=== PATIENT | male | born 1970 | race African-American/Black ===

== ENCOUNTER 2018-06-21 10:33 | Inpatient (IN) | payer OTHER ==
[2018-06-21 10:49] VITALS: BMI 38.7
--- NOTE | 2018-06-21 12:45 | HP ---
CIWA Score - CIWA Score Nausea/Vomitin-No Nausea/No Vomiting Muscle Tremors: 4-Moderate,w/Arms Extend Anxiety: 3 Agitation: 3 Paroxysmal Sweats: 3 Orientation: 1-Uncertain about Date Tacttile Disturbances: 0-None Auditory Disturbances: 0-None Visual Disturbances: 0-None Headache: 3-Moderate CIWA-Ar Total Score: 17 Admission ROS BHS - HPI Chief Complaint: alcohol withdrawal symptoms Allergies/Adverse Reactions: Allergies Allergy/AdvReac Type Severity Reaction Status Date / Time peanut Allergy Severe Difficulty Verified 09/21/17 13:59 Breathing fish derived Allergy Intermediate Verified 09/21/17 13:59 No Known Drug Allergies Allergy Unknown Verified 09/21/17 13:59 red sauce Allergy Uncoded 09/21/17 13:59 History of Present Illness: 47 yo male with hx of nicotine, cocaine and alcohol dependence is here seeking admission for alcohol detox. PMHX: HTN, OA (L) knee. Denies any psychiatric diagnosis. Denies suicidal / homicidal ideation. Utox positive for benzo, denies any recent detox, hospital admission or emergency room visit, attributes to last cocaine use. Last detox [facility] 09/21/17 -09/24/17. Longest period of sobriety 11 months. Denies hx of seizures or blackouts. Exam Limitations: No Limitations - Ebola screening Have you traveled outside of the country in the last 21 days: No Have you had contact with anyone from an Ebola affected area: No Have you been sick,other than usual withdrawal symptoms: No Do you have a fever: No - Review of Systems Constitutional: Diaphoresis, Changes in sleep EENT: reports: No Symptoms Reported Respiratory: reports: No Symptoms reported Cardiac: reports: No Symptoms Reported GI: reports: Poor Fluid Intake, Indigestion : reports: No Symptoms Reported Musculoskeletal: reports: Back Pain, Joint Pain Integumentary: reports: No Symptoms Reported Neuro: reports: Headache Endocrine: reports: Increased Thirst Hematology: reports: No Symptoms Reported Psychiatric: reports: Orientated x3, Anxious Other Systems: Reviewed and Negative Patient History - Patient Medical History Hx Anemia: No Hx Asthma: No Hx Chronic Obstructive Pulmonary Disease (COPD): No Hx Cancer: No Hx Cardiac Disorders: No Hx Congestive Heart Failure: No Hx Hypertension: Yes Hx Hypercholesterolemia: No Hx Pacemaker: No HX Cerebrovascular Accident: No Hx Seizures: No Hx Dementia: No Hx Diabetes: No Hx Gastrointestinal Disorders: No Hx Liver Disease: Yes (elevated liver enymes ) Hx Genitourinary Disorders: No Hx Sexually Transmitted Disorders: No Hx Renal Disease (ESRD): No Hx Thyroid Disease: No Hx Human Immunodeficiency Virus (HIV): No (NEGATIVE HX, Last tested Sep 2017, declines testing today ) Hx Hepatitis C: No Hx Depression: No Hx Suicide Attempt: No Hx Bipolar Disorder: No Hx Schizophrenia: No - Patient Surgical History Past Surgical History: No Hx Neurologic Surgery: No Hx Cataract Extraction: No Hx Cardiac Surgery: No Hx Lung Surgery: No Hx Breast Surgery: No Hx Breast Biopsy: No Hx Abdominal Surgery: No Hx Appendectomy: No Hx Cholecystectomy: No Hx Genitourinary Surgery: No Hx Section: No Hx Orthopedic Surgery: No Hx Hysterectomy: No Anesthesia Reaction: No - PPD History Previous Implant?: Yes Implanted On Prior [facility] Admission?: Yes Date: 09/23/17 Results: 0 mm PPD to be Administered?: Yes - Smoking Cessation Smoking history: Current every day smoker Have you smoked in the past 12 months: Yes Aproximately how many cigarettes per day: 10 Cigars Per Day: 0 Hx Chewing Tobacco Use: No Initiated information on smoking cessation: Yes 'Breaking Loose' booklet given: 06/21/18 - Substance & Tx. History Hx Alcohol Use: Yes Hx Substance Use: Yes Substance Use Type: Alcohol, Cocaine Hx Substance Use Treatment: Yes ([facility] 09/21/17 -09/24/17) - Substances Abused Alcohol Route: Oral Frequency: Daily Amount used: 10 40 oz Age of first use: 18 Date of Last Use: 06/21/18 Cocaine Route: Inhalation Frequency: 1-2 times per week Amount used: $20 Age of first use: 35 Date of Last Use: 06/19/18 Family Disease History - Family Disease History Family Disease History: Other: Grandparent (arthritis of knees), Mother (heroin overdose; dec @ 30 yo), Brother (alcoho/cirrhosis) Admission Physical Exam S - Vital Signs Vital Signs: Vital Signs - 24 hr 06/21/18 10:47 Temperature 98.9 F Pulse Rate 94 H Respiratory 20 Rate Blood Pressure 125/70 - Physical General Appearance: Yes: Disheveled, Obese, Sweating, Anxious, Other (malodorous ) HEENTM: Yes: EOMI, Hearing grossly Normal, Normal ENT Inspection, Normocephalic , Normal Voice, WES, Pharynx Normal, Tm's normal Respiratory: Yes: Chest Non-Tender, Lungs Clear, Normal Breath Sounds, No Respiratory Distress, No Accessory Muscle Use Neck: Yes: No masses,lesions,Nodules, Trachea in good position Breast: Yes: Breast Exam Deferred Cardiology: Yes: Within Normal Limits Abdominal: Yes: Normal Bowel Sounds, Non Tender, Soft, Protuberent Genitourinary: Yes: Within Normal Limits Back: Yes: Normal Inspection Musculoskeletal: Yes: full range of Motion, Gait Steady, Pelvis Stable, Back pain Extremities: Yes: Normal Capillary Refill, Normal Inspection, Normal Range of Motion, Non-Tender 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, Fully Oriented, Alert, Motor Strength 5/5, Normal Response, Depressed Affect Integumentary: Yes: Normal Color, Warm, Diaphoresis Lymphatic: Yes: Within Normal Limits - Diagnostic (1) Alcohol dependence with uncomplicated withdrawal Current Visit: Yes Status: Acute (2) Arthritis of left knee Current Visit: Yes Status: Chronic (3) Chronic low back pain Current Visit: Yes Status: Chronic Qualifiers: Back pain laterality: midline Sciatica presence: without sciatica Qualified Code(s): M54.5 - Low back pain; G89.29 - Other chronic pain (4) Cocaine dependence Current Visit: Yes Status: Acute (5) Nicotine dependence Current Visit: Yes Status: Acute Qualifiers: Nicotine product type: cigarettes (6) Essential hypertension Current Visit: Yes Status: Chronic (7) Obesity Current Visit: Yes Status: Chronic Cleared for Admission [facility] - Detox or Rehab [facility] Level of Care: Medically Managed Detox Regimen/Protocol: Librium [facility] Breath Alcohol Content Breath Alcohol Content: 0.011 Urine Drug Screen - Results Drug Screen Negative: No Urine Drug Screen Results: CARLI-Cocaine, BZO-Benzodiazepines
[2018-06-21] MEDS ORDERED: chlordiazePOXIDE HCL 25 MG CAPSULE PO PRN (12:50)
[2018-06-21] MEDS ORDERED: MAGNESIUM CITRATE 300 ML BOTTLE PO PRN (12:50)
[2018-06-21] MEDS ORDERED: MAG HYDROX/AL HYDROX/SIMETH 30 ML UNIT-DOSE CUP PO PRN (12:50)
[2018-06-21] MEDS ORDERED: P-EPHED 60MG/TRIPROLIDI 2.5MG TABLET PO PRN (12:50)
[2018-06-21] MEDS ORDERED: IBUPROFEN 400 MG TABLET (FP) PO PRN (12:50)
[2018-06-21] MEDS ORDERED: hydrOXYzine PAMOATE 50 MG CAPSULE (FP) PO PRN (12:50)
[2018-06-21] MEDS ORDERED: MAGNESIUM HYDROX 2400MG/30ML ORAL SUSPENSION 30 ML CUP PO PRN (12:50)
[2018-06-21] MEDS ORDERED: LOPERAMIDE HCL 2 MG CAPSULE PO PRN (12:50)
[2018-06-21] MEDS ORDERED: ACETAMINOPHEN 325 MG TABLET (FP) PO PRN (12:50)
[2018-06-21] MEDS ORDERED: guaiFENesin/D-METHORPHAN HB 10 ML UNIT-DOSE CUPS PO PRN (12:50)
[2018-06-21] MEDS ORDERED: MENTHOL/PHENOL 1 EACH UD MM PRN (12:50)
[2018-06-21] MEDS ORDERED: NICOTINE POLACRILEX 2 MG GUM BUC PRN (12:50)
[2018-06-21] MEDS ORDERED: chlordiazePOXIDE HCL 25 MG CAPSULE PO ONE (14:15)
--- NOTE | 2018-06-21 14:57 | CONSULT ---
[facility] Psychiatric Consult - Data Date of interview: 06/21/18 Admission source: [facility] Identifying data: This is 47 years old male, , father of one, unemployed , with no income, obese, with hx of nicotine, cocaine and alcohol dependence is here seeking admission for alcohol withdrawal symptoms. Patient reports no past psychiatric hospitalization history Substance Abuse History: Smoking history: Current every day smoker. Have you smoked in the past 12 months: Yes. Aproximately how many cigarettes per day: 10. Cigars Per Day: 0. Hx Chewing Tobacco Use: No. Initiated information on smoking cessation: Yes. 'Breaking Loose' booklet given: 06/21/18. - Substance & Tx. History. Hx Alcohol Use: Yes. Hx Substance Use: Yes. Substance Use Type : Alcohol, Cocaine. Hx Substance Use Treatment: Yes ([facility] 09/21/17 -09/24/17). - Substances Abused. Alcohol. Route: Oral. Frequency: Daily. Amount used : 10 40 oz. Age of first use: 18. Date of Last Use: 06/21/18. Cocaine. Route: Inhalation. Frequency: 1-2 times per week. Amount used: $20. Age of first use: 35. Date of Last Use: 06/19/18 Medical History: Obesity, L.knee arthritis, HTN, LBP Psychiatric History: Patient reports no past psychiatric history Physical/Sexual Abuse/Trauma History: Denies Additional Comment: Observation. Detox Unit Care Protocolo Mental Status Exam - Mental Status Exam Alert and Oriented to: Person Cognitive Function: Fair Patient Appearance: Unkempt Mood: Apprehensive Affect: Mood Congruent Patient Behavior: Cooperative Speech Pattern: Appropriate Voice Loudness: Mildly Soft/Quiet Thought Process: Goal Oriented Thought Disorder: Being Controlled Hallucinations: Denies Suicidal Ideation: Denies Homicidal Ideation: Denies Insight/Judgement: Fair Sleep: Difficulty falling asleep Appetite: Weight gain Muscle strength/Tone: Mild Hypotonicity Gait/Station: Shuffling Additional Comments: Observation. Detox Unit Care Protocolo Psychiatric Findings - Problem List ([place]) (1) Alcohol dependence with uncomplicated withdrawal Current Visit: Yes Status: Acute (2) Cocaine dependence Current Visit: Yes Status: Acute (3) Nicotine dependence Current Visit: Yes Status: Acute Qualifiers: Nicotine product type: cigarettes (4) Arthritis of left knee Current Visit: Yes Status: Chronic (5) Chronic low back pain Current Visit: Yes Status: Chronic Qualifiers: Back pain laterality: midline Sciatica presence: without sciatica Qualified Code(s): M54.5 - Low back pain; G89.29 - Other chronic pain (6) Obesity Current Visit: Yes Status: Chronic (7) Alcohol-induced anxiety disorder Current Visit: No Status: Acute (8) Alcohol-induced sleep disorder Current Visit: No Status: Acute (9) Drug-induced mood disorder Current Visit: No Status: Acute (10) Sedative/hypnotic withdrawal without complication Current Visit: No Status: Acute (11) Arthralgia of knee, left Current Visit: No Status: Chronic - Initial Treatment Plan Initial Treatment Plan: Observation. Detox Unit Care Protocolo
--- NOTE | 2018-06-21 16:47 | EKG ---
Test Reason : Blood Pressure : / mmHG Vent. Rate : 089 BPM Atrial Rate : 089 BPM P-R Int : 164 ms QRS Dur : 090 ms QT Int : 384 ms P-R-T Axes : 051 009 039 degrees QTc Int : 467 ms NORMAL SINUS RHYTHM NORMAL ECG WHEN COMPARED WITH ECG OF 21-SEP-2017 18:25, NO SIGNIFICANT CHANGE WAS FOUND Confirmed by AMANUEL SALAS MD ([id number]) on 06/21/2018 4:47:22 PM Referred By: Confirmed By:AMANUEL SALAS MD
[2018-06-21] MEDS: chlordiazePOXIDE HCL 25 MG CAPSULE PO SCH ×2 (17:25→22:29)
[2018-06-21] MEDS ORDERED: MELATONIN 5 MG TABLETS PO PRN (22:00)
[2018-06-21] MEDS: THIAMINE HCL 100 MG TABLET (FP) PO SCH (22:29)
[2018-06-22 02:32] LABS: URINE APPEARANCE SLCLOUDY; URINE BILIRUBIN NEGATIVE (<2.0 mg/dL); URINE COLOR AMBER; URINE GLUCOSE (UA) NEGATIVE (NEGATIVE); URINE KETONE NEGATIVE (NEGATIVE); URINE LEUK ESTERASE NEGATIVE (NEGATIVE); URINE NITRITE NEGATIVE (NEGATIVE)
[2018-06-22 03:04] LABS: URINE PROTEIN 2+ (NEGATIVE)
[2018-06-22 03:15] LABS: EPI CELLS RARE /HPF (FEW); URINE MUCUS MODERATE
[2018-06-22] MEDS: chlordiazePOXIDE HCL 25 MG CAPSULE PO SCH ×4 (06:21→22:07)
[2018-06-22] MEDS: PRENATAL VITAMINS W/ FOLIC ACID TABLET (FP) PO SCH (10:43)
[2018-06-22] MEDS: NICOTINE 14 MG/24 HOURS TOPICAL PATCH TD SCH (10:43)
[2018-06-22] MEDS: LISINOPRIL 5 MG TABLET (FP) PO SCH (10:43)
[2018-06-22 11:01] LABS: HEMATOCRIT 41.6 % (35.4-49); MCH 31.2 pg (25.7-33.7); MCHC 33.7 g/dl (32.0-35.9); MEAN CELL VOLUME 92.7 fl (80-96); MEAN PLT VOLUME 9.4 fl (7.5-11.1); PLATELET COUNT 251 K/MM3 (134-434); RBC 4.48 M/mm3 (4.00-5.60); RDW 14.1 % (11.9-15.9); WHITE BLOOD COUNT 11.3 K/mm3 (4.0-10.0)
[2018-06-22 11:21] LABS: CHLORIDE 105 mmol/L (98-107); SODIUM 141 mmol/L (136-145)
[2018-06-22 11:29] LABS: ALBUMIN 4.2 g/dl (3.4-5.0); ALK PHOS 105 U/L (45-117); ANION GAP 18 (8-16); BILIRUBIN,TOTAL 0.5 mg/dL (0.2-1.0); BLOOD UREA NITROGEN 24 mg/dL (7-18); CALCIUM 9.3 mg/dL (8.5-10.1); CO2 18 mmol/L (21-32); CREATININE 1.4 mg/dL (0.7-1.3); GLUCOSE,RANDOM 134 mg/dL (74-106); SGPT/ALT 135 U/L (12-78)
[2018-06-22 11:45] LABS: SGOT/AST 122 U/L (15-37)
[2018-06-22 11:46] LABS: POTASSIUM 4.2 mmol/L (3.5-5.1)
--- NOTE | 2018-06-22 14:58 | PN ---
S CIWA - CIWA Score Nausea/Vomitin Muscle Tremors: 3 Anxiety: 3 Agitation: 3 Paroxysmal Sweats: 1-Minimal Palms Moist Orientation: 0-Oriented Tacttile Disturbances: 1-Very Mild Itch/Numbness Auditory Disturbances: 1-Very Mild Visual Disturbances: 0-None Headache: 2-Mild CIWA-Ar Total Score: 17 S Progress Note (SOAP) Subjective: alert,irritable,anxious,interrupted sleep,tremor Objective: 06/22/18 14:53 Vital Signs Temperature 97.7 F 06/22/18 13:25 Pulse Rate 82 06/22/18 13:25 Respiratory Rate 16 06/22/18 13:25 Blood Pressure 107/55 06/22/18 13:25 O2 Sat by Pulse Oximetry (%) ekg nsr,normal ecg qt/qtc 384/467 Laboratory Last Values WBC 11.3 K/mm3 (4.0-10.0) H 06/22/18 06:00 RBC 4.48 M/mm3 (4.00-5.60) 06/22/18 06:00 Hgb 14.0 GM/dL (11.7-16.9) 06/22/18 06:00 Hct 41.6 % (35.4-49) 06/22/18 06:00 MCV 92.7 fl (80-96) 06/22/18 06:00 MCH 31.2 pg (25.7-33.7) 06/22/18 06:00 MCHC 33.7 g/dl (32.0-35.9) 06/22/18 06:00 RDW 14.1 % (11.9-15.9) 06/22/18 06:00 Plt Count 251 K/MM3 (134-434) 06/22/18 06:00 MPV 9.4 fl (7.5-11.1) 06/22/18 06:00 Sodium 141 mmol/L (136-145) 06/22/18 06:00 Potassium 4.2 mmol/L (3.5-5.1) 06/22/18 06:00 Chloride 105 mmol/L (98-107) 06/22/18 06:00 Carbon Dioxide 18 mmol/L (21-32) L 06/22/18 06:00 Anion Gap 18 (8-16) H 06/22/18 06:00 BUN 24 mg/dL (7-18) H 06/22/18 06:00 Creatinine 1.4 mg/dL (0.7-1.3) H 06/22/18 06:00 Creat Clearance w eGFR 53.86 (>60) 06/22/18 06:00 Random Glucose 134 mg/dL (74-106) H 06/22/18 06:00 Calcium 9.3 mg/dL (8.5-10.1) 06/22/18 06:00 Total Bilirubin 0.5 mg/dL (0.2-1.0) 06/22/18 06:00 AST 122 U/L (15-37) H D 06/22/18 06:00 ALT 135 U/L (12-78) H D 06/22/18 06:00 Alkaline Phosphatase 105 U/L (45-117) 06/22/18 06:00 Total Protein 8.0 g/dl (6.4-8.2) 06/22/18 06:00 Albumin 4.2 g/dl (3.4-5.0) 06/22/18 06:00 Urine Color Chyna 06/21/18 23:20 Urine Appearance Slcloudy 06/21/18 23:20 Urine pH 5.0 (5.0-8.0) 06/21/18 23:20 Ur Specific [place] 1.028 (1.001-1.035) 06/21/18 23:20 Urine Protein 2+ (NEGATIVE) H 06/21/18 23:20 Urine Glucose (UA) Negative (NEGATIVE) 06/21/18 23:20 Urine Ketones Negative (NEGATIVE) 06/21/18 23:20 Urine Blood 3+ (NEGATIVE) H 06/21/18 23:20 Urine Nitrite Negative (NEGATIVE) 06/21/18 23:20 Urine Bilirubin Negative (<2.0 mg/dL) 06/21/18 23:20 Urine Urobilinogen 2.0 mg/dL (0.2-1.0) 06/21/18 23:20 Ur Leukocyte Esterase Negative (NEGATIVE) 06/21/18 23:20 Urine WBC (Auto) 4 /hpf (3-5) 06/21/18 23:20 Urine RBC (Auto) 1 /hpf (0-3) 06/21/18 23:20 Ur Epithelial Cells Rare /HPF (FEW) 06/21/18 23:20 Urine Mucus Moderate 06/21/18 23:20 Assessment: 06/22/18 14:56 withdrawal symptom Plan: continue detox,encourage oral fluid,water,repeat abc,cmp,inr in am,d/c tylenol for elevation of alt,ast, bgm monitoring
[2018-06-22] MEDS: THIAMINE HCL 100 MG TABLET (FP) PO SCH (22:07)
[2018-06-23] MEDS: chlordiazePOXIDE HCL 25 MG CAPSULE PO SCH ×2 (05:45→10:12)
[2018-06-23] MEDS: PRENATAL VITAMINS W/ FOLIC ACID TABLET (FP) PO SCH (10:12)
[2018-06-23] MEDS: NICOTINE 14 MG/24 HOURS TOPICAL PATCH TD SCH (10:12)
[2018-06-23] MEDS: LISINOPRIL 5 MG TABLET (FP) PO SCH (10:12)
[2018-06-23 10:48] LABS: HEMATOCRIT 42.2 % (35.4-49); MCH 30.7 pg (25.7-33.7); MCHC 33.1 g/dl (32.0-35.9); MEAN CELL VOLUME 92.8 fl (80-96); MEAN PLT VOLUME 9.1 fl (7.5-11.1); PLATELET COUNT 239 K/MM3 (134-434); RBC 4.55 M/mm3 (4.00-5.60); RDW 13.8 % (11.9-15.9); WHITE BLOOD COUNT 7.7 K/mm3 (4.0-10.0)
[2018-06-23 11:01] LABS: INR 0.97 (0.83-1.09)
[2018-06-23 11:29] LABS: CHLORIDE 104 mmol/L (98-107); POTASSIUM 4.5 mmol/L (3.5-5.1); SODIUM 141 mmol/L (136-145)
[2018-06-23 11:59] LABS: ALBUMIN 3.8 g/dl (3.4-5.0); ALK PHOS 107 U/L (45-117); ANION GAP 12 (8-16); BILIRUBIN,TOTAL 0.4 mg/dL (0.2-1.0); BLOOD UREA NITROGEN 9 mg/dL (7-18); CALCIUM 9.5 mg/dL (8.5-10.1); CO2 25 mmol/L (21-32); CREATININE 0.9 mg/dL (0.7-1.3); GLUCOSE,RANDOM 144 mg/dL (74-106); SGOT/AST 40 U/L (15-37); SGPT/ALT 84 U/L (12-78); TOT PROT 7.5 g/dl (6.4-8.2)
--- NOTE | 2018-06-23 13:40 | PN ---
S CIWA - CIWA Score Nausea/Vomitin Muscle Tremors: 3 Anxiety: 2 Agitation: 2 Paroxysmal Sweats: 1-Minimal Palms Moist Orientation: 0-Oriented Tacttile Disturbances: 1-Very Mild Itch/Numbness Auditory Disturbances: 1-Very Mild Visual Disturbances: 0-None Headache: 2-Mild CIWA-Ar Total Score: 15 BHS Progress Note (SOAP) Subjective: alert,irritable,anxious,interrupted sleep,tremor Objective: 06/23/18 13:39 Vital Signs Temperature 97.9 F 06/23/18 09:31 Pulse Rate 68 06/23/18 09:31 Respiratory Rate 19 06/23/18 09:31 Blood Pressure 116/69 06/23/18 09:31 O2 Sat by Pulse Oximetry (%) Assessment: 06/23/18 13:39 withdrawal symptom Plan: continue detox
[2018-06-23] MEDS: chlordiazePOXIDE 5 MG CAPSULE PO SCH ×2 (18:30→22:15)
[2018-06-23] MEDS: THIAMINE HCL 100 MG TABLET (FP) PO SCH (22:15)
[2018-06-24] MEDS: chlordiazePOXIDE 5 MG CAPSULE PO SCH (05:34)
[2018-06-24 07:21] VITALS: TEMP 96.8
[2018-06-24] MEDS: PRENATAL VITAMINS W/ FOLIC ACID TABLET (FP) PO SCH (09:53)
[2018-06-24] MEDS: LISINOPRIL 5 MG TABLET (FP) PO SCH (09:54)
[2018-06-24 10:37] VITALS: BP 116/68; PULSE 66
--- NOTE | 2018-06-24 12:07 | PN ---
BHS Progress Note (SOAP) Subjective: pt states he wants to leave today as he has an HRA appointment at noon Objective: 06/24/18 12:04 Vital Signs - 24 hr 06/23/18 06/23/18 06/23/18 15:05 18:50 22:32 Temperature 97.2 F L 97.9 F 98.2 F Pulse Rate 79 73 93 H Respiratory 19 18 18 Rate Blood Pressure 116/68 114/71 128/75 06/24/18 06/24/18 06/24/18 00:30 03:30 07:21 Temperature 96.8 F L Pulse Rate 54 L Respiratory 18 20 20 Rate Blood Pressure 106/59 06/24/18 10:36 Temperature 96.8 F L Pulse Rate 66 Respiratory 20 Rate Blood Pressure 116/68 Laboratory Tests 06/21/18 06/22/18 06/22/18 23:20 06:00 06:00 WBC 11.3 H RBC 4.48 Hgb 14.0 Hct 41.6 MCV 92.7 MCH 31.2 MCHC 33.7 RDW 14.1 Plt Count 251 MPV 9.4 PT with INR INR Sodium 141 Potassium 4.2 Chloride 105 Carbon Dioxide 18 L Anion Gap 18 H BUN 24 H Creatinine 1.4 H Creat Clearance w eGFR 53.86 POC Glucometer Random Glucose 134 H Calcium 9.3 Total Bilirubin 0.5 AST 122 H D ALT 135 H D Alkaline Phosphatase 105 Total Protein 8.0 Albumin 4.2 Urine Color Chyna Urine Appearance Slcloudy Urine pH 5.0 Ur Specific [place] 1.028 Urine Protein 2+ H Urine Glucose (UA) Negative Urine Ketones Negative Urine Blood 3+ H Urine Nitrite Negative Urine Bilirubin Negative Urine Urobilinogen 2.0 Ur Leukocyte Esterase Negative Urine WBC (Auto) 4 Urine RBC (Auto) 1 Ur Epithelial Cells Rare Urine Mucus Moderate RPR Titer 06/22/18 06/22/18 06/23/18 06:00 16:31 07:30 WBC RBC Hgb Hct MCV MCH MCHC RDW Plt Count MPV PT with INR INR Sodium 141 Potassium 4.5 Chloride 104 Carbon Dioxide 25 D Anion Gap 12 BUN 9 Creatinine 0.9 Creat Clearance w eGFR > 60 POC Glucometer 142 Random Glucose 144 H Calcium 9.5 Total Bilirubin 0.4 AST 40 H D ALT 84 H D Alkaline Phosphatase 107 Total Protein 7.5 Albumin 3.8 Urine Color Urine Appearance Urine pH Ur Specific [place] Urine Protein Urine Glucose (UA) Urine Ketones Urine Blood Urine Nitrite Urine Bilirubin Urine Urobilinogen Ur Leukocyte Esterase Urine WBC (Auto) Urine RBC (Auto) Ur Epithelial Cells Urine Mucus RPR Titer Nonreactive 06/23/18 06/23/18 06/23/18 07:30 07:30 16:42 WBC 7.7 RBC 4.55 Hgb 14.0 Hct 42.2 MCV 92.8 MCH 30.7 MCHC 33.1 RDW 13.8 Plt Count 239 MPV 9.1 PT with INR 11.00 INR 0.97 Sodium Potassium Chloride Carbon Dioxide Anion Gap BUN Creatinine Creat Clearance w eGFR POC Glucometer 257 Random Glucose Calcium Total Bilirubin AST ALT Alkaline Phosphatase Total Protein Albumin Urine Color Urine Appearance Urine pH Ur Specific [place] Urine Protein Urine Glucose (UA) Urine Ketones Urine Blood Urine Nitrite Urine Bilirubin Urine Urobilinogen Ur Leukocyte Esterase Urine WBC (Auto) Urine RBC (Auto) Ur Epithelial Cells Urine Mucus RPR Titer 06/24/18 05:37 WBC RBC Hgb Hct MCV MCH MCHC RDW Plt Count MPV PT with INR INR Sodium Potassium Chloride Carbon Dioxide Anion Gap BUN Creatinine Creat Clearance w eGFR POC Glucometer 140 Random Glucose Calcium Total Bilirubin AST ALT Alkaline Phosphatase Total Protein Albumin Urine Color Urine Appearance Urine pH Ur Specific [place] Urine Protein Urine Glucose (UA) Urine Ketones Urine Blood Urine Nitrite Urine Bilirubin Urine Urobilinogen Ur Leukocyte Esterase Urine WBC (Auto) Urine RBC (Auto) Ur Epithelial Cells Urine Mucus RPR Titer increased liver enzymes abnormal UA increase f/s Assessment: 06/24/18 12:05 Pt states did well with detox Plan: d/c today to home
--- NOTE | 2018-06-24 12:18 | DS ---
[facility] Detox Discharge Summary Admission Date: 06/21/18 Discharge Date: 06/24/18 - History Present History: Alcohol Dependence, Cocaine Dependence - Physical Exam Results Vital Signs: Vital Signs Temperature 96.8 F L 06/24/18 10:36 Pulse Rate 66 06/24/18 10:36 Respiratory Rate 20 06/24/18 10:36 Blood Pressure 116/68 06/24/18 10:36 O2 Sat by Pulse Oximetry (%) Pertinent Admission Physical Exam Findings: 47 yo male with hx of nicotine, cocaine and alcohol dependence admitted for alcohol detox - Treatment Hospital Course: Detox Protocol Followed, Detoxed Safely (pt left 1 day early) - Medication Discharge Medications: Ambulatory Orders Lisinopril [Prinivil] 5 mg PO DAILY #30 tablet 06/24/18 - Diagnosis (1) Alcohol dependence with uncomplicated withdrawal Status: Acute (2) Cocaine dependence Status: Acute (3) Nicotine dependence Status: Acute Qualifiers: Nicotine product type: cigarettes (4) Alcohol dependence Status: Chronic (5) Essential hypertension Status: Chronic (6) Obesity Status: Chronic - AMA Did Patient Leave Against Medical Advice: No
[2018-06-24] MEDS ORDERED: chlordiazePOXIDE HCL 10 MG CAPSULE PO SCH (17:00)
== END 2018-06-24 10:05 | disposition home or self-care (01) | DRG 774 ==
LOC: YASAS 10:33 → Y6N 11:57
PROVIDERS: ADMIT Surgery; ATTEND Surgery
PROC: HZ2ZZZZ Detoxification Services for Substance Abuse Treatment (ICD-10-PCS; principal; 2018-06-21)
DX: F10.230 Alcohol dependence with withdrawal, uncomplicated (principal); F10.280 Alcohol dependence with alcohol-induced anxiety disorder; F10.282 Alcohol dependence with alcohol-induced sleep disorder; F14.20 Cocaine dependence, uncomplicated; F13.20 Sedative, hypnotic or anxiolytic dependence, uncomplicated; F17.210 Nicotine dependence, cigarettes, uncomplicated; F19.24 Other psychoactive substance dependence with psychoactive substance-induced mood disorder; I10 Essential (primary) hypertension; R82.90 Unspecified abnormal findings in urine; M54.5 Low back pain; G89.29 Other chronic pain; M13.862 Other specified arthritis, left knee; E66.9 Obesity, unspecified; Z68.38 Body mass index [BMI] 38.0-38.9, adult; Z91.010 Allergy to peanuts; Z91.013 Allergy to seafood
CPT/HCPCS: 36415; 80053; 81003; 81015; 82962; 85027; 85610; 86593; 93005; 93010

== ENCOUNTER 2018-07-18 11:07 | Inpatient (IN) | payer OTHER ==
[2018-07-18 11:33] VITALS: BMI 38.2
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
[2018-07-18] MEDS ORDERED: MAGNESIUM CITRATE 300 ML BOTTLE PO PRN (14:48)
[2018-07-18] MEDS ORDERED: LOPERAMIDE HCL 2 MG CAPSULE PO PRN (14:48)
[2018-07-18] MEDS ORDERED: IBUPROFEN 400 MG TABLET (FP) PO PRN (14:48)
[2018-07-18] MEDS ORDERED: NICOTINE POLACRILEX 2 MG GUM BC PRN (14:48)
[2018-07-18] MEDS ORDERED: chlordiazePOXIDE HCL 25 MG CAPSULE PO PRN (14:48)
[2018-07-18] MEDS ORDERED: MENTHOL/PHENOL 1 EACH UD MM PRN (14:48)
[2018-07-18] MEDS ORDERED: MAGNESIUM HYDROX 2400MG/30ML ORAL SUSPENSION 30 ML CUP PO PRN (14:48)
[2018-07-18] MEDS ORDERED: chlordiazePOXIDE HCL 25 MG CAPSULE PO ONE (14:48)
[2018-07-18] MEDS ORDERED: MAG HYDROX/AL HYDROX/SIMETH 30 ML UNIT-DOSE CUP PO PRN (14:48)
[2018-07-18] MEDS ORDERED: ACETAMINOPHEN 325 MG TABLET (FP) PO PRN (14:48)
[2018-07-18] MEDS ORDERED: P-EPHED 60MG/TRIPROLIDI 2.5MG TABLET PO PRN (14:48)
[2018-07-18] MEDS ORDERED: hydrOXYzine PAMOATE 50 MG CAPSULE (FP) PO PRN (14:48)
[2018-07-18] MEDS ORDERED: guaiFENesin/D-METHORPHAN HB 10 ML UNIT-DOSE CUPS PO PRN (14:48)
[2018-07-18] MEDS: chlordiazePOXIDE HCL 25 MG CAPSULE PO SCH ×2 (16:54→22:09)
[2018-07-18 21:18] LABS: URINE APPEARANCE CLEAR; URINE BILIRUBIN NEGATIVE (<2.0 mg/dL); URINE COLOR LTYELLOW; URINE GLUCOSE (UA) NEGATIVE (NEGATIVE); URINE KETONE NEGATIVE (NEGATIVE); URINE LEUK ESTERASE NEGATIVE (NEGATIVE); URINE NITRITE NEGATIVE (NEGATIVE); URINE PROTEIN NEGATIVE (NEGATIVE); URINE UROBILINOGEN NEGATIVE mg/dL (0.2-1.0)
[2018-07-18] MEDS: THIAMINE HCL 100 MG TABLET (FP) PO SCH (22:08)
[2018-07-18] MEDS: MELATONIN 5 MG TABLETS PO PRN (22:09)
[2018-07-19] MEDS: chlordiazePOXIDE HCL 25 MG CAPSULE PO SCH ×4 (05:27→22:11)
--- NOTE | 2018-07-19 08:39 | CONSULT ---
[facility] Psychiatric Consult - Data Date of interview: 07/19/18 Admission source: [facility] Identifying data: Full [employer] Developer approched patient for psychiatric consultation. Pt. stated, " i'm good. i don't need to speak to you." [employer] Developer informed patient that as per pharmacy claims, he is prescribed seroquel 100mg + prozac 20mg. Pt. responded by stating, " i'm not taking that here. its ok. i'm fine." Pt. encouraged to accept psychotropic medication but continue to refuse.
[2018-07-19 09:48] LABS: HEMATOCRIT 43.6 % (35.4-49); HEMOGLOBIN 14.2 GM/dL (11.7-16.9); MCH 30.1 pg (25.7-33.7); MCHC 32.6 g/dl (32.0-35.9); MEAN CELL VOLUME 92.5 fl (80-96); MEAN PLT VOLUME 8.5 fl (7.5-11.1); PLATELET COUNT 181 K/MM3 (134-434); RBC 4.72 M/mm3 (4.00-5.60); RDW 14.1 % (11.9-15.9); WHITE BLOOD COUNT 7.4 K/mm3 (4.0-10.0)
[2018-07-19 10:00] LABS: CHLORIDE 106 mmol/L (98-107); POTASSIUM 4.3 mmol/L (3.5-5.1); SODIUM 140 mmol/L (136-145)
[2018-07-19] MEDS: PRENATAL VITAMINS W/ FOLIC ACID TABLET (FP) PO SCH (10:05)
[2018-07-19] MEDS: LISINOPRIL 5 MG TABLET (FP) PO SCH (10:05)
[2018-07-19 10:11] LABS: ALBUMIN 3.6 g/dl (3.4-5.0); ALK PHOS 101 U/L (45-117); ANION GAP 10 MMOL/L (8-16); BILIRUBIN,TOTAL 0.8 mg/dL (0.2-1.0); BLOOD UREA NITROGEN 14 mg/dL (7-18); CALCIUM 8.8 mg/dL (8.5-10.1); CO2 24 mmol/L (21-32); CREATININE 0.8 mg/dL (0.7-1.3); GLUCOSE,RANDOM 96 mg/dL (74-106); SGOT/AST 63 U/L (15-37); SGPT/ALT 84 U/L (12-78); TOT PROT 7.1 g/dl (6.4-8.2)
--- NOTE | 2018-07-19 10:26 | PN ---
S CIWA - CIWA Score Nausea/Vomitin-No Nausea/No Vomiting Muscle Tremors: 4-Moderate,w/Arms Extend Anxiety: 4-Mod. Anxious/Guarded Agitation: 4-Moderately Restless Paroxysmal Sweats: 1-Minimal Palms Moist Orientation: 0-Oriented Tacttile Disturbances: 0-None Auditory Disturbances: 0-None Visual Disturbances: 0-None Headache: 0-None Present CIWA-Ar Total Score: 13 [facility] Progress Note (SOAP) Subjective: C/O TREMORS, ANXIETY, FATIGUE. Objective: 07/19/18 10:26 Vital Signs 07/19/18 07/19/18 07/19/18 03:30 06:01 06:30 Temperature 97 F L Pulse Rate 51 L Respiratory 18 18 18 Rate Blood Pressure 93/60 07/19/18 09:05 Temperature 97.4 F L Pulse Rate 53 L Respiratory 18 Rate Blood Pressure 91/54 Laboratory Tests 07/18/18 07/19/18 07/19/18 16:50 07:30 07:30 WBC 7.4 RBC 4.72 Hgb 14.2 Hct 43.6 MCV 92.5 MCH 30.1 MCHC 32.6 RDW 14.1 Plt Count 181 D MPV 8.5 Sodium 140 Potassium 4.3 Chloride 106 Carbon Dioxide 24 Anion Gap 10 BUN 14 Creatinine 0.8 Creat Clearance w eGFR > 60 Random Glucose 96 D Calcium 8.8 Total Bilirubin 0.8 AST 63 H D ALT 84 H Alkaline Phosphatase 101 Total Protein 7.1 Albumin 3.6 Urine Color Ltyellow Urine Appearance Clear Urine pH 5.0 Ur Specific [place] 1.010 Urine Protein Negative Urine Glucose (UA) Negative Urine Ketones Negative Urine Blood Negative Urine Nitrite Negative Urine Bilirubin Negative Urine Urobilinogen Negative Ur Leukocyte Esterase Negative Assessment: 07/19/18 10:26 WITHDRAWAL SX Plan: CONTINUE DETOX
--- NOTE | 2018-07-19 14:17 | EKG ---
Test Reason : Blood Pressure : / mmHG Vent. Rate : 082 BPM Atrial Rate : 082 BPM P-R Int : 172 ms QRS Dur : 078 ms QT Int : 400 ms P-R-T Axes : 059 006 049 degrees QTc Int : 467 ms NORMAL SINUS RHYTHM NORMAL ECG WHEN COMPARED WITH ECG OF 21-JUN-2018 13:42, NO SIGNIFICANT CHANGE WAS FOUND Confirmed by ASHELY COLE MD ([id number]) on 07/19/2018 2:17:45 PM Referred By: Confirmed By:ASHELY COLE MD
[2018-07-19] MEDS: MELATONIN 5 MG TABLETS PO PRN (22:11)
[2018-07-19] MEDS: THIAMINE HCL 100 MG TABLET (FP) PO SCH (22:11)
[2018-07-20] MEDS: chlordiazePOXIDE HCL 25 MG CAPSULE PO SCH ×2 (05:27→10:03)
[2018-07-20] MEDS: LISINOPRIL 5 MG TABLET (FP) PO SCH (10:03)
[2018-07-20] MEDS: PRENATAL VITAMINS W/ FOLIC ACID TABLET (FP) PO SCH (10:03)
[2018-07-20] MEDS ORDERED: COLLOIDAL OATMEAL 1 BAR EACH TP PRN (10:25)
--- NOTE | 2018-07-20 10:29 | PN ---
[facility] CIWA - CIWA Score Nausea/Vomitin-No Nausea/No Vomiting Muscle Tremors: 4-Moderate,w/Arms Extend Anxiety: 4-Mod. Anxious/Guarded Agitation: 4-Moderately Restless Paroxysmal Sweats: 1-Minimal Palms Moist Orientation: 0-Oriented Tacttile Disturbances: 3-Moderate Itch/Numb/Burn Auditory Disturbances: 0-None Visual Disturbances: 0-None Headache: 0-None Present CIWA-Ar Total Score: 16 [facility] Progress Note (SOAP) Subjective: ANXIETY,SWEATS,ITCHY SKIN/RASH UNDER BOTH ARMS. Objective: 07/20/18 10:27 Vital Signs 07/20/18 07/20/18 07/20/18 03:43 05:52 06:30 Temperature 98.6 F Pulse Rate 62 Respiratory 18 18 18 Rate Blood Pressure 147/90 07/20/18 09:37 Temperature 97.1 F L Pulse Rate 55 L Respiratory 20 Rate Blood Pressure 110/68 Laboratory Tests 07/18/18 07/19/18 07/19/18 16:50 07:30 07:30 WBC 7.4 RBC 4.72 Hgb 14.2 Hct 43.6 MCV 92.5 MCH 30.1 MCHC 32.6 RDW 14.1 Plt Count 181 D MPV 8.5 Sodium 140 Potassium 4.3 Chloride 106 Carbon Dioxide 24 Anion Gap 10 BUN 14 Creatinine 0.8 Creat Clearance w eGFR > 60 Random Glucose 96 D Calcium 8.8 Total Bilirubin 0.8 AST 63 H D ALT 84 H Alkaline Phosphatase 101 Total Protein 7.1 Albumin 3.6 Urine Color Ltyellow Urine Appearance Clear Urine pH 5.0 Ur Specific [place] 1.010 Urine Protein Negative Urine Glucose (UA) Negative Urine Ketones Negative Urine Blood Negative Urine Nitrite Negative Urine Bilirubin Negative Urine Urobilinogen Negative Ur Leukocyte Esterase Negative RPR Titer 07/19/18 07:30 WBC RBC Hgb Hct MCV MCH MCHC RDW Plt Count MPV Sodium Potassium Chloride Carbon Dioxide Anion Gap BUN Creatinine Creat Clearance w eGFR Random Glucose Calcium Total Bilirubin AST ALT Alkaline Phosphatase Total Protein Albumin Urine Color Urine Appearance Urine pH Ur Specific [place] Urine Protein Urine Glucose (UA) Urine Ketones Urine Blood Urine Nitrite Urine Bilirubin Urine Urobilinogen Ur Leukocyte Esterase RPR Titer Nonreactive SKIN DISCOLORATION UNDER BOTH UPPER ARMS ON CONTACT WITH TRUNK.--HEAT RASH Assessment: 07/20/18 10:28 WITHDRAWAL SX RASH Plan: CONTINUE DETOX AVEENO SOAP HYDROCORTISONE CREAM
[2018-07-20] MEDS: HYDROCORTISONE 1% TOPICAL CREAM 30 GM TUBE TP SCH ×2 (14:32→22:14)
[2018-07-20] MEDS: chlordiazePOXIDE 5 MG CAPSULE PO SCH ×2 (17:15→22:13)
[2018-07-20] MEDS: THIAMINE HCL 100 MG TABLET (FP) PO SCH (22:13)
[2018-07-21] MEDS: chlordiazePOXIDE 5 MG CAPSULE PO SCH (04:29)
[2018-07-21] MEDS ORDERED: CEPHALEXIN MONOHYDRATE 500 MG CAPSULE (UD) PO ONE (09:17)
[2018-07-21] MEDS ORDERED: CEPHALEXIN MONOHYDRATE 500 MG CAPSULE (UD) PO SCH ×2 (10:00→22:00)
[2018-07-21] MEDS: HYDROCORTISONE 1% TOPICAL CREAM 30 GM TUBE TP SCH (10:11)
[2018-07-21] MEDS: LISINOPRIL 5 MG TABLET (FP) PO SCH (10:11)
[2018-07-21] MEDS: PRENATAL VITAMINS W/ FOLIC ACID TABLET (FP) PO SCH (10:11)
[2018-07-21] MEDS: IBUPROFEN 600 MG TABLET (FP) PO PRN ×2 (10:13→15:59)
--- NOTE | 2018-07-21 10:58 | PN ---
[facility] Progress Note (SOAP) Subjective: PT REPORTS DETOX PROCEEDING WELL. C/O PAINFUL BUMP ON RIGHT UPPER BACK. Objective: 07/21/18 10:55 Vital Signs 07/21/18 07/21/18 07/21/18 03:21 06:17 06:30 Temperature 97.9 F Pulse Rate 52 L Respiratory 18 20 18 Rate Blood Pressure 81/47 07/21/18 07/21/18 07:37 09:14 Temperature 97.2 F L 97.1 F L Pulse Rate 46 L 53 L Respiratory 18 18 Rate Blood Pressure 85/52 125/71 Laboratory Tests 07/18/18 07/19/18 07/19/18 16:50 07:30 07:30 WBC 7.4 RBC 4.72 Hgb 14.2 Hct 43.6 MCV 92.5 MCH 30.1 MCHC 32.6 RDW 14.1 Plt Count 181 D MPV 8.5 Sodium 140 Potassium 4.3 Chloride 106 Carbon Dioxide 24 Anion Gap 10 BUN 14 Creatinine 0.8 Creat Clearance w eGFR > 60 Random Glucose 96 D Calcium 8.8 Total Bilirubin 0.8 AST 63 H D ALT 84 H Alkaline Phosphatase 101 Total Protein 7.1 Albumin 3.6 Urine Color Ltyellow Urine Appearance Clear Urine pH 5.0 Ur Specific [place] 1.010 Urine Protein Negative Urine Glucose (UA) Negative Urine Ketones Negative Urine Blood Negative Urine Nitrite Negative Urine Bilirubin Negative Urine Urobilinogen Negative Ur Leukocyte Esterase Negative RPR Titer 07/19/18 07:30 WBC RBC Hgb Hct MCV MCH MCHC RDW Plt Count MPV Sodium Potassium Chloride Carbon Dioxide Anion Gap BUN Creatinine Creat Clearance w eGFR Random Glucose Calcium Total Bilirubin AST ALT Alkaline Phosphatase Total Protein Albumin Urine Color Urine Appearance Urine pH Ur Specific [place] Urine Protein Urine Glucose (UA) Urine Ketones Urine Blood Urine Nitrite Urine Bilirubin Urine Urobilinogen Ur Leukocyte Esterase RPR Titer Nonreactive UPPER BACK: RIGHT UPPER BACK AREA WITH SWELLING/REDNESS, HARD TO PALPATION. Assessment: 07/21/18 10:55 WITHDRAWAL SX CELLULITIS WITH ABSCESS RIGHT UPPER BACK Plan: MARCH D/C TODAY AND FOLLOW UP WITH PMD FOR POSSIBLE I/D OF AREA WHEN MEDICALLY NECESSARY. 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
[2018-07-21] MEDS ORDERED: chlordiazePOXIDE HCL 10 MG CAPSULE PO SCH ×2 (11:00→17:00)
[2018-07-21 13:15] VITALS: BP 98/59; PULSE 59; TEMP 97
== END 2018-07-21 16:37 | disposition home or self-care (01) | DRG 774 ==
LOC: YASAS 11:07 → Y3N 15:57
PROC: HZ2ZZZZ Detoxification Services for Substance Abuse Treatment (ICD-10-PCS; principal; 2018-07-18)
DX: F10.230 Alcohol dependence with withdrawal, uncomplicated (principal); F14.20 Cocaine dependence, uncomplicated; F17.213 Nicotine dependence, cigarettes, with withdrawal; I10 Essential (primary) hypertension; M17.12 Unilateral primary osteoarthritis, left knee; L03.312 Cellulitis of back [any part except buttock and flank]; E66.9 Obesity, unspecified; Z68.38 Body mass index [BMI] 38.0-38.9, adult; Z91.013 Allergy to seafood; Z91.010 Allergy to peanuts
CPT/HCPCS: 36415; 80053; 81003; 85027; 86593; 93005; 93010

== ENCOUNTER 2018-08-29 12:31 | Inpatient (IN) | payer OTHER ==
[2018-08-29 13:18] VITALS: BMI 39.3
--- NOTE | 2018-08-29 15:33 | HP ---
CIWA Score - CIWA Score Nausea/Vomitin Muscle Tremors: 2 Anxiety: 2 Agitation: 2 Paroxysmal Sweats: 1-Minimal Palms Moist Orientation: 0-Oriented Tacttile Disturbances: 1-Very Mild Itch/Numbness Auditory Disturbances: 1-Very Mild Visual Disturbances: 1-Very Mild Sensitivity Headache: 2-Mild CIWA-Ar Total Score: 14 Admission ROS [facility] - HPI Chief Complaint: i need help to stop drinking alcohol,cocaine Allergies/Adverse Reactions: Allergies Allergy/AdvReac Type Severity Reaction Status Date / Time peanut Allergy Severe Difficulty Verified 08/29/18 17:13 Breathing fish derived Allergy Intermediate Verified 08/29/18 17:13 No Known Drug Allergies Allergy Unknown Verified 08/29/18 17:13 red sauce Allergy Uncoded 08/29/18 17:13 History of Present Illness: this 48 years old male with alcohol,cocaine dependence,seeking detox,withdrawal symptom, last detox 07/18/18 to 07/21/18 multiple admissions in detox but keep relapsing arthritis of left knee ,htn obesity bipolar disorder longest period of sobriety 18 years Exam Limitations: No Limitations - Ebola screening Have you traveled outside of the country in the last 21 days: No (N) Have you had contact with anyone from an Ebola affected area: No Have you been sick,other than usual withdrawal symptoms: No Do you have a fever: No - Review of Systems Constitutional: Loss of Appetite, Night Sweats, Changes in sleep, Weight Stable EENT: reports: Tearing, Nose Congestion Respiratory: reports: No Symptoms reported Cardiac: reports: No Symptoms Reported GI: reports: Diarrhea, Nausea, Poor Appetite, Abdominal cramping : reports: No Symptoms Reported Musculoskeletal: reports: Back Pain, Joint Pain, Muscle Pain, Joint Stiffness, Other (arthritis left knee) Integumentary: reports: Dryness Neuro: reports: Headache, Tremors Endocrine: reports: No Symptoms Reported Hematology: reports: No Symptoms Reported Psychiatric: reports: No Sypmtoms Reported, Judgement Intact, Mood/Affect Appropiate, Orientated x3, other (biplolar disorder) Patient History - Patient Medical History Hx Anemia: No Hx Asthma: No Hx Chronic Obstructive Pulmonary Disease (COPD): No Hx Cancer: No Hx Cardiac Disorders: No Hx Congestive Heart Failure: No Hx Hypertension: Yes ( on medications ) Hx Hypercholesterolemia: No Hx Pacemaker: No HX Cerebrovascular Accident: No Hx Seizures: No Hx Dementia: No Hx Diabetes: No Hx Gastrointestinal Disorders: No Hx Liver Disease: Yes (elevated liver enymes ) Hx Genitourinary Disorders: No Hx Sexually Transmitted Disorders: No Hx Renal Disease (ESRD): No Hx Thyroid Disease: No Hx Human Immunodeficiency Virus (HIV): No (NEGATIVE HX, Last tested Sep 2017, declines testing today ) Hx Hepatitis C: No Hx Depression: No (Denies thoughts of harming self or others. ) Hx Suicide Attempt: No Hx Bipolar Disorder: Yes (no med) Hx Schizophrenia: No Other Medical History: no suicidal,no homicidal - Patient Surgical History Past Surgical History: No Hx Neurologic Surgery: No Hx Cataract Extraction: No Hx Cardiac Surgery: No Hx Lung Surgery: No Hx Breast Surgery: No Hx Breast Biopsy: No Hx Abdominal Surgery: No Hx Appendectomy: No Hx Cholecystectomy: No Hx Genitourinary Surgery: No Hx Section: No Hx Orthopedic Surgery: No Hx Hysterectomy: No Anesthesia Reaction: No - PPD History Previous Implant?: Yes Documented Results: Negative w/proof Implanted On Prior [facility] Admission?: Yes Date: 09/23/17 Results: 0 mm PPD to be Administered?: No - Smoking Cessation Smoking history: Current every day smoker Have you smoked in the past 12 months: Yes Aproximately how many cigarettes per day: 10 If you are a former smoker, when did you quit?: Stopped smoking 3 weeks ago while in detox Cigars Per Day: 0 Hx Chewing Tobacco Use: No Initiated information on smoking cessation: Yes 'Breaking Loose' booklet given: 08/29/18 - Substance & Tx. History Hx Alcohol Use: Yes Hx Substance Use: Yes Substance Use Type: Alcohol, Cocaine, Marijuana Hx Substance Use Treatment: Yes ([facility] 07/18/18 to 07/21/18) - Substances Abused Alcohol Route: Oral Frequency: Daily Amount used: 10 of 40 ozs of beer Age of first use: 18 Date of Last Use: 08/30/18 Cocaine Route: Inhalation Frequency: 1-2 times per week Amount used: 40$ Age of first use: 35 Date of Last Use: 08/27/18 Family Disease History - Family Disease History Family Disease History: Other: Grandparent (arthritis of knees), Mother (heroin overdose; dec @ 30 yo), Brother (alcoho/cirrhosis) Admission Physical Exam [facility] - Vital Signs Vital Signs: Vital Signs - 24 hr 08/29/18 13:15 Temperature 97.8 F Pulse Rate 84 Respiratory 18 Rate Blood Pressure 148/75 - Physical General Appearance: Yes: Moderate Distress, Obese, Tremorous, Irritable, Sweating, Anxious HEENTM: Yes: Normocephalic, WES, Pharynx Normal Respiratory: Yes: Lungs Clear, Normal Breath Sounds, No Respiratory Distress Neck: Yes: Within Normal Limits, Supple, Trachea in good position Breast: Yes: Within Normal Limits Cardiology: Yes: Within Normal Limits, Regular Rhythm, Regular Rate, S1, S2 Abdominal: Yes: Within Normal Limits, Normal Bowel Sounds, Non Tender, Flat, Soft Genitourinary: Yes: Within Normal Limits Back: Yes: Muscle Spasm Musculoskeletal: Yes: Back pain, Joint Stiffness (pain and swelling left knee arthritis), Joint swelling, Muscle Pain Extremities: Yes: Tremors 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, Fully Oriented, Alert, Motor Strength 5/5 Integumentary: Yes: Dry Lymphatic: Yes: Within Normal Limits - Diagnostic (1) Alcohol dependence with uncomplicated withdrawal Current Visit: No Status: Acute (2) Cocaine dependence Current Visit: No Status: Acute (3) Nicotine dependence Current Visit: No Status: Acute Qualifiers: Nicotine product type: cigarettes Substance use status: in withdrawal Qualified Code(s): F17.213 - Nicotine dependence, cigarettes, with withdrawal (4) Chronic low back pain Current Visit: No Status: Chronic Qualifiers: Back pain laterality: midline Sciatica presence: without sciatica Qualified Code(s): M54.5 - Low back pain; G89.29 - Other chronic pain (5) Essential hypertension Current Visit: No Status: Chronic (6) Obesity Current Visit: No Status: Chronic (7) Arthritis of left knee Current Visit: Yes Status: Acute (8) Alcohol dependence with intoxication Current Visit: Yes Status: Acute Cleared for Admission [facility] - Detox or Rehab [facility] Level of Care: Medically Managed Detox Regimen/Protocol: Librium [facility] Breath Alcohol Content Breath Alcohol Content: 0.196 Urine Drug Screen - Results Drug Screen Negative: No Urine Drug Screen Results: CARLI-Cocaine, BZO-Benzodiazepines
[2018-08-29] MEDS ORDERED: IBUPROFEN 400 MG TABLET (FP) PO PRN (16:15)
[2018-08-29] MEDS ORDERED: ACETAMINOPHEN 325 MG TABLET (FP) PO PRN (16:15)
[2018-08-29] MEDS ORDERED: MAGNESIUM HYDROX 2400MG/30ML ORAL SUSPENSION 30 ML CUP PO PRN (16:15)
[2018-08-29] MEDS ORDERED: NICOTINE POLACRILEX 2 MG GUM BC PRN (16:15)
[2018-08-29] MEDS ORDERED: guaiFENesin/D-METHORPHAN HB 10 ML UNIT-DOSE CUPS PO PRN (16:15)
[2018-08-29] MEDS ORDERED: MAGNESIUM CITRATE 300 ML BOTTLE PO PRN (16:15)
[2018-08-29] MEDS ORDERED: LOPERAMIDE HCL 2 MG CAPSULE PO PRN (16:15)
[2018-08-29] MEDS ORDERED: chlordiazePOXIDE HCL 25 MG CAPSULE PO PRN (16:15)
[2018-08-29] MEDS ORDERED: P-EPHED 60MG/TRIPROLIDI 2.5MG TABLET PO PRN (16:15)
[2018-08-29] MEDS ORDERED: MENTHOL/PHENOL 1 EACH UD MM PRN (16:15)
[2018-08-29] MEDS ORDERED: MAG HYDROX/AL HYDROX/SIMETH 30 ML UNIT-DOSE CUP PO PRN (16:15)
[2018-08-29] MEDS ORDERED: hydrOXYzine PAMOATE 50 MG CAPSULE (FP) PO PRN (16:15)
[2018-08-29] MEDS: THIAMINE HCL 100 MG TABLET (FP) PO SCH (22:39)
[2018-08-29] MEDS: MELATONIN 5 MG TABLETS PO PRN (22:40)
[2018-08-29] MEDS: chlordiazePOXIDE HCL 25 MG CAPSULE PO SCH (22:40)
[2018-08-29 22:50] LABS: URINE APPEARANCE CLEAR; URINE BILIRUBIN NEGATIVE (<2.0 mg/dL); URINE COLOR STRAW; URINE GLUCOSE (UA) NEGATIVE (NEGATIVE); URINE KETONE NEGATIVE (NEGATIVE); URINE LEUK ESTERASE NEGATIVE (NEGATIVE); URINE NITRITE NEGATIVE (NEGATIVE); URINE PROTEIN NEGATIVE (NEGATIVE); URINE UROBILINOGEN NEGATIVE mg/dL (0.2-1.0)
[2018-08-30] MEDS: chlordiazePOXIDE HCL 25 MG CAPSULE PO SCH ×4 (05:53→23:29)
[2018-08-30 10:15] LABS: HEMATOCRIT 42.9 % (35.4-49); MCH 29.9 pg (25.7-33.7); MCHC 32.5 g/dl (32.0-35.9); MEAN PLT VOLUME 8.9 fl (7.5-11.1); PLATELET COUNT 166 K/MM3 (134-434); RBC 4.67 M/mm3 (4.00-5.60); RDW 13.7 % (11.9-15.9); WHITE BLOOD COUNT 7.5 K/mm3 (4.0-10.0)
[2018-08-30] MEDS: PRENATAL VITAMINS W/ FOLIC ACID TABLET (FP) PO SCH (10:19)
[2018-08-30 10:52] LABS: ALBUMIN 3.3 g/dl (3.4-5.0); ALK PHOS 128 U/L (45-117); ANION GAP 8 MMOL/L (8-16); BILIRUBIN,TOTAL 0.4 mg/dL (0.2-1); BLOOD UREA NITROGEN 13 mg/dL (7-18); CALCIUM 8.8 mg/dL (8.5-10.1); CHLORIDE 108 mmol/L (98-107); CO2 24 mmol/L (21-32); CREATININE 0.9 mg/dL (0.55-1.3); GLUCOSE,RANDOM 99 mg/dL (74-106); POTASSIUM 4.3 mmol/L (3.5-5.1); SGOT/AST 48 U/L (15-37); SGPT/ALT 59 U/L (13-61); SODIUM 140 mmol/L (136-145); TOT PROT 6.7 g/dl (6.4-8.2)
--- NOTE | 2018-08-30 13:31 | PN ---
S CIWA - CIWA Score Nausea/Vomitin Muscle Tremors: 4-Moderate,w/Arms Extend Anxiety: 4-Mod. Anxious/Guarded Agitation: 4-Moderately Restless Paroxysmal Sweats: 3 Orientation: 0-Oriented Tacttile Disturbances: 0-None Auditory Disturbances: 0-None Visual Disturbances: 0-None Headache: 0-None Present CIWA-Ar Total Score: 18 [facility] Progress Note (SOAP) Subjective: Sweating, tremor, diarrhea x 3, interrupted sleep Objective: 08/30/18 13:30 Last Vital Signs Temp Pulse Resp BP Pulse Ox 96.9 F L 62 17 103/64 08/30/18 09:32 08/30/18 10:30 08/30/18 10:30 08/30/18 09:32 Laboratory Tests 08/29/18 08/30/18 08/30/18 21:12 07:00 07:00 WBC 7.5 RBC 4.67 Hgb 14.0 Hct 42.9 MCV 92.0 MCH 29.9 MCHC 32.5 RDW 13.7 Plt Count 166 MPV 8.9 Sodium 140 Potassium 4.3 Chloride 108 H Carbon Dioxide 24 Anion Gap 8 BUN 13 Creatinine 0.9 Creat Clearance w eGFR > 60 Random Glucose 99 Calcium 8.8 Total Bilirubin 0.4 AST 48 H ALT 59 Alkaline Phosphatase 128 H Total Protein 6.7 Albumin 3.3 L Urine Color Straw Urine Appearance Clear Urine pH 6.0 Ur Specific [place] 1.004 L Urine Protein Negative Urine Glucose (UA) Negative Urine Ketones Negative Urine Blood Negative Urine Nitrite Negative Urine Bilirubin Negative Urine Urobilinogen Negative Ur Leukocyte Esterase Negative Labs reviewed Assessment: 08/30/18 13:32 Withdrawal sxs Plan: Continue detox Encouraged PO water intak
--- NOTE | 2018-08-30 18:00 | CONSULT ---
[facility] Psychiatric Consult - Data Date of interview: 08/30/18 Admission source: [facility] Identifying data: Approached for psychiatric evaluation. Patient asleep. Examination deferred.
[2018-08-30] MEDS: MELATONIN 5 MG TABLETS PO PRN (23:29)
[2018-08-30] MEDS: THIAMINE HCL 100 MG TABLET (FP) PO SCH (23:29)
[2018-08-31] MEDS: chlordiazePOXIDE HCL 25 MG CAPSULE PO SCH ×2 (05:32→10:24)
[2018-08-31] MEDS ORDERED: COLLOIDAL OATMEAL 1 BAR EACH TP PRN (09:13)
[2018-08-31 10:11] VITALS: BP 125/84; PULSE 65; TEMP 97
[2018-08-31] MEDS: PRENATAL VITAMINS W/ FOLIC ACID TABLET (FP) PO SCH (10:24)
--- NOTE | 2018-08-31 13:10 | PN ---
[facility] CIWA - CIWA Score Nausea/Vomitin-Mild Nausea/No Vomiting Muscle Tremors: 3 Anxiety: 3 Agitation: 3 Paroxysmal Sweats: 3 Orientation: 0-Oriented Tacttile Disturbances: 0-None Auditory Disturbances: 0-None Visual Disturbances: 0-None Headache: 1-Very Mild CIWA-Ar Total Score: 14 [facility] Progress Note (SOAP) Subjective: Sweating, interrupted sleep, fatigue, anxious Objective: 08/31/18 13:09 Last Vital Signs Temp Pulse Resp BP Pulse Ox 97 F L 65 18 125/84 08/31/18 10:10 08/31/18 10:10 08/31/18 10:10 08/31/18 10:10 Laboratory Tests 08/29/18 08/30/18 08/30/18 21:12 07:00 07:00 WBC 7.5 RBC 4.67 Hgb 14.0 Hct 42.9 MCV 92.0 MCH 29.9 MCHC 32.5 RDW 13.7 Plt Count 166 MPV 8.9 Sodium 140 Potassium 4.3 Chloride 108 H Carbon Dioxide 24 Anion Gap 8 BUN 13 Creatinine 0.9 Creat Clearance w eGFR > 60 Random Glucose 99 Calcium 8.8 Total Bilirubin 0.4 AST 48 H ALT 59 Alkaline Phosphatase 128 H Total Protein 6.7 Albumin 3.3 L Urine Color Straw Urine Appearance Clear Urine pH 6.0 Ur Specific [place] 1.004 L Urine Protein Negative Urine Glucose (UA) Negative Urine Ketones Negative Urine Blood Negative Urine Nitrite Negative Urine Bilirubin Negative Urine Urobilinogen Negative Ur Leukocyte Esterase Negative RPR Titer 08/30/18 07:00 WBC RBC Hgb Hct MCV MCH MCHC RDW Plt Count MPV Sodium Potassium Chloride Carbon Dioxide Anion Gap BUN Creatinine Creat Clearance w eGFR Random Glucose Calcium Total Bilirubin AST ALT Alkaline Phosphatase Total Protein Albumin Urine Color Urine Appearance Urine pH Ur Specific [place] Urine Protein Urine Glucose (UA) Urine Ketones Urine Blood Urine Nitrite Urine Bilirubin Urine Urobilinogen Ur Leukocyte Esterase RPR Titer Nonreactive Labs reviewed Assessment: 08/31/18 13:10 Withdrawal symptoms Plan: Continue detox Encouraged PO water intake
[2018-08-31] MEDS ORDERED: chlordiazePOXIDE 5 MG CAPSULE PO SCH (23:00)
[2018-09-01] MEDS ORDERED: chlordiazePOXIDE HCL 10 MG CAPSULE PO SCH (23:00)
== END 2018-08-31 14:01 | disposition left against medical advice (07) | DRG 770 ==
LOC: YASAS 12:31 → Y3N 15:37 → Y6N 19:12 → Y3N 19:13
PROC: HZ2ZZZZ Detoxification Services for Substance Abuse Treatment (ICD-10-PCS; principal; 2018-08-29)
DX: F10.230 Alcohol dependence with withdrawal, uncomplicated (principal); F14.20 Cocaine dependence, uncomplicated; F17.213 Nicotine dependence, cigarettes, with withdrawal; I10 Essential (primary) hypertension; M54.5 Low back pain; G89.29 Other chronic pain; E66.9 Obesity, unspecified; Z68.39 Body mass index [BMI] 39.0-39.9, adult; M13.862 Other specified arthritis, left knee; Z91.010 Allergy to peanuts; Z91.013 Allergy to seafood
CPT/HCPCS: 36415; 80053; 81003; 85027; 86593

== ENCOUNTER 2018-10-11 09:21 | Inpatient (IN) | payer OTHER ==
[2018-10-11 09:31] VITALS: BMI 36.1
--- NOTE | 2018-10-11 11:25 | HP ---
CIWA Score Nausea/Vomitin Muscle Tremors: 2 Anxiety: 2 Agitation: 2 Paroxysmal Sweats: 1-Minimal Palms Moist Orientation: 0-Oriented Tacttile Disturbances: 1-Very Mild Itch/Numbness Auditory Disturbances: 1-Very Mild Visual Disturbances: 0-None Headache: 2-Mild CIWA-Ar Total Score: 13 - Admission Criteria OASAS Guidelines: Admission for Medically Managed Detox: Requires at least one of the followin. CIWA greater than 12 2. Seizures within the past 24 hours 3. Delirium tremens within the past 24 hours 4. Hallucinations within the past 24 hours 5. Acute intervention needed for co occurring medical disorder 6. Acute intervention needed for co occurring psychiatric disorder 7. Severe withdrawal that cannot be handled at a lower level of care (continued vomiting, continued diarrhea, abnormal vital signs) requiring intravenous medication and/or fluids 8. Patient presents the following: CIWA greater than 12 Admission Criteria Met: Admission criteria met Admission ROS [facility] - HPI Chief Complaint: i need help to stop drinking alcohol and cocaine Allergies/Adverse Reactions: Allergies Allergy/AdvReac Type Severity Reaction Status Date / Time peanut Allergy Severe Difficulty Verified 10/11/18 10:38 Breathing fish derived Allergy Intermediate Verified 10/11/18 10:38 No Known Drug Allergies Allergy Unknown Verified 10/11/18 10:38 red sauce Allergy Uncoded 10/11/18 10:38 History of Present Illness: this 48 years old male with alcohol and cocaine dependence,seeking detox, withdrawal symptom,last detox 08/29/18 to 08/31/18 not completed history of hypertension,arthritis left knee nicotine dependence multiple admissions in the past longest period of sobriety 18 years insomnia plan to go to rehab obesity Exam Limitations: No Limitations - Ebola screening Have you traveled outside of the country in the last 21 days: No Have you had contact with anyone from an Ebola affected area: No Have you been sick,other than usual withdrawal symptoms: No Do you have a fever: No - Review of Systems Constitutional: Malaise, Night Sweats, Changes in sleep, Weakness, Other (obese) EENT: reports: Nose Congestion Respiratory: reports: No Symptoms reported Cardiac: reports: No Symptoms Reported GI: reports: Nausea, Poor Appetite, Abdominal cramping : reports: No Symptoms Reported Musculoskeletal: reports: Back Pain, Muscle Pain Integumentary: reports: Dryness Neuro: reports: Headache, Tremors Endocrine: reports: No Symptoms Reported Hematology: reports: No Symptoms Reported Psychiatric: reports: No Sypmtoms Reported, Judgement Intact, Mood/Affect Appropiate, Orientated x3 Patient History - Patient Medical History Hx Anemia: No Hx Asthma: No Hx Chronic Obstructive Pulmonary Disease (COPD): No Hx Cancer: No Hx Cardiac Disorders: No Hx Congestive Heart Failure: No Hx Hypertension: Yes (on med) Hx Hypercholesterolemia: No Hx Pacemaker: No HX Cerebrovascular Accident: No Hx Seizures: No Hx Dementia: No Hx Diabetes: No Hx Gastrointestinal Disorders: No Hx Liver Disease: Yes (elevated liver enymes ) Hx Genitourinary Disorders: No Hx Sexually Transmitted Disorders: No Hx Renal Disease (ESRD): No Hx Thyroid Disease: No Hx Human Immunodeficiency Virus (HIV): No (NEGATIVE HX, Last tested Sep 2017, declines testing today ) Hx Hepatitis C: No Hx Depression: No Hx Suicide Attempt: No Hx Bipolar Disorder: Yes (no med) Hx Schizophrenia: No Other Medical History: no suicidal,no homicidal - Patient Surgical History Past Surgical History: No Hx Neurologic Surgery: No Hx Cataract Extraction: No Hx Cardiac Surgery: No Hx Lung Surgery: No Hx Breast Surgery: No Hx Breast Biopsy: No Hx Abdominal Surgery: No Hx Appendectomy: No Hx Cholecystectomy: No Hx Genitourinary Surgery: No Hx Section: No Hx Orthopedic Surgery: No Hx Hysterectomy: No Anesthesia Reaction: No - PPD History Previous Implant?: Yes Documented Results: Negative w/o proof Implanted On Prior [facility] Admission?: Yes Date: 09/23/17 Results: 0 mm PPD to be Administered?: Yes - Smoking Cessation Smoking history: Current every day smoker Have you smoked in the past 12 months: Yes Aproximately how many cigarettes per day: 10 If you are a former smoker, when did you quit?: Stopped smoking 3 weeks ago while in detox Cigars Per Day: 0 Hx Chewing Tobacco Use: No Initiated information on smoking cessation: Yes 'Breaking Loose' booklet given: 10/11/18 - Substance & Tx. History Hx Alcohol Use: Yes Hx Substance Use: Yes Substance Use Type: Alcohol, Cocaine Hx Substance Use Treatment: Yes ([facility] 08/29/18 to not completed) - Substances Abused Cocaine Route: Inhalation Frequency: 1-2 times per week Amount used: $10 Age of first use: 35 Date of Last Use: 10/09/18 Alcohol-beer Route: Oral Frequency: Daily Amount used: 10-12 (40 oz.) Age of first use: 17 Date of Last Use: 10/11/18 Family Disease History - Family Disease History Family Disease History: Other: Grandparent (arthritis of knees), Mother (heroin overdose; dec @ 30 yo), Brother (alcoho/cirrhosis) Admission Physical Exam [facility] - Vital Signs Vital Signs: Vital Signs - 24 hr 10/11/18 09:30 Temperature 97.8 F Pulse Rate 90 Respiratory 18 Rate Blood Pressure 136/80 - Physical General Appearance: Yes: Moderate Distress, Obese, Tremorous, Irritable, Sweating, Anxious HEENTM: Yes: Normal ENT Inspection, Pharynx Normal Respiratory: Yes: Lungs Clear, Normal Breath Sounds, No Respiratory Distress Neck: Yes: Within Normal Limits, Supple, Trachea in good position Breast: Yes: Within Normal Limits Cardiology: Yes: Within Normal Limits, Regular Rhythm, Regular Rate, S1, S2 Abdominal: Yes: Within Normal Limits, Normal Bowel Sounds, Non Tender, Soft Genitourinary: Yes: Within Normal Limits Back: Yes: Muscle Spasm Musculoskeletal: Yes: Back pain, Joint Stiffness, Muscle Pain Extremities: Yes: Within Normal Limits, Tremors Neurological: Yes: Within Normal Limits, home health care physician II-XII NML intact, Fully Oriented, Alert, Motor Strength 5/5 Integumentary: Yes: Dry Lymphatic: Yes: Within Normal Limits - Diagnostic (1) Alcohol dependence with uncomplicated withdrawal Current Visit: Yes Status: Chronic (2) Bipolar disorder Current Visit: Yes Status: Acute (3) Arthritis of left knee Current Visit: No Status: Acute (4) Essential hypertension Current Visit: No Status: Chronic (5) Obesity Current Visit: No Status: Chronic (6) Insomnia Current Visit: Yes Status: Acute (7) Cocaine dependence Current Visit: Yes Status: Acute Cleared for Admission [facility] - Detox or Rehab [facility] Level of Care: Medically Managed Detox Regimen/Protocol: Librium [facility] Breath Alcohol Content Breath Alcohol Content: 0.223 Urine Drug Screen - Results Drug Screen Negative: No Urine Drug Screen Results: CARLI-Cocaine, BZO-Benzodiazepines
[2018-10-11] MEDS ORDERED: MAG HYDROX/AL HYDROX/SIMETH 30 ML UNIT-DOSE CUP PO PRN (11:33)
[2018-10-11] MEDS ORDERED: IBUPROFEN 400 MG TABLET (FP) PO PRN (11:33)
[2018-10-11] MEDS ORDERED: MENTHOL/PHENOL 1 EACH UD MM PRN (11:33)
[2018-10-11] MEDS ORDERED: P-EPHED 60MG/TRIPROLIDI 2.5MG TABLET PO PRN (11:33)
[2018-10-11] MEDS ORDERED: MAGNESIUM HYDROX 2400MG/30ML ORAL SUSPENSION 30 ML CUP PO PRN (11:33)
[2018-10-11] MEDS ORDERED: MAGNESIUM CITRATE 300 ML BOTTLE PO PRN (11:33)
[2018-10-11] MEDS ORDERED: hydrOXYzine PAMOATE 50 MG CAPSULE (FP) PO PRN (11:33)
[2018-10-11] MEDS ORDERED: chlordiazePOXIDE HCL 25 MG CAPSULE PO PRN (11:33)
[2018-10-11] MEDS ORDERED: guaiFENesin/D-METHORPHAN HB 10 ML UNIT-DOSE CUPS PO PRN (11:33)
[2018-10-11] MEDS ORDERED: LOPERAMIDE HCL 2 MG CAPSULE PO PRN (11:33)
[2018-10-11] MEDS ORDERED: ACETAMINOPHEN 325 MG TABLET (FP) PO PRN (11:33)
[2018-10-11] MEDS: NICOTINE 21 MG/24 HOURS TOPICAL PATCH TD SCH (12:37)
--- NOTE | 2018-10-11 13:58 | CONSULT ---
[facility] Psychiatric Consult - Data Date of interview: 10/11/18 Admission source: [facility] Identifying data: This is a 48 years old obese male, single, unemployed, living alone, with onknown finantial support, Bipolar Disorder history, psychiatric hospitalization history, with alcohol and cocaine and nicotine dependence,is reporting withdrawal symptoms and seeking detox, reports last detox on 08/29/18 to 08/31/18 was not completed Substance Abuse History: - Smoking Cessation. Smoking history: Current every day smoker. Have you smoked in the past 12 months: Yes. Aproximately how many cigarettes per day: 10. If you are a former smoker, when did you quit?: Stopped smoking 3 weeks ago while in detox. Cigars Per Day: 0. Hx Chewing Tobacco Use: No. Initiated information on smoking cessation: Yes. 'Breaking Loose' booklet given: 10/11/18. - Substance & Tx. History. Hx Alcohol Use: Yes. Hx Substance Use: Yes. Substance Use Type: Alcohol, Cocaine. Hx Substance Use Treatment: Yes ([facility] 08/29/18 to not completed). - Substances Abused. Cocaine. Route: Inhalation. Frequency: 1-2 times per week. Amount used: $10. Age of first use: 35. Date of Last Use: 10/09/18. * * Alcohol-beer. Route: Oral. Frequency: Daily. Amount used: 10-12 (40 oz.). Age of first use: 17. Date of Last Use: 10/11/18 Medical History: Morbid Obesity, Left Knee Artyhritis, Cellulitis history, HTN, LBP, Psychiatric History: Patient [facility] to [facility] Bipolar Disorder history with most recent psychiatric hospitalization [facility], patient is poor historian, denies suicidal and homicidal history, reports no medications taking prior top admission Physical/Sexual Abuse/Trauma History: Denies Additional Comment: Observation. Detox Unit Care Protocol Mental Status Exam - Mental Status Exam Alert and Oriented to: Person Cognitive Function: Fair Patient Appearance: Unkempt Mood: Sad Affect: Flat Patient Behavior: Sedated Speech Pattern: Delayed Voice Loudness: Mildly Soft/Quiet Thought Process: Circumstantial Thought Disorder: Being Controlled Hallucinations: Denies Suicidal Ideation: Denies Homicidal Ideation: Denies Insight/Judgement: Fair Appetite: Weight gain Muscle strength/Tone: Moderate Hypotonicity Gait/Station: Shuffling Additional Comments: Observation. Detox Unit Care Protocol Psychiatric Findings - Problem List ([place] 1, 2,3) (1) Bipolar disorder Current Visit: Yes Status: Acute (2) Insomnia Current Visit: Yes Status: Acute (3) Abscess of upper back excluding scapular region Current Visit: No Status: Acute (4) Alcohol dependence with intoxication Current Visit: No Status: Acute (5) Alcohol dependence with uncomplicated withdrawal Current Visit: No Status: Acute (6) Alcohol-induced anxiety disorder Current Visit: No Status: Acute (7) Alcohol-induced sleep disorder Current Visit: No Status: Acute (8) Arthritis of left knee Current Visit: No Status: Acute (9) Cellulitis of skin of back Current Visit: No Status: Acute (10) Drug-induced mood disorder Current Visit: No Status: Acute (11) Sedative/hypnotic withdrawal without complication Current Visit: No Status: Acute (12) Alcohol dependence Current Visit: No Status: Chronic (13) Arthralgia of knee, left Current Visit: No Status: Chronic (14) Chronic low back pain Current Visit: No Status: Chronic Qualifiers: Back pain laterality: midline Sciatica presence: without sciatica Qualified Code(s): M54.5 - Low back pain; G89.29 - Other chronic pain (15) Cocaine dependence Current Visit: No Status: Chronic (16) Obesity Current Visit: No Status: Chronic (17) MDD (major depressive disorder) Current Visit: No Status: Suspected - Initial Treatment Plan Initial Treatment Plan: Observation. Detox Unit Care Protocol
[2018-10-11] MEDS: chlordiazePOXIDE HCL 25 MG CAPSULE PO SCH ×2 (17:43→22:13)
[2018-10-11 22:01] LABS: URINE APPEARANCE CLEAR; URINE BILIRUBIN NEGATIVE (<2.0 mg/dL); URINE COLOR COLORLESS; URINE GLUCOSE (UA) NEGATIVE (NEGATIVE); URINE KETONE NEGATIVE (NEGATIVE); URINE LEUK ESTERASE NEGATIVE (NEGATIVE); URINE NITRITE NEGATIVE (NEGATIVE); URINE PROTEIN NEGATIVE (NEGATIVE); URINE UROBILINOGEN NEGATIVE mg/dL (0.2-1.0)
[2018-10-11] MEDS: THIAMINE HCL 100 MG TABLET (FP) PO SCH (22:13)
[2018-10-11] MEDS: MELATONIN 5 MG TABLETS PO PRN (22:13)
[2018-10-12] MEDS: chlordiazePOXIDE HCL 25 MG CAPSULE PO SCH ×4 (05:50→22:32)
[2018-10-12] MEDS: PRENATAL VITAMINS W/ FOLIC ACID TABLET (FP) PO SCH (10:19)
[2018-10-12] MEDS: LISINOPRIL 5 MG TABLET (FP) PO SCH (10:22)
[2018-10-12] MEDS: NICOTINE 21 MG/24 HOURS TOPICAL PATCH TD SCH (10:23)
[2018-10-12 10:26] LABS: HEMATOCRIT 44.6 % (35.4-49); HEMOGLOBIN 14.3 GM/dL (11.7-16.9); MCH 29.7 pg (25.7-33.7); MCHC 32.2 g/dl (32.0-35.9); MEAN CELL VOLUME 92.4 fl (80-96); MEAN PLT VOLUME 8.8 fl (7.5-11.1); PLATELET COUNT 298 K/MM3 (134-434); RBC 4.83 M/mm3 (4.00-5.60); RDW 13.5 % (11.9-15.9); WHITE BLOOD COUNT 15.5 K/mm3 (4.0-10.0)
[2018-10-12 10:47] LABS: ALBUMIN 4.1 g/dl (3.4-5.0); ALK PHOS 115 U/L (45-117); ANION GAP 15 MMOL/L (8-16); BILIRUBIN,TOTAL 0.3 mg/dL (0.2-1); BLOOD UREA NITROGEN 17 mg/dL (7-18); CHLORIDE 103 mmol/L (98-107); CO2 19 mmol/L (21-32); CREATININE 1.4 mg/dL (0.55-1.3); GLUCOSE,RANDOM 102 mg/dL (74-106); POTASSIUM 3.9 mmol/L (3.5-5.1); SGOT/AST 64 U/L (15-37); SGPT/ALT 72 U/L (13-61); SODIUM 137 mmol/L (136-145); TOT PROT 8.3 g/dl (6.4-8.2)
[2018-10-12] MEDS ORDERED: IBUPROFEN 400 MG TABLET (FP) PO PRN (10:56)
--- NOTE | 2018-10-12 11:00 | PN ---
S CIWA - CIWA Score Nausea/Vomitin-No Nausea/No Vomiting Muscle Tremors: 4-Moderate,w/Arms Extend Anxiety: 3 Agitation: 4-Moderately Restless Paroxysmal Sweats: 3 Orientation: 0-Oriented Tacttile Disturbances: 0-None Auditory Disturbances: 0-None Visual Disturbances: 0-None Headache: 0-None Present CIWA-Ar Total Score: 14 [facility] Progress Note (SOAP) Subjective: chronic knee pain sweats restless agitation body aches interrupted sleep Objective: 10/12/18 10:57 Vital Signs Temperature 96.6 F L 10/12/18 09:26 Pulse Rate 61 10/12/18 10:30 Respiratory Rate 18 10/12/18 10:30 Blood Pressure 140/69 10/12/18 09:26 O2 Sat by Pulse Oximetry (%) Laboratory Tests 10/11/18 10/12/18 10/12/18 13:38 05:45 05:45 WBC 15.5 H RBC 4.83 Hgb 14.3 Hct 44.6 MCV 92.4 MCH 29.7 MCHC 32.2 RDW 13.5 Plt Count 298 D MPV 8.8 Sodium 137 Potassium 3.9 Chloride 103 Carbon Dioxide 19 L Anion Gap 15 BUN 17 Creatinine 1.4 H Creat Clearance w eGFR 53.64 Random Glucose 102 Calcium 9.0 Total Bilirubin 0.3 AST 64 H ALT 72 H Alkaline Phosphatase 115 Total Protein 8.3 H Albumin 4.1 Urine Color Colorless Urine Appearance Clear Urine pH 6.0 Ur Specific [place] 1.002 L Urine Protein Negative Urine Glucose (UA) Negative Urine Ketones Negative Urine Blood Negative Urine Nitrite Negative Urine Bilirubin Negative Urine Urobilinogen Negative Ur Leukocyte Esterase Negative aaox3 ambulating no acute distress labs noted Assessment: 10/12/18 10:58 withdrawal sx Plan: continue detox increase fluids motrin 800mg prn
[2018-10-12] MEDS: THIAMINE HCL 100 MG TABLET (FP) PO SCH (22:32)
[2018-10-13] MEDS: chlordiazePOXIDE HCL 25 MG CAPSULE PO SCH ×2 (05:29→10:17)
--- NOTE | 2018-10-13 09:51 | PN ---
[facility] CIWA - CIWA Score Nausea/Vomitin-No Nausea/No Vomiting Muscle Tremors: 3 Anxiety: 2 Agitation: 3 Paroxysmal Sweats: 2 Orientation: 0-Oriented Tacttile Disturbances: 0-None Auditory Disturbances: 0-None Visual Disturbances: 0-None Headache: 0-None Present CIWA-Ar Total Score: 10 [facility] Progress Note (SOAP) Subjective: chronic knee pain sweats irritable body aches Objective: 10/13/18 09:45 Vital Signs Temperature 97.3 F L 10/13/18 09:15 Pulse Rate 74 10/13/18 09:15 Respiratory Rate 18 10/13/18 09:15 Blood Pressure 129/60 10/13/18 09:15 O2 Sat by Pulse Oximetry (%) Laboratory Tests 10/11/18 10/12/18 10/12/18 13:38 05:45 05:45 WBC 15.5 H RBC 4.83 Hgb 14.3 Hct 44.6 MCV 92.4 MCH 29.7 MCHC 32.2 RDW 13.5 Plt Count 298 D MPV 8.8 Sodium 137 Potassium 3.9 Chloride 103 Carbon Dioxide 19 L Anion Gap 15 BUN 17 Creatinine 1.4 H Creat Clearance w eGFR 53.64 Random Glucose 102 Calcium 9.0 Total Bilirubin 0.3 AST 64 H ALT 72 H Alkaline Phosphatase 115 Total Protein 8.3 H Albumin 4.1 Urine Color Colorless Urine Appearance Clear Urine pH 6.0 Ur Specific [place] 1.002 L Urine Protein Negative Urine Glucose (UA) Negative Urine Ketones Negative Urine Blood Negative Urine Nitrite Negative Urine Bilirubin Negative Urine Urobilinogen Negative Ur Leukocyte Esterase Negative RPR Titer 10/12/18 05:45 WBC RBC Hgb Hct MCV MCH MCHC RDW Plt Count MPV Sodium Potassium Chloride Carbon Dioxide Anion Gap BUN Creatinine Creat Clearance w eGFR Random Glucose Calcium Total Bilirubin AST ALT Alkaline Phosphatase Total Protein Albumin Urine Color Urine Appearance Urine pH Ur Specific [place] Urine Protein Urine Glucose (UA) Urine Ketones Urine Blood Urine Nitrite Urine Bilirubin Urine Urobilinogen Ur Leukocyte Esterase RPR Titer Nonreactive aaox3 ambulating no acute distress Assessment: 10/13/18 09:45 withdrawal sx Plan: continue detox naproxyn 500mg bid
[2018-10-13] MEDS: PRENATAL VITAMINS W/ FOLIC ACID TABLET (FP) PO SCH (10:17)
[2018-10-13] MEDS: LISINOPRIL 5 MG TABLET (FP) PO SCH (10:18)
[2018-10-13] MEDS: NICOTINE 21 MG/24 HOURS TOPICAL PATCH TD SCH (10:18)
[2018-10-13] MEDS: NAPROXEN 500 MG TABLET (FP) PO SCH ×2 (10:18→22:16)
[2018-10-13] MEDS: METHYL SALICYLATE/MENTHOL OINT 30 GM TUBE TP SCH ×2 (10:19→22:18)
[2018-10-13] MEDS: chlordiazePOXIDE 5 MG CAPSULE PO SCH ×2 (17:16→22:16)
[2018-10-13] MEDS: THIAMINE HCL 100 MG TABLET (FP) PO SCH (22:16)
[2018-10-13] MEDS: MELATONIN 5 MG TABLETS PO PRN (22:16)
[2018-10-14] MEDS: chlordiazePOXIDE 5 MG CAPSULE PO SCH (05:58)
[2018-10-14 07:06] VITALS: BP 131/67; PULSE 68; TEMP 96.8
--- NOTE | 2018-10-14 11:52 | PN ---
[facility] Progress Note (SOAP) Subjective: feeling better no tremor less sweat social with peers in day room Objective: 10/14/18 11:52 Vital Signs Temperature 96.8 F L 10/14/18 07:05 Pulse Rate 68 10/14/18 07:05 Respiratory Rate 18 10/14/18 07:05 Blood Pressure 131/67 10/14/18 07:05 O2 Sat by Pulse Oximetry (%) Laboratory Last Values WBC 15.5 K/mm3 (4.0-10.0) H 10/12/18 05:45 RBC 4.83 M/mm3 (4.00-5.60) 10/12/18 05:45 Hgb 14.3 GM/dL (11.7-16.9) 10/12/18 05:45 Hct 44.6 % (35.4-49) 10/12/18 05:45 MCV 92.4 fl (80-96) 10/12/18 05:45 MCH 29.7 pg (25.7-33.7) 10/12/18 05:45 MCHC 32.2 g/dl (32.0-35.9) 10/12/18 05:45 RDW 13.5 % (11.9-15.9) 10/12/18 05:45 Plt Count 298 K/MM3 (134-434) D 10/12/18 05:45 MPV 8.8 fl (7.5-11.1) 10/12/18 05:45 Sodium 137 mmol/L (136-145) 10/12/18 05:45 Potassium 3.9 mmol/L (3.5-5.1) 10/12/18 05:45 Chloride 103 mmol/L (98-107) 10/12/18 05:45 Carbon Dioxide 19 mmol/L (21-32) L 10/12/18 05:45 Anion Gap 15 MMOL/L (8-16) 10/12/18 05:45 BUN 17 mg/dL (7-18) 10/12/18 05:45 Creatinine 1.4 mg/dL (0.55-1.3) H 10/12/18 05:45 Creat Clearance w eGFR 53.64 (>60) 10/12/18 05:45 Random Glucose 102 mg/dL (74-106) 10/12/18 05:45 Calcium 9.0 mg/dL (8.5-10.1) 10/12/18 05:45 Total Bilirubin 0.3 mg/dL (0.2-1) 10/12/18 05:45 AST 64 U/L (15-37) H 10/12/18 05:45 ALT 72 U/L (13-61) H 10/12/18 05:45 Alkaline Phosphatase 115 U/L (45-117) 10/12/18 05:45 Total Protein 8.3 g/dl (6.4-8.2) H 10/12/18 05:45 Albumin 4.1 g/dl (3.4-5.0) 10/12/18 05:45 Urine Color Colorless 10/11/18 13:38 Urine Appearance Clear 10/11/18 13:38 Urine pH 6.0 (5.0-8.0) 10/11/18 13:38 Ur Specific [place] 1.002 (1.010-1.035) L 10/11/18 13:38 Urine Protein Negative (NEGATIVE) 10/11/18 13:38 Urine Glucose (UA) Negative (NEGATIVE) 10/11/18 13:38 Urine Ketones Negative (NEGATIVE) 10/11/18 13:38 Urine Blood Negative (NEGATIVE) 10/11/18 13:38 Urine Nitrite Negative (NEGATIVE) 10/11/18 13:38 Urine Bilirubin Negative (<2.0 mg/dL) 10/11/18 13:38 Urine Urobilinogen Negative mg/dL (0.2-1.0) 10/11/18 13:38 Ur Leukocyte Esterase Negative (NEGATIVE) 10/11/18 13:38 RPR Titer Nonreactive (NONREACTIVE) 10/12/18 05:45 lab noted Assessment: 10/14/18 11:52 mild withdrawal sx Plan: medically supervised detox
[2018-10-14] MEDS ORDERED: chlordiazePOXIDE HCL 10 MG CAPSULE PO SCH (17:00)
== END 2018-10-14 08:52 | disposition home or self-care (01) | DRG 774 ==
LOC: YASAS 09:21 → Y6N 11:34
PROC: HZ2ZZZZ Detoxification Services for Substance Abuse Treatment (ICD-10-PCS; principal; 2018-10-11)
DX: F10.230 Alcohol dependence with withdrawal, uncomplicated (principal); F14.20 Cocaine dependence, uncomplicated; F10.282 Alcohol dependence with alcohol-induced sleep disorder; F10.280 Alcohol dependence with alcohol-induced anxiety disorder; F10.24 Alcohol dependence with alcohol-induced mood disorder; F19.24 Other psychoactive substance dependence with psychoactive substance-induced mood disorder; F32.9 Major depressive disorder, single episode, unspecified; F33.9 Major depressive disorder, recurrent, unspecified; M54.5 Low back pain; G89.29 Other chronic pain; G47.00 Insomnia, unspecified; L02.212 Cutaneous abscess of back [any part, except buttock and flank]; M17.12 Unilateral primary osteoarthritis, left knee; E66.9 Obesity, unspecified; Z68.36 Body mass index [BMI] 36.0-36.9, adult
CPT/HCPCS: 36415; 80053; 81003; 85027; 86593

== ENCOUNTER 2018-11-18 11:24 | Inpatient (IN) | payer OTHER ==
[2018-11-18 11:31] VITALS: BMI 38.7
--- NOTE | 2018-11-18 14:09 | HP ---
CIWA Score Nausea/Vomitin Muscle Tremors: 2 Anxiety: 2 Agitation: 2 Paroxysmal Sweats: 1-Minimal Palms Moist Orientation: 0-Oriented Tacttile Disturbances: 1-Very Mild Itch/Numbness Auditory Disturbances: 1-Very Mild Visual Disturbances: 0-None Headache: 2-Mild CIWA-Ar Total Score: 13 - Admission Criteria OASAS Guidelines: Admission for Medically Managed Detox: Requires at least one of the followin. CIWA greater than 12 2. Seizures within the past 24 hours 3. Delirium tremens within the past 24 hours 4. Hallucinations within the past 24 hours 5. Acute intervention needed for co occurring medical disorder 6. Acute intervention needed for co occurring psychiatric disorder 7. Severe withdrawal that cannot be handled at a lower level of care (continued vomiting, continued diarrhea, abnormal vital signs) requiring intravenous medication and/or fluids 8. Patient presents the following: CIWA greater than 12 Admission Criteria Met: Admission criteria met Admission ROS S - [facility] Chief Complaint: i need help to stop drinking alcohol and cocaine Allergies/Adverse Reactions: Allergies Allergy/AdvReac Type Severity Reaction Status Date / Time peanut Allergy Severe Difficulty Verified 11/18/18 13:54 Breathing fish derived Allergy Intermediate Verified 11/18/18 13:54 No Known Drug Allergies Allergy Unknown Verified 11/18/18 13:54 red sauce Allergy Uncoded 11/18/18 13:54 History of Present Illness: this 48 years old male with alcohol and cocaine dependence,seeking detox, withdrawal symptom,multiple admissions in detox, but keep relapsing,last admisssion in [facility] 10/11/18 10/14/18 obesity hypertension no significant period of sobriety strong recommendation to go to rehab after detox arthritis of left knee Exam Limitations: No Limitations - Ebola screening Have you traveled outside of the country in the last 21 days: No Have you had contact with anyone from an Ebola affected area: No Have you been sick,other than usual withdrawal symptoms: No Do you have a fever: No - Review of Systems Constitutional: Malaise, Night Sweats, Changes in sleep, Other (obese) EENT: reports: Nose Congestion Respiratory: reports: No Symptoms reported Cardiac: reports: No Symptoms Reported GI: reports: Nausea, Poor Appetite, Abdominal cramping Musculoskeletal: reports: Back Pain, Muscle Pain Integumentary: reports: Dryness Neuro: reports: No Symptoms reported, Headache, Tremors Endocrine: reports: No Symptoms Reported Hematology: reports: No Symptoms Reported Psychiatric: reports: No Sypmtoms Reported Other Systems: Reviewed and Negative Patient History - Patient Medical History Hx Anemia: No Hx Asthma: No Hx Chronic Obstructive Pulmonary Disease (COPD): No Hx Cancer: No Hx Cardiac Disorders: No Hx Congestive Heart Failure: No Hx Hypertension: Yes (ON MEDS.) Hx Hypercholesterolemia: No Hx Pacemaker: No HX Cerebrovascular Accident: No Hx Seizures: No Hx Dementia: No Hx Diabetes: No Hx Gastrointestinal Disorders: No Hx Liver Disease: Yes (elevated liver enymes ) Hx Genitourinary Disorders: No Hx Sexually Transmitted Disorders: No Hx Renal Disease (ESRD): No Hx Thyroid Disease: No Hx Human Immunodeficiency Virus (HIV): No (NEGATIVE HX, Last tested Sep 2017, declines testing today ) Hx Hepatitis C: No Hx Depression: No Hx Suicide Attempt: No Hx Bipolar Disorder: Yes (no med) Hx Schizophrenia: No Other Medical History: no suicidal,no homicidal - Patient Surgical History Past Surgical History: No Hx Neurologic Surgery: No Hx Cataract Extraction: No Hx Cardiac Surgery: No Hx Lung Surgery: No Hx Breast Surgery: No Hx Breast Biopsy: No Hx Abdominal Surgery: No Hx Appendectomy: No Hx Cholecystectomy: No Hx Genitourinary Surgery: No Hx Section: No Hx Orthopedic Surgery: No Hx Hysterectomy: No Anesthesia Reaction: No - PPD History Previous Implant?: Yes Documented Results: Negative w/proof Implanted On Prior [facility] Admission?: Yes Date: 10/13/18 Results: 0 mm PPD to be Administered?: No - Smoking Cessation Smoking history: Current every day smoker Have you smoked in the past 12 months: Yes Aproximately how many cigarettes per day: 10 If you are a former smoker, when did you quit?: Stopped smoking 3 weeks ago while in detox Cigars Per Day: 0 Hx Chewing Tobacco Use: No Initiated information on smoking cessation: Yes 'Breaking Loose' booklet given: 11/18/18 - Substance & Tx. History Hx Alcohol Use: Yes Hx Substance Use: Yes Substance Use Type: Alcohol, Cocaine Hx Substance Use Treatment: Yes (10/11/18 to 10/14/18) - Substances Abused Alcohol Route: Oral Frequency: Daily Amount used: 10-12 40 oz beer Age of first use: 18 Date of Last Use: 11/18/18 Cocaine Route: Inhalation Frequency: Daily Amount used: 1/2 gram Age of first use: 35 Date of Last Use: 11/14/18 Family Disease History - Family Disease History Family Disease History: Other: Grandparent (arthritis of knees), Mother (heroin overdose; dec @ 30 yo), Brother (alcoho/cirrhosis) Admission Physical Exam [facility] - Vital Signs Vital Signs: Vital Signs - 24 hr 11/18/18 11:29 Temperature 96.3 F L Pulse Rate 78 Respiratory 17 Rate Blood Pressure 121/66 - Physical General Appearance: Yes: Moderate Distress, Tremorous, Irritable, Sweating, Anxious HEENTM: Yes: Normal ENT Inspection, WES, Pharynx Normal Respiratory: Yes: Lungs Clear, Normal Breath Sounds, No Respiratory Distress Neck: Yes: Within Normal Limits, Supple, Trachea in good position Breast: Yes: Within Normal Limits Cardiology: Yes: Within Normal Limits, Regular Rhythm, Regular Rate, S1, S2 Abdominal: Yes: Normal Bowel Sounds, Non Tender, Flat, Soft, Pulsatile Mass Genitourinary: Yes: Within Normal Limits Back: Yes: Muscle Spasm Musculoskeletal: Yes: Back pain, Joint Stiffness, Muscle Pain Extremities: Yes: Within Normal Limits, Normal Range of Motion, Tremors Neurological: Yes: [id number] operator II-XII NML intact, Fully Oriented, Alert, Motor Strength 5/5 Integumentary: Yes: Dry Lymphatic: Yes: Within Normal Limits - Diagnostic (1) Alcohol dependence with uncomplicated withdrawal Current Visit: No Status: Chronic (2) Arthritis of left knee Current Visit: No Status: Acute (3) Bipolar disorder Current Visit: No Status: Acute (4) Chronic low back pain Current Visit: No Status: Chronic Qualifiers: Back pain laterality: midline Sciatica presence: without sciatica Qualified Code(s): M54.5 - Low back pain; G89.29 - Other chronic pain (5) Cocaine dependence Current Visit: No Status: Chronic (6) Essential hypertension Current Visit: No Status: Chronic (7) Nicotine dependence Current Visit: No Status: Chronic Qualifiers: Nicotine product type: cigarettes Substance use status: in withdrawal Qualified Code(s): F17.213 - Nicotine dependence, cigarettes, with withdrawal (8) Obesity Current Visit: No Status: Chronic (9) Cocaine dependence Current Visit: No Status: Acute Cleared for Admission [facility] - Detox or Rehab [facility] Level of Care: Medically Managed Detox Regimen/Protocol: Librium [facility] Breath Alcohol Content Breath Alcohol Content: 0.177 Urine Drug Screen - Results Drug Screen Negative: No Urine Drug Screen Results: CARLI-Cocaine, BZO-Benzodiazepines
[2018-11-18] MEDS ORDERED: MAGNESIUM CITRATE 300 ML BOTTLE PO PRN (14:35)
[2018-11-18] MEDS ORDERED: hydrOXYzine PAMOATE 50 MG CAPSULE (FP) PO PRN (14:35)
[2018-11-18] MEDS ORDERED: guaiFENesin/D-METHORPHAN HB 10 ML UNIT-DOSE CUPS PO PRN (14:35)
[2018-11-18] MEDS ORDERED: chlordiazePOXIDE HCL 25 MG CAPSULE PO PRN (14:35)
[2018-11-18] MEDS ORDERED: P-EPHED 60MG/TRIPROLIDI 2.5MG TABLET PO PRN (14:35)
[2018-11-18] MEDS ORDERED: IBUPROFEN 400 MG TABLET (FP) PO PRN (14:35)
[2018-11-18] MEDS ORDERED: MAG HYDROX/AL HYDROX/SIMETH 30 ML UNIT-DOSE CUP PO PRN (14:35)
[2018-11-18] MEDS ORDERED: MENTHOL/PHENOL 1 EACH UD MM PRN (14:35)
[2018-11-18] MEDS ORDERED: LOPERAMIDE HCL 2 MG CAPSULE PO PRN (14:35)
[2018-11-18] MEDS ORDERED: ACETAMINOPHEN 325 MG TABLET (FP) PO PRN (14:35)
[2018-11-18] MEDS ORDERED: MAGNESIUM HYDROX 2400MG/30ML ORAL SUSPENSION 30 ML CUP PO PRN (14:35)
[2018-11-18] MEDS: NICOTINE 21 MG/24 HOURS TOPICAL PATCH TD SCH (16:04)
[2018-11-18] MEDS: LISINOPRIL 5 MG TABLET (FP) PO SCH (16:04)
[2018-11-18] MEDS: chlordiazePOXIDE HCL 25 MG CAPSULE PO SCH ×2 (17:42→22:11)
[2018-11-18] MEDS: THIAMINE HCL 100 MG TABLET (FP) PO SCH (22:11)
[2018-11-18] MEDS: MELATONIN 5 MG TABLETS PO PRN (22:12)
[2018-11-19] MEDS: chlordiazePOXIDE HCL 25 MG CAPSULE PO SCH ×4 (05:19→22:25)
[2018-11-19] MEDS: PRENATAL VITAMINS W/ FOLIC ACID TABLET (FP) PO SCH (10:11)
[2018-11-19] MEDS: LISINOPRIL 5 MG TABLET (FP) PO SCH (10:11)
[2018-11-19] MEDS: NICOTINE 21 MG/24 HOURS TOPICAL PATCH TD SCH (10:11)
--- NOTE | 2018-11-19 10:55 | PN ---
BHS CIWA - CIWA Score Nausea/Vomitin Muscle Tremors: 2 Anxiety: 2 Agitation: 2 Paroxysmal Sweats: 1-Minimal Palms Moist Orientation: 0-Oriented Tacttile Disturbances: 1-Very Mild Itch/Numbness Auditory Disturbances: 1-Very Mild Visual Disturbances: 0-None Headache: 2-Mild CIWA-Ar Total Score: 13 BHS Progress Note (SOAP) Subjective: alert,irritable,anxious,interrupted sleep,tremor Objective: 11/19/18 10:54 Vital Signs Temperature 96.5 F L 11/19/18 09:52 Pulse Rate 56 L 11/19/18 09:52 Respiratory Rate 16 11/19/18 09:52 Blood Pressure 118/66 11/19/18 09:52 O2 Sat by Pulse Oximetry (%) 11/19/18 10:54 labs pending Assessment: 11/19/18 10:55 withdrawal symptom Plan: continue detox
[2018-11-19 11:03] LABS: HEMATOCRIT 42.1 % (35.4-49); HEMOGLOBIN 14.5 GM/dL (11.7-16.9); MCH 31.5 pg (25.7-33.7); MCHC 34.4 g/dl (32.0-35.9); MEAN CELL VOLUME 91.7 fl (80-96); MEAN PLT VOLUME 9.8 fl (7.5-11.1); PLATELET COUNT 207 K/MM3 (134-434); RBC 4.59 M/mm3 (4.00-5.60); RDW 13.7 % (11.9-15.9); WHITE BLOOD COUNT 7.9 K/mm3 (4.0-10.0)
[2018-11-19 11:18] LABS: ALBUMIN 3.9 g/dl (3.4-5.0); ALK PHOS 96 U/L (45-117); ANION GAP 15 MMOL/L (8-16); BILIRUBIN,TOTAL 0.7 mg/dL (0.2-1); BLOOD UREA NITROGEN 15 mg/dL (7-18); CALCIUM 8.7 mg/dL (8.5-10.1); CHLORIDE 107 mmol/L (98-107); CO2 20 mmol/L (21-32); CREATININE 1.3 mg/dL (0.55-1.3); GLUCOSE,RANDOM 115 mg/dL (74-106); SGOT/AST 51 U/L (15-37); SGPT/ALT 53 U/L (13-61); SODIUM 141 mmol/L (136-145); TOT PROT 7.7 g/dl (6.4-8.2)
--- NOTE | 2018-11-19 12:54 | CONSULT ---
[facility] Psychiatric Consult - Data Date of interview: 11/19/17 Admission source: [facility] Identifying data: Patient refused to be seen by writer technical publications for psychiatric consultation. Patient stated, " I don't need to see psych."' Nursing staff informed.
[2018-11-19] MEDS: THIAMINE HCL 100 MG TABLET (FP) PO SCH (22:25)
[2018-11-19] MEDS: MELATONIN 5 MG TABLETS PO PRN (22:25)
[2018-11-20] MEDS: chlordiazePOXIDE HCL 25 MG CAPSULE PO SCH ×2 (06:11→10:24)
[2018-11-20 10:00] VITALS: BP 119/73; PULSE 72; TEMP 97.4
[2018-11-20] MEDS: PRENATAL VITAMINS W/ FOLIC ACID TABLET (FP) PO SCH (10:23)
[2018-11-20] MEDS: LISINOPRIL 5 MG TABLET (FP) PO SCH (10:23)
[2018-11-20] MEDS: NICOTINE 21 MG/24 HOURS TOPICAL PATCH TD SCH (10:24)
[2018-11-20] MEDS ORDERED: COLLOIDAL OATMEAL 1 BAR EACH TP PRN (10:25)
--- NOTE | 2018-11-20 12:38 | PN ---
S CIWA - CIWA Score Nausea/Vomitin-No Nausea/No Vomiting Muscle Tremors: 4-Moderate,w/Arms Extend Anxiety: 4-Mod. Anxious/Guarded Agitation: 4-Moderately Restless Paroxysmal Sweats: 1-Minimal Palms Moist Orientation: 0-Oriented Tacttile Disturbances: 2-Mild Itch/Numbness/Burn Auditory Disturbances: 0-None Visual Disturbances: 0-None Headache: 0-None Present CIWA-Ar Total Score: 15 BHS Progress Note (SOAP) Subjective: ANXIETY, SLIGHTLY RESTLESS, BODY ITCH BUT DENIES RASH. Objective: 11/20/18 12:37 Vital Signs 11/20/18 11/20/18 06:10 09:59 Temperature 97 F L 97.4 F L Pulse Rate 64 72 Respiratory 18 20 Rate Blood Pressure 109/69 119/73 Laboratory Tests 11/19/18 11/19/18 11/19/18 06:00 06:00 06:00 WBC 7.9 RBC 4.59 Hgb 14.5 Hct 42.1 MCV 91.7 MCH 31.5 MCHC 34.4 RDW 13.7 Plt Count 207 D MPV 9.8 D Sodium 141 Potassium 4.0 Chloride 107 Carbon Dioxide 20 L Anion Gap 15 BUN 15 Creatinine 1.3 Creat Clearance w eGFR 58.43 Random Glucose 115 H Calcium 8.7 Total Bilirubin 0.7 AST 51 H ALT 53 Alkaline Phosphatase 96 Total Protein 7.7 Albumin 3.9 RPR Titer Nonreactive Assessment: 11/20/18 12:37 WITHDRAWAL SX Plan: CONTINUE DETOX [facility] SOAP DIRECTED
--- NOTE | 2018-11-20 15:50 | DS ---
[facility] Detox Discharge Summary Admission Date: 11/18/18 Discharge Date: 11/20/18 - History Present History: Alcohol Dependence, Cocaine Dependence Additional Comments: PT SIGNED OUT AMA TOLD THE NURSE HE IS GOING BACK TO WORK. Pertinent Past History: PLEASE SEE DX BELOW - Physical Exam Results Vital Signs: Vital Signs Temperature 97.4 F L 11/20/18 09:59 Pulse Rate 72 11/20/18 09:59 Respiratory Rate 20 11/20/18 09:59 Blood Pressure 119/73 11/20/18 09:59 O2 Sat by Pulse Oximetry (%) Pertinent Admission Physical Exam Findings: WITHDRAWAL SX Laboratory Tests 11/19/18 11/19/18 11/19/18 06:00 06:00 06:00 WBC 7.9 RBC 4.59 Hgb 14.5 Hct 42.1 MCV 91.7 MCH 31.5 MCHC 34.4 RDW 13.7 Plt Count 207 D MPV 9.8 D Sodium 141 Potassium 4.0 Chloride 107 Carbon Dioxide 20 L Anion Gap 15 BUN 15 Creatinine 1.3 Creat Clearance w eGFR 58.43 Random Glucose 115 H Calcium 8.7 Total Bilirubin 0.7 AST 51 H ALT 53 Alkaline Phosphatase 96 Total Protein 7.7 Albumin 3.9 RPR Titer Nonreactive - Treatment Hospital Course: Discharged Condition Good - Medication Discharge Medications: Ambulatory Orders Lisinopril [Prinivil] 5 mg PO DAILY #30 tablet 07/21/18 - Diagnosis (1) Arthritis of left knee Status: Chronic (2) Cocaine dependence Status: Acute Qualifiers: Substance use status: uncomplicated Qualified Code(s): F14.20 - Cocaine dependence, uncomplicated (3) Alcohol dependence with uncomplicated withdrawal Status: Acute (4) Chronic low back pain Status: Chronic Qualifiers: Back pain laterality: midline Sciatica presence: without sciatica Qualified Code(s): M54.5 - Low back pain; G89.29 - Other chronic pain (5) Essential hypertension Status: Chronic (6) Nicotine dependence Status: Acute Qualifiers: Nicotine product type: cigarettes Substance use status: in withdrawal Qualified Code(s): F17.213 - Nicotine dependence, cigarettes, with withdrawal (7) Obesity Status: Chronic - AMA Did Patient Leave Against Medical Advice: Yes (AMA)
[2018-11-20] MEDS ORDERED: chlordiazePOXIDE 5 MG CAPSULE PO SCH (17:00)
[2018-11-21] MEDS ORDERED: chlordiazePOXIDE HCL 10 MG CAPSULE PO SCH (17:00)
== END 2018-11-20 13:31 | disposition left against medical advice (07) | DRG 770 ==
LOC: YASAS 11:24 → Y3N 14:07
PROC: HZ2ZZZZ Detoxification Services for Substance Abuse Treatment (ICD-10-PCS; principal; 2018-11-18)
DX: F10.230 Alcohol dependence with withdrawal, uncomplicated (principal); F14.20 Cocaine dependence, uncomplicated; F17.213 Nicotine dependence, cigarettes, with withdrawal; F31.9 Bipolar disorder, unspecified; I10 Essential (primary) hypertension; M54.5 Low back pain; G89.29 Other chronic pain; M17.12 Unilateral primary osteoarthritis, left knee; E66.9 Obesity, unspecified; Z68.38 Body mass index [BMI] 38.0-38.9, adult; R94.5 Abnormal results of liver function studies
CPT/HCPCS: 36415; 80053; 85027; 86593

== ENCOUNTER 2019-01-18 13:58 | Inpatient (IN) | payer OTHER ==
[2019-01-18 17:32] VITALS: BMI 35.6
--- NOTE | 2019-01-18 18:09 | HP ---
CIWA Score Nausea/Vomitin Muscle Tremors: 4-Moderate,w/Arms Extend Anxiety: 4-Mod. Anxious/Guarded Agitation: 0-Normal Activity Paroxysmal Sweats: 3 Orientation: 2-Disoriented Date<2 days Tacttile Disturbances: 0-None Auditory Disturbances: 1-Very Mild Visual Disturbances: 2-Mild Sensitivity Headache: 5-Severe CIWA-Ar Total Score: 23 - Admission Criteria OASAS Guidelines: Admission for Medically Managed Detox: Requires at least one of the followin. CIWA greater than 12 2. Seizures within the past 24 hours 3. Delirium tremens within the past 24 hours 4. Hallucinations within the past 24 hours 5. Acute intervention needed for co occurring medical disorder 6. Acute intervention needed for co occurring psychiatric disorder 7. Severe withdrawal that cannot be handled at a lower level of care (continued vomiting, continued diarrhea, abnormal vital signs) requiring intravenous medication and/or fluids 8. Patient presents the following: CIWA greater than 12 Admission Criteria Met: Admission criteria met Admission ROS S - HPI Allergies/Adverse Reactions: Allergies Allergy/AdvReac Type Severity Reaction Status Date / Time peanut Allergy Severe Difficulty Verified 01/18/19 17:29 Breathing fish derived Allergy Intermediate Verified 01/18/19 17:29 No Known Drug Allergies Allergy Unknown Verified 01/18/19 17:29 red sauce Allergy Uncoded 01/18/19 17:29 History of Present Illness: patient here requesting detox from etoh use , reports 10-12 x 40 oz /day since 1 year ago , first age of use 18 , previous detox at this facility , denies seizures, blackouts , + tremors , reports he starts drinking in the mornings , current symptoms as above . cocaine : 1 bag/ day via inhalation tobacco 10-12 cigs/ day pMHX : htn , OA PShx : denies Exam Limitations: Clinical Condition, Intoxication - Ebola screening Have you traveled outside of the country in the last 21 days: No Have you had contact with anyone from an Ebola affected area: No Have you been sick,other than usual withdrawal symptoms: No Do you have a fever: No - Review of Systems Constitutional: See HPI EENT: reports: See HPI, Other (denies vision problems, denies dysphagia) Respiratory: reports: No Symptoms reported Cardiac: reports: No Symptoms Reported GI: reports: Nausea : reports: No Symptoms Reported Musculoskeletal: reports: Joint Pain (reports left knee OA) Integumentary: reports: No Symptoms Reported Neuro: reports: See HPI, Headache Endocrine: reports: No Symptoms Reported Psychiatric: reports: Orientated x3, Anxious, Depressed Patient History - Patient Medical History Hx Anemia: No Hx Asthma: No Hx Chronic Obstructive Pulmonary Disease (COPD): No Hx Cancer: No Hx Cardiac Disorders: No Hx Congestive Heart Failure: No Hx Hypertension: Yes (on meds.) Hx Hypercholesterolemia: No Hx Pacemaker: No HX Cerebrovascular Accident: No Hx Seizures: No Hx Dementia: No Hx Diabetes: No Hx Gastrointestinal Disorders: No Hx Liver Disease: Yes (elevated liver enymes ) Hx Genitourinary Disorders: No Hx Sexually Transmitted Disorders: No Hx Renal Disease (ESRD): No Hx Thyroid Disease: No Hx Human Immunodeficiency Virus (HIV): No (last 03/03 negative) Hx Hepatitis C: No Hx Depression: No Hx Suicide Attempt: No Hx Bipolar Disorder: No (on trazadone 100 mgs po hs) Hx Schizophrenia: No - Patient Surgical History Past Surgical History: No Hx Neurologic Surgery: No Hx Cataract Extraction: No Hx Cardiac Surgery: No Hx Lung Surgery: No Hx Breast Surgery: No Hx Breast Biopsy: No Hx Abdominal Surgery: No Hx Appendectomy: No Hx Cholecystectomy: No Hx Genitourinary Surgery: No Hx Section: No Hx Orthopedic Surgery: No Hx Hysterectomy: No Anesthesia Reaction: No - PPD History Previous Implant?: Yes Documented Results: Negative w/proof Implanted On Prior R Admission?: Yes Date: 10/13/18 Results: 0 mm - Smoking Cessation Smoking history: Current every day smoker Have you smoked in the past 12 months: Yes Aproximately how many cigarettes per day: 10 If you are a former smoker, when did you quit?: Stopped smoking 3 weeks ago while in detox Cigars Per Day: 0 Hx Chewing Tobacco Use: No Initiated information on smoking cessation: No - Substances Abused Alcohol Route: Oral Frequency: Daily Amount used: 10 40 oz beer Age of first use: 18 Date of Last Use: 01/18/19 Cocaine Route: Inhalation Frequency: Daily Amount used: 1 gram Age of first use: 35 Date of Last Use: 01/16/19 Family Disease History - Family Disease History Family Disease History: Other: Grandparent (arthritis of knees), Father (alcohol ,dsa,), Mother (heroin overdose; dec @ 30 yo), Brother (alcoho/cirrhosis ) Admission Physical Exam BHS - Vital Signs Vital Signs: Vital Signs - 24 hr 01/18/19 17:31 Temperature 98.6 F Pulse Rate 94 H Respiratory 18 Rate Blood Pressure 128/61 - Physical General Appearance: Yes: Severe Distress, Alcohol on Breath, Intoxicated, Irritable, Anxious HEENTM: Yes: EOMI, Hearing grossly Normal, Normocephalic, Normal Voice Respiratory: Yes: Chest Non-Tender, Lungs Clear, Normal Breath Sounds Neck: Yes: No masses,lesions,Nodules, Trachea in good position Cardiology: Yes: Regular Rhythm, Regular Rate, S1, S2, Tachycardia Abdominal: Yes: Normal Bowel Sounds, Soft Musculoskeletal: Yes: full range of Motion, Joint Stiffness (left knee), Joint swelling (left knee - per pt chronic), Other (staggering gait) Extremities: Yes: Normal Capillary Refill, Tremors Neurological: Yes: Motor Strength 5/5, Depressed Affect - Diagnostic (1) Alcohol dependence with uncomplicated withdrawal Current Visit: Yes Status: Acute (2) Cocaine dependence Current Visit: Yes Status: Chronic Qualifiers: Substance use status: uncomplicated Qualified Code(s): F14.20 - Cocaine dependence, uncomplicated (3) Nicotine dependence Current Visit: Yes Status: Chronic Qualifiers: Nicotine product type: cigarettes Substance use status: in withdrawal Qualified Code(s): F17.213 - Nicotine dependence, cigarettes, with withdrawal [facility] Breath Alcohol Content Breath Alcohol Content: 0.165 Urine Drug Screen - Results Drug Screen Negative: No Urine Drug Screen Results: CARLI-Cocaine, BZO-Benzodiazepines Inpatient Rehab Admission - Rehab Decision to Admit Inpatient rehab admission?: No
[2019-01-18] MEDS ORDERED: IBUPROFEN 400 MG TABLET (FP) PO PRN (18:16)
[2019-01-18] MEDS ORDERED: P-EPHED 60MG/TRIPROLIDI 2.5MG TABLET PO PRN (18:16)
[2019-01-18] MEDS ORDERED: MENTHOL/PHENOL 1 EACH UD MM PRN (18:16)
[2019-01-18] MEDS ORDERED: chlordiazePOXIDE HCL 25 MG CAPSULE PO PRN (18:16)
[2019-01-18] MEDS ORDERED: MAGNESIUM CITRATE 300 ML BOTTLE PO PRN (18:16)
[2019-01-18] MEDS ORDERED: guaiFENesin/D-METHORPHAN HB 10 ML UNIT-DOSE CUPS PO PRN (18:16)
[2019-01-18] MEDS ORDERED: ACETAMINOPHEN 325 MG TABLET (FP) PO PRN (18:16)
[2019-01-18] MEDS ORDERED: MAGNESIUM HYDROX 2400MG/30ML ORAL SUSPENSION 30 ML CUP PO PRN (18:16)
[2019-01-18] MEDS ORDERED: NICOTINE POLACRILEX 2 MG GUM BC PRN (18:16)
[2019-01-18] MEDS ORDERED: MAG HYDROX/AL HYDROX/SIMETH 30 ML UNIT-DOSE CUP PO PRN (18:16)
[2019-01-18] MEDS: THIAMINE HCL 100 MG TABLET (FP) PO SCH (22:05)
[2019-01-18] MEDS: chlordiazePOXIDE HCL 25 MG CAPSULE PO SCH (22:05)
[2019-01-18] MEDS: MELATONIN 5 MG TABLETS PO PRN (22:05)
[2019-01-19] MEDS: chlordiazePOXIDE HCL 25 MG CAPSULE PO SCH ×4 (06:21→22:14)
[2019-01-19] MEDS: LISINOPRIL 5 MG TABLET (FP) PO SCH (10:23)
[2019-01-19] MEDS: PRENATAL VITAMINS W/ FOLIC ACID TABLET (FP) PO SCH (10:23)
[2019-01-19] MEDS: NICOTINE 7 MG/24 HOURS TOPICAL PATCH TD SCH (10:24)
[2019-01-19 10:30] LABS: HEMOGLOBIN 13.9 GM/dL (11.7-16.9); MCHC 33.9 g/dl (32.0-35.9); MEAN CELL VOLUME 91.4 fl (80-96); MEAN PLT VOLUME 8.5 fl (7.5-11.1); PLATELET COUNT 189 K/MM3 (134-434); RBC 4.49 M/mm3 (4.00-5.60); RDW 14.3 % (11.9-15.9); WHITE BLOOD COUNT 7.7 K/mm3 (4.0-10.0)
[2019-01-19 11:59] LABS: ALBUMIN 3.5 g/dl (3.4-5.0); ALK PHOS 116 U/L (45-117); ANION GAP 9 MMOL/L (8-16); BILIRUBIN,TOTAL 0.9 mg/dL (0.2-1); BLOOD UREA NITROGEN 16 mg/dL (7-18); CALCIUM 8.5 mg/dL (8.5-10.1); CHLORIDE 108 mmol/L (98-107); CO2 23 mmol/L (21-32); GLUCOSE,RANDOM 96 mg/dL (74-106); POTASSIUM 4.5 mmol/L (3.5-5.1); SGOT/AST 35 U/L (15-37); SGPT/ALT 47 U/L (13-61); SODIUM 140 mmol/L (136-145)
--- NOTE | 2019-01-19 12:10 | PN ---
S CIWA - CIWA Score Nausea/Vomitin-No Nausea/No Vomiting Muscle Tremors: 4-Moderate,w/Arms Extend Anxiety: 3 Agitation: 3 Paroxysmal Sweats: 3 Orientation: 0-Oriented Tacttile Disturbances: 0-None Auditory Disturbances: 0-None Visual Disturbances: 0-None Headache: 0-None Present CIWA-Ar Total Score: 13 BHS Progress Note (SOAP) Subjective: sweats irritable body aches shakes Objective: 01/19/19 12:05 Vital Signs Temperature 96.8 F L 01/19/19 09:30 Pulse Rate 62 01/19/19 09:30 Respiratory Rate 20 01/19/19 09:30 Blood Pressure 104/55 L 01/19/19 09:30 O2 Sat by Pulse Oximetry (%) Laboratory Tests 01/19/19 01/19/19 07:00 07:00 WBC 7.7 RBC 4.49 Hgb 13.9 Hct 41.0 MCV 91.4 MCH 31.0 MCHC 33.9 RDW 14.3 Plt Count 189 MPV 8.5 D Sodium 140 Potassium 4.5 Chloride 108 H Carbon Dioxide 23 Anion Gap 9 BUN 16 Creatinine 1.0 Creat Clearance w eGFR > 60 Random Glucose 96 Calcium 8.5 Total Bilirubin 0.9 AST 35 ALT 47 Alkaline Phosphatase 116 Total Protein 7.0 Albumin 3.5 aaox3 ambulating no acute distress Assessment: 01/19/19 12:05 continue detox increase fluids Plan: continue detox increase fluids
[2019-01-19] MEDS: MELATONIN 5 MG TABLETS PO PRN (22:14)
[2019-01-19] MEDS: THIAMINE HCL 100 MG TABLET (FP) PO SCH (22:14)
[2019-01-20] MEDS: chlordiazePOXIDE HCL 25 MG CAPSULE PO SCH ×3 (05:42→17:22)
[2019-01-20] MEDS: PRENATAL VITAMINS W/ FOLIC ACID TABLET (FP) PO SCH (10:09)
[2019-01-20] MEDS: LISINOPRIL 5 MG TABLET (FP) PO SCH (10:10)
[2019-01-20] MEDS: NICOTINE 7 MG/24 HOURS TOPICAL PATCH TD SCH (10:10)
--- NOTE | 2019-01-20 10:23 | PN ---
[facility] CIWA - CIWA Score Nausea/Vomitin-No Nausea/No Vomiting Muscle Tremors: 3 Anxiety: 3 Agitation: 3 Paroxysmal Sweats: 3 Orientation: 0-Oriented Tacttile Disturbances: 0-None Auditory Disturbances: 0-None Visual Disturbances: 0-None Headache: 0-None Present CIWA-Ar Total Score: 12 S Progress Note (SOAP) Subjective: sweats irritable agitation body aches Objective: 01/20/19 10:22 Vital Signs Temperature 97.9 F 01/20/19 10:00 Pulse Rate 59 L 01/20/19 10:00 Respiratory Rate 18 01/20/19 10:00 Blood Pressure 105/50 L 01/20/19 10:00 O2 Sat by Pulse Oximetry (%) Laboratory Tests 01/19/19 01/19/19 01/19/19 07:00 07:00 07:00 WBC 7.7 RBC 4.49 Hgb 13.9 Hct 41.0 MCV 91.4 MCH 31.0 MCHC 33.9 RDW 14.3 Plt Count 189 MPV 8.5 D Sodium 140 Potassium 4.5 Chloride 108 H Carbon Dioxide 23 Anion Gap 9 BUN 16 Creatinine 1.0 Creat Clearance w eGFR > 60 Random Glucose 96 Calcium 8.5 Total Bilirubin 0.9 AST 35 ALT 47 Alkaline Phosphatase 116 Total Protein 7.0 Albumin 3.5 RPR Titer Nonreactive aaox3 ambulating no acute distress Assessment: 01/20/19 10:22 withdrawal sx Plan: continue detox increase fluids
[2019-01-20 17:23] VITALS: BP 145/73; PULSE 81; TEMP 97.2
--- NOTE | 2019-01-20 18:12 | PN ---
[facility] Progress Note Note: Vital Signs Temperature 97.2 F L 01/20/19 17:22 Pulse Rate 81 01/20/19 17:22 Respiratory Rate 19 01/20/19 17:22 Blood Pressure 145/73 01/20/19 17:22 O2 Sat by Pulse Oximetry (%) Patient insist on leaving AMA today, reports he needs to attend court tomorrow. Patient advised on the risk of interrupting treatment and risk for relapse. Patient to follow up with attached referrals, if worsening symptoms are present patient to seek medical attention or attend local emergency department. Patient verbalizes understanding. Patient left the unit ins table condition.
--- NOTE | 2019-01-20 18:15 | DS ---
[facility] Detox Discharge Summary Admission Date: 01/18/19 Discharge Date: 01/20/19 - History Present History: Alcohol Dependence Additional Comments: Patient insist on leaving AMA today, reports he needs to attend court tomorrow. Patient advised on the risk of interrupting treatment and risk for relapse. Patient to follow up with attached referrals, if worsening symptoms are present patient to seek medical attention or attend local emergency department. Patient verbalizes understanding. Patient left the unit ins table condition. Pertinent Past History: Vital Signs Temperature 97.2 F L 01/20/19 17:22 Pulse Rate 81 01/20/19 17:22 Respiratory Rate 19 01/20/19 17:22 Blood Pressure 145/73 01/20/19 17:22 O2 Sat by Pulse Oximetry (%) Laboratory Last Values WBC 7.7 K/mm3 (4.0-10.0) 01/19/19 07:00 RBC 4.49 M/mm3 (4.00-5.60) 01/19/19 07:00 Hgb 13.9 GM/dL (11.7-16.9) 01/19/19 07:00 Hct 41.0 % (35.4-49) 01/19/19 07:00 MCV 91.4 fl (80-96) 01/19/19 07:00 MCH 31.0 pg (25.7-33.7) 01/19/19 07:00 MCHC 33.9 g/dl (32.0-35.9) 01/19/19 07:00 RDW 14.3 % (11.9-15.9) 01/19/19 07:00 Plt Count 189 K/MM3 (134-434) 01/19/19 07:00 MPV 8.5 fl (7.5-11.1) D 01/19/19 07:00 Sodium 140 mmol/L (136-145) 01/19/19 07:00 Potassium 4.5 mmol/L (3.5-5.1) 01/19/19 07:00 Chloride 108 mmol/L (98-107) H 01/19/19 07:00 Carbon Dioxide 23 mmol/L (21-32) 01/19/19 07:00 Anion Gap 9 MMOL/L (8-16) 01/19/19 07:00 BUN 16 mg/dL (7-18) 01/19/19 07:00 Creatinine 1.0 mg/dL (0.55-1.3) 01/19/19 07:00 Creat Clearance w eGFR > 60 (>60) 01/19/19 07:00 Random Glucose 96 mg/dL (74-106) 01/19/19 07:00 Calcium 8.5 mg/dL (8.5-10.1) 01/19/19 07:00 Total Bilirubin 0.9 mg/dL (0.2-1) 01/19/19 07:00 AST 35 U/L (15-37) 01/19/19 07:00 ALT 47 U/L (13-61) 01/19/19 07:00 Alkaline Phosphatase 116 U/L (45-117) 01/19/19 07:00 Total Protein 7.0 g/dl (6.4-8.2) 01/19/19 07:00 Albumin 3.5 g/dl (3.4-5.0) 01/19/19 07:00 RPR Titer Nonreactive (NONREACTIVE) 01/19/19 07:00 - Physical Exam Results Vital Signs: Vital Signs Temperature 97.2 F L 01/20/19 17:22 Pulse Rate 81 01/20/19 17:22 Respiratory Rate 19 01/20/19 17:22 Blood Pressure 145/73 01/20/19 17:22 O2 Sat by Pulse Oximetry (%) - Medication Discharge Medications: Ambulatory Orders Lisinopril [Prinivil] 5 mg PO DAILY #30 tablet 11/20/18 Ibuprofen [Motrin -] 800 mg PO Q8H PRN 01/18/19 - Diagnosis (1) Alcohol dependence with uncomplicated withdrawal Current Visit: Yes Status: Acute (2) Cocaine dependence Current Visit: Yes Status: Chronic Qualifiers: Substance use status: uncomplicated Qualified Code(s): F14.20 - Cocaine dependence, uncomplicated (3) Nicotine dependence Current Visit: Yes Status: Chronic Qualifiers: Nicotine product type: cigarettes Substance use status: in withdrawal Qualified Code(s): F17.213 - Nicotine dependence, cigarettes, with withdrawal (4) Arthritis of left knee Current Visit: No Status: Chronic (5) Essential hypertension Current Visit: Yes Status: Chronic (6) Obesity Current Visit: Yes Status: Chronic - AMA Did Patient Leave Against Medical Advice: Yes
[2019-01-20] MEDS ORDERED: chlordiazePOXIDE 5 MG CAPSULE PO SCH (23:00)
[2019-01-21] MEDS ORDERED: chlordiazePOXIDE HCL 10 MG CAPSULE PO SCH (23:00)
== END 2019-01-20 18:17 | disposition left against medical advice (07) | DRG 770 ==
LOC: YASAS 13:58 → Y6N 18:19
PROVIDERS: ADMIT Surgery; ATTEND Surgery
PROC: HZ2ZZZZ Detoxification Services for Substance Abuse Treatment (ICD-10-PCS; principal; 2019-01-18)
DX: F10.230 Alcohol dependence with withdrawal, uncomplicated (principal); F14.20 Cocaine dependence, uncomplicated; F17.213 Nicotine dependence, cigarettes, with withdrawal; I10 Essential (primary) hypertension; M13.862 Other specified arthritis, left knee; E66.9 Obesity, unspecified; Z68.35 Body mass index [BMI] 35.0-35.9, adult
CPT/HCPCS: 36415; 80053; 85027; 86593

== ENCOUNTER 2019-03-01 12:34 | Inpatient (IN) | payer OTHER ==
[2019-03-01 16:50] VITALS: BMI 39.3
--- NOTE | 2019-03-01 17:03 | HP ---
CIWA Score Nausea/Vomitin-Mild Nausea/No Vomiting Muscle Tremors: 3 Anxiety: 2 Agitation: 2 Paroxysmal Sweats: 1-Minimal Palms Moist Orientation: 0-Oriented Tacttile Disturbances: 2-Mild Itch/Numbness/Burn Auditory Disturbances: 1-Very Mild Visual Disturbances: 2-Mild Sensitivity Headache: 1-Very Mild CIWA-Ar Total Score: 15 - Admission Criteria OASAS Guidelines: Admission for Medically Managed Detox: Requires at least one of the followin. CIWA greater than 12 2. Seizures within the past 24 hours 3. Delirium tremens within the past 24 hours 4. Hallucinations within the past 24 hours 5. Acute intervention needed for co occurring medical disorder 6. Acute intervention needed for co occurring psychiatric disorder 7. Severe withdrawal that cannot be handled at a lower level of care (continued vomiting, continued diarrhea, abnormal vital signs) requiring intravenous medication and/or fluids 8. Admission ROS [facility] Chief Complaint: Withdrawal symptoms Allergies/Adverse Reactions: Allergies Allergy/AdvReac Type Severity Reaction Status Date / Time peanut Allergy Severe Difficulty Verified 03/01/19 16:39 Breathing fish derived Allergy Intermediate Verified 03/01/19 16:39 No Known Drug Allergies Allergy Unknown Verified 03/01/19 16:39 red sauce Allergy Uncoded 03/01/19 16:39 History of Present Illness: 48 y.o. man with an extensive history of alcohol and cocaine dependence is here seeking detox and rehab services. He has had multiple admission here in which he leaves [place]. The last admission was on 01/18/19. Longest period of alcohol and illicit abstinence has been 18 years. Exam Limitations: No Limitations - Ebola screening Have you traveled outside of the country in the last 21 days: No Have you had contact with anyone from an Ebola affected area: No - Review of Systems Constitutional: Diaphoresis, Loss of Appetite, Night Sweats, Unintentional Wgt. Loss EENT: reports: Blurred Vision, Tearing Respiratory: reports: No Symptoms reported Cardiac: reports: No Symptoms Reported GI: reports: No Symptoms Reported : reports: Frequency Musculoskeletal: reports: Joint Pain, Joint Stiffness Integumentary: reports: No Symptoms Reported Neuro: reports: Headache Endocrine: reports: No Symptoms Reported Hematology: reports: No Symptoms Reported Psychiatric: reports: Orientated x3, Depressed Other Systems: Reviewed and Negative Patient History - Patient Medical History Hx Anemia: No Hx Asthma: No Hx Chronic Obstructive Pulmonary Disease (COPD): No Hx Cancer: No Hx Cardiac Disorders: No Hx Congestive Heart Failure: No Hx Hypertension: Yes (Takes lisinopril ) Hx Hypercholesterolemia: No Hx Pacemaker: No HX Cerebrovascular Accident: No Hx Seizures: No Hx Dementia: No Hx Diabetes: No Hx Gastrointestinal Disorders: No Hx Liver Disease: Yes (elevated liver enymes ) Hx Genitourinary Disorders: No Hx Sexually Transmitted Disorders: No Hx Renal Disease (ESRD): No Hx Thyroid Disease: No Hx Human Immunodeficiency Virus (HIV): No (last 03/03 negative) Hx Hepatitis C: No Hx Depression: No Hx Suicide Attempt: No Hx Bipolar Disorder: No Hx Schizophrenia: No - Patient Surgical History Past Surgical History: No Hx Neurologic Surgery: No Hx Cataract Extraction: No Hx Cardiac Surgery: No Hx Lung Surgery: No Hx Breast Surgery: No Hx Breast Biopsy: No Hx Abdominal Surgery: No Hx Appendectomy: No Hx Cholecystectomy: No Hx Genitourinary Surgery: No Hx Section: No Hx Orthopedic Surgery: No Hx Hysterectomy: No Anesthesia Reaction: No - PPD History Previous Implant?: Yes Documented Results: Negative w/proof Implanted On Prior R Admission?: Yes Date: 10/13/18 Results: 0 mm PPD to be Administered?: No - Reproductive History Patient is a Female of Child Bearing Age (11 -55 yrs old): No - Smoking Cessation Smoking history: Current every day smoker Have you smoked in the past 12 months: Yes Aproximately how many cigarettes per day: 20 Cigars Per Day: 0 Hx Chewing Tobacco Use: No Initiated information on smoking cessation: Yes 'Breaking Loose' booklet given: 03/01/19 - Substance & Tx. History Hx Alcohol Use: Yes Hx Substance Use: Yes Substance Use Type: Alcohol, Cocaine Hx Substance Use Treatment: Yes (Detox: 01/2019) - Substances abused Alcohol Substance route: Oral Frequency: Daily Amount used: 9 of 40 ounces of beer Age of first use: 18 Date of last use: 03/01/19 Cocaine Substance route: Inhalation Frequency: 1-2 times per week Amount used: 1 gram Age of first use: 35 Date of last use: 02/27/19 Family Disease History - Family Disease History Family Disease History: Other: Grandparent (arthritis of knees), Father (alcohol ,dsa,), Mother (heroin overdose; dec @ 30 yo), Brother (alcoho/cirrhosis ) Admission Physical Exam [facility] - Vital Signs Vital Signs: Vital Signs - 24 hr 03/01/19 03/01/19 16:41 16:51 Temperature 98.0 F 98.0 F Pulse Rate 86 86 Respiratory 16 16 Rate Blood Pressure 108/60 108/60 - Physical General Appearance: Yes: Obese HEENTM: Yes: Hearing grossly Normal, Normal ENT Inspection, Normocephalic, Normal Voice Respiratory: Yes: Chest Non-Tender, Lungs Clear, Normal Breath Sounds, No Respiratory Distress, No Accessory Muscle Use Neck: Yes: Within Normal Limits Breast: Yes: Breast Exam Deferred Cardiology: Yes: Regular Rhythm, Regular Rate Abdominal: Yes: Normal Bowel Sounds, Non Tender Genitourinary: Yes: Frequency Back: Yes: Normal Inspection Musculoskeletal: Yes: Joint Stiffness, Joint swelling (Left knee) Extremities: Yes: Normal Inspection, Normal Range of Motion, Non-Tender Neurological: Yes: Alert, Normal Mood/Affect, Normal Response Integumentary: Yes: Normal Color, Dry, Warm Lymphatic: Yes: Within Normal Limits - Diagnostic (1) Alcohol dependence with uncomplicated withdrawal Current Visit: Yes Status: Chronic (2) Arthritis of left knee Current Visit: Yes Status: Chronic (3) Cocaine dependence Current Visit: Yes Status: Chronic (4) Essential hypertension Current Visit: No Status: Chronic (5) Nicotine dependence Current Visit: Yes Status: Chronic Qualifiers: Nicotine product type: cigarettes Substance use status: in withdrawal Qualified Code(s): F17.213 - Nicotine dependence, cigarettes, with withdrawal (6) Obesity Current Visit: Yes Status: Chronic Cleared for Admission [facility] - Detox or Rehab [facility] Level of Care: Medically Managed Detox Regimen/Protocol: Librium Breathalyzer - Breathalyzer Breathalyzer: 0.184 Urine Drug Screen - Test Device Lot number: [id number] Expiration date: 10/15/20 - Control Is test valid?: Yes - Results Drug screen NEGATIVE: No Urine drug screen results: CARLI-Cocaine, BZO-Benzodiazepines Inpatient Rehab Admission - Rehab Decision to Admit Inpatient rehab admission?: No
[2019-03-01] MEDS ORDERED: MENTHOL/PHENOL 1 EACH UD MM PRN (17:10)
[2019-03-01] MEDS ORDERED: MAGNESIUM HYDROX 2400MG/30ML ORAL SUSPENSION 30 ML CUP PO PRN (17:10)
[2019-03-01] MEDS ORDERED: chlordiazePOXIDE HCL 25 MG CAPSULE PO PRN (17:10)
[2019-03-01] MEDS ORDERED: NICOTINE POLACRILEX 2 MG GUM BUC PRN (17:10)
[2019-03-01] MEDS ORDERED: traZODone HCL 50 MG TABLET (FP) PO PRN (17:10)
[2019-03-01] MEDS ORDERED: ACETAMINOPHEN 325 MG TABLET (FP) PO PRN ×2 (17:10)
[2019-03-01] MEDS ORDERED: hydrOXYzine PAMOATE 50 MG CAPSULE (FP) PO PRN (17:10)
[2019-03-01] MEDS ORDERED: MAGNESIUM CITRATE 300 ML BOTTLE PO PRN (17:10)
[2019-03-01] MEDS ORDERED: IBUPROFEN 400 MG TABLET (FP) PO PRN (17:10)
[2019-03-01] MEDS ORDERED: MAG HYDROX/AL HYDROX/SIMETH 30 ML UNIT-DOSE CUP PO PRN (17:10)
[2019-03-01] MEDS ORDERED: BISMUTH SUBSALICYLATE 524 MG/30 ML UD PO PRN (17:10)
[2019-03-01] MEDS: THIAMINE HCL 100 MG TABLET (FP) PO SCH (22:03)
[2019-03-01] MEDS: chlordiazePOXIDE HCL 25 MG CAPSULE PO SCH (22:03)
[2019-03-01] MEDS: MELATONIN 5 MG TABLETS PO PRN (22:04)
[2019-03-02] MEDS: chlordiazePOXIDE HCL 25 MG CAPSULE PO SCH ×4 (05:37→22:07)
[2019-03-02] MEDS: PRENATAL VITAMINS W/ FOLIC ACID TABLET (FP) PO SCH (10:05)
[2019-03-02] MEDS: LISINOPRIL 5 MG TABLET (FP) PO SCH (10:05)
[2019-03-02] MEDS: NICOTINE 21 MG/24 HOURS TOPICAL PATCH TD SCH (10:07)
[2019-03-02 12:57] LABS: ALBUMIN 3.5 g/dl (3.4-5.0); ALK PHOS 108 U/L (45-117); ANION GAP 7 MMOL/L (8-16); BILIRUBIN,TOTAL 0.3 mg/dL (0.2-1); BLOOD UREA NITROGEN 16 mg/dL (7-18); CALCIUM 9.1 mg/dL (8.5-10.1); CHLORIDE 105 mmol/L (98-107); CO2 27 mmol/L (21-32); CREATININE 0.9 mg/dL (0.55-1.3); GLUCOSE,RANDOM 106 mg/dL (74-106); POTASSIUM 4.5 mmol/L (3.5-5.1); SGOT/AST 59 U/L (15-37); SGPT/ALT 56 U/L (13-61); SODIUM 138 mmol/L (136-145); TOT PROT 6.6 g/dl (6.4-8.2)
[2019-03-02 13:33] LABS: HEMATOCRIT 39.8 % (35.4-49); HEMOGLOBIN 13.3 GM/dL (11.7-16.9); MCH 30.5 pg (25.7-33.7); MCHC 33.5 g/dl (32.0-35.9); MEAN CELL VOLUME 90.9 fl (80-96); MEAN PLT VOLUME 8.8 fl (7.5-11.1); PLATELET COUNT 194 K/MM3 (134-434); RBC 4.37 M/mm3 (4.00-5.60); WHITE BLOOD COUNT 8.4 K/mm3 (4.0-10.0)
--- NOTE | 2019-03-02 15:31 | PN ---
[facility] CIWA - CIWA Score Nausea/Vomitin-Mild Nausea/No Vomiting Muscle Tremors: 3 Anxiety: 3 Agitation: 3 Paroxysmal Sweats: 1-Minimal Palms Moist Orientation: 2-Disoriented Date<2 days Tacttile Disturbances: 0-None Auditory Disturbances: 0-None Visual Disturbances: 0-None Headache: 0-None Present CIWA-Ar Total Score: 13 BHS Progress Note (SOAP) Subjective: feeling ok today discuss aftercare with staff patient is aware of [facility] patient may want to return home for clothing then [facility] for [facility] Objective: 03/02/19 15:30 Vital Signs Temperature 96.7 F L 03/02/19 13:14 Pulse Rate 64 03/02/19 13:14 Respiratory Rate 18 03/02/19 13:14 Blood Pressure 114/71 03/02/19 13:14 O2 Sat by Pulse Oximetry (%) Laboratory Last Values WBC 8.4 K/mm3 (4.0-10.0) 03/02/19 07:00 RBC 4.37 M/mm3 (4.00-5.60) 03/02/19 07:00 Hgb 13.3 GM/dL (11.7-16.9) 03/02/19 07:00 Hct 39.8 % (35.4-49) 03/02/19 07:00 MCV 90.9 fl (80-96) 03/02/19 07:00 MCH 30.5 pg (25.7-33.7) 03/02/19 07:00 MCHC 33.5 g/dl (32.0-35.9) 03/02/19 07:00 RDW 14.0 % (11.9-15.9) 03/02/19 07:00 Plt Count 194 K/MM3 (134-434) 03/02/19 07:00 MPV 8.8 fl (7.5-11.1) 03/02/19 07:00 Sodium 138 mmol/L (136-145) 03/02/19 07:00 Potassium 4.5 mmol/L (3.5-5.1) 03/02/19 07:00 Chloride 105 mmol/L (98-107) 03/02/19 07:00 Carbon Dioxide 27 mmol/L (21-32) 03/02/19 07:00 Anion Gap 7 MMOL/L (8-16) L 03/02/19 07:00 BUN 16 mg/dL (7-18) 03/02/19 07:00 Creatinine 0.9 mg/dL (0.55-1.3) 03/02/19 07:00 Creat Clearance w eGFR 89.32 (>60) 03/02/19 07:00 Random Glucose 106 mg/dL (74-106) 03/02/19 07:00 Calcium 9.1 mg/dL (8.5-10.1) 03/02/19 07:00 Total Bilirubin 0.3 mg/dL (0.2-1) 03/02/19 07:00 AST 59 U/L (15-37) H 03/02/19 07:00 ALT 56 U/L (13-61) 03/02/19 07:00 Alkaline Phosphatase 108 U/L (45-117) 03/02/19 07:00 Total Protein 6.6 g/dl (6.4-8.2) 03/02/19 07:00 Albumin 3.5 g/dl (3.4-5.0) 03/02/19 07:00 lab noted Assessment: 03/02/19 15:30 withdrawal sx Plan: continue detox
[2019-03-02] MEDS: MELATONIN 5 MG TABLETS PO PRN (22:07)
[2019-03-02] MEDS: THIAMINE HCL 100 MG TABLET (FP) PO SCH (22:07)
[2019-03-03] MEDS: chlordiazePOXIDE HCL 25 MG CAPSULE PO SCH ×3 (05:33→17:34)
[2019-03-03] MEDS: LISINOPRIL 5 MG TABLET (FP) PO SCH (10:05)
[2019-03-03] MEDS: PRENATAL VITAMINS W/ FOLIC ACID TABLET (FP) PO SCH (10:06)
[2019-03-03] MEDS: METHOCARBAMOL 500 MG TABLET PO PRN ×2 (10:07→17:35)
[2019-03-03] MEDS: NICOTINE 21 MG/24 HOURS TOPICAL PATCH TD SCH (10:08)
--- NOTE | 2019-03-03 12:16 | PN ---
S CIWA - CIWA Score Nausea/Vomitin-No Nausea/No Vomiting Muscle Tremors: 3 Anxiety: 3 Agitation: 0-Normal Activity Paroxysmal Sweats: No Perspiration Orientation: 0-Oriented Tacttile Disturbances: 2-Mild Itch/Numbness/Burn Auditory Disturbances: 1-Very Mild Visual Disturbances: 2-Mild Sensitivity Headache: 0-None Present CIWA-Ar Total Score: 11 BHS Progress Note (SOAP) Subjective: Body Aches, Tremors (Improving). Objective: PATIENT A & O X 3. IN NO ACUTE DISTRESS. 03/03/19 12:17 Vital Signs Temperature 96.5 F L 03/03/19 09:16 Pulse Rate 88 03/03/19 09:16 Respiratory Rate 18 03/03/19 09:16 Blood Pressure 123/86 03/03/19 09:16 O2 Sat by Pulse Oximetry (%) Laboratory Tests 03/02/19 03/02/19 03/02/19 07:00 07:00 07:00 WBC 8.4 RBC 4.37 Hgb 13.3 Hct 39.8 MCV 90.9 MCH 30.5 MCHC 33.5 RDW 14.0 Plt Count 194 MPV 8.8 Sodium 138 Potassium 4.5 Chloride 105 Carbon Dioxide 27 Anion Gap 7 L BUN 16 Creatinine 0.9 Creat Clearance w eGFR 89.32 Random Glucose 106 Calcium 9.1 Total Bilirubin 0.3 AST 59 H ALT 56 Alkaline Phosphatase 108 Total Protein 6.6 Albumin 3.5 RPR Titer Nonreactive LABS NOTED. Assessment: 03/03/19 12:18 WITHDRAWAL SYMPTOMS. Plan: CONTINUE DETOX.
[2019-03-03] MEDS: THIAMINE HCL 100 MG TABLET (FP) PO SCH (21:30)
[2019-03-03] MEDS: MELATONIN 5 MG TABLETS PO PRN (21:30)
[2019-03-03] MEDS: chlordiazePOXIDE HCL 10 MG CAPSULE PO SCH (22:26)
[2019-03-03] MEDS ORDERED: chlordiazePOXIDE HCL 10 MG CAPSULE PO PRN (23:00)
[2019-03-04] MEDS: chlordiazePOXIDE HCL 10 MG CAPSULE PO SCH ×2 (06:09→10:04)
[2019-03-04 09:04] VITALS: BP 101/68; PULSE 67; TEMP 97.4
[2019-03-04] MEDS: LISINOPRIL 5 MG TABLET (FP) PO SCH (10:04)
[2019-03-04] MEDS: NICOTINE 21 MG/24 HOURS TOPICAL PATCH TD SCH (10:04)
[2019-03-04] MEDS: PRENATAL VITAMINS W/ FOLIC ACID TABLET (FP) PO SCH (10:04)
[2019-03-04] MEDS: METHOCARBAMOL 500 MG TABLET PO PRN (10:07)
--- NOTE | 2019-03-04 13:01 | PN ---
S CIWA - CIWA Score Nausea/Vomitin-No Nausea/No Vomiting Muscle Tremors: None Anxiety: 2 Agitation: 1-Slight > Activity Paroxysmal Sweats: 3 Orientation: 0-Oriented Tacttile Disturbances: 1-Very Mild Itch/Numbness Auditory Disturbances: 0-None Visual Disturbances: 2-Mild Sensitivity Headache: 0-None Present CIWA-Ar Total Score: 9 BHS Progress Note (SOAP) Subjective: Body Aches, Sweating. Objective: PATIENT A & O X 3, OBSERVED AMBULATING ON UNIT. IN NO ACUTE DISTRESS. 03/04/19 13:00 Vital Signs Temperature 97.4 F L 03/04/19 09:03 Pulse Rate 67 03/04/19 09:03 Respiratory Rate 18 03/04/19 09:03 Blood Pressure 101/68 03/04/19 09:03 O2 Sat by Pulse Oximetry (%) Laboratory Tests 03/02/19 03/02/19 03/02/19 07:00 07:00 07:00 WBC 8.4 RBC 4.37 Hgb 13.3 Hct 39.8 MCV 90.9 MCH 30.5 MCHC 33.5 RDW 14.0 Plt Count 194 MPV 8.8 Sodium 138 Potassium 4.5 Chloride 105 Carbon Dioxide 27 Anion Gap 7 L BUN 16 Creatinine 0.9 Creat Clearance w eGFR 89.32 Random Glucose 106 Calcium 9.1 Total Bilirubin 0.3 AST 59 H ALT 56 Alkaline Phosphatase 108 Total Protein 6.6 Albumin 3.5 RPR Titer Nonreactive LABS NOTED. Assessment: 03/04/19 13:01 WITHDRAWAL SYMPTOMS. Plan: CONTINUE DETOX.
--- NOTE | 2019-03-04 13:07 | DS ---
[facility] Detox Discharge Summary Admission Date: 03/01/19 Discharge Date: 03/04/19 - History Present History: Alcohol Dependence, Cocaine Dependence Additional Comments: PATIENT DOES NOT WISH TO REMAIN TO COMPLETE DETOX REGIMEN. RISKS OF LEAVING DETOX UNIT AGAINST MEDICAL ADVICE AND PRIOR TO COMPLETION OF DETOX REGIMEN EXPLAINED TO PATIENT. PATIENT ADVISED TO GO IMMEDIATELY TO NEAREST ER SHOULD ANY INTOLERABLE WITHDRAWAL / DETOX SYMPTOMS DEVELOP AT ANY TIME. PATIENT VERBALIZED UNDERSTANDING OF ALL INFORMATION / RECOMMENDATIONS PRESENTED TO HIM PRIOR TO DEPARTURE FROM DETOX UNIT. PATIENT DECLINED OFFER OF MEDICATION PRESCRIPTION FOR HOME MEDICATION ( LISINOPRIL) AT TIME OF DISCHARGE FROM DETOX, NOTING THAT HE CURRENTLY HAS REFILLS WAITING FOR HIM AT HIS PHARMACY ([place], [place]). EXTERNAL MEDICATION REVIEW IN [facility] REVEALS THAT PATIENT FILLED PRESCRIPTION FOR LISINOPRIL ON 02/16/2019). PATIENT LEFT DETOX UNIT IN STABLE MEDICAL CONDITION. Pertinent Past History: HTN, History Of Elevated Liver Enzymes, Nicotine Dependence, History Of Arthritis Of Left Knee. - Physical Exam Results Vital Signs: Vital Signs Temperature 97.4 F L 03/04/19 09:03 Pulse Rate 67 03/04/19 09:03 Respiratory Rate 18 03/04/19 09:03 Blood Pressure 101/68 03/04/19 09:03 O2 Sat by Pulse Oximetry (%) Pertinent Admission Physical Exam Findings: WITHDRAWAL SYMPTOMS. Laboratory Tests 03/02/19 03/02/19 03/02/19 07:00 07:00 07:00 WBC 8.4 RBC 4.37 Hgb 13.3 Hct 39.8 MCV 90.9 MCH 30.5 MCHC 33.5 RDW 14.0 Plt Count 194 MPV 8.8 Sodium 138 Potassium 4.5 Chloride 105 Carbon Dioxide 27 Anion Gap 7 L BUN 16 Creatinine 0.9 Creat Clearance w eGFR 89.32 Random Glucose 106 Calcium 9.1 Total Bilirubin 0.3 AST 59 H ALT 56 Alkaline Phosphatase 108 Total Protein 6.6 Albumin 3.5 RPR Titer Nonreactive LABS NOTED. - Treatment Hospital Course: Detox Protocol Followed, Detoxed Safely - Medication Discharge Medications: Ambulatory Orders Lisinopril [Prinivil] 5 mg PO DAILY #30 tablet 11/20/18 - Diagnosis (1) Alcohol dependence with uncomplicated withdrawal Current Visit: Yes Status: Acute (2) Arthritis of left knee Current Visit: Yes Status: Chronic (3) Cocaine dependence Current Visit: Yes Status: Chronic (4) Nicotine dependence Current Visit: Yes Status: Chronic Qualifiers: Nicotine product type: cigarettes Substance use status: in withdrawal Qualified Code(s): F17.213 - Nicotine dependence, cigarettes, with withdrawal (5) Obesity Current Visit: Yes Status: Chronic (6) Essential hypertension Current Visit: No Status: Chronic - AMA Did Patient Leave Against Medical Advice: Yes (PATIENT DID NOT WISH TO REMAIN TO COMPLETE DETOX REGIMEN.)
[2019-03-04] MEDS ORDERED: chlordiazePOXIDE HCL 10 MG CAPSULE PO SCH (23:00)
== END 2019-03-04 11:50 | disposition left against medical advice (07) | DRG 770 ==
LOC: YASAS 12:34 → Y3N 17:30
PROVIDERS: ADMIT Surgery; ATTEND Surgery
PROC: HZ2ZZZZ Detoxification Services for Substance Abuse Treatment (ICD-10-PCS; principal; 2019-03-01)
DX: F10.230 Alcohol dependence with withdrawal, uncomplicated (principal); F14.20 Cocaine dependence, uncomplicated; F17.210 Nicotine dependence, cigarettes, uncomplicated; I10 Essential (primary) hypertension; M17.12 Unilateral primary osteoarthritis, left knee; R94.5 Abnormal results of liver function studies; E66.9 Obesity, unspecified; Z68.39 Body mass index [BMI] 39.0-39.9, adult; Z88.0 Allergy status to penicillin; Z91.013 Allergy to seafood
CPT/HCPCS: 36415; 80053; 85027; 86593

== ENCOUNTER 2019-04-05 09:02 | Inpatient (IN) | payer OTHER ==
[2019-04-05 09:26] VITALS: BMI 37.2
--- NOTE | 2019-04-05 10:00 | HP ---
CIWA Score Nausea/Vomitin-Int. Nausea w/Dry Heave Muscle Tremors: 4-Moderate,w/Arms Extend Anxiety: 4-Mod. Anxious/Guarded Agitation: 1-Slight > Activity Paroxysmal Sweats: 2 Orientation: 0-Oriented Tacttile Disturbances: 2-Mild Itch/Numbness/Burn Auditory Disturbances: 0-None Visual Disturbances: 3-Moderate Sensitivity Headache: 5-Severe CIWA-Ar Total Score: 25 - Admission Criteria OASAS Guidelines: Admission for Medically Managed Detox: Requires at least one of the followin. CIWA greater than 12 2. Seizures within the past 24 hours 3. Delirium tremens within the past 24 hours 4. Hallucinations within the past 24 hours 5. Acute intervention needed for co occurring medical disorder 6. Acute intervention needed for co occurring psychiatric disorder 7. Severe withdrawal that cannot be handled at a lower level of care (continued vomiting, continued diarrhea, abnormal vital signs) requiring intravenous medication and/or fluids 8. Admission ROS S - HPI Allergies/Adverse Reactions: Allergies Allergy/AdvReac Type Severity Reaction Status Date / Time peanut Allergy Severe Difficulty Verified 04/05/19 09:16 Breathing fish derived Allergy Intermediate Verified 04/05/19 09:16 No Known Drug Allergies Allergy Unknown Verified 04/05/19 09:16 red sauce Allergy Uncoded 04/05/19 09:16 History of Present Illness: patient here requesting detox from etoh use , reports 10-12 x 40 oz /day since 1 year ago , first age of use 18 , previous multile detox at this facility , denies seizures, blackouts , + tremors , reports he starts drinking in the mornings , current symptoms as above PARISA 0.168 . cocaine : 1 bag/ day via inhalation 2 x/week tobacco 10-12 cigs/ day pMHX : htn , OA PShx : denies Exam Limitations: Clinical Condition, Intoxication - Ebola screening Have you traveled outside of the country in the last 21 days: No (N) Have you had contact with anyone from an Ebola affected area: No Do you have a fever: No - Review of Systems Constitutional: See HPI EENT: reports: See HPI Respiratory: reports: No Symptoms reported Cardiac: reports: No Symptoms Reported GI: reports: See HPI : reports: No Symptoms Reported Musculoskeletal: reports: Joint Pain (left knee OA) Integumentary: reports: No Symptoms Reported Neuro: reports: See HPI, Headache, Tremors Endocrine: reports: No Symptoms Reported Psychiatric: reports: Orientated x3, Agitated, Anxious Patient History - Patient Medical History Hx Anemia: No Hx Asthma: No Hx Chronic Obstructive Pulmonary Disease (COPD): No Hx Cancer: No Hx Cardiac Disorders: No Hx Congestive Heart Failure: No Hx Hypertension: Yes (Takes lisinopril ) Hx Hypercholesterolemia: No Hx Pacemaker: No HX Cerebrovascular Accident: No Hx Seizures: No Hx Dementia: No Hx Diabetes: No Hx Gastrointestinal Disorders: No Hx Liver Disease: Yes (elevated liver enymes ) Hx Genitourinary Disorders: No Hx Sexually Transmitted Disorders: No Hx Renal Disease (ESRD): No Hx Thyroid Disease: No Hx Human Immunodeficiency Virus (HIV): No (last 03/03 negative) Hx Hepatitis C: No Hx Depression: Yes Hx Suicide Attempt: No Hx Bipolar Disorder: No Hx Schizophrenia: No - Patient Surgical History Past Surgical History: No Hx Neurologic Surgery: No Hx Cataract Extraction: No Hx Cardiac Surgery: No Hx Lung Surgery: No Hx Breast Surgery: No Hx Breast Biopsy: No Hx Abdominal Surgery: No Hx Appendectomy: No Hx Cholecystectomy: No Hx Genitourinary Surgery: No Hx Section: No Hx Orthopedic Surgery: No Hx Hysterectomy: No Anesthesia Reaction: No - PPD History Date: 10/13/18 Results: 0 mm - Smoking Cessation Smoking history: Current every day smoker Have you smoked in the past 12 months: Yes Aproximately how many cigarettes per day: 20 If you are a former smoker, when did you quit?: Stopped smoking 3 weeks ago while in detox Cigars Per Day: 0 Hx Chewing Tobacco Use: No Initiated information on smoking cessation: No - Substances abused Alcohol Substance route: Oral Frequency: Daily Amount used: 12BTLS (40 ounces) of beer Age of first use: 18 Date of last use: 04/05/19 Cocaine Substance route: Inhalation Frequency: 3-6 times per week Amount used: 1 gram Age of first use: 35 Date of last use: 04/04/19 Family Disease History - Family Disease History Family Disease History: Other: Grandparent (arthritis of knees), Father (alcohol ,dsa,), Mother (heroin overdose; dec @ 30 yo), Brother (alcoho/cirrhosis ) Admission Physical Exam BHS - Vital Signs Vital Signs: Vital Signs - 24 hr 04/05/19 04/05/19 04/05/19 09:12 09:28 09:46 Temperature 98.6 F 98.6 F 98.6 F Pulse Rate 84 84 84 Respiratory 18 18 18 Rate Blood Pressure 111/58 L 111/58 L 111/58 L - Physical General Appearance: Yes: Moderate Distress, Alcohol on Breath, Intoxicated, Tremorous, Sweating, Anxious HEENTM: Yes: EOMI, Hearing grossly Normal, Normocephalic, Normal Voice Respiratory: Yes: Chest Non-Tender, Lungs Clear, Normal Breath Sounds Neck: Yes: No masses,lesions,Nodules, Trachea in good position Cardiology: Yes: Regular Rhythm, Regular Rate, S1, S2 Abdominal: Yes: Normal Bowel Sounds, Soft, Protuberent Back: Yes: Normal Inspection Musculoskeletal: Yes: Other (staggering gait) Extremities: Yes: Tremors Neurological: Yes: Fully Oriented, Alert, Motor Strength 5/5 Integumentary: Yes: Warm - Diagnostic (1) Alcohol dependence with uncomplicated withdrawal Current Visit: Yes Status: Acute (2) Cocaine dependence Current Visit: Yes Status: Chronic (3) Nicotine dependence Current Visit: Yes Status: Chronic Qualifiers: Nicotine product type: cigarettes (4) Alcohol intoxication Current Visit: Yes Status: Acute Qualifiers: Complication of substance-induced condition: uncomplicated Qualified Code(s ): F10.920 - Alcohol use, unspecified with intoxication, uncomplicated Breathalyzer - Breathalyzer Breathalyzer: 0.168 Urine Drug Screen - Test Device Lot number: [id number] Expiration date: 12/16/20 - Control Is test valid?: Yes - Results Drug screen NEGATIVE: Yes Urine drug screen results: CARLI-Cocaine, BZO-Benzodiazepines, BUP-Suboxone Inpatient Rehab Admission - Rehab Decision to Admit Inpatient rehab admission?: No
[2019-04-05] MEDS ORDERED: MAGNESIUM HYDROX 2400MG/30ML ORAL SUSPENSION 30 ML CUP PO PRN (10:03)
[2019-04-05] MEDS ORDERED: ACETAMINOPHEN 325 MG TABLET (FP) PO PRN ×2 (10:03)
[2019-04-05] MEDS ORDERED: IBUPROFEN 400 MG TABLET (FP) PO PRN (10:03)
[2019-04-05] MEDS ORDERED: MAGNESIUM CITRATE 300 ML BOTTLE PO PRN (10:03)
[2019-04-05] MEDS ORDERED: chlordiazePOXIDE HCL 25 MG CAPSULE PO PRN (10:03)
[2019-04-05] MEDS ORDERED: MENTHOL/PHENOL 1 EACH UD MM PRN (10:03)
[2019-04-05] MEDS ORDERED: MAG HYDROX/AL HYDROX/SIMETH 30 ML UNIT-DOSE CUP PO PRN (10:03)
[2019-04-05] MEDS ORDERED: BISMUTH SUBSALICYLATE 262 MG/15 ML BTL PO PRN (10:03)
[2019-04-05] MEDS ORDERED: MELATONIN 5 MG TABLETS PO PRN (10:03)
[2019-04-05] MEDS ORDERED: NICOTINE POLACRILEX 2 MG GUM BUC PRN (10:03)
[2019-04-05] MEDS: chlordiazePOXIDE HCL 25 MG CAPSULE PO SCH ×3 (10:59→22:35)
--- NOTE | 2019-04-05 15:16 | CONSULT ---
[facility] Psychiatric Consult - Data Date of interview: 04/05/19 Admission source: [facility] Identifying data: Readmission to [facility] for this 48 y/o AA male self- referred for detoxification (alcohol, cocaine). Examined on . Patient is idowed, a father of two, domiciled, unemployed and supported on welfare. Substance Abuse History: Confirmed by patient in this interview. Details in current [facility] report as follows : Smoking history: Current every day smoker. Have you smoked in the past 12 months: Yes. Aproximately how many cigarettes per day: 20. If you are a former smoker, when did you quit?: Stopped smoking 3 weeks ago while in detox. Cigars Per Day: 0. Hx Chewing Tobacco Use: No. Initiated information on smoking cessation: No. - Substances abused. Alcohol. Substance route: Oral. Frequency: Daily. Amount used: 12BTLS (40 ounces) of beer. Age of first use: 18. Date of last use: 04/05/19. Cocaine. Substance route: Inhalation. Frequency: 3-6 times per week. Amount used: 1 gram. Age of first use: 35. Date of last use: 04/04/19 Medical History: Hypertension, obesity and elevated liver enzymes. Psychiatric History: Patient denies history of psychiatric hospitalizations. Mr Terry declares that he does not have a psychiatric diagnosis or any " form of mental illness ". No contact with psychiatrists for OPD care. Not on medications except for trazodone , prescribed by a primary care physician. No history of suicide attempts. Physical/Sexual Abuse/Trauma History: Not discussed. Patient declines. Additional Comment: Urine drug screen results: CARLI-Cocaine, BZO-Benzodiazepines , BUP-Suboxone. Noted. Mental Status Exam - Mental Status Exam Alert and Oriented to: Time, Place, Person Cognitive Function: Good Patient Appearance: Well Groomed (obese) Mood: Withdrawn, Irritable Affect: Mood Congruent, Constricted Patient Behavior: Fatigued, Guarded, Appropriate, Cooperative (superficially cooperative) Speech Pattern: Clear, Appropriate Voice Loudness: Normal Thought Process: Goal Oriented Thought Disorder: Not Present Hallucinations: Denies Suicidal Ideation: Denies Homicidal Ideation: Denies Insight/Judgement: Poor Sleep: Poorly (requests trazodone at bedtime), Difficulty falling asleep Appetite: Good Muscle strength/Tone: Normal Gait/Station: Other (not observed ; in bed all day) Psychiatric Findings - Problem List ([place] 1, 2,3) (1) Alcohol dependence with uncomplicated withdrawal Current Visit: Yes Status: Acute (2) Cocaine dependence Current Visit: Yes Status: Chronic (3) Nicotine dependence Current Visit: Yes Status: Chronic Qualifiers: Nicotine product type: cigarettes (4) Drug-induced mood disorder Current Visit: Yes Status: Chronic (5) Insomnia Current Visit: Yes Status: Chronic - Initial Treatment Plan Initial Treatment Plan: Psychoeducation. Sleep hygiene. Detoxification. Trazodone 100 mg po hs. Ordered at patient's specific request. Mr Terry is made aware of the potential for priapism. Verbal consent given to MD. Lawson.
[2019-04-05] MEDS: traZODone HCL 100 MG TABLET (FP) PO SCH (22:35)
[2019-04-05] MEDS: THIAMINE HCL 100 MG TABLET (FP) PO SCH (22:35)
[2019-04-06] MEDS: chlordiazePOXIDE HCL 25 MG CAPSULE PO SCH ×4 (06:40→23:10)
[2019-04-06] MEDS: PRENATAL VITAMINS W/ FOLIC ACID TABLET (FP) PO SCH (10:09)
[2019-04-06] MEDS: LISINOPRIL 5 MG TABLET (FP) PO SCH (10:09)
[2019-04-06 10:29] LABS: HEMATOCRIT 40.7 % (35.4-49); HEMOGLOBIN 13.6 GM/dL (11.7-16.9); MCH 30.6 pg (25.7-33.7); MCHC 33.3 g/dl (32.0-35.9); MEAN CELL VOLUME 91.9 fl (80-96); MEAN PLT VOLUME 8.6 fl (7.5-11.1); PLATELET COUNT 208 K/MM3 (134-434); RBC 4.43 M/mm3 (4.00-5.60); RDW 13.8 % (11.9-15.9); WHITE BLOOD COUNT 7.6 K/mm3 (4.0-10.0)
[2019-04-06 10:41] LABS: ALBUMIN 3.6 g/dl (3.4-5.0); BILIRUBIN,TOTAL 0.5 mg/dL (0.2-1); CALCIUM 8.7 mg/dL (8.5-10.1); POTASSIUM 4.4 mmol/L (3.5-5.1); TOT PROT 6.9 g/dl (6.4-8.2)
--- NOTE | 2019-04-06 14:25 | PN ---
S CIWA - CIWA Score Nausea/Vomitin-No Nausea/No Vomiting Muscle Tremors: 3 Anxiety: 3 Agitation: 1-Slight > Activity Paroxysmal Sweats: 2 Orientation: 0-Oriented Tacttile Disturbances: 3-Moderate Itch/Numb/Burn Auditory Disturbances: 0-None Visual Disturbances: 3-Moderate Sensitivity Headache: 0-None Present CIWA-Ar Total Score: 15 BHS Progress Note (SOAP) Subjective: Body Aches, Anxious, Tremors. Objective: PATIENT A & O X 3, OBSERVED AMBULATING ON UNIT UNASSISTED. IN NO ACUTE DISTRESS. 04/06/19 14:33 Vital Signs Temperature 98.8 F 04/06/19 10:56 Pulse Rate 60 04/06/19 10:56 Respiratory Rate 18 04/06/19 10:56 Blood Pressure 101/57 L 04/06/19 10:56 O2 Sat by Pulse Oximetry (%) Laboratory Tests 04/06/19 04/06/19 07:00 07:00 WBC 7.6 RBC 4.43 Hgb 13.6 Hct 40.7 MCV 91.9 MCH 30.6 MCHC 33.3 RDW 13.8 Plt Count 208 MPV 8.6 Sodium 138 Potassium 4.4 Chloride 106 Carbon Dioxide 27 Anion Gap 6 L BUN 14 Creatinine 1.0 Est GFR (CKD-EPI)AfAm 101.26 Est GFR (CKD-EPI)NonAf 87.37 Random Glucose 89 Calcium 8.7 Total Bilirubin 0.5 AST 34 ALT 57 Alkaline Phosphatase 87 Total Protein 6.9 Albumin 3.6 LABS NOTED. Assessment: 04/06/19 14:33 WITHDRAWAL SYMPTOMS. Plan: CONTINUE DETOX. INCREASE DAILY PO FLUID / WATER INTAKE. PRN ROBAXIN PO, TOPICAL JAYSON-BABC[place] FOR BODY ACHES.
[2019-04-06] MEDS: METHYL SALICYLATE/MENTHOL OINT 30 GM TUBE TP SCH ×2 (16:02→23:12)
[2019-04-06] MEDS: THIAMINE HCL 100 MG TABLET (FP) PO SCH (23:09)
[2019-04-06] MEDS: traZODone HCL 100 MG TABLET (FP) PO SCH (23:10)
[2019-04-07] MEDS: chlordiazePOXIDE HCL 25 MG CAPSULE PO SCH (06:53)
[2019-04-07] MEDS: chlordiazePOXIDE HCL 10 MG CAPSULE PO SCH ×3 (10:52→22:42)
[2019-04-07] MEDS: PRENATAL VITAMINS W/ FOLIC ACID TABLET (FP) PO SCH (10:52)
[2019-04-07] MEDS: METHYL SALICYLATE/MENTHOL OINT 30 GM TUBE TP SCH ×2 (10:53→22:41)
[2019-04-07] MEDS: LISINOPRIL 5 MG TABLET (FP) PO SCH (10:54)
[2019-04-07] MEDS ORDERED: chlordiazePOXIDE HCL 10 MG CAPSULE PO PRN (11:00)
--- NOTE | 2019-04-07 11:30 | PN ---
S CIWA - CIWA Score Nausea/Vomitin Muscle Tremors: 2 Anxiety: 2 Agitation: 2 Paroxysmal Sweats: 1-Minimal Palms Moist Orientation: 0-Oriented Tacttile Disturbances: 1-Very Mild Itch/Numbness Auditory Disturbances: 1-Very Mild Visual Disturbances: 0-None Headache: 2-Mild CIWA-Ar Total Score: 13 BHS Progress Note (SOAP) Subjective: alert,irritable,anxious,interrupted sleep,tremor Objective: 04/07/19 11:26 Vital Signs Temperature 97.5 F L 04/07/19 09:19 Pulse Rate 70 04/07/19 09:19 Respiratory Rate 18 04/07/19 09:19 Blood Pressure 109/58 L 04/07/19 09:19 O2 Sat by Pulse Oximetry (%) Laboratory Last Values WBC 7.6 K/mm3 (4.0-10.0) 04/06/19 07:00 RBC 4.43 M/mm3 (4.00-5.60) 04/06/19 07:00 Hgb 13.6 GM/dL (11.7-16.9) 04/06/19 07:00 Hct 40.7 % (35.4-49) 04/06/19 07:00 MCV 91.9 fl (80-96) 04/06/19 07:00 MCH 30.6 pg (25.7-33.7) 04/06/19 07:00 MCHC 33.3 g/dl (32.0-35.9) 04/06/19 07:00 RDW 13.8 % (11.9-15.9) 04/06/19 07:00 Plt Count 208 K/MM3 (134-434) 04/06/19 07:00 MPV 8.6 fl (7.5-11.1) 04/06/19 07:00 Sodium 138 mmol/L (136-145) 04/06/19 07:00 Potassium 4.4 mmol/L (3.5-5.1) 04/06/19 07:00 Chloride 106 mmol/L (98-107) 04/06/19 07:00 Carbon Dioxide 27 mmol/L (21-32) 04/06/19 07:00 Anion Gap 6 MMOL/L (8-16) L 04/06/19 07:00 BUN 14 mg/dL (7-18) 04/06/19 07:00 Creatinine 1.0 mg/dL (0.55-1.3) 04/06/19 07:00 Est GFR (CKD-EPI)AfAm 101.26 04/06/19 07:00 Est GFR (CKD-EPI)NonAf 87.37 04/06/19 07:00 Random Glucose 89 mg/dL (74-106) 04/06/19 07:00 Calcium 8.7 mg/dL (8.5-10.1) 04/06/19 07:00 Total Bilirubin 0.5 mg/dL (0.2-1) 04/06/19 07:00 AST 34 U/L (15-37) 04/06/19 07:00 ALT 57 U/L (13-61) 04/06/19 07:00 Alkaline Phosphatase 87 U/L (45-117) 04/06/19 07:00 Total Protein 6.9 g/dl (6.4-8.2) 04/06/19 07:00 Albumin 3.6 g/dl (3.4-5.0) 04/06/19 07:00 Assessment: 04/07/19 11:27 withdrawal symptom Plan: continue detox
[2019-04-07] MEDS: THIAMINE HCL 100 MG TABLET (FP) PO SCH (22:41)
[2019-04-07] MEDS: traZODone HCL 100 MG TABLET (FP) PO SCH (22:41)
[2019-04-08] MEDS: chlordiazePOXIDE HCL 10 MG CAPSULE PO SCH (06:30)
[2019-04-08 06:41] VITALS: BP 100/55; PULSE 48; TEMP 96.8
--- NOTE | 2019-04-08 08:30 | DS ---
[facility] Detox Discharge Summary Admission Date: 04/05/19 Discharge Date: 04/08/19 - History Present History: Alcohol Dependence, Cocaine Dependence - Physical Exam Results Vital Signs: Vital Signs Temperature 96.8 F L 04/08/19 06:00 Pulse Rate 48 L 04/08/19 06:00 Respiratory Rate 20 04/08/19 06:00 Blood Pressure 100/55 L 04/08/19 06:00 O2 Sat by Pulse Oximetry (%) - Treatment Hospital Course: Detox Protocol Followed, Detoxed Safely, Responded well, Discharged Condition Good, Rehab Referral Accepted - Medication Discharge Medications: Ambulatory Orders Lisinopril [Prinivil] 5 mg PO DAILY #30 tablet 11/20/18 - Diagnosis (1) Alcohol dependence with uncomplicated withdrawal Current Visit: Yes Status: Chronic (2) Cocaine dependence Current Visit: Yes Status: Chronic (3) Drug-induced mood disorder Current Visit: Yes Status: Chronic (4) Insomnia Current Visit: Yes Status: Chronic (5) Nicotine dependence Current Visit: Yes Status: Chronic Qualifiers: Nicotine product type: cigarettes Substance use status: uncomplicated Qualified Code(s): F17.210 - Nicotine dependence, cigarettes, uncomplicated (6) Alcohol-induced sleep disorder Current Visit: No Status: Acute (7) Bipolar disorder Current Visit: No Status: Acute (8) Alcohol-induced mood disorder Current Visit: No Status: Chronic (9) Arthritis of left knee Current Visit: No Status: Chronic (10) Chronic low back pain Current Visit: Yes Status: Chronic Qualifiers: Back pain laterality: midline Sciatica presence: without sciatica Qualified Code(s): M54.5 - Low back pain; G89.29 - Other chronic pain (11) Cocaine dependence Current Visit: Yes Status: Chronic Qualifiers: Substance use status: uncomplicated Qualified Code(s): F14.20 - Cocaine dependence, uncomplicated (12) Depression Current Visit: No Status: Chronic (13) Essential hypertension Current Visit: No Status: Chronic (14) Obesity Current Visit: Yes Status: Chronic (15) MDD (major depressive disorder) Current Visit: No Status: Suspected - AMA Did Patient Leave Against Medical Advice: No (referred to [facility])
[2019-04-08] MEDS ORDERED: chlordiazePOXIDE HCL 10 MG CAPSULE PO SCH (11:00)
== END 2019-04-08 09:00 | disposition home or self-care (01) | DRG 774 ==
LOC: YASAS 09:02 → Y6N 10:19
PROVIDERS: ADMIT Surgery; ATTEND Surgery
PROC: HZ2ZZZZ Detoxification Services for Substance Abuse Treatment (ICD-10-PCS; principal; 2019-04-05)
DX: F10.230 Alcohol dependence with withdrawal, uncomplicated (principal); F14.20 Cocaine dependence, uncomplicated; F17.210 Nicotine dependence, cigarettes, uncomplicated; F19.24 Other psychoactive substance dependence with psychoactive substance-induced mood disorder; F10.24 Alcohol dependence with alcohol-induced mood disorder; F10.282 Alcohol dependence with alcohol-induced sleep disorder; F31.9 Bipolar disorder, unspecified; G47.00 Insomnia, unspecified; M54.5 Low back pain; G89.29 Other chronic pain; I10 Essential (primary) hypertension; M17.12 Unilateral primary osteoarthritis, left knee; R94.5 Abnormal results of liver function studies; E66.9 Obesity, unspecified; Z68.37 Body mass index [BMI] 37.0-37.9, adult
CPT/HCPCS: 36415; 80053; 85027

== ENCOUNTER 2019-06-17 12:13 | Inpatient (IN) | payer OTHER | END 2019-06-19 13:40 | disposition left against medical advice (07) | LOC: YASAS 12:13 → Y3N 15:23 ==

== ENCOUNTER 2019-07-25 09:42 | Inpatient (IN) | payer OTHER ==
[2019-07-25 10:31] VITALS: BMI 36.3
--- NOTE | 2019-07-25 11:43 | HP ---
CIWA Score Nausea/Vomitin Muscle Tremors: 3 Anxiety: 3 Agitation: 3 Paroxysmal Sweats: 1-Minimal Palms Moist Orientation: 0-Oriented Tacttile Disturbances: 1-Very Mild Itch/Numbness Auditory Disturbances: 0-None Visual Disturbances: 0-None Headache: 2-Mild CIWA-Ar Total Score: 15 - Admission Criteria OASAS Guidelines: Admission for Medically Managed Detox: Requires at least one of the followin. CIWA greater than 12 2. Seizures within the past 24 hours 3. Delirium tremens within the past 24 hours 4. Hallucinations within the past 24 hours 5. Acute intervention needed for co occurring medical disorder 6. Acute intervention needed for co occurring psychiatric disorder 7. Severe withdrawal that cannot be handled at a lower level of care (continued vomiting, continued diarrhea, abnormal vital signs) requiring intravenous medication and/or fluids 8. Admission ROS [facility] - [facility] Chief Complaint: i am alcoholic,need help to stop drinking Allergies/Adverse Reactions: Allergies Allergy/AdvReac Type Severity Reaction Status Date / Time peanut Allergy Severe Swelling Verified 07/25/19 10:20 fish derived Allergy Intermediate Hives Verified 07/25/19 10:20 No Known Drug Allergies Allergy Unknown Verified 07/25/19 10:20 red sauce Allergy Uncoded 07/25/19 10:20 History of Present Illness: this 49 years old male with alcohol dependence,cocaine abuse,seeking detox, withdrawal symptom, multiple admissions in detox but keep relapsing and non compliance last detox C 06/17/19 to 06/19/19 not completed history of hypertension no med arthritis left knee bipolar disorder non compliance with med longest of sobriety 17 years,has alcohol problem after loss of family plan to go to rehab after detox homeless - Ebola screening Have you traveled outside of the country in the last 21 days: No (N) Have you had contact with anyone from an Ebola affected area: No Do you have a fever: No - Review of Systems Constitutional: Loss of Appetite, Malaise, Night Sweats, Changes in sleep EENT: reports: Nose Congestion Respiratory: reports: No Symptoms reported Cardiac: reports: No Symptoms Reported GI: reports: Nausea, Poor Appetite : reports: No Symptoms Reported Musculoskeletal: reports: Back Pain, Muscle Pain Integumentary: reports: Dryness Neuro: reports: Headache, Tremors Endocrine: reports: No Symptoms Reported Hematology: reports: No Symptoms Reported Psychiatric: reports: No Sypmtoms Reported, Judgement Intact, Mood/Affect Appropiate, Orientated x3, Depressed (bipolar disorder), other Other Systems: Reviewed and Negative Patient History - Patient Medical History Hx Anemia: No Hx Asthma: No Hx Chronic Obstructive Pulmonary Disease (COPD): No Hx Cancer: No Hx Cardiac Disorders: No Hx Congestive Heart Failure: No Hx Hypertension: Yes (no med) Hx Hypercholesterolemia: No Hx Pacemaker: No HX Cerebrovascular Accident: No Hx Seizures: No Hx Dementia: No Hx Diabetes: No Hx Gastrointestinal Disorders: No Hx Liver Disease: No Hx Genitourinary Disorders: No Hx Sexually Transmitted Disorders: No Hx Renal Disease (ESRD): No Hx Thyroid Disease: No Hx Human Immunodeficiency Virus (HIV): No (last 06/03 negative) Hx Hepatitis C: No Hx Depression: Yes (non compliance) Hx Suicide Attempt: No Hx Bipolar Disorder: Yes (non compliance) Hx Schizophrenia: No Other Medical History: no suicidal,no homicidal,arthritis of left knee - Patient Surgical History Past Surgical History: No Hx Neurologic Surgery: No Hx Cataract Extraction: No Hx Cardiac Surgery: No Hx Lung Surgery: No Hx Breast Surgery: No Hx Breast Biopsy: No Hx Abdominal Surgery: No Hx Appendectomy: No Hx Cholecystectomy: No Hx Genitourinary Surgery: No Hx Section: No Hx Orthopedic Surgery: No Hx Hysterectomy: No Anesthesia Reaction: No - PPD History Previous Implant?: Yes Documented Results: Negative w/proof Implanted On Prior R Admission?: Yes Date: 10/13/18 Results: 0 mm PPD to be Administered?: No - Smoking Cessation Smoking history: Current every day smoker Have you smoked in the past 12 months: Yes Aproximately how many cigarettes per day: 10 If you are a former smoker, when did you quit?: Stopped smoking 3 weeks ago while in detox Cigars Per Day: 0 Hx Chewing Tobacco Use: No Initiated information on smoking cessation: Yes 'Breaking Loose' booklet given: 07/25/19 - Substance & Tx. History Hx Alcohol Use: Yes Hx Substance Use: Yes Substance Use Type: Alcohol, Cocaine Hx Substance Use Treatment: Yes ([facility] 06/17/19 to 06/19/19) - Substances abused Alcohol Substance route: Oral Frequency: Daily Amount used: 10-12 (40 ounces) of beer Age of first use: 18 Date of last use: 07/25/19 Cocaine Substance route: Inhalation Frequency: 1-2 times per week Amount used: 3 gram Age of first use: 35 Date of last use: 07/24/19 Family Disease History - Family Disease History Family Disease History: Other: Grandparent (arthritis of knees), Father (alcohol ,dsa,), Mother (heroin overdose; dec @ 30 yo), Brother (alcoho/cirrhosis ) Admission Physical Exam [facility] - Vital Signs Vital Signs: Vital Signs - 24 hr 07/25/19 07/25/19 10:22 11:10 Temperature 97.3 F L 97.3 F L Pulse Rate 78 78 Respiratory 20 20 Rate Blood Pressure 112/76 112/76 - Physical General Appearance: Yes: Moderate Distress, Tremorous, Irritable, Sweating, Anxious HEENTM: Yes: Normal ENT Inspection, WES, Pharynx Normal Respiratory: Yes: Lungs Clear, Normal Breath Sounds, No Respiratory Distress Neck: Yes: Within Normal Limits, Supple, Trachea in good position Breast: Yes: Within Normal Limits Cardiology: Yes: Within Normal Limits, Regular Rhythm, Regular Rate, S1, S2 Abdominal: Yes: Normal Bowel Sounds, Non Tender, Flat, Soft Genitourinary: Yes: Within Normal Limits Back: Yes: Muscle Spasm Musculoskeletal: Yes: Back pain, Muscle Pain, Other Extremities: Yes: Tremors Neurological: Yes: family engagement specialist II-XII NML intact, Fully Oriented, Alert, Motor Strength 5/5 Integumentary: Yes: Dry Lymphatic: Yes: Within Normal Limits - Diagnostic (1) Alcohol dependence with uncomplicated withdrawal Current Visit: No Status: Acute (2) Bipolar disorder Current Visit: No Status: Acute (3) Nicotine dependence Current Visit: No Status: Acute Qualifiers: Nicotine product type: cigarettes Substance use status: in withdrawal Qualified Code(s): F17.213 - Nicotine dependence, cigarettes, with withdrawal (4) Arthritis of left knee Current Visit: No Status: Chronic (5) Cocaine dependence Current Visit: No Status: Chronic Qualifiers: Substance use status: uncomplicated Qualified Code(s): F14.20 - Cocaine dependence, uncomplicated (6) Essential hypertension Current Visit: No Status: Chronic (7) Obesity Current Visit: No Status: Chronic (8) Syncope Current Visit: Yes Status: Acute Cleared for Admission [facility] - Detox or Rehab [facility] Level of Care: Medically Managed Detox Regimen/Protocol: Librium Breathalyzer - Breathalyzer Breathalyzer: 0.174 Urine Drug Screen - Test Device Lot number: [id number] Expiration date: 04/15/21 - Control Is test valid?: Yes - Results Drug screen NEGATIVE: No Urine drug screen results: CARLI-Cocaine, BZO-Benzodiazepines Inpatient Rehab Admission - Rehab Decision to Admit Inpatient rehab admission?: No
[2019-07-25] MEDS ORDERED: chlordiazePOXIDE HCL 25 MG CAPSULE PO PRN (11:53)
[2019-07-25] MEDS ORDERED: ACETAMINOPHEN 325 MG TABLET (FP) PO PRN ×2 (11:53)
[2019-07-25] MEDS ORDERED: NICOTINE POLACRILEX 2 MG GUM BUC PRN (11:53)
[2019-07-25] MEDS ORDERED: hydrOXYzine PAMOATE 25 MG CAPSULE (FP) PO PRN (11:53)
[2019-07-25] MEDS ORDERED: MELATONIN 5 MG TABLETS PO PRN (11:53)
[2019-07-25] MEDS ORDERED: IBUPROFEN 400 MG TABLET (FP) PO PRN (11:53)
[2019-07-25] MEDS ORDERED: MAG HYDROX/AL HYDROX/SIMETH 30 ML UNIT-DOSE CUP PO PRN (11:53)
[2019-07-25] MEDS ORDERED: MENTHOL/PHENOL 1 EACH UD MM PRN (11:53)
[2019-07-25] MEDS ORDERED: MAGNESIUM CITRATE 300 ML BOTTLE PO PRN (11:53)
[2019-07-25] MEDS ORDERED: BISMUTH SUBSALICYLATE 262 MG/15 ML BTL PO PRN (11:53)
[2019-07-25] MEDS ORDERED: MAGNESIUM HYDROX 2400MG/30ML ORAL SUSPENSION 30 ML CUP PO PRN (11:53)
[2019-07-25] MEDS ORDERED: METHOCARBAMOL 500 MG TABLET PO PRN (11:53)
[2019-07-25] MEDS: NICOTINE 21 MG/24 HOURS TOPICAL PATCH TD SCH (12:57)
[2019-07-25 16:57] LABS: HEMATOCRIT 45.3 % (35.4-49); HEMOGLOBIN 14.8 GM/dL (11.7-16.9); MCHC 32.8 g/dl (32.0-35.9); MEAN CELL VOLUME 94.5 fl (80-96); MEAN PLT VOLUME 8.9 fl (7.5-11.1); PLATELET COUNT 221 K/MM3 (134-434); RBC 4.79 M/mm3 (4.00-5.60); RDW 13.8 % (11.9-15.9)
[2019-07-25 17:16] LABS: ALBUMIN 4.4 g/dl (3.4-5.0); BILIRUBIN,TOTAL 0.3 mg/dL (0.2-1); BLOOD UREA NITROGEN 14.1 mg/dL (7-18); CALCIUM 8.9 mg/dL (8.5-10.1); CREATININE 1.1 mg/dL (0.55-1.3); TOT PROT 8.2 g/dl (6.4-8.2)
[2019-07-25] MEDS: chlordiazePOXIDE HCL 25 MG CAPSULE PO SCH ×2 (17:52→22:14)
[2019-07-25] MEDS ORDERED: THIAMINE HCL 100 MG TABLET (FP) PO SCH (22:00)
[2019-07-26] MEDS: chlordiazePOXIDE HCL 25 MG CAPSULE PO SCH ×2 (05:12→10:16)
[2019-07-26] MEDS ORDERED: PRENATAL VITAMINS W/ FOLIC ACID TABLET (FP) PO SCH (10:00)
[2019-07-26] MEDS: NICOTINE 21 MG/24 HOURS TOPICAL PATCH TD SCH (10:16)
--- NOTE | 2019-07-26 10:39 | PN ---
S CIWA - CIWA Score Nausea/Vomitin Muscle Tremors: 2 Anxiety: 2 Agitation: 2 Paroxysmal Sweats: No Perspiration Orientation: 0-Oriented Tacttile Disturbances: 0-None Auditory Disturbances: 0-None Visual Disturbances: 0-None Headache: 2-Mild CIWA-Ar Total Score: 10 [facility] Progress Note (SOAP) Subjective: alert,irritable,anxious,interrupted sleep,tremor Objective: 07/26/19 10:35 Vital Signs Temperature 97.1 F L 07/26/19 09:41 Pulse Rate 65 07/26/19 09:41 Respiratory Rate 16 07/26/19 09:41 Blood Pressure 122/83 07/26/19 09:41 O2 Sat by Pulse Oximetry (%) Laboratory Last Values WBC 12.0 K/mm3 (4.0-10.0) H 07/25/19 12:00 RBC 4.79 M/mm3 (4.00-5.60) 07/25/19 12:00 Hgb 14.8 GM/dL (11.7-16.9) 07/25/19 12:00 Hct 45.3 % (35.4-49) 07/25/19 12:00 MCV 94.5 fl (80-96) 07/25/19 12:00 MCH 31.0 pg (25.7-33.7) 07/25/19 12:00 MCHC 32.8 g/dl (32.0-35.9) 07/25/19 12:00 RDW 13.8 % (11.9-15.9) 07/25/19 12:00 Plt Count 221 K/MM3 (134-434) 07/25/19 12:00 MPV 8.9 fl (7.5-11.1) 07/25/19 12:00 Sodium 140 mmol/L (136-145) 07/25/19 12:00 Potassium 4.0 mmol/L (3.5-5.1) 07/25/19 12:00 Chloride 103 mmol/L (98-107) 07/25/19 12:00 Carbon Dioxide 25 mmol/L (21-32) 07/25/19 12:00 Anion Gap 12 MMOL/L (8-16) 07/25/19 12:00 BUN 14.1 mg/dL (7-18) 07/25/19 12:00 Creatinine 1.1 mg/dL (0.55-1.3) 07/25/19 12:00 Est GFR (CKD-EPI)AfAm 89.61 07/25/19 12:00 Est GFR (CKD-EPI)NonAf 77.32 07/25/19 12:00 Random Glucose 117 mg/dL (74-106) H 07/25/19 12:00 Calcium 8.9 mg/dL (8.5-10.1) 07/25/19 12:00 Total Bilirubin 0.3 mg/dL (0.2-1) 07/25/19 12:00 AST 77 U/L (15-37) H 07/25/19 12:00 ALT 93 U/L (13-61) H 07/25/19 12:00 Alkaline Phosphatase 97 U/L (45-117) 07/25/19 12:00 Total Protein 8.2 g/dl (6.4-8.2) 07/25/19 12:00 Albumin 4.4 g/dl (3.4-5.0) 07/25/19 12:00 RPR Titer Nonreactive (NONREACTIVE) 07/25/19 12:00 HIV 1&2 Antibody Screen Negative 07/25/19 12:00 HIV P24 Antigen Negative 07/25/19 12:00 Assessment: 07/26/19 10:36 withdrawal symptom Plan: continue detox librium regimen,wbc 12,000,glucose 117,ast 77,alt 93, encourage fluid repeat cbc,cmp,fasting glucose in am
[2019-07-26 14:44] VITALS: BP 139/84; PULSE 79; TEMP 97.7
--- NOTE | 2019-07-26 15:21 | PN ---
S Progress Note Note: pt was admitted in withdrawals pt c/o of withdrawals s/s and aggressive symptomatic management attempted, however pt in spite of extensive motivational counseling regarding relapse, OD, seizures, and or loss, pt chose to sign out AMA.
--- NOTE | 2019-07-26 15:28 | DS ---
[facility] Detox Discharge Summary Admission Date: 07/25/19 - History Present History: Alcohol Dependence, Cocaine Dependence - Physical Exam Results Vital Signs: Vital Signs Temperature 97.7 F 07/26/19 14:44 Pulse Rate 79 07/26/19 14:44 Respiratory Rate 18 07/26/19 14:44 Blood Pressure 139/84 07/26/19 14:44 O2 Sat by Pulse Oximetry (%) Pertinent Admission Physical Exam Findings: pt arrived in withdrawals Laboratory Tests 07/25/19 07/25/19 07/25/19 12:00 12:00 12:00 WBC 12.0 H RBC 4.79 Hgb 14.8 Hct 45.3 MCV 94.5 MCH 31.0 MCHC 32.8 RDW 13.8 Plt Count 221 MPV 8.9 Sodium 140 Potassium 4.0 Chloride 103 Carbon Dioxide 25 Anion Gap 12 BUN 14.1 Creatinine 1.1 Est GFR (CKD-EPI)AfAm 89.61 Est GFR (CKD-EPI)NonAf 77.32 Random Glucose 117 H Calcium 8.9 Total Bilirubin 0.3 AST 77 H ALT 93 H Alkaline Phosphatase 97 Total Protein 8.2 Albumin 4.4 RPR Titer HIV 1&2 Antibody Screen Negative HIV P24 Antigen Negative 07/25/19 12:00 WBC RBC Hgb Hct MCV MCH MCHC RDW Plt Count MPV Sodium Potassium Chloride Carbon Dioxide Anion Gap BUN Creatinine Est GFR (CKD-EPI)AfAm Est GFR (CKD-EPI)NonAf Random Glucose Calcium Total Bilirubin AST ALT Alkaline Phosphatase Total Protein Albumin RPR Titer Nonreactive HIV 1&2 Antibody Screen HIV P24 Antigen pt is aaox3 expressing the need to leave and sign out AMA regardless of the risk of relapse. pt chose to sign out. - Treatment Hospital Course: Rehab Referral Accepted Patient has Accepted a Rehab Referral to: declined rehab; referral provided - Medication Discharge Medications: Ambulatory Orders Lisinopril [Prinivil] 5 mg PO DAILY #30 tablet 06/19/19 - Diagnosis (1) Alcohol dependence with uncomplicated withdrawal Current Visit: Yes Status: Chronic (2) Bipolar disorder Current Visit: No Status: Acute (3) Nicotine dependence Current Visit: Yes Status: Chronic Qualifiers: Nicotine product type: cigarettes Substance use status: uncomplicated Qualified Code(s): F17.210 - Nicotine dependence, cigarettes, uncomplicated (4) Arthritis of left knee Current Visit: Yes Status: Chronic (5) Chronic low back pain Current Visit: Yes Status: Chronic Qualifiers: Back pain laterality: midline Sciatica presence: without sciatica Qualified Code(s): M54.5 - Low back pain; G89.29 - Other chronic pain (6) Cocaine dependence Current Visit: Yes Status: Chronic Qualifiers: Substance use status: uncomplicated Qualified Code(s): F14.20 - Cocaine dependence, uncomplicated (7) Depression Current Visit: No Status: Chronic (8) Drug-induced mood disorder Current Visit: No Status: Chronic (9) Essential hypertension Current Visit: Yes Status: Chronic (10) Obesity Current Visit: No Status: Chronic (11) MDD (major depressive disorder) Current Visit: No Status: Suspected - AMA Did Patient Leave Against Medical Advice: Yes
[2019-07-27] MEDS ORDERED: chlordiazePOXIDE HCL 25 MG CAPSULE PO SCH (05:00)
[2019-07-28] MEDS ORDERED: chlordiazePOXIDE HCL 10 MG CAPSULE PO PRN
[2019-07-28] MEDS ORDERED: chlordiazePOXIDE HCL 10 MG CAPSULE PO SCH (05:00)
[2019-07-29] MEDS ORDERED: chlordiazePOXIDE HCL 10 MG CAPSULE PO SCH (05:00)
[2019-07-30] MEDS ORDERED: chlordiazePOXIDE HCL 10 MG CAPSULE PO ONE (05:00)
== END 2019-07-26 15:40 | disposition left against medical advice (07) | DRG 770 ==
LOC: YASAS 09:42 → Y6N 11:41
PROVIDERS: ADMIT Surgery; ATTEND Surgery
PROC: HZ2ZZZZ Detoxification Services for Substance Abuse Treatment (ICD-10-PCS; principal; 2019-07-25)
DX: F10.230 Alcohol dependence with withdrawal, uncomplicated (principal); F14.20 Cocaine dependence, uncomplicated; F17.210 Nicotine dependence, cigarettes, uncomplicated; F19.24 Other psychoactive substance dependence with psychoactive substance-induced mood disorder; F33.9 Major depressive disorder, recurrent, unspecified; I10 Essential (primary) hypertension; M54.5 Low back pain; G89.29 Other chronic pain; M17.12 Unilateral primary osteoarthritis, left knee; E66.9 Obesity, unspecified; Z68.36 Body mass index [BMI] 36.0-36.9, adult
CPT/HCPCS: 36415; 80053; 85027; 86593; 87389

== ENCOUNTER 2019-10-10 13:57 | Inpatient (IN) | payer OTHER ==
[2019-10-10 16:05] VITALS: BMI 35.2
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
--- NOTE | 2019-10-10 17:46 | PN ---
Teaching Attending Note Name of Resident: Rosario Hernández ATTENDING PHYSICIAN STATEMENT I saw and evaluated the patient. I reviewed the resident's note and discussed the case with the resident. I agree with the resident's findings and plan as documented. SUBJECTIVE: 49 yo with h/o AUD , multiple visits here for detox. Last visit 2 months ago. Pt here for alcohol detox, also uses cocaine. OBJECTIVE: Vital Signs - 24 hr 10/10/19 15:51 Temperature 98.2 F Pulse Rate 93 H Respiratory 20 Rate Blood Pressure 130/72 A/p: alcohol use disorder-detox protocol with ativan
[2019-10-10] MEDS ORDERED: BISMUTH SUBSALICYLATE 524 MG/30 ML UD PO PRN (17:51)
[2019-10-10] MEDS ORDERED: MENTHOL/PHENOL 1 EACH UD MM PRN (17:51)
[2019-10-10] MEDS ORDERED: LORazepam 1 MG TABLET PO PRN (17:51)
[2019-10-10] MEDS ORDERED: MAG HYDROX/AL HYDROX/SIMETH 30 ML UNIT-DOSE CUP PO PRN (17:51)
[2019-10-10] MEDS ORDERED: ACETAMINOPHEN 325 MG TABLET (FP) PO PRN (17:51)
[2019-10-10] MEDS ORDERED: METHOCARBAMOL 500 MG TABLET PO PRN (17:51)
[2019-10-10] MEDS ORDERED: MAGNESIUM CITRATE 300 ML BOTTLE PO PRN (17:51)
[2019-10-10] MEDS ORDERED: MAGNESIUM HYDROX 2400MG/30ML ORAL SUSPENSION 30 ML CUP PO PRN (17:51)
[2019-10-10] MEDS: LORazepam 2 MG TABLET PO SCH (22:29)
[2019-10-10] MEDS: THIAMINE HCL 100 MG TABLET (FP) PO SCH (22:29)
[2019-10-10] MEDS: MELATONIN 5 MG TABLETS PO PRN (22:29)
[2019-10-11] MEDS: LORazepam 2 MG TABLET PO SCH ×4 (05:30→22:21)
[2019-10-11 10:09] LABS: HEMATOCRIT 41.5 % (35.4-49); HEMOGLOBIN 13.9 GM/dL (11.7-16.9); MCH 31.2 pg (25.7-33.7); MCHC 33.5 g/dl (32.0-35.9); MEAN PLT VOLUME 8.8 fl (7.5-11.1); PLATELET COUNT 172 K/MM3 (134-434); RBC 4.46 M/mm3 (4.00-5.60); RDW 13.5 % (11.9-15.9); WHITE BLOOD COUNT 7.6 K/mm3 (4.0-10.0)
[2019-10-11] MEDS: PRENATAL VITAMINS W/ FOLIC ACID TABLET (FP) PO SCH (10:11)
[2019-10-11 10:25] LABS: ALBUMIN 3.6 g/dl (3.4-5.0); BILIRUBIN,TOTAL 0.6 mg/dL (0.2-1); BLOOD UREA NITROGEN 19.6 mg/dL (7-18); CALCIUM 8.7 mg/dL (8.5-10.1); POTASSIUM 4.1 mmol/L (3.5-5.1); TOT PROT 6.8 g/dl (6.4-8.2)
[2019-10-11] MEDS ORDERED: ONDANSETRON *ODT* 4 MG TABLET SL ONE (10:48)
--- NOTE | 2019-10-11 10:51 | PN ---
[facility] CIWA - CIWA Score Nausea/Vomitin-Mild Nausea/No Vomiting Muscle Tremors: 4-Moderate,w/Arms Extend Anxiety: 3 Agitation: 2 Paroxysmal Sweats: 2 Orientation: 1-Uncertain about Date Tacttile Disturbances: 1-Very Mild Itch/Numbness Auditory Disturbances: 0-None Visual Disturbances: 0-None Headache: 0-None Present CIWA-Ar Total Score: 14 S Progress Note (SOAP) Subjective: 49 years old male admitted on 10/10/19 for alcohol withdrawal sx management treated with ativan detox regimen feeling mild nausea administer zofran 8 mg sl x 1 encourage oral fluid and resting Objective: 10/11/19 10:50 Vital Signs Temperature 97.0 F L 10/10/19 21:54 Pulse Rate 61 10/11/19 09:23 Respiratory Rate 18 10/11/19 09:23 Blood Pressure 131/66 10/11/19 09:23 O2 Sat by Pulse Oximetry (%) Laboratory Last Values WBC 7.6 K/mm3 (4.0-10.0) 10/11/19 07:45 RBC 4.46 M/mm3 (4.00-5.60) 10/11/19 07:45 Hgb 13.9 GM/dL (11.7-16.9) 10/11/19 07:45 Hct 41.5 % (35.4-49) 10/11/19 07:45 MCV 93.0 fl (80-96) 10/11/19 07:45 MCH 31.2 pg (25.7-33.7) 10/11/19 07:45 MCHC 33.5 g/dl (32.0-35.9) 10/11/19 07:45 RDW 13.5 % (11.9-15.9) 10/11/19 07:45 Plt Count 172 K/MM3 (134-434) D 10/11/19 07:45 MPV 8.8 fl (7.5-11.1) 10/11/19 07:45 Sodium 141 mmol/L (136-145) 10/11/19 07:45 Potassium 4.1 mmol/L (3.5-5.1) 10/11/19 07:45 Chloride 110 mmol/L (98-107) H 10/11/19 07:45 Carbon Dioxide 25 mmol/L (21-32) 10/11/19 07:45 Anion Gap 5 MMOL/L (8-16) L 10/11/19 07:45 BUN 19.6 mg/dL (7-18) H 10/11/19 07:45 Creatinine 1.0 mg/dL (0.55-1.3) 10/11/19 07:45 Est GFR (CKD-EPI)AfAm 100.55 10/11/19 07:45 Est GFR (CKD-EPI)NonAf 86.76 10/11/19 07:45 Random Glucose 95 mg/dL (74-106) 10/11/19 07:45 Calcium 8.7 mg/dL (8.5-10.1) 10/11/19 07:45 Total Bilirubin 0.6 mg/dL (0.2-1) 10/11/19 07:45 AST 59 U/L (15-37) H 10/11/19 07:45 ALT 74 U/L (13-61) H 10/11/19 07:45 Alkaline Phosphatase 111 U/L (45-117) 10/11/19 07:45 Total Protein 6.8 g/dl (6.4-8.2) 10/11/19 07:45 Albumin 3.6 g/dl (3.4-5.0) 10/11/19 07:45 lab noted Assessment: 10/11/19 10:51 alcohol withdrawal sx Plan: continue ativan detox regimen
[2019-10-11 10:59] LABS: RPR NONREACTIVE (NONREACTIVE)
--- NOTE | 2019-10-11 15:40 | CONSULT ---
[facility] Psychiatric Consult - Data Date of interview: 10/11/19 Admission source: [facility] Identifying data: This is one of multiple admissions to [facility] for this 49 y/ o AA male self-referred for detoxification (REKHA issues : alcohol, cocaine). Interviewed at [address] [place] [address]. 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 Substance Abuse History: Discussed with the patient. Details in current [facility] report as follows : Smoking history: Current every day smoker. Have you smoked in the past 12 months: Yes. Aproximately how many cigarettes per day: 10. If you are a former smoker, when did you quit?: Stopped smoking 3 weeks ago while in detox. Cigars Per Day: 0. Hx Chewing Tobacco Use: No. Initiated information on smoking cessation: No. - Substances abused. Alcohol. Substance route: Oral. Frequency: Daily. Amount used: 10-12 (40 ounces) of beer. Age of first use: 18. Date of last use: 10/10/19. Cocaine. Substance route: Inhalation. Frequency: 1-2 times per week. Amount used: 1 gram. Age of first use: 35. Date of last use: 10/08/19 Medical History: Medical profile is remarkable for hypertension, morbid obesity , elevated liver enzymes, chronic lumbar pain and arthritis (left knee). Psychiatric History: In this interview, the patient reports history of one psychiatric hospitalization at a facility in [facility]. Mr Terry declares that he was diagnosed with MDD and Bipolar Disorder. No contact with psychiatrists for OPD care. Not on psychotropic medications. Patient states that he attempted suicide, nine years ago, via walking [place] train tracks. Physical/Sexual Abuse/Trauma History: Not discussed. Patient declines. Additional Comment: Urine drug screen results: CARLI-Cocaine, BZO- Benzodiazepines. Noted. Mental Status Exam - Mental Status Exam Alert and Oriented to: Time, Place, Person Cognitive Function: Good Patient Appearance: Unkempt, Disheveled (morbidly obese) Mood: Withdrawn Affect: Mood Congruent, Constricted Patient Behavior: Fatigued, Cooperative (superficially cooperative) Speech Pattern: Clear Voice Loudness: Normal Thought Process: Goal Oriented Thought Disorder: Not Present Hallucinations: Denies Suicidal Ideation: Denies Homicidal Ideation: Denies Insight/Judgement: Poor Sleep: Well Appetite: Good Gait/Station: Other (not observed; supine for entire interview) Psychiatric Findings - Problem List ([place] 1, 2,3) (1) Alcohol dependence with uncomplicated withdrawal Current Visit: Yes Status: Acute (2) Cocaine dependence Current Visit: Yes Status: Chronic Qualifiers: Substance use status: uncomplicated Qualified Code(s): F14.20 - Cocaine dependence, uncomplicated (3) Nicotine dependence Current Visit: Yes Status: Chronic Qualifiers: Nicotine product type: cigarettes Substance use status: uncomplicated Qualified Code(s): F17.210 - Nicotine dependence, cigarettes, uncomplicated (4) Drug-induced mood disorder Current Visit: Yes Status: Chronic - Initial Treatment Plan Initial Treatment Plan: Psychoeducation. Sleep hygiene. Detoxification. Observation.
[2019-10-11] MEDS: THIAMINE HCL 100 MG TABLET (FP) PO SCH (22:21)
[2019-10-12] MEDS: LORazepam 1 MG TABLET PO SCH ×4 (06:17→22:31)
[2019-10-12] MEDS: PRENATAL VITAMINS W/ FOLIC ACID TABLET (FP) PO SCH (10:12)
--- NOTE | 2019-10-12 14:31 | PN ---
[facility] CIWA - CIWA Score Nausea/Vomitin-Mild Nausea/No Vomiting Muscle Tremors: 3 Anxiety: 2 Agitation: 1-Slight > Activity Paroxysmal Sweats: 2 Orientation: 0-Oriented Tacttile Disturbances: 1-Very Mild Itch/Numbness Auditory Disturbances: 0-None Visual Disturbances: 0-None Headache: 0-None Present CIWA-Ar Total Score: 10 S Progress Note (SOAP) Subjective: 49 years old male admitted on 10/08/19 for alcohol withdrawal sx management treated with ativan detox regimen resting on bed feeling tired encourage to attend groups and meetings Objective: 10/12/19 14:30 Vital Signs Temperature 99.0 F 10/12/19 13:48 Pulse Rate 56 L 10/12/19 13:48 Respiratory Rate 18 10/12/19 13:48 Blood Pressure 123/69 10/12/19 13:48 O2 Sat by Pulse Oximetry (%) Laboratory Last Values WBC 7.6 K/mm3 (4.0-10.0) 10/11/19 07:45 RBC 4.46 M/mm3 (4.00-5.60) 10/11/19 07:45 Hgb 13.9 GM/dL (11.7-16.9) 10/11/19 07:45 Hct 41.5 % (35.4-49) 10/11/19 07:45 MCV 93.0 fl (80-96) 10/11/19 07:45 MCH 31.2 pg (25.7-33.7) 10/11/19 07:45 MCHC 33.5 g/dl (32.0-35.9) 10/11/19 07:45 RDW 13.5 % (11.9-15.9) 10/11/19 07:45 Plt Count 172 K/MM3 (134-434) D 10/11/19 07:45 MPV 8.8 fl (7.5-11.1) 10/11/19 07:45 Sodium 141 mmol/L (136-145) 10/11/19 07:45 Potassium 4.1 mmol/L (3.5-5.1) 10/11/19 07:45 Chloride 110 mmol/L (98-107) H 10/11/19 07:45 Carbon Dioxide 25 mmol/L (21-32) 10/11/19 07:45 Anion Gap 5 MMOL/L (8-16) L 10/11/19 07:45 BUN 19.6 mg/dL (7-18) H 10/11/19 07:45 Creatinine 1.0 mg/dL (0.55-1.3) 10/11/19 07:45 Est GFR (CKD-EPI)AfAm 100.55 10/11/19 07:45 Est GFR (CKD-EPI)NonAf 86.76 10/11/19 07:45 Random Glucose 95 mg/dL (74-106) 10/11/19 07:45 Calcium 8.7 mg/dL (8.5-10.1) 10/11/19 07:45 Total Bilirubin 0.6 mg/dL (0.2-1) 10/11/19 07:45 AST 59 U/L (15-37) H 10/11/19 07:45 ALT 74 U/L (13-61) H 10/11/19 07:45 Alkaline Phosphatase 111 U/L (45-117) 10/11/19 07:45 Total Protein 6.8 g/dl (6.4-8.2) 10/11/19 07:45 Albumin 3.6 g/dl (3.4-5.0) 10/11/19 07:45 RPR Titer Nonreactive (NONREACTIVE) 10/11/19 07:45 HIV 1&2 Antibody Screen Negative 10/11/19 07:45 HIV P24 Antigen Negative 10/11/19 07:45 lab noted Assessment: 10/12/19 14:30 alcohol withdrawal sx Plan: continue ativan detox regimen
[2019-10-12] MEDS: hydrOXYzine PAMOATE 25 MG CAPSULE (FP) PO PRN (20:25)
[2019-10-12] MEDS: THIAMINE HCL 100 MG TABLET (FP) PO SCH (22:31)
[2019-10-12] MEDS: MELATONIN 5 MG TABLETS PO PRN (22:31)
[2019-10-13] MEDS ORDERED: LORazepam 0.5 MG TABLET PO PRN
[2019-10-13] MEDS: LORazepam 0.5 MG TABLET PO SCH ×2 (05:58→06:03)
[2019-10-13] MEDS: PRENATAL VITAMINS W/ FOLIC ACID TABLET (FP) PO SCH (10:46)
[2019-10-13] MEDS: chlordiazePOXIDE HCL 10 MG CAPSULE PO SCH ×3 (10:46→22:08)
--- NOTE | 2019-10-13 11:29 | PN ---
[facility] CIWA - CIWA Score Nausea/Vomitin-No Nausea/No Vomiting Muscle Tremors: 1-None Visible, but [place] Anxiety: 2 Agitation: 1-Slight > Activity Paroxysmal Sweats: 1-Minimal Palms Moist Orientation: 0-Oriented Tacttile Disturbances: 0-None Auditory Disturbances: 0-None Visual Disturbances: 0-None Headache: 0-None Present CIWA-Ar Total Score: 5 BHS Progress Note (SOAP) Subjective: 49 years old male admitted on 10/08/19 for alcohol withdrawal sx management treated with ativan detox regimen feeling better today discuss librium detox regimen that the patient prefers to take a few doses of libirum upon discharge discontinue ativan detox regimen begin libirum detox regimen as per patient preference Objective: 10/13/19 11:27 Vital Signs Temperature 97.0 F L 10/13/19 06:24 Pulse Rate 56 L 10/13/19 09:16 Respiratory Rate 18 10/13/19 09:16 Blood Pressure 130/76 10/13/19 09:16 O2 Sat by Pulse Oximetry (%) Laboratory Last Values WBC 7.6 K/mm3 (4.0-10.0) 10/11/19 07:45 RBC 4.46 M/mm3 (4.00-5.60) 10/11/19 07:45 Hgb 13.9 GM/dL (11.7-16.9) 10/11/19 07:45 Hct 41.5 % (35.4-49) 10/11/19 07:45 MCV 93.0 fl (80-96) 10/11/19 07:45 MCH 31.2 pg (25.7-33.7) 10/11/19 07:45 MCHC 33.5 g/dl (32.0-35.9) 10/11/19 07:45 RDW 13.5 % (11.9-15.9) 10/11/19 07:45 Plt Count 172 K/MM3 (134-434) D 10/11/19 07:45 MPV 8.8 fl (7.5-11.1) 10/11/19 07:45 Sodium 141 mmol/L (136-145) 10/11/19 07:45 Potassium 4.1 mmol/L (3.5-5.1) 10/11/19 07:45 Chloride 110 mmol/L (98-107) H 10/11/19 07:45 Carbon Dioxide 25 mmol/L (21-32) 10/11/19 07:45 Anion Gap 5 MMOL/L (8-16) L 10/11/19 07:45 BUN 19.6 mg/dL (7-18) H 10/11/19 07:45 Creatinine 1.0 mg/dL (0.55-1.3) 10/11/19 07:45 Est GFR (CKD-EPI)AfAm 100.55 10/11/19 07:45 Est GFR (CKD-EPI)NonAf 86.76 10/11/19 07:45 Random Glucose 95 mg/dL (74-106) 10/11/19 07:45 Calcium 8.7 mg/dL (8.5-10.1) 10/11/19 07:45 Total Bilirubin 0.6 mg/dL (0.2-1) 10/11/19 07:45 AST 59 U/L (15-37) H 10/11/19 07:45 ALT 74 U/L (13-61) H 10/11/19 07:45 Alkaline Phosphatase 111 U/L (45-117) 10/11/19 07:45 Total Protein 6.8 g/dl (6.4-8.2) 10/11/19 07:45 Albumin 3.6 g/dl (3.4-5.0) 10/11/19 07:45 RPR Titer Nonreactive (NONREACTIVE) 10/11/19 07:45 HIV 1&2 Antibody Screen Negative 10/11/19 07:45 HIV P24 Antigen Negative 10/11/19 07:45 lab noted patient is alert oriented x 3 speech clearly coherently ambulating steady gait ate breakfast no trouble swallow no trouble chewing Assessment: 10/13/19 11:28 alcohol withdrawal sx Plan: continue librium detox regimen
[2019-10-13 13:25] VITALS: BP 106/69; PULSE 57; TEMP 96.1
[2019-10-13] MEDS: IBUPROFEN 400 MG TABLET (FP) PO PRN (14:35)
[2019-10-13] MEDS: THIAMINE HCL 100 MG TABLET (FP) PO SCH (22:08)
[2019-10-13] MEDS: hydrOXYzine PAMOATE 25 MG CAPSULE (FP) PO PRN (22:09)
[2019-10-14] MEDS ORDERED: LORazepam 0.5 MG TABLET PO ONE (05:00)
[2019-10-14] MEDS: IBUPROFEN 400 MG TABLET (FP) PO PRN (08:06)
--- NOTE | 2019-10-14 08:47 | DS ---
[facility] Detox Discharge Summary Admission Date: 10/10/19 Discharge Date: 10/14/19 - History Present History: Alcohol Dependence, Cocaine Dependence - Physical Exam Results Vital Signs: Vital Signs Temperature 96.1 F L 10/13/19 13:24 Pulse Rate 57 L 10/13/19 13:24 Respiratory Rate 18 10/14/19 03:30 Blood Pressure 106/69 10/13/19 13:24 O2 Sat by Pulse Oximetry (%) - Treatment Hospital Course: Detox Protocol Followed, Detoxed Safely, Responded well, Discharged Condition Good - Medication Discharge Medications: Ambulatory Orders Lisinopril [Prinivil] 5 mg PO DAILY #30 tablet 06/19/19 Ibuprofen [Motrin -] 600 mg PO BID 10/10/19 - Diagnosis (1) Alcohol dependence with uncomplicated withdrawal Current Visit: Yes Status: Chronic (2) Cocaine dependence Current Visit: Yes Status: Chronic Qualifiers: Substance use status: uncomplicated Qualified Code(s): F14.20 - Cocaine dependence, uncomplicated (3) Nicotine dependence Current Visit: Yes Status: Chronic Qualifiers: Nicotine product type: cigarettes Substance use status: uncomplicated Qualified Code(s): F17.210 - Nicotine dependence, cigarettes, uncomplicated (4) Bipolar disorder Current Visit: No Status: Chronic (5) Essential hypertension Current Visit: Yes Status: Chronic (6) Obesity Current Visit: Yes Status: Chronic - AMA Did Patient Leave Against Medical Advice: No
[2019-10-14] MEDS ORDERED: chlordiazePOXIDE HCL 10 MG CAPSULE PO ONE (09:00)
[2019-10-14] MEDS: PRENATAL VITAMINS W/ FOLIC ACID TABLET (FP) PO SCH (09:21)
== END 2019-10-14 08:36 | disposition home or self-care (01) | DRG 774 ==
LOC: YASAS 13:57 → Y3N 18:14
PROVIDERS: ADMIT Allergy & Immunology; ATTEND Allergy & Immunology
PROC: HZ2ZZZZ Detoxification Services for Substance Abuse Treatment (ICD-10-PCS; principal; 2019-10-10)
DX: F10.230 Alcohol dependence with withdrawal, uncomplicated (principal); F14.20 Cocaine dependence, uncomplicated; F19.24 Other psychoactive substance dependence with psychoactive substance-induced mood disorder; F31.9 Bipolar disorder, unspecified; F32.9 Major depressive disorder, single episode, unspecified; M19.90 Unspecified osteoarthritis, unspecified site; M17.12 Unilateral primary osteoarthritis, left knee; B35.1 Tinea unguium; Z86.73 Personal history of transient ischemic attack (TIA), and cerebral infarction without residual deficits; E66.9 Obesity, unspecified; Z68.35 Body mass index [BMI] 35.0-35.9, adult; Z91.013 Allergy to seafood; Z91.018 Allergy to other foods
CPT/HCPCS: 36415; 80053; 85027; 86593; 87389; Q0162

== ENCOUNTER 2019-12-02 11:38 | Inpatient (IN) | payer OTHER ==
[2019-12-02 13:07] VITALS: BMI 35.9
--- NOTE | 2019-12-02 15:00 | HP ---
CIWA Score Nausea/Vomitin-No Nausea/No Vomiting Muscle Tremors: 4-Moderate,w/Arms Extend Anxiety: 4-Mod. Anxious/Guarded Agitation: 1-Slight > Activity Paroxysmal Sweats: No Perspiration Orientation: 2-Disoriented Date<2 days Tacttile Disturbances: 1-Very Mild Itch/Numbness Auditory Disturbances: 0-None Visual Disturbances: 0-None Headache: 3-Moderate CIWA-Ar Total Score: 15 - Admission Criteria OASAS Guidelines: Admission for Medically Managed Detox: Requires at least one of the followin. CIWA greater than 12 2. Seizures within the past 24 hours 3. Delirium tremens within the past 24 hours 4. Hallucinations within the past 24 hours 5. Acute intervention needed for co occurring medical disorder 6. Acute intervention needed for co occurring psychiatric disorder 7. Severe withdrawal that cannot be handled at a lower level of care (continued vomiting, continued diarrhea, abnormal vital signs) requiring intravenous medication and/or fluids 8. Patient presents the following: CIWA greater than 12 Admission Criteria Met: Admission criteria met Admitting History and Physical - Admission History of Present Illness: 49 yo m w/ PMH HTN who comes to [facility] for assistance with detox from etoh. Patient endorses drinking 10-12x 40 oz beers since he was 18 years old. His last drink was today. Patient denies blackouts or seizures from alcohol in the past. Patent endorses sniffing 1/2 gram of cocaine 1-2 times per week since he was 35. His last use was 2 days ago. Patient endorses smoking 10 cigarettes daily. The patient is on lisinoprol 5mg daily for his HTN, but has not taken his medication for the past 2 weeks. Patient is currently requesting a rehab bed and is interested in rehab after detox. CIWA 15, patient meets detox criteria. Will admit for Librpending sale to [facility] detox History Source: Patient Limitations to Obtaining History: No Limitations - Past Medical History RETURNER: Yes: TIA ([facility] 5 months ago) Cardiovascular: Yes: HTN Psych: Yes: Anxiety - Smoking History Smoking history: Current every day smoker Have you smoked in the past 12 months: Yes Aproximately how many cigarettes per day: 10 If you are a former smoker, when did you quit?: Stopped smoking 3 weeks ago while in detox - Alcohol/Substance Use Hx Alcohol Use: Yes History of Substance Use: reports: Cocaine - Social History ADL: Independent History of Recent Travel: No Admission [facility] Allergies/Adverse Reactions: Allergies Allergy/AdvReac Type Severity Reaction Status Date / Time peanut Allergy Severe Swelling Verified 12/02/19 13:00 fish derived Allergy Intermediate Hives Verified 12/02/19 13:00 No Known Drug Allergies Allergy Unknown Verified 12/02/19 13:00 red sauce Allergy Uncoded 12/02/19 13:00 - Ebola screening Have you traveled outside of the country in the last 21 days: No Have you had contact with anyone from an Ebola affected area: No Do you have a fever: No - Review of Systems Constitutional: Chills, Malaise, Weakness EENT: reports: No Symptoms Reported Respiratory: reports: No Symptoms reported Cardiac: reports: No Symptoms Reported GI: reports: Poor Appetite, Abdominal cramping : reports: No Symptoms Reported Neuro: reports: Headache, Numbness, Paresthesia Psychiatric: reports: Orientated x3, Depressed Patient History - Patient Medical History Hx Anemia: No Hx Asthma: No Hx Chronic Obstructive Pulmonary Disease (COPD): No Hx Cancer: No Hx Cardiac Disorders: No Hx Congestive Heart Failure: No Hx Hypertension: Yes (lisinopril) Hx Hypercholesterolemia: No Hx Pacemaker: No HX Cerebrovascular Accident: No Hx Seizures: No Hx Dementia: No Hx Diabetes: No Hx Gastrointestinal Disorders: No Hx Liver Disease: No Hx Genitourinary Disorders: No Hx Sexually Transmitted Disorders: No Hx Renal Disease (ESRD): No Hx Thyroid Disease: No Hx Human Immunodeficiency Virus (HIV): No (last 06/03 negative) Hx Hepatitis C: No Hx Depression: Yes (non compliance) Hx Suicide Attempt: No Hx Bipolar Disorder: Yes (non compliance) Hx Schizophrenia: No - Patient Surgical History Past Surgical History: No Hx Neurologic Surgery: No Hx Cataract Extraction: No Hx Cardiac Surgery: No Hx Lung Surgery: No Hx Breast Surgery: No Hx Breast Biopsy: No Hx Abdominal Surgery: No Hx Appendectomy: No Hx Cholecystectomy: No Hx Genitourinary Surgery: No Hx Section: No Hx Orthopedic Surgery: No Hx Hysterectomy: No Anesthesia Reaction: No - PPD History Date: 10/13/18 Results: 0 mm - Smoking Cessation Smoking history: Current every day smoker Have you smoked in the past 12 months: Yes Aproximately how many cigarettes per day: 10 If you are a former smoker, when did you quit?: Stopped smoking 3 weeks ago while in detox Cigars Per Day: 0 Hx Chewing Tobacco Use: No Initiated information on smoking cessation: Yes 'Breaking Loose' booklet given: 12/02/19 - Substances abused Alcohol Substance route: Oral Frequency: Daily Amount used: 10-12 cans 40oz beers Age of first use: 18 Date of last use: 12/02/19 Cocaine Substance route: Inhalation Frequency: 1-2 times per week Amount used: half gram Age of first use: 35 Date of last use: 11/30/19 Admission Physical Exam [facility] - Vital Signs Vital Signs: Vital Signs - 24 hr 12/02/19 12:32 Temperature 98.2 F Pulse Rate 77 Respiratory 19 Rate Blood Pressure 128/83 - Physical General Appearance: Yes: Nourished, Disheveled, Tremorous, Anxious HEENTM: Yes: EOMI, Normal ENT Inspection, WES Respiratory: Yes: Chest Non-Tender, Lungs Clear, Normal Breath Sounds, No Respiratory Distress, No Accessory Muscle Use Cardiology: Yes: Regular Rhythm, Regular Rate, S1, S2. 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, Fully Oriented, Alert, Motor Strength 5/5, Normal Mood/Affect, Normal Response - Diagnostic (1) Alcohol dependence with uncomplicated withdrawal Current Visit: No Status: Chronic (2) Arthritis of left knee Current Visit: No Status: Chronic (3) Cocaine dependence Current Visit: No Status: Chronic Qualifiers: Substance use status: uncomplicated Qualified Code(s): F14.20 - Cocaine dependence, uncomplicated (4) Depression Current Visit: No Status: Chronic (5) Drug-induced mood disorder Current Visit: No Status: Chronic (6) Essential hypertension Current Visit: No Status: Chronic (7) Nicotine dependence Current Visit: No Status: Chronic Qualifiers: Nicotine product type: cigarettes Substance use status: uncomplicated Qualified Code(s): F17.210 - Nicotine dependence, cigarettes, uncomplicated Cleared for Admission [facility] - Detox or Rehab [facility] Level of Care: Medically Managed Breathalyzer - Breathalyzer Breathalyzer: 0.174 Urine Drug Screen - Test Device Lot number: [id number] Expiration date: 04/15/21 - Control Is test valid?: Yes - Results Drug screen NEGATIVE: No Urine drug screen results: CARLI-Cocaine, BZO-Benzodiazepines Inpatient Rehab Admission - Rehab Decision to Admit Inpatient rehab admission?: No
[2019-12-02] MEDS ORDERED: hydrOXYzine PAMOATE 25 MG CAPSULE (FP) PO PRN (15:28)
[2019-12-02] MEDS ORDERED: MAGNESIUM HYDROX 2400MG/30ML ORAL SUSPENSION 30 ML CUP PO PRN (15:28)
[2019-12-02] MEDS ORDERED: MELATONIN 5 MG TABLETS PO PRN (15:28)
[2019-12-02] MEDS ORDERED: BISMUTH SUBSALICYLATE 524 MG/30 ML UD PO PRN (15:28)
[2019-12-02] MEDS ORDERED: MAGNESIUM CITRATE 300 ML BOTTLE PO PRN (15:28)
[2019-12-02] MEDS ORDERED: chlordiazePOXIDE HCL 10 MG CAPSULE PO PRN (15:28)
[2019-12-02] MEDS ORDERED: IBUPROFEN 400 MG TABLET (FP) PO PRN (15:28)
[2019-12-02] MEDS ORDERED: ACETAMINOPHEN 325 MG TABLET (FP) PO PRN ×2 (15:28)
[2019-12-02] MEDS ORDERED: MAG HYDROX/AL HYDROX/SIMETH 30 ML UNIT-DOSE CUP PO PRN (15:28)
[2019-12-02] MEDS ORDERED: MENTHOL/PHENOL 1 EACH UD MM PRN (15:28)
--- NOTE | 2019-12-02 15:42 | PN ---
Teaching Attending Note Name of Resident: Dov Arguello ATTENDING PHYSICIAN STATEMENT I saw and evaluated the patient. I reviewed the resident's note and discussed the case with the resident. I agree with the resident's findings and plan as documented. SUBJECTIVE: patient here requesting detox from etoh use , first age of use 18 , previous multiple detox at this facility pmhx : htn, OA OBJECTIVE: wnwd Vital Signs - 24 hr 12/02/19 12:32 Temperature 98.2 F Pulse Rate 77 Respiratory 19 Rate Blood Pressure 128/83 ASSESSMENT AND PLAN: AUD - Librium detox
[2019-12-02] MEDS ORDERED: chlordiazePOXIDE HCL 25 MG CAPSULE PO ONE (17:00)
[2019-12-02 17:08] LABS: HEMOGLOBIN 15.7 GM/dL (11.7-16.9); MCH 31.4 pg (25.7-33.7); MCHC 34.1 g/dl (32.0-35.9); MEAN CELL VOLUME 92.1 fl (80-96); MEAN PLT VOLUME 8.7 fl (7.5-11.1); PLATELET COUNT 206 K/MM3 (134-434); RDW 13.9 % (11.9-15.9); WHITE BLOOD COUNT 11.9 K/mm3 (4.0-10.0)
[2019-12-02 17:38] LABS: ALBUMIN 4.4 g/dl (3.4-5.0); BILIRUBIN,TOTAL 1.2 mg/dL (0.2-1); BLOOD UREA NITROGEN 14.3 mg/dL (7-18); CALCIUM 8.7 mg/dL (8.5-10.1); CREATININE 0.9 mg/dL (0.55-1.3); TOT PROT 8.5 g/dl (6.4-8.2)
[2019-12-02] MEDS: chlordiazePOXIDE HCL 25 MG CAPSULE PO SCH (21:51)
[2019-12-02] MEDS: THIAMINE HCL 100 MG TABLET (FP) PO SCH (22:11)
[2019-12-03] MEDS: chlordiazePOXIDE HCL 25 MG CAPSULE PO SCH ×3 (06:01→23:05)
[2019-12-03] MEDS: PRENATAL VITAMINS W/ FOLIC ACID TABLET (FP) PO SCH (10:34)
[2019-12-03] MEDS: NICOTINE 14 MG/24 HOURS TOPICAL PATCH TD SCH (10:34)
[2019-12-03] MEDS ORDERED: traZODone HCL 50 MG TABLET (FP) PO PRN (13:55)
--- NOTE | 2019-12-03 16:02 | CONSULT ---
[facility] Psychiatric Consult - Data Date of interview: 12/03/19 Admission source: [facility] Identifying data: Readmission to [address] [place] [address] for this 49 y/o AA male, self-referred for detoxification treatment. REKHA issues : alcohol, cocaine. 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 Substance Abuse History: Discussed with patient. Details in current [facility] report as follows : Smoking history: Current every day smoker. Have you smoked in the past 12 months: Yes. Aproximately how many cigarettes per day: 10. If you are a former smoker, when did you quit?: Stopped smoking 3 weeks ago while in detox. Cigars Per Day: 0. Hx Chewing Tobacco Use: No. Initiated information on smoking cessation: Yes. 'Breaking Loose' booklet given: 12/02/19. - Substances abused. Alcohol. Substance route: Oral. Frequency: Daily. Amount used: 10-12 cans 40oz beers. Age of first use: 18. Date of last use: . Cocaine. Substance route: Inhalation. Frequency: 1-2 times per week. Amount used: half gram. Age of first use: 35. Date of last use: Medical History: Medical profile is remarkable for hypertension, morbid obesity , elevated liver enzymes, chronic lumbar pain and arthritis (left knee). Psychiatric History: Patient denies history of psychiatric hospitalizations, OPD care or suicide attempts. Mr Terry is noted as a hostile and irritable historian. Self-report remains questionable (in view of reports from previous encounters at [facility]). Physical/Sexual Abuse/Trauma History: Patient denies. Additional Comment: Urine drug screen results: CARLI-Cocaine, BZO- Benzodiazepines. Noted. Mental Status Exam - Mental Status Exam Alert and Oriented to: Time, Place, Person Patient Appearance: Well Groomed (obese, tall stature) Mood: Hostile, Irritable Affect: Normal Range Patient Behavior: Fatigued, Cooperative (superficially cooperative) Speech Pattern: Clear Voice Loudness: Normal Thought Process: Intact, Goal Oriented Thought Disorder: Not Present Hallucinations: Denies Suicidal Ideation: Denies Homicidal Ideation: Denies Insight/Judgement: Poor Sleep: Well Appetite: Good Gait/Station: Normal Psychiatric Findings - Problem List ([place] 1, 2,3) (1) Alcohol dependence with uncomplicated withdrawal Current Visit: Yes Status: Acute (2) Cocaine dependence Current Visit: Yes Status: Chronic Qualifiers: Substance use status: uncomplicated Qualified Code(s): F14.20 - Cocaine dependence, uncomplicated (3) Nicotine dependence Current Visit: Yes Status: Chronic Qualifiers: Nicotine product type: cigarettes Substance use status: uncomplicated Qualified Code(s): F17.210 - Nicotine dependence, cigarettes, uncomplicated (4) Drug-induced mood disorder Current Visit: Yes Status: Chronic - Initial Treatment Plan Initial Treatment Plan: Psychoeducation. Sleep hygiene. Detoxification. Observation.
--- NOTE | 2019-12-03 16:53 | PN ---
S CIWA - CIWA Score Nausea/Vomitin-No Nausea/No Vomiting Muscle Tremors: 2 Anxiety: 3 Agitation: 1-Slight > Activity Paroxysmal Sweats: No Perspiration Orientation: 0-Oriented Tacttile Disturbances: 0-None Auditory Disturbances: 0-None Visual Disturbances: 2-Mild Sensitivity Headache: 2-Mild CIWA-Ar Total Score: 10 BHS Progress Note (SOAP) Subjective: Anxious, Tremors, H/A, Interrupted Sleep. Objective: PATIENT A & O X 3, OBSERVED AMBULATING ON DETOX UNIT UNASSISTED. IN NO ACUTE DISTRESS. 12/03/19 16:54 Vital Signs Temperature 97.3 F L 12/03/19 15:34 Pulse Rate 82 12/03/19 15:34 Respiratory Rate 16 12/03/19 15:34 Blood Pressure 143/77 12/03/19 15:34 O2 Sat by Pulse Oximetry (%) Laboratory Tests 12/02/19 12/02/19 12/02/19 15:30 15:30 15:30 WBC 11.9 H RBC 5.00 Hgb 15.7 Hct 46.0 MCV 92.1 MCH 31.4 MCHC 34.1 RDW 13.9 Plt Count 206 MPV 8.7 Sodium 137 Potassium 4.0 Chloride 107 Carbon Dioxide 23 Anion Gap 8 BUN 14.3 Creatinine 0.9 Est GFR (CKD-EPI)AfAm 114.21 Est GFR (CKD-EPI)NonAf 98.54 Random Glucose 97 Calcium 8.7 Total Bilirubin 1.2 H AST 62 H ALT 90 H Alkaline Phosphatase 101 Total Protein 8.5 H Albumin 4.4 RPR Titer Nonreactive HIV 1&2 Antibody Screen HIV P24 Antigen 12/03/19 05:50 WBC RBC Hgb Hct MCV MCH MCHC RDW Plt Count MPV Sodium Potassium Chloride Carbon Dioxide Anion Gap BUN Creatinine Est GFR (CKD-EPI)AfAm Est GFR (CKD-EPI)NonAf Random Glucose Calcium Total Bilirubin AST ALT Alkaline Phosphatase Total Protein Albumin RPR Titer HIV 1&2 Antibody Screen Negative HIV P24 Antigen Negative LABS NOTED. ELEVATED WBC LEVEL NOTED. PATIENT DENEIS RECENT HISTORY OF IVDU. PATIENT DENIES CHEST PAIN AND SOB. PATIENT DENIES ANY UNUSUAL URINARY COMPLAINTS (BURNING, PAIN , FREQUENCY, URGENCY, HESITANCY, VISUALIZATION OF BLOOD IN URINE). PATIENT AFEBRILE. 12/03/19 16:55 Assessment: 12/03/19 16:56 WITHDRAWAL SYMPTOMS. LEUKOCYTOSIS. ELEVATED AST LEVEL. ELEVATED ALT LEVEL. HYPERBILIRUBINEMIA. 12/03/19 16:56 Plan: CONTINUE DETOX. INCREASE DAILY ORAL WATER INTAKE. PRN ORAL TRAZODONE HS ORDERED FOR INSOMNIA.
[2019-12-03] MEDS: THIAMINE HCL 100 MG TABLET (FP) PO SCH (23:05)
[2019-12-04] MEDS ORDERED: chlordiazePOXIDE 5 MG CAPSULE PO SCH (05:00)
[2019-12-04] MEDS: METHOCARBAMOL 500 MG TABLET PO PRN ×2 (06:21→12:59)
[2019-12-04] MEDS: chlordiazePOXIDE HCL 10 MG CAPSULE PO SCH ×3 (06:21→21:59)
[2019-12-04] MEDS: NICOTINE 14 MG/24 HOURS TOPICAL PATCH TD SCH (10:36)
[2019-12-04] MEDS: PRENATAL VITAMINS W/ FOLIC ACID TABLET (FP) PO SCH (10:36)
--- NOTE | 2019-12-04 14:18 | PN ---
S CIWA - CIWA Score Nausea/Vomitin-No Nausea/No Vomiting Muscle Tremors: 2 Anxiety: 1-Mildly Anxious Agitation: 1-Slight > Activity Paroxysmal Sweats: No Perspiration Orientation: 0-Oriented Tacttile Disturbances: 0-None Auditory Disturbances: 0-None Visual Disturbances: 0-None Headache: 0-None Present CIWA-Ar Total Score: 4 BHS Progress Note (SOAP) Subjective: irritable Objective: 12/04/19 14:17 Vital Signs Temperature 98.1 F 12/04/19 14:17 Pulse Rate 84 12/04/19 14:17 Respiratory Rate 18 12/04/19 14:17 Blood Pressure 133/74 12/04/19 14:17 O2 Sat by Pulse Oximetry (%) Laboratory Tests 12/02/19 12/02/19 12/02/19 15:30 15:30 15:30 WBC 11.9 H RBC 5.00 Hgb 15.7 Hct 46.0 MCV 92.1 MCH 31.4 MCHC 34.1 RDW 13.9 Plt Count 206 MPV 8.7 Sodium 137 Potassium 4.0 Chloride 107 Carbon Dioxide 23 Anion Gap 8 BUN 14.3 Creatinine 0.9 Est GFR (CKD-EPI)AfAm 114.21 Est GFR (CKD-EPI)NonAf 98.54 Random Glucose 97 Calcium 8.7 Total Bilirubin 1.2 H AST 62 H ALT 90 H Alkaline Phosphatase 101 Total Protein 8.5 H Albumin 4.4 RPR Titer Nonreactive HIV 1&2 Antibody Screen HIV P24 Antigen 12/03/19 05:50 WBC RBC Hgb Hct MCV MCH MCHC RDW Plt Count MPV Sodium Potassium Chloride Carbon Dioxide Anion Gap BUN Creatinine Est GFR (CKD-EPI)AfAm Est GFR (CKD-EPI)NonAf Random Glucose Calcium Total Bilirubin AST ALT Alkaline Phosphatase Total Protein Albumin RPR Titer HIV 1&2 Antibody Screen Negative HIV P24 Antigen Negative aaox3 ambulating no acute distress Assessment: 12/04/19 14:18 mild withdrawals Plan: d/c in am
[2019-12-04] MEDS: THIAMINE HCL 100 MG TABLET (FP) PO SCH (22:50)
[2019-12-05] MEDS ORDERED: chlordiazePOXIDE HCL 10 MG CAPSULE PO PRN
[2019-12-05] MEDS ORDERED: chlordiazePOXIDE HCL 10 MG CAPSULE PO SCH (05:00)
[2019-12-05] MEDS ORDERED: chlordiazePOXIDE HCL 10 MG CAPSULE PO ONE (05:00)
[2019-12-05 06:58] VITALS: BP 108/74; PULSE 71; TEMP 98.6
--- NOTE | 2019-12-05 09:19 | DS ---
[facility] Detox Discharge Summary Admission Date: 12/02/19 Discharge Date: 12/05/19 - History Present History: Alcohol Dependence, Cocaine Dependence - Physical Exam Results Vital Signs: Vital Signs Temperature 98.6 F 12/05/19 06:58 Pulse Rate 71 12/05/19 06:58 Respiratory Rate 18 12/05/19 06:58 Blood Pressure 108/74 12/05/19 06:58 O2 Sat by Pulse Oximetry (%) Pertinent Admission Physical Exam Findings: Vital Signs Temperature 98.6 F 12/05/19 06:58 Pulse Rate 71 12/05/19 06:58 Respiratory Rate 18 12/05/19 06:58 Blood Pressure 108/74 12/05/19 06:58 O2 Sat by Pulse Oximetry (%) Laboratory Tests 12/02/19 12/02/19 12/02/19 15:30 15:30 15:30 WBC 11.9 H RBC 5.00 Hgb 15.7 Hct 46.0 MCV 92.1 MCH 31.4 MCHC 34.1 RDW 13.9 Plt Count 206 MPV 8.7 Sodium 137 Potassium 4.0 Chloride 107 Carbon Dioxide 23 Anion Gap 8 BUN 14.3 Creatinine 0.9 Est GFR (CKD-EPI)AfAm 114.21 Est GFR (CKD-EPI)NonAf 98.54 Random Glucose 97 Calcium 8.7 Total Bilirubin 1.2 H AST 62 H ALT 90 H Alkaline Phosphatase 101 Total Protein 8.5 H Albumin 4.4 RPR Titer Nonreactive HIV 1&2 Antibody Screen HIV P24 Antigen 12/03/19 05:50 WBC RBC Hgb Hct MCV MCH MCHC RDW Plt Count MPV Sodium Potassium Chloride Carbon Dioxide Anion Gap BUN Creatinine Est GFR (CKD-EPI)AfAm Est GFR (CKD-EPI)NonAf Random Glucose Calcium Total Bilirubin AST ALT Alkaline Phosphatase Total Protein Albumin RPR Titer HIV 1&2 Antibody Screen Negative HIV P24 Antigen Negative aaox3 ambulating no acute distress - Treatment Hospital Course: Detox Protocol Followed, Detoxed Safely, Responded well, Discharged Condition Good, Rehab Referral Accepted Patient has Accepted a Rehab Referral to: referral provided - Medication Discharge Medications: Ambulatory Orders Lisinopril 5 mg PO DAILY 12/02/19 - Diagnosis (1) Alcohol dependence with uncomplicated withdrawal Current Visit: Yes Status: Chronic (2) Elevated alanine aminotransferase (ALT) level Current Visit: Yes Status: Acute (3) Elevated aspartate aminotransferase level Current Visit: Yes Status: Acute (4) Hyperbilirubinemia Current Visit: Yes Status: Acute (5) Cocaine dependence Current Visit: Yes Status: Chronic Qualifiers: Substance use status: uncomplicated Qualified Code(s): F14.20 - Cocaine dependence, uncomplicated (6) Drug-induced mood disorder Current Visit: Yes Status: Chronic (7) Nicotine dependence Current Visit: Yes Status: Chronic Qualifiers: Nicotine product type: cigarettes Substance use status: uncomplicated Qualified Code(s): F17.210 - Nicotine dependence, cigarettes, uncomplicated (8) Arthritis of left knee Current Visit: No Status: Chronic (9) Bipolar disorder Current Visit: No Status: Chronic (10) Chronic low back pain Current Visit: No Status: Chronic Qualifiers: Back pain laterality: midline Sciatica presence: without sciatica Qualified Code(s): M54.5 - Low back pain; G89.29 - Other chronic pain (11) Depression Current Visit: No Status: Chronic (12) Essential hypertension Current Visit: No Status: Chronic (13) Obesity Current Visit: No Status: Chronic (14) MDD (major depressive disorder) Current Visit: No Status: Suspected - AMA Did Patient Leave Against Medical Advice: No
[2019-12-06] MEDS ORDERED: chlordiazePOXIDE HCL 10 MG CAPSULE PO ONE (05:00)
== END 2019-12-05 09:12 | disposition home or self-care (01) | DRG 774 ==
LOC: YASAS 11:38 → Y6N 15:59
PROVIDERS: ADMIT Allergy & Immunology; ATTEND Allergy & Immunology
PROC: HZ2ZZZZ Detoxification Services for Substance Abuse Treatment (ICD-10-PCS; principal; 2019-12-02)
DX: F10.230 Alcohol dependence with withdrawal, uncomplicated (principal); F14.20 Cocaine dependence, uncomplicated; F17.210 Nicotine dependence, cigarettes, uncomplicated; F19.24 Other psychoactive substance dependence with psychoactive substance-induced mood disorder; F31.9 Bipolar disorder, unspecified; I10 Essential (primary) hypertension; R74.0 Nonspecific elevation of levels of transaminase and lactic acid dehydrogenase [LDH]; R77.0 Abnormality of albumin; M17.12 Unilateral primary osteoarthritis, left knee; M54.5 Low back pain; G89.29 Other chronic pain; D72.829 Elevated white blood cell count, unspecified; E66.01 Morbid (severe) obesity due to excess calories; Z68.35 Body mass index [BMI] 35.0-35.9, adult; Z91.14 Patient's other noncompliance with medication regimen; Z86.73 Personal history of transient ischemic attack (TIA), and cerebral infarction without residual deficits; Z91.010 Allergy to peanuts; Z91.018 Allergy to other foods; Z91.013 Allergy to seafood
CPT/HCPCS: 36415; 80053; 85027; 86593; 87389

== ENCOUNTER 2020-08-02 10:58 | Inpatient (IN) | payer OTHER ==
--- NOTE | 2020-08-02 11:37 | BHS.RME ---
Substance Use & Tx History - Substance Use History Alcohol Substance amount: 10-12 40 oz beers Frequency of use: Daily Substance route: Oral Date of Last Use: 08/02/20 Cocaine- Powder Substance amount: 1/2 gram Frequency of use: Less than 3 times per week Substance route: Inhalation (ex: sniffing or snorting) Date of Last Use: 07/31/20 Nicotine Substance amount: 7 ciggs Frequency of use: Daily Substance route: Inhalation (ex: sniffing or snorting) Date of Last Use: 08/02/20 Physical/Psych/Mental Status - Behavior General Behavior: Increased activity (restlessness, agitation) Eye Contact: Normal - Cooperativeness Cooperativeness: Cooperative - Thinking Thought Processes: Tight, Logical, Goal Directed - Physical Health Problems Is patient presently having any pain?: No Does patient presently have any injuries (include location): No Does patient currently have a fever: No Is patient : No CIWA Nausea/Vomitin Muscle Tremors: 3 Anxiety: 3 Agitation: 3 Paroxysmal Sweats: No Perspiration Orientation: 0-Oriented Tacttile Disturbances: 0-None Auditory Disturbances: 0-None Visual Disturbances: 0-None Headache: 2-Mild CIWA-Ar Total Score: 14
[2020-08-02 12:01] VITALS: BMI 38.0
--- NOTE | 2020-08-02 12:34 | HP ---
CIWA Score Nausea/Vomitin Muscle Tremors: 3 Anxiety: 3 Agitation: 3 Paroxysmal Sweats: No Perspiration Orientation: 0-Oriented Tacttile Disturbances: 0-None Auditory Disturbances: 0-None Visual Disturbances: 0-None Headache: 2-Mild CIWA-Ar Total Score: 14 - Admission Criteria OASAS Guidelines: Admission for Medically Managed Detox: Requires at least one of the followin. CIWA greater than 12 2. Seizures within the past 24 hours 3. Delirium tremens within the past 24 hours 4. Hallucinations within the past 24 hours 5. Acute intervention needed for co occurring medical disorder 6. Acute intervention needed for co occurring psychiatric disorder 7. Severe withdrawal that cannot be handled at a lower level of care (continued vomiting, continued diarrhea, abnormal vital signs) requiring intravenous medication and/or fluids 8. Admitting History and Physical - Admission Chief Complaint: Mr. Terry is a 50 yo man who presents to [facility] requesting admission to detox for alcohol use disorder. History of Present Illness: Mr. Terry is a 50 yo man who presents to [facility] requesting admission to detox for alcohol use disorder. He was last here between June 26 and 2019, left AMA. 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 Cocaine- Powder Substance amount: 1/2 gram Frequency of use: Less than 3 times per week Substance route: Inhalation (ex: sniffing or snorting) Date of Last Use: 07/31/20 First use age 35y Nicotine Substance amount: 7 ciggs Frequency of use: Daily Substance route: Inhalation (ex: sniffing or snorting) Date of Last Use: 08/02/20 First use age 17y BZO: denies Others' Prescriptions Patient Name: Lex Terry Date: 1970 Address: [place] [address] Sex: Male Rx Written Rx Dispensed Drug Quantity Days Supply Prescriber Name 07/06/2020 07/06/2020 chlordiazepoxide 25 mg capsule 12 2 Mckenzie Tracy MD Payment Method Medicaid * [facility] 12/13/2019 12/14/2019 chlordiazepoxide 25 mg capsule 8 2 [place] History Source: Patient Limitations to Obtaining History: No Limitations - Past Medical History PIN MAKER: Yes: TIA ([facility] 5 months ago) Cardiovascular: Yes: HTN Psych: Yes: Anxiety - Smoking History Smoking history: Current every day smoker Have you smoked in the past 12 months: Yes Aproximately how many cigarettes per day: 10 If you are a former smoker, when did you quit?: Stopped smoking 3 weeks ago while in detox - Alcohol/Substance Use Hx Alcohol Use: Yes History of Substance Use: reports: Cocaine - Social History ADL: Independent Occupation: History of Recent Travel: No Admission [facility] Allergies/Adverse Reactions: Allergies Allergy/AdvReac Type Severity Reaction Status Date / Time peanut Allergy Severe Swelling Verified 08/02/20 11:56 fish derived Allergy Intermediate Hives Verified 08/02/20 11:56 No Known Drug Allergies Allergy Unknown Verified 08/02/20 11:56 red sauce Allergy Uncoded 08/02/20 11:56 Exam Limitations: No Limitations - Ebola screening Have you traveled outside of the country in the last 21 days: No Have you been sick,other than usual withdrawal symptoms: No Do you have a fever: No - Review of Systems Constitutional: Changes in sleep (trouble falling asleep) EENT: reports: Blurred Vision (near sighted, states he came with glasses today) Respiratory: reports: No Symptoms reported Cardiac: reports: No Symptoms Reported GI: reports: Nausea : reports: No Symptoms Reported Musculoskeletal: reports: Joint Pain (left knee OA) Integumentary: reports: No Symptoms Reported Neuro: reports: No Symptoms reported Endocrine: reports: No Symptoms Reported Hematology: reports: No Symptoms Reported Psychiatric: reports: Depressed (crying, of daughter years ago) Patient History - Patient Medical History Hx Anemia: No Hx Asthma: No Hx Chronic Obstructive Pulmonary Disease (COPD): No Hx Cancer: No Hx Cardiac Disorders: No Hx Congestive Heart Failure: No Hx Hypertension: Yes (Lisinopril) Hx Hypercholesterolemia: No Hx Pacemaker: No HX Cerebrovascular Accident: No Hx Seizures: No Hx Dementia: No Hx Diabetes: No Hx Gastrointestinal Disorders: No Hx Liver Disease: No Hx Genitourinary Disorders: No Hx Sexually Transmitted Disorders: No Hx Renal Disease (ESRD): No Hx Thyroid Disease: No Hx Human Immunodeficiency Virus (HIV): No (Negative May 2020) Hx Hepatitis C: No Hx Depression: Yes Hx Suicide Attempt: No (Denies suicidal ideation at this time) Hx Bipolar Disorder: Yes (Not on medication) Hx Schizophrenia: No - Patient Surgical History Past Surgical History: No Hx Neurologic Surgery: No Hx Cataract Extraction: No Hx Cardiac Surgery: No Hx Lung Surgery: No Hx Breast Surgery: No Hx Breast Biopsy: No Hx Abdominal Surgery: No Hx Appendectomy: No Hx Cholecystectomy: No Hx Genitourinary Surgery: No Hx Section: No Hx Orthopedic Surgery: No Hx Hysterectomy: No Anesthesia Reaction: No - PPD History Date: 10/13/18 Results: 0mm - Smoking Cessation Smoking history: Current every day smoker Have you smoked in the past 12 months: Yes Aproximately how many cigarettes per day: 7 Cigars Per Day: 0 Hx Chewing Tobacco Use: No Initiated information on smoking cessation: Yes 'Breaking Loose' booklet given: 08/02/20 - Substances abused Alcohol Substance route: Oral Frequency: Daily Amount used: 10-12 40oz Age of first use: 17 Date of last use: 08/02/20 Admission Physical Exam BHS - Vital Signs Vital Signs: Vital Signs - 24 hr 08/02/20 11:57 Temperature 97.7 F Pulse Rate 75 Respiratory 20 Rate Blood Pressure 111/66 - Physical General Appearance: Yes: Nourished, Mild Distress, Other (tearful after discussion with counselor and nurse, of daughter) HEENTM: Yes: EOMI, Hearing grossly Normal, Normocephalic, Normal Voice Respiratory: Yes: Lungs Clear, No Respiratory Distress, No Accessory Muscle Use Neck: Yes: Within Normal Limits, Supple Breast: Yes: Breast Exam Deferred Cardiology: Yes: Regular Rhythm, Regular Rate Abdominal: Yes: Normal Bowel Sounds, Non Tender, Soft, Protuberent, Hernia (midline noted with sit up) Genitourinary: Yes: Other (deferred) Back: Yes: Normal Inspection Musculoskeletal: Yes: Gait Steady Extremities: Yes: Normal Inspection, Non-Tender Neurological: Yes: Alert, Normal Response Integumentary: Yes: Normal Color, Dry, Warm - Diagnostic (1) TIA (transient ischemic attack) Current Visit: No Status: Chronic (2) Alcohol dependence with uncomplicated withdrawal Current Visit: Yes Status: Acute Comment: 1. Admit for alcohol detox 2. Routine labs 3. Will start Librium 4. Substance use education (3) Cocaine dependence Current Visit: No Status: Chronic Qualifiers: Substance use status: uncomplicated Qualified Code(s): F14.20 - Cocaine dependence, uncomplicated Comment: 1. Admit to detox 2. substance use education (4) Depression Current Visit: No Status: Chronic Comment: 1. Psychiatry consultation (5) Essential hypertension Current Visit: No Status: Chronic (6) Nicotine dependence Current Visit: No Status: Chronic Qualifiers: Nicotine product type: cigarettes Substance use status: uncomplicated Qualified Code(s): F17.210 - Nicotine dependence, cigarettes, uncomplicated Comment: 1. Nicotine replacement therapy Cleared for Admission S - Detox or Rehab [facility] Level of Care: Medically Managed Detox Regimen/Protocol: Librium Breathalyzer - Breathalyzer Breathalyzer: 0.169 Urine Drug Screen - Test Device Lot number: [id number] Expiration date: 02/21/22 - Control Is test valid?: Yes - Results Drug screen NEGATIVE: No Urine drug screen results: CARLI-Cocaine, BZO-Benzodiazepines Inpatient Rehab Admission - Rehab Decision to Admit Inpatient rehab admission?: No
[2020-08-02] MEDS ORDERED: NICOTINE POLACRILEX 2 MG GUM BUC PRN (12:45)
[2020-08-02] MEDS ORDERED: ACETAMINOPHEN 325 MG TABLET (FP) PO PRN ×2 (12:45)
[2020-08-02] MEDS ORDERED: METHOCARBAMOL 500 MG TABLET PO PRN (12:45)
[2020-08-02] MEDS ORDERED: ONDANSETRON *ODT* 4 MG TABLET SL PRN (12:45)
[2020-08-02] MEDS ORDERED: IBUPROFEN 400 MG TABLET (FP) PO PRN (12:45)
[2020-08-02] MEDS ORDERED: chlordiazePOXIDE HCL 25 MG CAPSULE PO PRN (12:45)
[2020-08-02] MEDS ORDERED: BISMUTH SUBSALICYLATE 262 MG/15 ML BTL PO PRN (12:45)
[2020-08-02] MEDS ORDERED: MENTHOL/PHENOL 1 EACH UD MM PRN (12:45)
[2020-08-02] MEDS ORDERED: MAGNESIUM CITRATE 300 ML BOTTLE PO PRN (12:45)
[2020-08-02] MEDS ORDERED: MAG HYDROX/AL HYDROX/SIMETH 30 ML UNIT-DOSE CUP PO PRN (12:45)
[2020-08-02] MEDS ORDERED: MAGNESIUM HYDROX 2400MG/30ML ORAL SUSPENSION 30 ML CUP PO PRN (12:45)
--- NOTE | 2020-08-02 13:33 | CONSULT ---
[facility] Psychiatric Consult - Data Date of interview: 08/02/20 Admission source: Self-referred Identifying data: Mr Terry is a 50 years old Black male, father of 2 children, unemployed receiving public assistance, homeless seeking detox treatment for alcohol and cocaine Substance Abuse History: Reports history of alcohol and crack cocaine use. Refer to addiction counselor's summary for further information Medical History: Significant for hypertension, morbid obesity, chronic lumbar pain and osteoarthritis left knee. Smokes 7 cigarette daily Psychiatric History: Patient is known for multiple previous admissions to this facility. He reports that his first psychiatric contact occured when he went to [facility] for depression and was transferred to [facility] in [place]. He cannot provide any information about treatment received, lenght of stay etc. However, he reports that since he only sees psychiatrist during admissions to inpatient substance abuse programs. He was most recently admitted to this facility in June 2020 and declined to take any psychotropic medication including medicatio for insomnia. Denies previous suicidal attempt. At present, reports feeling anxious and sleeping poorly. He is unwillingto take medication for sleep saying:" I want to ry to sleep on my own. If I can't, I will ask you" Physical/Sexual Abuse/Trauma History: Denies history of abuse as a child or DV relationship as an adult Mental Status Exam - Mental Status Exam Alert and Oriented to: Time, Place, Person Cognitive Function: Fair Patient Appearance: Well Groomed Mood: Anxious Affect: Appropriate Patient Behavior: Cooperative Speech Pattern: Clear Voice Loudness: Normal Thought Process: Intact, Goal Oriented Hallucinations: Denies Suicidal Ideation: Denies Homicidal Ideation: Denies Insight/Judgement: Poor Sleep: Poorly Appetite: Good Muscle strength/Tone: Normal Gait/Station: Normal Psychiatric Findings - Problem List ([place] 1, 2,3) (1) Substance-induced anxiety disorder Current Visit: Yes Status: Acute (2) Substance-induced sleep disorder Current Visit: No Status: Acute (3) Alcohol dependence with uncomplicated withdrawal Current Visit: Yes Status: Acute Comment: 1. Admit for alcohol detox 2. Routine labs 3. Will start Librium 4. Substance use education (4) Cocaine dependence Current Visit: No Status: Acute Qualifiers: Substance use status: uncomplicated Qualified Code(s): F14.20 - Cocaine dependence, uncomplicated Comment: 1. Admit to detox 2. substance use education (5) Nicotine dependence Current Visit: No Status: Chronic Qualifiers: Nicotine product type: cigarettes Substance use status: uncomplicated Qualified Code(s): F17.210 - Nicotine dependence, cigarettes, uncomplicated Comment: 1. Nicotine replacement therapy (6) Arthritis of left knee Current Visit: No Status: Chronic (7) Chronic low back pain Current Visit: No Status: Chronic Qualifiers: Back pain laterality: midline Sciatica presence: without sciatica Qualified Code(s): M54.5 - Low back pain; G89.29 - Other chronic pain (8) Essential hypertension Current Visit: No Status: Chronic (9) Obesity Current Visit: No Status: Chronic (10) TIA (transient ischemic attack) Current Visit: No Status: Chronic - Initial Treatment Plan Initial Treatment Plan: Continue inpatient detoxification
[2020-08-02] MEDS: hydrOXYzine PAMOATE 25 MG CAPSULE (FP) PO SCH ×3 (13:38→22:25)
[2020-08-02 17:14] LABS: HEMATOCRIT 44.6 % (35.4-49); HEMOGLOBIN 14.6 GM/dL (11.7-16.9); MCH 29.8 pg (25.7-33.7); MCHC 32.7 g/dl (32.0-35.9); MEAN PLT VOLUME 8.5 fl (7.5-11.1); PLATELET COUNT 244 K/MM3 (134-434); RDW 14.1 % (11.9-15.9); WHITE BLOOD COUNT 13.2 K/mm3 (4.0-10.0)
[2020-08-02 17:21] LABS: ALBUMIN 4.3 g/dl (3.4-5.0); BILIRUBIN,TOTAL 0.4 mg/dL (0.2-1); BLOOD UREA NITROGEN 15.8 mg/dL (7-18); CALCIUM 8.7 mg/dL (8.5-10.1); CREATININE 1.1 mg/dL (0.55-1.3); TOT PROT 8.3 g/dl (6.4-8.2)
[2020-08-02] MEDS: chlordiazePOXIDE HCL 25 MG CAPSULE PO SCH ×2 (18:24→22:24)
[2020-08-02] MEDS: THIAMINE HCL 100 MG TABLET (FP) PO SCH (22:25)
[2020-08-02] MEDS: MELATONIN 5 MG TABLETS PO SCH (22:25)
[2020-08-03] MEDS: chlordiazePOXIDE HCL 25 MG CAPSULE PO SCH ×4 (06:41→22:22)
[2020-08-03] MEDS: hydrOXYzine PAMOATE 25 MG CAPSULE (FP) PO SCH ×5 (06:41→22:22)
[2020-08-03] MEDS ORDERED: NICOTINE 7 MG/24 HOURS TOPICAL PATCH TD SCH (10:00)
[2020-08-03] MEDS ORDERED: LISINOPRIL 5 MG TABLET (FP) PO SCH (10:00)
[2020-08-03] MEDS ORDERED: PRENATAL VITAMINS W/ FOLIC ACID TABLET (FP) PO SCH (10:00)
--- NOTE | 2020-08-03 10:30 | PN ---
S CIWA - CIWA Score Nausea/Vomitin-No Nausea/No Vomiting Muscle Tremors: 1-None Visible, but [place] Anxiety: 1-Mildly Anxious Agitation: 0-Normal Activity Paroxysmal Sweats: 1-Minimal Palms Moist Orientation: 0-Oriented Tacttile Disturbances: 0-None Auditory Disturbances: 0-None Visual Disturbances: 1-Very Mild Sensitivity Headache: 0-None Present CIWA-Ar Total Score: 4 BHS Progress Note (SOAP) Subjective: complaints of knee pain he attributes to arthritis, asking for tx for fungal toe nail infection Objective: 08/03/20 10:29 PE Gnl: WDWN, in no distress MS: nl mentation Motor: moves limbs well Coord: nl Ext: fungal appearing toe nails Laboratory Tests 08/02/20 08/02/20 08/02/20 12:30 12:30 12:30 WBC 13.2 H RBC 4.90 Hgb 14.6 Hct 44.6 MCV 91.0 MCH 29.8 MCHC 32.7 RDW 14.1 Plt Count 244 D MPV 8.5 Sodium 137 Potassium 4.0 Chloride 104 Carbon Dioxide 22 Anion Gap 12 BUN 15.8 Creatinine 1.1 Est GFR (CKD-EPI)AfAm 88.98 Est GFR (CKD-EPI)NonAf 76.77 Random Glucose 140 H Calcium 8.7 Total Bilirubin 0.4 AST 54 H ALT 61 Alkaline Phosphatase 106 Total Protein 8.3 H Albumin 4.3 Syphilis Serology Reactive A* RPR Titer COVID-19 (MIGUEL) 08/02/20 08/02/20 12:30 12:30 WBC RBC Hgb Hct MCV MCH MCHC RDW Plt Count MPV Sodium Potassium Chloride Carbon Dioxide Anion Gap BUN Creatinine Est GFR (CKD-EPI)AfAm Est GFR (CKD-EPI)NonAf Random Glucose Calcium Total Bilirubin AST ALT Alkaline Phosphatase Total Protein Albumin Syphilis Serology RPR Titer Reactive 1:1 H COVID-19 (MIGUEL) Not detected Home Medication List Medication Instructions Recorded Confirmed Type Lisinopril 5 mg PO DAILY 12/02/19 08/02/20 History Active Medications Generic Name Dose Route Start Last Admin Trade Name Freq PRN Reason Stop Dose Admin Acetaminophen 650 mg 08/02/20 12:45 Tylenol - PO Q6H PRN PAIN LEVEL 4 - 6 Acetaminophen 650 mg 08/02/20 12:45 Tylenol - PO Q6H PRN FEVER Al Hydroxide/Mg Hydroxide 30 ml 08/02/20 12:45 Mylanta Oral Suspension - PO Q6H PRN DYSPEPSIA Bismuth Subsalicylate 30 ml 08/02/20 12:45 Pepto-Bismol Liquid - PO Q1H PRN DIARRHEA Chlordiazepoxide HCl 50 mg 08/02/20 17:00 08/03/20 06:41 Librium - PO 08/03/20 23:01 Not Given [id number]-AOZ HEVER Chlordiazepoxide HCl 25 mg 08/04/20 05:00 Librium - PO 08/04/20 23:01 [id number]-HUZ HEVER Chlordiazepoxide HCl 25 mg 08/02/20 12:45 08/02/20 13:38 Librium - PO 08/04/20 23:59 25 mg Q4H PRN Administration WITHDRAWAL(CONT SUBST) Chlordiazepoxide HCl 10 mg 08/05/20 05:00 Librium - PO 08/05/20 23:01 V6H-IPH [facility] Chlordiazepoxide HCl 10 mg 08/06/20 05:00 Librium - PO 08/06/20 17:01 Q12H HEVER Chlordiazepoxide HCl 10 mg 08/05/20 00:00 Librium - PO 08/06/20 00:00 Q4H PRN WITHDRAWAL(CONT SUBST) Chlordiazepoxide HCl 10 mg 08/07/20 05:00 Librium - PO 08/07/20 05:01 ONCE@0500 ONE Eucalyptus/Menthol/Phenol/Sorbitol 1 each 08/02/20 12:45 Cepastat Lozenge - MM 08/08/20 12:45 Q4H PRN SORE THROAT Hydroxyzine Pamoate 25 mg 08/02/20 14:00 08/03/20 06:41 Vistaril - PO 08/08/20 12:45 Not Given Q4HWA [facility] Ibuprofen 400 mg 08/02/20 12:45 Motrin - PO Q6H PRN PAIN LEVEL 1 - 3 Lisinopril 5 mg 08/03/20 10:00 Prinivil PO DAILY [facility] Magnesium Citrate 300 ml 08/02/20 12:45 Citroma - PO Q48H PRN CONSTIPATION Magnesium Hydroxide 30 ml 08/02/20 12:45 Milk Of Magnesia - PO PRN PRN CONSTIPATION Melatonin 5 mg 08/02/20 22:00 08/02/20 22:25 Melatonin PO 5 mg HS HEVER Administration Methocarbamol 500 mg 08/02/20 12:45 Robaxin - PO 08/08/20 12:45 Q6H PRN MUSCLE SPASMS Nicotine 7 mg 08/03/20 10:00 Nicoderm Patch - TD DAILY HEVER Nicotine Polacrilex 2 mg 08/02/20 12:45 Nicorette Gum - BUC Q2H PRN NICOTINE REPLACEMENT RX Ondansetron HCl 4 mg 08/02/20 12:45 Zofran Odt - SL Q8H PRN Nausea/Vomiting Multivit/Folic Acid/Iron 1 tab 08/03/20 10:00 Vitamins (Sjr) - PO DAILY HEVER Thiamine HCl 100 mg 08/02/20 22:00 08/02/20 22:25 Vitamin B1 - PO 100 mg HS HEVER Administration Assessment: 08/03/20 10:26 Mr. Terry is a 50 yo man who presented to [facility] on 08/02 requesting admission to detox for alcohol use disorder. He was last here between June 26 and 2019, left AMA. PMH: TIA, HTN, OA left knee PSH/Legal: none Psych: anxiety, denies SI SOC: lives with friends, homeless Imp 1. Alcohol use disorder, withdrawal, uncomplicated 2. Cocaine use disorder 3. Nicotine dependence 4. positive RPR 1:1 5. Hx TIA, HTN, OA 6. Seen by Dr. Washburn, Psychiatry: substance induced anxiety, substance induced sleep disorder 08/03/20 10:32 Plan: 1. Continue Librium detox, projected completion: 08/07 2. Add Lidoderm for knee pain 3. tx toe nail sx: will order clotrimazole cream for between toes and solution for nails 4. per Psychiatry notes: At present, reports feeling anxious and sleeping poorly. He is unwillingto take medication for sleep saying:" I want to ry to sleep on my own. If I can't, I will ask you" 5. will ask pt if he has been tx for syphilis
[2020-08-03] MEDS ORDERED: LIDOCAINE 5% TOPICAL PATCH TP SCH (11:00)
[2020-08-03] MEDS: CLOTRIMAZOLE 1% CREAM 15 GM TUBE TP SCH ×2 (12:16→22:23)
[2020-08-03] MEDS: CLOTRIMAZOLE 1% 10 ML TOPICAL SOLUTION TP SCH ×2 (12:17→22:23)
[2020-08-03 21:31] VITALS: BP 110/65; PULSE 67; TEMP 97.3
[2020-08-03] MEDS ORDERED: LIDOCAINE PATCH REMOVAL MC SCH (22:00)
[2020-08-03] MEDS: MELATONIN 5 MG TABLETS PO SCH (22:23)
[2020-08-03] MEDS: THIAMINE HCL 100 MG TABLET (FP) PO SCH (22:23)
[2020-08-04] MEDS ORDERED: chlordiazePOXIDE HCL 25 MG CAPSULE PO SCH (05:00)
[2020-08-04] MEDS: hydrOXYzine PAMOATE 25 MG CAPSULE (FP) PO SCH (07:19)
--- NOTE | 2020-08-04 11:14 | DS ---
[facility] Detox Discharge Summary Admission Date: 08/02/20 Discharge Date: 08/04/20 (Pt left AMA) - History Present History: Alcohol Dependence, Cocaine Dependence Additional Comments: Pt left AMA. Pt did not complete the detox protocol. Pt states, "i have some family issues to take care of". An attempt to let pt stay and complete the detox protocol failed. Pt is encouraged to follow-up with an outpatient CD program and also to follow-up with his pmd which he verbalized understanding. Pt is AOX3, in no acute respiratory distress, Full ROM, and ambulatory. Pertinent Past History: h/o HTN, alcohol, and cocaine use disorder. - Physical Exam Results Vital Signs: Vital Signs Temperature 97.3 F L 08/03/20 20:56 Pulse Rate 67 08/03/20 20:56 Respiratory Rate 20 08/03/20 20:56 Blood Pressure 110/65 08/03/20 20:56 O2 Sat by Pulse Oximetry (%) 99 08/03/20 20:56 Laboratory Last Values WBC 13.2 K/mm3 (4.0-10.0) H 08/02/20 12:30 RBC 4.90 M/mm3 (4.00-5.60) 08/02/20 12:30 Hgb 14.6 GM/dL (11.7-16.9) 08/02/20 12:30 Hct 44.6 % (35.4-49) 08/02/20 12:30 MCV 91.0 fl (80-96) 08/02/20 12:30 MCH 29.8 pg (25.7-33.7) 08/02/20 12:30 MCHC 32.7 g/dl (32.0-35.9) 08/02/20 12:30 RDW 14.1 % (11.9-15.9) 08/02/20 12:30 Plt Count 244 K/MM3 (134-434) D 08/02/20 12:30 MPV 8.5 fl (7.5-11.1) 08/02/20 12:30 Sodium 137 mmol/L (136-145) 08/02/20 12:30 Potassium 4.0 mmol/L (3.5-5.1) 08/02/20 12:30 Chloride 104 mmol/L (98-107) 08/02/20 12:30 Carbon Dioxide 22 mmol/L (21-32) 08/02/20 12:30 Anion Gap 12 MMOL/L (8-16) 08/02/20 12:30 BUN 15.8 mg/dL (7-18) 08/02/20 12:30 Creatinine 1.1 mg/dL (0.55-1.3) 08/02/20 12:30 Est GFR (CKD-EPI)AfAm 88.98 08/02/20 12:30 Est GFR (CKD-EPI)NonAf 76.77 08/02/20 12:30 Random Glucose 140 mg/dL (74-106) H 08/02/20 12:30 Calcium 8.7 mg/dL (8.5-10.1) 08/02/20 12:30 Total Bilirubin 0.4 mg/dL (0.2-1) 08/02/20 12:30 AST 54 U/L (15-37) H 08/02/20 12:30 ALT 61 U/L (13-61) 08/02/20 12:30 Alkaline Phosphatase 106 U/L (45-117) 08/02/20 12:30 Total Protein 8.3 g/dl (6.4-8.2) H 08/02/20 12:30 Albumin 4.3 g/dl (3.4-5.0) 08/02/20 12:30 Syphilis Serology Reactive (NONREACTIVE) A* 08/02/20 12:30 RPR Titer Reactive 1:1 (NONREACTIVE) H 08/02/20 12:30 COVID-19 (MIGUEL) Not detected (Not Detected) 08/02/20 12:30 Labs noted with RPR of 1:1 which has been addressed already by the previous provider. Pertinent Admission Physical Exam Findings: withdrawal symptoms. - Treatment Hospital Course: Detox Protocol Followed - Medication Discharge Medications: Ambulatory Orders Lisinopril 5 mg PO DAILY 12/02/19 - Diagnosis (1) Alcohol dependence with uncomplicated withdrawal Current Visit: Yes Status: Acute (2) Cocaine dependence Current Visit: No Status: Acute Qualifiers: Substance use status: uncomplicated Qualified Code(s): F14.20 - Cocaine dependence, uncomplicated (3) Essential hypertension Current Visit: No Status: Chronic (4) Nicotine dependence Current Visit: No Status: Chronic Qualifiers: Nicotine product type: cigarettes Substance use status: uncomplicated Qualified Code(s): F17.210 - Nicotine dependence, cigarettes, uncomplicated - AMA Did Patient Leave Against Medical Advice: Yes
[2020-08-05] MEDS ORDERED: chlordiazePOXIDE HCL 10 MG CAPSULE PO PRN
[2020-08-05] MEDS ORDERED: chlordiazePOXIDE HCL 10 MG CAPSULE PO SCH (05:00)
[2020-08-06] MEDS ORDERED: chlordiazePOXIDE HCL 10 MG CAPSULE PO SCH (05:00)
[2020-08-07] MEDS ORDERED: chlordiazePOXIDE HCL 10 MG CAPSULE PO ONE (05:00)
== END 2020-08-04 09:20 | disposition left against medical advice (07) | DRG 770 ==
LOC: YASAS 10:58 → Y3N 12:00
PROVIDERS: ADMIT Allergy & Immunology; ATTEND Allergy & Immunology
PROC: HZ2ZZZZ Detoxification Services for Substance Abuse Treatment (ICD-10-PCS; principal; 2020-08-02)
DX: F10.230 Alcohol dependence with withdrawal, uncomplicated (principal); F14.20 Cocaine dependence, uncomplicated; F17.210 Nicotine dependence, cigarettes, uncomplicated; F19.282 Other psychoactive substance dependence with psychoactive substance-induced sleep disorder; F19.24 Other psychoactive substance dependence with psychoactive substance-induced mood disorder; I10 Essential (primary) hypertension; M17.12 Unilateral primary osteoarthritis, left knee; R76.8 Other specified abnormal immunological findings in serum; Z86.73 Personal history of transient ischemic attack (TIA), and cerebral infarction without residual deficits; Z91.013 Allergy to seafood; Z91.010 Allergy to peanuts; Z91.018 Allergy to other foods
CPT/HCPCS: 36415; 80053; 85027; 86593; 86780; U0003

== ENCOUNTER 2020-12-14 08:33 | Inpatient (IN) | payer OTHER ==
[2020-12-14 09:41] VITALS: BMI 40.4
[2020-12-14] MEDS ORDERED: ACETAMINOPHEN 325 MG TABLET (FP) PO PRN ×2 (10:21)
[2020-12-14] MEDS ORDERED: MAGNESIUM CITRATE 300 ML BOTTLE PO PRN (10:21)
[2020-12-14] MEDS ORDERED: MAG HYDROX/AL HYDROX/SIMETH 30 ML UNIT-DOSE CUP PO PRN (10:21)
[2020-12-14] MEDS ORDERED: MAGNESIUM HYDROX 2400MG/30ML ORAL SUSPENSION 30 ML CUP PO PRN (10:21)
[2020-12-14] MEDS ORDERED: MENTHOL/PHENOL 1 EACH UD MM PRN (10:21)
[2020-12-14] MEDS ORDERED: ONDANSETRON *ODT* 4 MG TABLET SL PRN (10:21)
[2020-12-14] MEDS ORDERED: IBUPROFEN 400 MG TABLET (FP) PO PRN (10:21)
[2020-12-14] MEDS ORDERED: NICOTINE POLACRILEX 2 MG GUM BUC PRN (10:21)
[2020-12-14] MEDS ORDERED: BISMUTH SUBSALICYLATE 524 MG/30 ML UD PO PRN (10:21)
[2020-12-14] MEDS ORDERED: chlordiazePOXIDE HCL 25 MG CAPSULE PO PRN (10:21)
[2020-12-14] MEDS: chlordiazePOXIDE HCL 25 MG CAPSULE PO SCH ×3 (11:26→22:22)
[2020-12-14] MEDS: PRENATAL VITAMINS W/ FOLIC ACID TABLET (FP) PO SCH (11:26)
[2020-12-14] MEDS: METHOCARBAMOL 500 MG TABLET PO PRN (11:26)
[2020-12-14] MEDS: hydrOXYzine PAMOATE 25 MG CAPSULE (FP) PO SCH ×3 (15:16→22:22)
[2020-12-14 16:32] LABS: POTASSIUM 4.3 mmol/L (3.5-5.1)
[2020-12-14 16:34] LABS: CALCIUM 8.9 mg/dL (8.5-10.1)
[2020-12-14 16:35] LABS: ALBUMIN 4.6 g/dl (3.4-5.0); BLOOD UREA NITROGEN 15.9 mg/dL (7-18)
[2020-12-14 16:37] LABS: HEMATOCRIT 45.1 % (35.4-49); HEMOGLOBIN 15.1 GM/dL (11.7-16.9); MCH 30.5 pg (25.7-33.7); MCHC 33.6 g/dl (32.0-35.9); MEAN CELL VOLUME 90.9 fl (80-96); MEAN PLT VOLUME 8.5 fl (7.5-11.1); PLATELET COUNT 231 K/MM3 (134-434); RBC 4.96 M/mm3 (4.00-5.60); RDW 13.6 % (11.9-15.9); WHITE BLOOD COUNT 12.6 K/mm3 (4.0-10.0)
[2020-12-14 16:40] LABS: TOT PROT 8.3 g/dl (6.4-8.2)
[2020-12-14] MEDS: MELATONIN 5 MG TABLETS PO SCH (22:22)
[2020-12-14] MEDS: THIAMINE HCL 100 MG TABLET (FP) PO SCH (22:22)
[2020-12-15] MEDS: hydrOXYzine PAMOATE 25 MG CAPSULE (FP) PO SCH ×5 (06:00→23:58)
[2020-12-15] MEDS: chlordiazePOXIDE HCL 25 MG CAPSULE PO SCH ×4 (06:00→23:57)
[2020-12-15] MEDS: METHOCARBAMOL 500 MG TABLET PO PRN (10:53)
[2020-12-15] MEDS: LISINOPRIL 5 MG TABLET PO SCH (10:53)
[2020-12-15] MEDS: PRENATAL VITAMINS W/ FOLIC ACID TABLET (FP) PO SCH (10:53)
[2020-12-15] MEDS: NICOTINE 21 MG/24 HOURS TOPICAL PATCH TD SCH (10:53)
[2020-12-15] MEDS: LIDOCAINE 5% TOPICAL PATCH TP SCH (12:13)
[2020-12-15 16:27] LABS: URINE APPEARANCE CLEAR; URINE BILIRUBIN NEGATIVE (NEGATIVE); URINE COLOR YELLOW; URINE GLUCOSE (UA) NEGATIVE (NEGATIVE); URINE KETONE NEGATIVE (NEGATIVE); URINE LEUK ESTERASE NEGATIVE (NEGATIVE); URINE NITRITE NEGATIVE (NEGATIVE); URINE PROTEIN NEGATIVE (NEGATIVE); URINE UROBILINOGEN 0.2 mg/dL (0.2-1.0)
[2020-12-15] MEDS ORDERED: LIDOCAINE PATCH REMOVAL MC SCH (22:00)
[2020-12-15] MEDS: MELATONIN 5 MG TABLETS PO SCH (23:58)
[2020-12-15] MEDS: THIAMINE HCL 100 MG TABLET (FP) PO SCH (23:58)
[2020-12-16] MEDS: chlordiazePOXIDE HCL 25 MG CAPSULE PO SCH ×2 (07:23→10:32)
[2020-12-16] MEDS: hydrOXYzine PAMOATE 25 MG CAPSULE (FP) PO SCH ×2 (07:23→10:32)
[2020-12-16] MEDS: PRENATAL VITAMINS W/ FOLIC ACID TABLET (FP) PO SCH (10:31)
[2020-12-16] MEDS: METHOCARBAMOL 500 MG TABLET PO PRN (10:31)
[2020-12-16] MEDS: LISINOPRIL 5 MG TABLET PO SCH (10:31)
[2020-12-16] MEDS: LIDOCAINE 5% TOPICAL PATCH TP SCH (10:32)
[2020-12-16] MEDS: NICOTINE 21 MG/24 HOURS TOPICAL PATCH TD SCH (10:32)
[2020-12-16 13:37] VITALS: BP 146/78; PULSE 74; TEMP 97.5
[2020-12-17] MEDS ORDERED: chlordiazePOXIDE HCL 10 MG CAPSULE PO PRN
[2020-12-17] MEDS ORDERED: chlordiazePOXIDE HCL 10 MG CAPSULE PO SCH (05:00)
[2020-12-18] MEDS ORDERED: chlordiazePOXIDE HCL 10 MG CAPSULE PO SCH (05:00)
[2020-12-19] MEDS ORDERED: chlordiazePOXIDE HCL 10 MG CAPSULE PO ONE (05:00)
== END 2020-12-16 14:22 | disposition left against medical advice (07) | DRG 770 ==
LOC: YASAS 08:33 → Y6N 10:03
PROVIDERS: ADMIT Allergy & Immunology; ATTEND Allergy & Immunology
PROC: HZ2ZZZZ Detoxification Services for Substance Abuse Treatment (ICD-10-PCS; principal; 2020-12-14)
DX: F10.230 Alcohol dependence with withdrawal, uncomplicated (principal); F14.20 Cocaine dependence, uncomplicated; F17.210 Nicotine dependence, cigarettes, uncomplicated; F19.282 Other psychoactive substance dependence with psychoactive substance-induced sleep disorder; F19.24 Other psychoactive substance dependence with psychoactive substance-induced mood disorder; F32.9 Major depressive disorder, single episode, unspecified; A53.0 Latent syphilis, unspecified as early or late; D72.829 Elevated white blood cell count, unspecified; I10 Essential (primary) hypertension; M17.12 Unilateral primary osteoarthritis, left knee; M54.5 Low back pain; G89.29 Other chronic pain; R73.9 Hyperglycemia, unspecified; R74.01 Elevation of levels of liver transaminase levels; E66.01 Morbid (severe) obesity due to excess calories; Z68.41 Body mass index [BMI] 40.0-44.9, adult; Z86.73 Personal history of transient ischemic attack (TIA), and cerebral infarction without residual deficits; Z91.010 Allergy to peanuts; Z91.013 Allergy to seafood; Z91.018 Allergy to other foods; Z56.0 Unemployment, unspecified; Z59.0 Homelessness
CPT/HCPCS: 36415; 80053; 81003; 82947; 85027; 86593; 86780; 87389; C9803; U0003

== ENCOUNTER 2021-01-28 15:46 | Inpatient (IN) | payer OTHER ==
[2021-01-28 19:11] VITALS: BMI 38.5
[2021-01-28] MEDS ORDERED: MAGNESIUM CITRATE 300 ML BOTTLE PO PRN (20:49)
[2021-01-28] MEDS ORDERED: MAGNESIUM HYDROX 2400MG/30ML ORAL SUSPENSION 30 ML CUP PO PRN (20:49)
[2021-01-28] MEDS ORDERED: BISMUTH SUBSALICYLATE 524 MG/30 ML UD PO PRN (20:49)
[2021-01-28] MEDS ORDERED: ONDANSETRON *ODT* 4 MG TABLET SL PRN (20:49)
[2021-01-28] MEDS ORDERED: ACETAMINOPHEN 325 MG TABLET (FP) PO PRN ×2 (20:49)
[2021-01-28] MEDS ORDERED: hydrOXYzine PAMOATE 25 MG CAPSULE (FP) PO PRN (20:49)
[2021-01-28] MEDS ORDERED: MAG HYDROX/AL HYDROX/SIMETH 30 ML UNIT-DOSE CUP PO PRN (20:49)
[2021-01-28] MEDS ORDERED: IBUPROFEN 400 MG TABLET (FP) PO PRN (20:49)
[2021-01-28] MEDS ORDERED: MENTHOL/PHENOL 1 EACH UD MM PRN (20:49)
[2021-01-28] MEDS ORDERED: diazePAM 5 MG TABLET PO PRN (20:50)
[2021-01-28] MEDS: THIAMINE HCL 100 MG TABLET (FP) PO SCH (22:51)
[2021-01-28] MEDS: METHOCARBAMOL 500 MG TABLET PO PRN (22:51)
[2021-01-28] MEDS: diazePAM 5 MG TABLET PO SCH (22:51)
[2021-01-28] MEDS: METHYL SALICYLATE/MENTHOL OINT 30 GM TUBE TP SCH (22:53)
[2021-01-28] MEDS: MELATONIN 5 MG TABLETS PO SCH (22:53)
[2021-01-29] MEDS: diazePAM 5 MG TABLET PO SCH ×4 (06:15→22:17)
[2021-01-29] MEDS: METHYL SALICYLATE/MENTHOL OINT 30 GM TUBE TP SCH ×2 (10:36→22:25)
[2021-01-29] MEDS: PRENATAL VITAMINS W/ FOLIC ACID TABLET (FP) PO SCH (10:36)
[2021-01-29] MEDS: LISINOPRIL 5 MG TABLET PO SCH (10:37)
[2021-01-29 11:57] LABS: HEMATOCRIT 41.8 % (35.4-49); MCH 30.6 pg (25.7-33.7); MCHC 33.5 g/dl (32.0-35.9); MEAN CELL VOLUME 91.3 fl (80-96); MEAN PLT VOLUME 8.6 fl (7.5-11.1); PLATELET COUNT 183 K/MM3 (134-434); RBC 4.57 M/mm3 (4.00-5.60); RDW 13.8 % (11.9-15.9); WHITE BLOOD COUNT 7.7 K/mm3 (4.0-10.0)
[2021-01-29 12:19] LABS: POTASSIUM 3.9 mmol/L (3.5-5.1)
[2021-01-29 12:23] LABS: CALCIUM 9.1 mg/dL (8.5-10.1)
[2021-01-29 12:24] LABS: ALBUMIN 3.7 g/dl (3.4-5.0); BLOOD UREA NITROGEN 17.9 mg/dL (7-18)
[2021-01-29 12:27] LABS: CREATININE 0.9 mg/dL (0.55-1.3)
[2021-01-29 12:28] LABS: BILIRUBIN,TOTAL 0.4 mg/dL (0.2-1)
[2021-01-29] MEDS: traZODone HCL 100 MG TABLET (FP) PO SCH (22:16)
[2021-01-29] MEDS: THIAMINE HCL 100 MG TABLET (FP) PO SCH (22:16)
[2021-01-29] MEDS: METHOCARBAMOL 500 MG TABLET PO PRN (22:20)
[2021-01-29] MEDS: MELATONIN 5 MG TABLETS PO SCH (22:25)
[2021-01-30] MEDS: diazePAM 5 MG TABLET PO SCH ×3 (06:14→22:17)
[2021-01-30] MEDS: PRENATAL VITAMINS W/ FOLIC ACID TABLET (FP) PO SCH (10:07)
[2021-01-30] MEDS: LISINOPRIL 5 MG TABLET PO SCH (10:07)
[2021-01-30] MEDS: IBUPROFEN 400 MG TABLET (FP) PO PRN (10:09)
[2021-01-30] MEDS: METHYL SALICYLATE/MENTHOL OINT 30 GM TUBE TP SCH ×2 (11:05→22:18)
[2021-01-30] MEDS: THIAMINE HCL 100 MG TABLET (FP) PO SCH (22:16)
[2021-01-30] MEDS: traZODone HCL 100 MG TABLET (FP) PO SCH (22:16)
[2021-01-30] MEDS: METHOCARBAMOL 500 MG TABLET PO PRN (22:19)
[2021-01-30] MEDS: MELATONIN 5 MG TABLETS PO SCH (22:35)
[2021-01-31] MEDS: diazePAM 5 MG TABLET PO SCH ×2 (06:20→18:02)
[2021-01-31] MEDS: METHYL SALICYLATE/MENTHOL OINT 30 GM TUBE TP SCH ×2 (10:32→22:31)
[2021-01-31] MEDS: LISINOPRIL 5 MG TABLET PO SCH (10:32)
[2021-01-31] MEDS: PRENATAL VITAMINS W/ FOLIC ACID TABLET (FP) PO SCH (10:32)
[2021-01-31] MEDS: METHOCARBAMOL 500 MG TABLET PO PRN (10:34)
[2021-01-31 21:10] VITALS: TEMP 97.8
[2021-01-31] MEDS: THIAMINE HCL 100 MG TABLET (FP) PO SCH (22:31)
[2021-01-31] MEDS: MELATONIN 5 MG TABLETS PO SCH (22:31)
[2021-01-31] MEDS: traZODone HCL 100 MG TABLET (FP) PO SCH (22:31)
[2021-02-01] MEDS: METHOCARBAMOL 500 MG TABLET PO PRN (05:38)
[2021-02-01] MEDS: IBUPROFEN 400 MG TABLET (FP) PO PRN (05:39)
[2021-02-01] MEDS ORDERED: diazePAM 5 MG TABLET PO ONE (06:00)
[2021-02-01 06:32] VITALS: BP 103/70; PULSE 53
[2021-02-01] MEDS: METHYL SALICYLATE/MENTHOL OINT 30 GM TUBE TP SCH (09:02)
[2021-02-01] MEDS: LISINOPRIL 5 MG TABLET PO SCH (09:02)
[2021-02-01] MEDS: PRENATAL VITAMINS W/ FOLIC ACID TABLET (FP) PO SCH (09:02)
== END 2021-02-01 09:04 | disposition home or self-care (01) | DRG 774 ==
LOC: YASAS 15:46 → Y6N 20:48
PROVIDERS: ADMIT Allergy & Immunology; ATTEND Allergy & Immunology
PROC: HZ2ZZZZ Detoxification Services for Substance Abuse Treatment (ICD-10-PCS; principal; 2021-01-28)
DX: F10.230 Alcohol dependence with withdrawal, uncomplicated (principal); F14.20 Cocaine dependence, uncomplicated; F10.220 Alcohol dependence with intoxication, uncomplicated; F17.210 Nicotine dependence, cigarettes, uncomplicated; F19.282 Other psychoactive substance dependence with psychoactive substance-induced sleep disorder; F19.24 Other psychoactive substance dependence with psychoactive substance-induced mood disorder; F32.9 Major depressive disorder, single episode, unspecified; I10 Essential (primary) hypertension; M18.12 Unilateral primary osteoarthritis of first carpometacarpal joint, left hand; M54.5 Low back pain; G89.29 Other chronic pain; E66.9 Obesity, unspecified; Z68.38 Body mass index [BMI] 38.0-38.9, adult; Z86.73 Personal history of transient ischemic attack (TIA), and cerebral infarction without residual deficits; Z86.19 Personal history of other infectious and parasitic diseases; Z91.010 Allergy to peanuts; Z91.018 Allergy to other foods
CPT/HCPCS: 36415; 80053; 85027; 86593; 86780; C9803; U0003

== ENCOUNTER 2021-03-04 11:12 | Inpatient (IN) | payer OTHER ==
[2021-03-04 11:38] VITALS: BMI 38.0
[2021-03-04] MEDS ORDERED: ONDANSETRON *ODT* 4 MG TABLET SL PRN (13:27)
[2021-03-04] MEDS ORDERED: MAGNESIUM HYDROX 2400MG/30ML ORAL SUSPENSION 30 ML CUP PO PRN (13:27)
[2021-03-04] MEDS ORDERED: IBUPROFEN 400 MG TABLET (FP) PO PRN (13:27)
[2021-03-04] MEDS ORDERED: NICOTINE POLACRILEX 2 MG GUM BUC PRN (13:27)
[2021-03-04] MEDS ORDERED: MAGNESIUM CITRATE 300 ML BOTTLE PO PRN (13:27)
[2021-03-04] MEDS ORDERED: ACETAMINOPHEN 325 MG TABLET (FP) PO PRN ×2 (13:27)
[2021-03-04] MEDS ORDERED: MAG HYDROX/AL HYDROX/SIMETH 30 ML UNIT-DOSE CUP PO PRN (13:27)
[2021-03-04] MEDS ORDERED: MENTHOL/PHENOL 1 EACH UD MM PRN (13:27)
[2021-03-04] MEDS ORDERED: LORazepam 1 MG TABLET PO PRN (13:27)
[2021-03-04] MEDS ORDERED: BISMUTH SUBSALICYLATE 262 MG/15 ML BTL PO PRN (13:27)
[2021-03-04] MEDS ORDERED: METHOCARBAMOL 500 MG TABLET PO PRN (13:27)
[2021-03-04] MEDS: hydrOXYzine PAMOATE 25 MG CAPSULE (FP) PO SCH ×3 (15:06→23:19)
[2021-03-04] MEDS: PRENATAL VITAMINS W/ FOLIC ACID TABLET (FP) PO SCH (15:06)
[2021-03-04] MEDS: NICOTINE 14 MG/24 HOURS TOPICAL PATCH TD SCH (15:08)
[2021-03-04 15:32] LABS: HEMATOCRIT 41.7 % (35.4-49); HEMOGLOBIN 14.2 GM/dL (11.7-16.9); MCH 31.3 pg (25.7-33.7); MCHC 34.1 g/dl (32.0-35.9); MEAN CELL VOLUME 91.9 fl (80-96); MEAN PLT VOLUME 8.3 fl (7.5-11.1); PLATELET COUNT 232 K/MM3 (134-434); RBC 4.54 M/mm3 (4.00-5.60); RDW 14.4 % (11.9-15.9); WHITE BLOOD COUNT 9.4 K/mm3 (4.0-10.0)
[2021-03-04 15:37] LABS: CALCIUM 8.8 mg/dL (8.5-10.1)
[2021-03-04 15:38] LABS: BLOOD UREA NITROGEN 13.9 mg/dL (7-18)
[2021-03-04 15:42] LABS: BILIRUBIN,TOTAL 0.6 mg/dL (0.2-1)
[2021-03-04] MEDS: LORazepam 2 MG TABLET PO SCH ×2 (18:11→23:19)
[2021-03-04] MEDS: MELATONIN 5 MG TABLETS PO SCH (23:18)
[2021-03-04] MEDS: THIAMINE HCL 100 MG TABLET (FP) PO SCH (23:20)
[2021-03-05] MEDS: LORazepam 2 MG TABLET PO SCH ×4 (04:49→23:03)
[2021-03-05] MEDS: hydrOXYzine PAMOATE 25 MG CAPSULE (FP) PO SCH ×5 (05:08→23:02)
[2021-03-05] MEDS: PRENATAL VITAMINS W/ FOLIC ACID TABLET (FP) PO SCH (10:36)
[2021-03-05] MEDS: LISINOPRIL 5 MG TABLET PO SCH (10:36)
[2021-03-05] MEDS: NICOTINE 14 MG/24 HOURS TOPICAL PATCH TD SCH (10:45)
[2021-03-05] MEDS ORDERED: traZODone HCL 100 MG TABLET (FP) PO SCH (22:00)
[2021-03-05] MEDS: MELATONIN 5 MG TABLETS PO SCH (23:03)
[2021-03-05] MEDS: THIAMINE HCL 100 MG TABLET (FP) PO SCH (23:03)
[2021-03-06] MEDS: hydrOXYzine PAMOATE 25 MG CAPSULE (FP) PO SCH ×4 (06:17→20:16)
[2021-03-06] MEDS: LORazepam 1 MG TABLET PO SCH ×3 (06:17→20:16)
[2021-03-06] MEDS: NICOTINE 14 MG/24 HOURS TOPICAL PATCH TD SCH (11:08)
[2021-03-06] MEDS: PRENATAL VITAMINS W/ FOLIC ACID TABLET (FP) PO SCH (11:08)
[2021-03-06] MEDS: LISINOPRIL 5 MG TABLET PO SCH (11:08)
[2021-03-06 18:04] VITALS: BP 154/90; PULSE 91; TEMP 97.3
[2021-03-07] MEDS ORDERED: LORazepam 0.5 MG TABLET PO PRN
[2021-03-07] MEDS ORDERED: LORazepam 0.5 MG TABLET PO SCH (05:00)
[2021-03-07 08:07] LABS: SARS-CoV-2 NAA Not Detected (Not Detected)
[2021-03-08] MEDS ORDERED: LORazepam 0.5 MG TABLET PO ONE (05:00)
== END 2021-03-06 17:42 | disposition left against medical advice (07) | DRG 770 ==
LOC: YASAS 11:12 → Y3N 13:11
PROVIDERS: ADMIT Allergy & Immunology; ATTEND Allergy & Immunology
PROC: HZ2ZZZZ Detoxification Services for Substance Abuse Treatment (ICD-10-PCS; principal; 2021-03-04)
DX: F10.230 Alcohol dependence with withdrawal, uncomplicated (principal); F14.20 Cocaine dependence, uncomplicated; F17.210 Nicotine dependence, cigarettes, uncomplicated; F19.282 Other psychoactive substance dependence with psychoactive substance-induced sleep disorder; F19.280 Other psychoactive substance dependence with psychoactive substance-induced anxiety disorder; F19.24 Other psychoactive substance dependence with psychoactive substance-induced mood disorder; F31.9 Bipolar disorder, unspecified; U07.1 COVID-19; I10 Essential (primary) hypertension; M17.12 Unilateral primary osteoarthritis, left knee; M54.5 Low back pain; G89.29 Other chronic pain; R74.01 Elevation of levels of liver transaminase levels; E66.9 Obesity, unspecified; Z68.38 Body mass index [BMI] 38.0-38.9, adult; Z86.69 Personal history of other diseases of the nervous system and sense organs; Z86.19 Personal history of other infectious and parasitic diseases
CPT/HCPCS: 36415; 80053; 85027; 86593; 86780; C9803; U0003; U0005

== ENCOUNTER 2021-07-03 11:28 | Inpatient (IN) | payer OTHER ==
[2021-07-03 12:12] VITALS: BMI 37.7
[2021-07-03] MEDS ORDERED: ALBUTEROL SO4 HFA INHALER IH PRN (14:10)
[2021-07-03] MEDS ORDERED: ACETAMINOPHEN 325 MG TABLET (FP) PO PRN (14:21)
[2021-07-03] MEDS ORDERED: NICOTINE 10 MG CARTRIDGE (INHALER) IH PRN (14:21)
[2021-07-03] MEDS ORDERED: guaiFENesin 200 MG/10 ML 10 ML UNIT-DOSE CUPS PO PRN (14:21)
[2021-07-03] MEDS ORDERED: MAGNESIUM CITRATE 300 ML BOTTLE PO PRN (14:21)
[2021-07-03] MEDS ORDERED: MAGNESIUM HYDROX 2400MG/30ML ORAL SUSPENSION 30 ML CUP PO PRN (14:21)
[2021-07-03] MEDS ORDERED: MAG HYDROX/AL HYDROX/SIMETH 30 ML UNIT-DOSE CUP PO PRN (14:21)
[2021-07-03] MEDS: NICOTINE 14 MG/24 HOURS TOPICAL PATCH TD SCH (15:07)
[2021-07-03] MEDS: PRENATAL VITAMINS W/ FOLIC ACID TABLET (FP) PO SCH (15:09)
[2021-07-03] MEDS: hydrOXYzine PAMOATE 25 MG CAPSULE (FP) PO SCH ×2 (17:10→21:20)
[2021-07-03] MEDS ORDERED: PT OWN MED DRAWER 7, Y5N ONE (21:02)
[2021-07-03] MEDS: GABAPENTIN 300 MG CAPSULE PO SCH (21:20)
[2021-07-03] MEDS: ATORVASTATIN CA 10 MG TABLET (FP) PO SCH (21:20)
[2021-07-03] MEDS: MICONAZOLE NITRATE 14 GM/TUBE TUBE TP SCH (21:21)
[2021-07-03] MEDS: MELATONIN 5 MG TABLETS PO SCH (21:21)
[2021-07-03] MEDS: traZODone HCL 100 MG TABLET (FP) PO SCH (21:21)
[2021-07-03] MEDS ORDERED: BACITRACIN 0.9 GM PACKET TP SCH (22:00)
[2021-07-04] MEDS: hydrOXYzine PAMOATE 25 MG CAPSULE (FP) PO SCH ×5 (06:47→21:17)
[2021-07-04] MEDS: GABAPENTIN 300 MG CAPSULE PO SCH ×3 (06:47→21:17)
[2021-07-04] MEDS: PRENATAL VITAMINS W/ FOLIC ACID TABLET (FP) PO SCH (09:38)
[2021-07-04] MEDS: LISINOPRIL 5 MG TABLET PO SCH (09:38)
[2021-07-04] MEDS: FOLIC ACID 1 MG TABLET (FP) PO SCH (09:39)
[2021-07-04] MEDS: MICONAZOLE NITRATE 14 GM/TUBE TUBE TP SCH ×2 (09:39→21:17)
[2021-07-04] MEDS: NICOTINE 14 MG/24 HOURS TOPICAL PATCH TD SCH (09:39)
[2021-07-04] MEDS: ESCITALOPRAM OXALATE 10 MG TABLET PO SCH (12:08)
[2021-07-04] MEDS ORDERED: COLLOIDAL OATMEAL 1 BAR EACH TP PRN (13:25)
[2021-07-04] MEDS ORDERED: TOLNAFTATE 1% CREAM 15 GM TUBE TP SCH (13:30)
[2021-07-04 13:46] LABS: HEMATOCRIT 43.3 % (35.4-49); HEMOGLOBIN 14.5 GM/dL (11.7-16.9); MCH 31.2 pg (25.7-33.7); MCHC 33.4 g/dl (32.0-35.9); MEAN CELL VOLUME 93.3 fl (80-96); MEAN PLT VOLUME 8.7 fl (7.5-11.1); PLATELET COUNT 236 10^3/uL (134-434); RBC 4.64 M/mm3 (4.00-5.60); RDW 13.1 % (11.9-15.9)
[2021-07-04 14:11] LABS: CALCIUM 9.4 mg/dL (8.5-10.1)
[2021-07-04 14:13] LABS: CREATININE 0.8 mg/dL (0.55-1.3)
[2021-07-04 14:15] LABS: TOT PROT 7.7 g/dl (6.4-8.2)
[2021-07-04 14:35] LABS: BILIRUBIN,TOTAL 0.4 mg/dL (0.2-1); BLOOD UREA NITROGEN 17.7 mg/dL (7-18)
[2021-07-04] MEDS: MINERAL OIL/PETROLAT/WATER TOPICAL CREAM 113 GM JAR TP SCH (14:54)
[2021-07-04 15:06] LABS: SYPHILIS W/ RPR CONF REACTIVE (NONREACTIVE)
[2021-07-04] MEDS: BUDESONIDE/FORMETEROL FUMARATE 160/4.5 mcg INHALER IH SCH ×2 (15:09→21:16)
[2021-07-04] MEDS ORDERED: PT OWN MED DRAWER 7, Y5N ONE (18:47)
[2021-07-04] MEDS: traZODone HCL 100 MG TABLET (FP) PO SCH (21:16)
[2021-07-04] MEDS: ATORVASTATIN CA 10 MG TABLET (FP) PO SCH (21:16)
[2021-07-04] MEDS: MELATONIN 5 MG TABLETS PO SCH (21:17)
[2021-07-05] MEDS: GABAPENTIN 300 MG CAPSULE PO SCH ×3 (06:12→21:22)
[2021-07-05] MEDS: hydrOXYzine PAMOATE 25 MG CAPSULE (FP) PO SCH ×2 (06:13→09:45)
[2021-07-05] MEDS ORDERED: PT OWN MED DRAWER 7, Y5N ONE ×2 (08:29→18:58)
[2021-07-05] MEDS: ESCITALOPRAM OXALATE 10 MG TABLET PO SCH (09:45)
[2021-07-05] MEDS: LISINOPRIL 5 MG TABLET PO SCH (09:45)
[2021-07-05] MEDS: PRENATAL VITAMINS W/ FOLIC ACID TABLET (FP) PO SCH (09:45)
[2021-07-05] MEDS: FOLIC ACID 1 MG TABLET (FP) PO SCH (09:45)
[2021-07-05] MEDS: NICOTINE 14 MG/24 HOURS TOPICAL PATCH TD SCH (09:46)
[2021-07-05] MEDS: MINERAL OIL/PETROLAT/WATER TOPICAL CREAM 113 GM JAR TP SCH (09:46)
[2021-07-05] MEDS: BUDESONIDE/FORMETEROL FUMARATE 160/4.5 mcg INHALER IH SCH ×2 (09:47→21:23)
[2021-07-05] MEDS: MICONAZOLE NITRATE 14 GM/TUBE TUBE TP SCH ×2 (09:48→21:23)
[2021-07-05] MEDS ORDERED: hydrOXYzine PAMOATE 25 MG CAPSULE (FP) PO PRN (10:54)
[2021-07-05] MEDS: traZODone HCL 100 MG TABLET (FP) PO SCH (21:22)
[2021-07-05] MEDS: ATORVASTATIN CA 10 MG TABLET (FP) PO SCH (21:22)
[2021-07-05] MEDS: MELATONIN 5 MG TABLETS PO SCH (21:23)
[2021-07-06] MEDS: GABAPENTIN 300 MG CAPSULE PO SCH ×3 (06:13→21:16)
[2021-07-06] MEDS: ESCITALOPRAM OXALATE 10 MG TABLET PO SCH (10:15)
[2021-07-06] MEDS: BUDESONIDE/FORMETEROL FUMARATE 160/4.5 mcg INHALER IH SCH ×2 (10:15→21:17)
[2021-07-06] MEDS: PRENATAL VITAMINS W/ FOLIC ACID TABLET (FP) PO SCH (10:15)
[2021-07-06] MEDS: LISINOPRIL 5 MG TABLET PO SCH (10:16)
[2021-07-06] MEDS: NICOTINE 14 MG/24 HOURS TOPICAL PATCH TD SCH (10:16)
[2021-07-06] MEDS: MINERAL OIL/PETROLAT/WATER TOPICAL CREAM 113 GM JAR TP SCH (10:17)
[2021-07-06] MEDS: FOLIC ACID 1 MG TABLET (FP) PO SCH (10:17)
[2021-07-06] MEDS: MICONAZOLE NITRATE 14 GM/TUBE TUBE TP SCH ×2 (10:17→21:17)
[2021-07-06] MEDS: IBUPROFEN 400 MG TABLET (FP) PO PRN (14:25)
[2021-07-06] MEDS: MELATONIN 5 MG TABLETS PO SCH (21:15)
[2021-07-06] MEDS: traZODone HCL 100 MG TABLET (FP) PO SCH (21:16)
[2021-07-06] MEDS: ATORVASTATIN CA 10 MG TABLET (FP) PO SCH (21:17)
[2021-07-07] MEDS: GABAPENTIN 300 MG CAPSULE PO SCH ×3 (06:17→21:30)
[2021-07-07] MEDS: PRENATAL VITAMINS W/ FOLIC ACID TABLET (FP) PO SCH (10:04)
[2021-07-07] MEDS: BUDESONIDE/FORMETEROL FUMARATE 160/4.5 mcg INHALER IH SCH ×2 (10:04→21:31)
[2021-07-07] MEDS: NICOTINE 14 MG/24 HOURS TOPICAL PATCH TD SCH (10:04)
[2021-07-07] MEDS: ESCITALOPRAM OXALATE 10 MG TABLET PO SCH (10:05)
[2021-07-07] MEDS: LISINOPRIL 5 MG TABLET PO SCH (10:05)
[2021-07-07] MEDS: FOLIC ACID 1 MG TABLET (FP) PO SCH (10:06)
[2021-07-07] MEDS: IBUPROFEN 400 MG TABLET (FP) PO PRN (10:07)
[2021-07-07] MEDS: MINERAL OIL/PETROLAT/WATER TOPICAL CREAM 113 GM JAR TP SCH (10:07)
[2021-07-07] MEDS: MICONAZOLE NITRATE 14 GM/TUBE TUBE TP SCH ×2 (10:08→21:32)
[2021-07-07] MEDS: ATORVASTATIN CA 10 MG TABLET (FP) PO SCH (21:30)
[2021-07-07] MEDS: traZODone HCL 100 MG TABLET (FP) PO SCH (21:30)
[2021-07-07] MEDS: MELATONIN 5 MG TABLETS PO SCH (21:31)
[2021-07-08] MEDS: GABAPENTIN 300 MG CAPSULE PO SCH ×3 (06:46→21:48)
[2021-07-08] MEDS: PRENATAL VITAMINS W/ FOLIC ACID TABLET (FP) PO SCH (10:08)
[2021-07-08] MEDS: NICOTINE 14 MG/24 HOURS TOPICAL PATCH TD SCH (10:08)
[2021-07-08] MEDS: FOLIC ACID 1 MG TABLET (FP) PO SCH (10:10)
[2021-07-08] MEDS: BUDESONIDE/FORMETEROL FUMARATE 160/4.5 mcg INHALER IH SCH ×2 (10:10→21:47)
[2021-07-08] MEDS: MINERAL OIL/PETROLAT/WATER TOPICAL CREAM 113 GM JAR TP SCH (10:11)
[2021-07-08] MEDS: LISINOPRIL 5 MG TABLET PO SCH (10:11)
[2021-07-08] MEDS: ESCITALOPRAM OXALATE 10 MG TABLET PO SCH (10:11)
[2021-07-08] MEDS: IBUPROFEN 400 MG TABLET (FP) PO PRN (10:12)
[2021-07-08] MEDS: MICONAZOLE NITRATE 14 GM/TUBE TUBE TP SCH ×2 (12:03→21:49)
[2021-07-08] MEDS ORDERED: PT OWN MED DRAWER 7, Y5N ONE (20:17)
[2021-07-08] MEDS: traZODone HCL 100 MG TABLET (FP) PO SCH (21:48)
[2021-07-08] MEDS: ATORVASTATIN CA 10 MG TABLET (FP) PO SCH (21:48)
[2021-07-08] MEDS: MELATONIN 5 MG TABLETS PO SCH (21:49)
[2021-07-08] MEDS: METHYL SALICYLATE/MENTHOL OINT 30 GM TUBE TP SCH (21:49)
[2021-07-09] MEDS: GABAPENTIN 300 MG CAPSULE PO SCH ×3 (06:20→21:56)
[2021-07-09] MEDS ORDERED: PT OWN MED DRAWER 7, Y5N ONE ×2 (08:51→19:09)
[2021-07-09] MEDS: NICOTINE 14 MG/24 HOURS TOPICAL PATCH TD SCH (09:51)
[2021-07-09] MEDS: BUDESONIDE/FORMETEROL FUMARATE 160/4.5 mcg INHALER IH SCH ×2 (09:51→21:57)
[2021-07-09] MEDS: PRENATAL VITAMINS W/ FOLIC ACID TABLET (FP) PO SCH (09:51)
[2021-07-09] MEDS: ESCITALOPRAM OXALATE 10 MG TABLET PO SCH (09:52)
[2021-07-09] MEDS: MICONAZOLE NITRATE 14 GM/TUBE TUBE TP SCH ×2 (09:52→21:57)
[2021-07-09] MEDS: METHYL SALICYLATE/MENTHOL OINT 30 GM TUBE TP SCH ×2 (09:52→21:57)
[2021-07-09] MEDS: FOLIC ACID 1 MG TABLET (FP) PO SCH (09:53)
[2021-07-09] MEDS: LISINOPRIL 5 MG TABLET PO SCH (09:53)
[2021-07-09] MEDS: MINERAL OIL/PETROLAT/WATER TOPICAL CREAM 113 GM JAR TP SCH (09:54)
[2021-07-09] MEDS: IBUPROFEN 400 MG TABLET (FP) PO PRN (13:54)
[2021-07-09 17:27] LABS: PH,URINE 6.5 (5.0-8.0); URINE APPEARANCE CLEAR; URINE BILIRUBIN NEGATIVE (NEGATIVE); URINE COLOR YELLOW; URINE GLUCOSE (UA) NEGATIVE (NEGATIVE); URINE KETONE NEGATIVE (NEGATIVE); URINE LEUK ESTERASE NEGATIVE (NEGATIVE); URINE NITRITE NEGATIVE (NEGATIVE); URINE PROTEIN NEGATIVE (NEGATIVE); URINE UROBILINOGEN 0.2 mg/dL (0.2-1.0)
[2021-07-09] MEDS: ATORVASTATIN CA 10 MG TABLET (FP) PO SCH (21:56)
[2021-07-09] MEDS: traZODone HCL 100 MG TABLET (FP) PO SCH (21:56)
[2021-07-09] MEDS: MELATONIN 5 MG TABLETS PO SCH (21:57)
[2021-07-10] MEDS: GABAPENTIN 300 MG CAPSULE PO SCH ×3 (06:21→21:12)
[2021-07-10] MEDS: BUDESONIDE/FORMETEROL FUMARATE 160/4.5 mcg INHALER IH SCH ×2 (09:33→21:12)
[2021-07-10] MEDS: PRENATAL VITAMINS W/ FOLIC ACID TABLET (FP) PO SCH (09:33)
[2021-07-10] MEDS: FOLIC ACID 1 MG TABLET (FP) PO SCH (09:34)
[2021-07-10] MEDS: ESCITALOPRAM OXALATE 10 MG TABLET PO SCH (09:34)
[2021-07-10] MEDS: LISINOPRIL 5 MG TABLET PO SCH (09:34)
[2021-07-10] MEDS: NICOTINE 14 MG/24 HOURS TOPICAL PATCH TD SCH (09:34)
[2021-07-10] MEDS: METHYL SALICYLATE/MENTHOL OINT 30 GM TUBE TP SCH ×2 (09:35→21:12)
[2021-07-10] MEDS: MINERAL OIL/PETROLAT/WATER TOPICAL CREAM 113 GM JAR TP SCH (09:35)
[2021-07-10] MEDS: MICONAZOLE NITRATE 14 GM/TUBE TUBE TP SCH ×2 (09:35→21:12)
[2021-07-10] MEDS ORDERED: METHOCARBAMOL 500 MG TABLET PO PRN (14:41)
[2021-07-10] MEDS ORDERED: PT OWN MED DRAWER 7, Y5N ONE (19:46)
[2021-07-10] MEDS: MELATONIN 5 MG TABLETS PO SCH (21:12)
[2021-07-10] MEDS: traZODone HCL 100 MG TABLET (FP) PO SCH (21:12)
[2021-07-10] MEDS: ATORVASTATIN CA 10 MG TABLET (FP) PO SCH (21:12)
[2021-07-11] MEDS: GABAPENTIN 300 MG CAPSULE PO SCH ×3 (06:12→21:28)
[2021-07-11] MEDS: PRENATAL VITAMINS W/ FOLIC ACID TABLET (FP) PO SCH (09:49)
[2021-07-11] MEDS: LISINOPRIL 5 MG TABLET PO SCH (09:50)
[2021-07-11] MEDS: FOLIC ACID 1 MG TABLET (FP) PO SCH (09:51)
[2021-07-11] MEDS: METHYL SALICYLATE/MENTHOL OINT 30 GM TUBE TP SCH ×2 (09:51→21:29)
[2021-07-11] MEDS: ESCITALOPRAM OXALATE 10 MG TABLET PO SCH (09:51)
[2021-07-11] MEDS: MINERAL OIL/PETROLAT/WATER TOPICAL CREAM 113 GM JAR TP SCH (09:51)
[2021-07-11] MEDS: MICONAZOLE NITRATE 14 GM/TUBE TUBE TP SCH ×2 (09:51→21:29)
[2021-07-11] MEDS: NICOTINE 14 MG/24 HOURS TOPICAL PATCH TD SCH (09:51)
[2021-07-11] MEDS: BUDESONIDE/FORMETEROL FUMARATE 160/4.5 mcg INHALER IH SCH ×2 (09:54→21:28)
[2021-07-11] MEDS: IBUPROFEN 400 MG TABLET (FP) PO PRN (13:00)
[2021-07-11] MEDS ORDERED: PT OWN MED DRAWER 7, Y5N ONE (19:58)
[2021-07-11] MEDS: MELATONIN 5 MG TABLETS PO SCH (21:26)
[2021-07-11] MEDS: ATORVASTATIN CA 10 MG TABLET (FP) PO SCH (21:26)
[2021-07-11] MEDS: traZODone HCL 100 MG TABLET (FP) PO SCH (21:27)
[2021-07-12] MEDS: GABAPENTIN 300 MG CAPSULE PO SCH (06:23)
[2021-07-12] MEDS ORDERED: PT OWN MED DRAWER 7, Y5N ONE (06:45)
[2021-07-12 07:16] VITALS: BP 116/65; PULSE 55; TEMP 97.3
[2021-07-12] MEDS: ESCITALOPRAM OXALATE 10 MG TABLET PO SCH (09:45)
[2021-07-12] MEDS: MINERAL OIL/PETROLAT/WATER TOPICAL CREAM 113 GM JAR TP SCH (09:45)
[2021-07-12] MEDS: METHYL SALICYLATE/MENTHOL OINT 30 GM TUBE TP SCH (09:45)
[2021-07-12] MEDS: MICONAZOLE NITRATE 14 GM/TUBE TUBE TP SCH (09:45)
[2021-07-12] MEDS: PRENATAL VITAMINS W/ FOLIC ACID TABLET (FP) PO SCH (09:45)
[2021-07-12] MEDS: NICOTINE 14 MG/24 HOURS TOPICAL PATCH TD SCH (09:45)
[2021-07-12] MEDS: LISINOPRIL 5 MG TABLET PO SCH (09:46)
[2021-07-12] MEDS: BUDESONIDE/FORMETEROL FUMARATE 160/4.5 mcg INHALER IH SCH (09:46)
[2021-07-12] MEDS: FOLIC ACID 1 MG TABLET (FP) PO SCH (09:46)
== END 2021-07-12 10:10 | disposition home or self-care (01) | DRG 772 ==
LOC: YASAS 11:28 → Y5N 13:19
PROVIDERS: ADMIT Allergy & Immunology; ATTEND Allergy & Immunology
PROC: HZ42ZZZ Group Counseling for Substance Abuse Treatment, Cognitive-Behavioral (ICD-10-PCS; principal; 2021-07-03)
DX: F10.20 Alcohol dependence, uncomplicated (principal); F14.20 Cocaine dependence, uncomplicated; F17.210 Nicotine dependence, cigarettes, uncomplicated; F19.282 Other psychoactive substance dependence with psychoactive substance-induced sleep disorder; F19.24 Other psychoactive substance dependence with psychoactive substance-induced mood disorder; F31.9 Bipolar disorder, unspecified; F20.9 Schizophrenia, unspecified; A53.0 Latent syphilis, unspecified as early or late; I10 Essential (primary) hypertension; J44.9 Chronic obstructive pulmonary disease, unspecified; M17.0 Bilateral primary osteoarthritis of knee; M54.5 Low back pain; G89.29 Other chronic pain; R73.03 Prediabetes; E66.9 Obesity, unspecified; Z68.37 Body mass index [BMI] 37.0-37.9, adult; Z86.16 Personal history of COVID-19; Z86.73 Personal history of transient ischemic attack (TIA), and cerebral infarction without residual deficits; Z91.010 Allergy to peanuts; Z91.011 Allergy to milk products; Z91.013 Allergy to seafood
CPT/HCPCS: 36415; 80053; 81003; 82962; 85027; 86593; 86780; 86803

== ENCOUNTER 2021-07-29 12:46 | Inpatient (IN) | payer OTHER ==
[2021-07-29 14:44] VITALS: BMI 37.5
[2021-07-29] MEDS ORDERED: MAGNESIUM CITRATE 300 ML BOTTLE PO PRN (16:58)
[2021-07-29] MEDS ORDERED: MENTHOL/PHENOL 1 EACH UD MM PRN (16:58)
[2021-07-29] MEDS ORDERED: BISMUTH SUBSALICYLATE 524 MG/30 ML PO PRN (16:58)
[2021-07-29] MEDS ORDERED: MAG HYDROX/AL HYDROX/SIMETH 30 ML UNIT-DOSE CUP PO PRN (16:58)
[2021-07-29] MEDS ORDERED: ACETAMINOPHEN 325 MG TABLET (FP) PO PRN (16:58)
[2021-07-29] MEDS ORDERED: ONDANSETRON *ODT* 4 MG TABLET SL PRN (16:58)
[2021-07-29] MEDS ORDERED: MAGNESIUM HYDROX 2400MG/30ML ORAL SUSPENSION 30 ML CUP PO PRN (16:58)
[2021-07-29] MEDS ORDERED: NICOTINE 10 MG CARTRIDGE (INHALER) IH PRN (16:58)
[2021-07-29] MEDS ORDERED: ALBUTEROL SO4 HFA INHALER IH PRN (17:01)
[2021-07-29] MEDS ORDERED: COLLOIDAL OATMEAL 1 BAR EACH TP PRN (17:03)
[2021-07-29] MEDS ORDERED: diazePAM 5 MG TABLET PO PRN (17:28)
[2021-07-29] MEDS: diazePAM 5 MG TABLET PO SCH ×2 (18:39→23:02)
[2021-07-29] MEDS: hydrOXYzine PAMOATE 25 MG CAPSULE (FP) PO PRN (18:39)
[2021-07-29] MEDS: ACETAMINOPHEN 325 MG TABLET (FP) PO PRN (18:39)
[2021-07-29] MEDS: THIAMINE HCL 100 MG TABLET (FP) PO SCH (23:03)
[2021-07-29] MEDS: ATORVASTATIN CA 10 MG TABLET (FP) PO SCH (23:03)
[2021-07-29] MEDS: MELATONIN 5 MG TABLETS PO SCH (23:05)
[2021-07-30] MEDS: diazePAM 5 MG TABLET PO SCH ×4 (07:06→23:47)
[2021-07-30] MEDS: LISINOPRIL 5 MG TABLET PO SCH (10:35)
[2021-07-30] MEDS: PRENATAL VITAMINS W/ FOLIC ACID TABLET (FP) PO SCH (10:35)
[2021-07-30] MEDS: IBUPROFEN 400 MG TABLET (FP) PO PRN (11:43)
[2021-07-30 13:09] LABS: HEMATOCRIT 39.1 % (35.4-49); HEMOGLOBIN 13.4 GM/dL (11.7-16.9); MCH 31.2 pg (25.7-33.7); MCHC 34.2 g/dl (32.0-35.9); MEAN CELL VOLUME 91.3 fl (80-96); MEAN PLT VOLUME 8.1 fl (7.5-11.1); PLATELET COUNT 185 10^3/uL (134-434); RBC 4.28 M/mm3 (4.00-5.60); RDW 13.2 % (11.9-15.9); WHITE BLOOD COUNT 8.3 K/mm3 (4.0-10.0)
[2021-07-30 13:25] LABS: ALBUMIN 3.1 g/dl (3.4-5.0); CALCIUM 8.4 mg/dL (8.5-10.1)
[2021-07-30 13:26] LABS: BLOOD UREA NITROGEN 15.7 mg/dL (7-18)
[2021-07-30 13:29] LABS: BILIRUBIN,TOTAL 0.6 mg/dL (0.2-1); CREATININE 0.8 mg/dL (0.55-1.3); TOT PROT 6.4 g/dl (6.4-8.2)
[2021-07-30] MEDS ORDERED: cloNIDine HCL 0.1 MG TABLET PO ONE (14:45)
[2021-07-30] MEDS: hydrOXYzine PAMOATE 25 MG CAPSULE (FP) PO PRN (18:24)
[2021-07-30] MEDS: ATORVASTATIN CA 10 MG TABLET (FP) PO SCH (23:47)
[2021-07-30] MEDS: THIAMINE HCL 100 MG TABLET (FP) PO SCH (23:49)
[2021-07-30] MEDS: MELATONIN 5 MG TABLETS PO SCH (23:49)
[2021-07-31] MEDS: diazePAM 5 MG TABLET PO SCH ×3 (06:26→21:46)
[2021-07-31] MEDS: LISINOPRIL 5 MG TABLET PO SCH (10:38)
[2021-07-31] MEDS: ACETAMINOPHEN 325 MG TABLET (FP) PO PRN (10:39)
[2021-07-31] MEDS: PRENATAL VITAMINS W/ FOLIC ACID TABLET (FP) PO SCH (10:39)
[2021-07-31] MEDS: MELATONIN 5 MG TABLETS PO SCH (21:46)
[2021-07-31] MEDS: ATORVASTATIN CA 10 MG TABLET (FP) PO SCH (21:46)
[2021-07-31] MEDS: THIAMINE HCL 100 MG TABLET (FP) PO SCH (21:47)
[2021-08-01] MEDS: diazePAM 5 MG TABLET PO SCH ×2 (06:08→17:46)
[2021-08-01] MEDS: hydrOXYzine PAMOATE 25 MG CAPSULE (FP) PO PRN (10:40)
[2021-08-01] MEDS: PRENATAL VITAMINS W/ FOLIC ACID TABLET (FP) PO SCH (10:40)
[2021-08-01] MEDS: LISINOPRIL 5 MG TABLET PO SCH (10:40)
[2021-08-01] MEDS ORDERED: cloNIDine HCL 0.1 MG TABLET PO ONE (16:00)
[2021-08-01] MEDS: ATORVASTATIN CA 10 MG TABLET (FP) PO SCH (21:22)
[2021-08-01] MEDS: MELATONIN 5 MG TABLETS PO SCH (21:22)
[2021-08-01] MEDS: THIAMINE HCL 100 MG TABLET (FP) PO SCH (21:22)
[2021-08-02] MEDS ORDERED: diazePAM 5 MG TABLET PO ONE (06:00)
[2021-08-02 06:25] VITALS: BP 118/75; PULSE 67; TEMP 97.8
[2021-08-02] MEDS: IBUPROFEN 400 MG TABLET (FP) PO PRN (07:14)
[2021-08-02] MEDS: PRENATAL VITAMINS W/ FOLIC ACID TABLET (FP) PO SCH (09:01)
[2021-08-02] MEDS: LISINOPRIL 5 MG TABLET PO SCH (09:01)
== END 2021-08-02 08:49 | disposition home or self-care (01) | DRG 774 ==
LOC: YASAS 12:46 → Y3N 17:24
PROVIDERS: ADMIT Allergy & Immunology; ATTEND Allergy & Immunology
PROC: HZ2ZZZZ Detoxification Services for Substance Abuse Treatment (ICD-10-PCS; principal; 2021-07-29)
DX: F10.230 Alcohol dependence with withdrawal, uncomplicated (principal); F14.20 Cocaine dependence, uncomplicated; F17.210 Nicotine dependence, cigarettes, uncomplicated; I10 Essential (primary) hypertension; E78.5 Hyperlipidemia, unspecified; J45.909 Unspecified asthma, uncomplicated; M17.0 Bilateral primary osteoarthritis of knee; R74.01 Elevation of levels of liver transaminase levels; R74.8 Abnormal levels of other serum enzymes; R73.9 Hyperglycemia, unspecified; Z99.89 Dependence on other enabling machines and devices; Z91.011 Allergy to milk products; Z91.013 Allergy to seafood; Z91.018 Allergy to other foods
CPT/HCPCS: 36415; 80053; 83036; 85027; 86593; 86780; C9803; J0735; Q0162; U0003; U0005

== ENCOUNTER 2021-09-11 11:42 | Inpatient (IN) | payer OTHER ==
[2021-09-11 12:38] VITALS: BMI 37.5
[2021-09-11] MEDS ORDERED: MAG HYDROX/AL HYDROX/SIMETH 30 ML UNIT-DOSE CUP PO PRN (13:48)
[2021-09-11] MEDS ORDERED: NICOTINE 10 MG CARTRIDGE (INHALER) IH PRN (13:48)
[2021-09-11] MEDS ORDERED: ONDANSETRON *ODT* 4 MG TABLET SL PRN (13:48)
[2021-09-11] MEDS ORDERED: MAGNESIUM HYDROX 2400MG/30ML ORAL SUSPENSION 30 ML CUP PO PRN (13:48)
[2021-09-11] MEDS ORDERED: BISMUTH SUBSALICYLATE 262 MG/15 ML BTL PO PRN (13:48)
[2021-09-11] MEDS ORDERED: ACETAMINOPHEN 325 MG TABLET (FP) PO PRN ×2 (13:48)
[2021-09-11] MEDS ORDERED: MAGNESIUM CITRATE 300 ML BOTTLE PO PRN (13:48)
[2021-09-11] MEDS ORDERED: LORazepam 1 MG TABLET PO PRN (13:48)
[2021-09-11] MEDS ORDERED: MENTHOL/PHENOL 1 EACH UD MM PRN (13:48)
[2021-09-11] MEDS ORDERED: ALBUTEROL SO4 HFA INHALER IH PRN (13:50)
[2021-09-11] MEDS: hydrOXYzine PAMOATE 25 MG CAPSULE (FP) PO SCH ×3 (14:57→22:28)
[2021-09-11] MEDS: GABAPENTIN 300 MG CAPSULE PO SCH ×2 (14:57→22:28)
[2021-09-11] MEDS: METHOCARBAMOL 500 MG TABLET PO PRN (14:57)
[2021-09-11] MEDS: LORazepam 2 MG TABLET PO SCH ×3 (15:02→22:29)
[2021-09-11] MEDS: NICOTINE 14 MG/24 HOURS TOPICAL PATCH TD SCH (15:02)
[2021-09-11 16:35] LABS: HEMATOCRIT 40.4 % (35.4-49); HEMOGLOBIN 13.7 GM/dL (11.7-16.9); MCHC 33.9 g/dl (32.0-35.9); MEAN CELL VOLUME 94.1 fl (80-96); MEAN PLT VOLUME 8.2 fl (7.5-11.1); PLATELET COUNT 177 10^3/uL (134-434); RBC 4.29 M/mm3 (4.00-5.60); WHITE BLOOD COUNT 9.9 K/mm3 (4.0-10.0)
[2021-09-11 16:39] LABS: ALBUMIN 3.3 g/dl (3.4-5.0); BLOOD UREA NITROGEN 13.6 mg/dL (7-18); CALCIUM 8.5 mg/dL (8.5-10.1)
[2021-09-11 16:44] LABS: BILIRUBIN,TOTAL 0.7 mg/dL (0.2-1); TOT PROT 6.9 g/dl (6.4-8.2)
[2021-09-11] MEDS: THIAMINE HCL 100 MG TABLET (FP) PO SCH (22:28)
[2021-09-11] MEDS: ATORVASTATIN CA 10 MG TABLET (FP) PO SCH (22:28)
[2021-09-11] MEDS: MELATONIN 5 MG TABLETS PO SCH (22:29)
[2021-09-12] MEDS: hydrOXYzine PAMOATE 25 MG CAPSULE (FP) PO SCH ×5 (06:27→22:18)
[2021-09-12] MEDS: GABAPENTIN 300 MG CAPSULE PO SCH ×3 (06:27→22:16)
[2021-09-12] MEDS: LORazepam 2 MG TABLET PO SCH ×4 (06:27→22:17)
[2021-09-12] MEDS: NICOTINE 14 MG/24 HOURS TOPICAL PATCH TD SCH (10:16)
[2021-09-12] MEDS: PRENATAL VITAMINS W/ FOLIC ACID TABLET (FP) PO SCH (10:17)
[2021-09-12] MEDS: LISINOPRIL 5 MG TABLET PO SCH (10:17)
[2021-09-12] MEDS ORDERED: POTASSIUM CHLORIDE ORAL LIQUID 20 MEQ/15 ML PO ONE (11:09)
[2021-09-12] MEDS: ATORVASTATIN CA 10 MG TABLET (FP) PO SCH (22:16)
[2021-09-12] MEDS: traZODone HCL 50 MG TABLET (FP) PO SCH (22:16)
[2021-09-12] MEDS: THIAMINE HCL 100 MG TABLET (FP) PO SCH (22:16)
[2021-09-12] MEDS: MELATONIN 5 MG TABLETS PO SCH (22:17)
[2021-09-13] MEDS: IBUPROFEN 400 MG TABLET (FP) PO PRN (01:59)
[2021-09-13] MEDS: LORazepam 1 MG TABLET PO SCH ×4 (06:00→22:19)
[2021-09-13] MEDS: hydrOXYzine PAMOATE 25 MG CAPSULE (FP) PO SCH ×5 (06:29→22:18)
[2021-09-13] MEDS: GABAPENTIN 300 MG CAPSULE PO SCH ×3 (06:30→22:17)
[2021-09-13] MEDS: LISINOPRIL 5 MG TABLET PO SCH (10:41)
[2021-09-13] MEDS: NICOTINE 14 MG/24 HOURS TOPICAL PATCH TD SCH (10:41)
[2021-09-13] MEDS: PRENATAL VITAMINS W/ FOLIC ACID TABLET (FP) PO SCH (10:41)
[2021-09-13] MEDS: METHOCARBAMOL 500 MG TABLET PO PRN (10:43)
[2021-09-13] MEDS: traZODone HCL 50 MG TABLET (FP) PO SCH (22:17)
[2021-09-13] MEDS: ATORVASTATIN CA 10 MG TABLET (FP) PO SCH (22:17)
[2021-09-13] MEDS: MELATONIN 5 MG TABLETS PO SCH (22:18)
[2021-09-13] MEDS: THIAMINE HCL 100 MG TABLET (FP) PO SCH (22:18)
[2021-09-13] MEDS: METHYL SALICYLATE/MENTHOL OINT 30 GM TUBE TP SCH (23:06)
[2021-09-14] MEDS ORDERED: LORazepam 0.5 MG TABLET PO PRN
[2021-09-14] MEDS: GABAPENTIN 300 MG CAPSULE PO SCH ×3 (05:42→22:28)
[2021-09-14] MEDS: hydrOXYzine PAMOATE 25 MG CAPSULE (FP) PO SCH ×5 (05:42→22:29)
[2021-09-14] MEDS: LORazepam 0.5 MG TABLET PO SCH ×4 (05:42→22:32)
[2021-09-14] MEDS: IBUPROFEN 400 MG TABLET (FP) PO PRN (05:45)
[2021-09-14] MEDS: PRENATAL VITAMINS W/ FOLIC ACID TABLET (FP) PO SCH (10:45)
[2021-09-14] MEDS: LISINOPRIL 5 MG TABLET PO SCH (10:50)
[2021-09-14] MEDS: METHYL SALICYLATE/MENTHOL OINT 30 GM TUBE TP SCH ×2 (10:50→22:31)
[2021-09-14] MEDS: NICOTINE 14 MG/24 HOURS TOPICAL PATCH TD SCH (13:19)
[2021-09-14] MEDS: traZODone HCL 50 MG TABLET (FP) PO SCH (22:28)
[2021-09-14] MEDS: ATORVASTATIN CA 10 MG TABLET (FP) PO SCH (22:29)
[2021-09-14] MEDS: MELATONIN 5 MG TABLETS PO SCH (22:30)
[2021-09-14] MEDS: METHOCARBAMOL 500 MG TABLET PO PRN (22:30)
[2021-09-14] MEDS: THIAMINE HCL 100 MG TABLET (FP) PO SCH (22:31)
[2021-09-15] MEDS ORDERED: LORazepam 0.5 MG TABLET PO ONE (05:00)
[2021-09-15] MEDS: GABAPENTIN 300 MG CAPSULE PO SCH (05:51)
[2021-09-15] MEDS: hydrOXYzine PAMOATE 25 MG CAPSULE (FP) PO SCH ×2 (05:51→09:29)
[2021-09-15] MEDS: METHYL SALICYLATE/MENTHOL OINT 30 GM TUBE TP SCH (09:28)
[2021-09-15] MEDS: NICOTINE 14 MG/24 HOURS TOPICAL PATCH TD SCH (09:28)
[2021-09-15] MEDS: PRENATAL VITAMINS W/ FOLIC ACID TABLET (FP) PO SCH (09:29)
[2021-09-15] MEDS: LISINOPRIL 5 MG TABLET PO SCH (09:30)
[2021-09-15] MEDS: IBUPROFEN 400 MG TABLET (FP) PO PRN (09:30)
[2021-09-15 10:20] VITALS: BP 120/67; PULSE 80; TEMP 97.8
== END 2021-09-15 09:40 | disposition home or self-care (01) | DRG 774 ==
LOC: YASAS 11:42 → Y6N 13:27
PROVIDERS: ADMIT Allergy & Immunology; ATTEND Allergy & Immunology
PROC: HZ2ZZZZ Detoxification Services for Substance Abuse Treatment (ICD-10-PCS; principal; 2021-09-11)
DX: F10.230 Alcohol dependence with withdrawal, uncomplicated (principal); F14.20 Cocaine dependence, uncomplicated; F17.210 Nicotine dependence, cigarettes, uncomplicated; F19.282 Other psychoactive substance dependence with psychoactive substance-induced sleep disorder; F19.24 Other psychoactive substance dependence with psychoactive substance-induced mood disorder; F31.9 Bipolar disorder, unspecified; F20.9 Schizophrenia, unspecified; I10 Essential (primary) hypertension; A53.0 Latent syphilis, unspecified as early or late; M17.0 Bilateral primary osteoarthritis of knee; M54.50 Low back pain, unspecified; G89.29 Other chronic pain; N28.9 Disorder of kidney and ureter, unspecified; R73.03 Prediabetes; R74.01 Elevation of levels of liver transaminase levels; E66.9 Obesity, unspecified; Z68.37 Body mass index [BMI] 37.0-37.9, adult; Z86.73 Personal history of transient ischemic attack (TIA), and cerebral infarction without residual deficits; Z86.19 Personal history of other infectious and parasitic diseases; Z91.013 Allergy to seafood; Z91.010 Allergy to peanuts; Z56.0 Unemployment, unspecified; Z59.01 Sheltered homelessness; Z99.89 Dependence on other enabling machines and devices
CPT/HCPCS: 36415; 80053; 82962; 85027; 86593; 86780; C9803; U0003; U0005

== ENCOUNTER 2021-10-16 13:44 | Inpatient (IN) | payer OTHER ==
[2021-10-16] MEDS ORDERED: ONDANSETRON *ODT* 4 MG TABLET SL PRN (14:50)
[2021-10-16] MEDS ORDERED: MAGNESIUM HYDROX 2400MG/30ML ORAL SUSPENSION 30 ML CUP PO PRN (14:50)
[2021-10-16] MEDS ORDERED: MENTHOL/PHENOL 1 EACH UD MM PRN (14:50)
[2021-10-16] MEDS ORDERED: BISMUTH SUBSALICYLATE 262 MG/15 ML BTL PO PRN (14:50)
[2021-10-16] MEDS ORDERED: NICOTINE 10 MG CARTRIDGE (INHALER) IH PRN (14:50)
[2021-10-16] MEDS ORDERED: MAGNESIUM CITRATE 300 ML BOTTLE PO PRN (14:50)
[2021-10-16] MEDS ORDERED: ACETAMINOPHEN 325 MG TABLET (FP) PO PRN ×2 (14:50)
[2021-10-16] MEDS ORDERED: diazePAM 5 MG TABLET PO PRN (14:50)
[2021-10-16] MEDS ORDERED: MAG HYDROX/AL HYDROX/SIMETH 30 ML UNIT-DOSE CUP PO PRN (14:50)
[2021-10-16] MEDS ORDERED: ALBUTEROL SO4 HFA INHALER IH PRN (14:56)
[2021-10-16 15:20] VITALS: BMI 25.0
[2021-10-16] MEDS: hydrOXYzine PAMOATE 25 MG CAPSULE (FP) PO SCH ×2 (16:59→22:49)
[2021-10-16] MEDS: diazePAM 5 MG TABLET PO SCH ×2 (16:59→22:50)
[2021-10-16] MEDS: METHOCARBAMOL 500 MG TABLET PO PRN (16:59)
[2021-10-16] MEDS ORDERED: LISINOPRIL 5 MG TABLET PO ONE (17:04)
[2021-10-16] MEDS: ATORVASTATIN CA 10 MG TABLET (FP) PO SCH (22:49)
[2021-10-16] MEDS: THIAMINE HCL 100 MG TABLET (FP) PO SCH (22:49)
[2021-10-16] MEDS: CLOTRIMAZOLE 1% CREAM TP SCH (22:50)
[2021-10-16] MEDS: MELATONIN 5 MG TABLETS PO SCH (22:50)
[2021-10-17] MEDS: diazePAM 5 MG TABLET PO SCH ×4 (06:01→22:01)
[2021-10-17] MEDS: hydrOXYzine PAMOATE 25 MG CAPSULE (FP) PO SCH ×5 (06:01→22:03)
[2021-10-17] MEDS: PRENATAL VITAMINS W/ FOLIC ACID TABLET (FP) PO SCH (10:16)
[2021-10-17] MEDS: CLOTRIMAZOLE 1% CREAM TP SCH ×2 (10:16→22:04)
[2021-10-17] MEDS: LISINOPRIL 5 MG TABLET PO SCH (10:17)
[2021-10-17] MEDS: GABAPENTIN 300 MG CAPSULE PO SCH ×2 (14:12→22:02)
[2021-10-17] MEDS: IBUPROFEN 400 MG TABLET (FP) PO PRN (14:12)
[2021-10-17 14:43] LABS: HEMATOCRIT 38.8 % (35.4-49); HEMOGLOBIN 12.8 GM/dL (11.7-16.9); MCH 31.8 pg (25.7-33.7); MEAN CELL VOLUME 96.3 fl (80-96); MEAN PLT VOLUME 9.1 fl (7.5-11.1); PLATELET COUNT 108 10^3/uL (134-434); RBC 4.03 M/mm3 (4.00-5.60); RDW 14.1 % (11.9-15.9); WHITE BLOOD COUNT 5.6 K/mm3 (4.0-10.0)
[2021-10-17 14:50] LABS: BLOOD UREA NITROGEN 8.5 mg/dL (7-18)
[2021-10-17 14:52] LABS: BILIRUBIN,TOTAL 1.4 mg/dL (0.2-1); TOT PROT 6.4 g/dl (6.4-8.2)
[2021-10-17 14:54] LABS: CREATININE 0.8 mg/dL (0.55-1.3)
[2021-10-17] MEDS: THIAMINE HCL 100 MG TABLET (FP) PO SCH (22:01)
[2021-10-17] MEDS: ATORVASTATIN CA 10 MG TABLET (FP) PO SCH (22:02)
[2021-10-17] MEDS: traZODone HCL 100 MG TABLET (FP) PO SCH (22:02)
[2021-10-17] MEDS: METHOCARBAMOL 500 MG TABLET PO PRN (22:02)
[2021-10-17] MEDS: MELATONIN 5 MG TABLETS PO SCH (22:03)
[2021-10-18] MEDS: GABAPENTIN 300 MG CAPSULE PO SCH ×3 (05:43→22:02)
[2021-10-18] MEDS: hydrOXYzine PAMOATE 25 MG CAPSULE (FP) PO SCH ×5 (05:43→22:02)
[2021-10-18] MEDS ORDERED: diazePAM 5 MG TABLET PO SCH (06:00)
[2021-10-18] MEDS ORDERED: LORazepam 1 MG TABLET PO PRN (09:47)
[2021-10-18] MEDS: LISINOPRIL 5 MG TABLET PO SCH (10:41)
[2021-10-18] MEDS: LORazepam 2 MG TABLET PO SCH ×3 (10:41→22:03)
[2021-10-18] MEDS: METHOCARBAMOL 500 MG TABLET PO PRN (10:42)
[2021-10-18] MEDS: PRENATAL VITAMINS W/ FOLIC ACID TABLET (FP) PO SCH (10:42)
[2021-10-18] MEDS: CLOTRIMAZOLE 1% CREAM TP SCH ×2 (10:42→22:03)
[2021-10-18] MEDS ORDERED: MODERNA COVID-19 VACC,MRNA/PF 50 MCG/0.25 ML EACH IM ONE (11:00)
[2021-10-18] MEDS: IBUPROFEN 400 MG TABLET (FP) PO PRN (11:10)
[2021-10-18] MEDS: ATORVASTATIN CA 10 MG TABLET (FP) PO SCH (22:02)
[2021-10-18] MEDS: THIAMINE HCL 100 MG TABLET (FP) PO SCH (22:02)
[2021-10-18] MEDS: traZODone HCL 100 MG TABLET (FP) PO SCH (22:02)
[2021-10-18] MEDS: MELATONIN 5 MG TABLETS PO SCH (22:03)
[2021-10-19] MEDS: hydrOXYzine PAMOATE 25 MG CAPSULE (FP) PO SCH ×5 (05:53→22:04)
[2021-10-19] MEDS: GABAPENTIN 300 MG CAPSULE PO SCH ×3 (05:53→22:57)
[2021-10-19] MEDS: LORazepam 2 MG TABLET PO SCH ×4 (05:53→22:04)
[2021-10-19] MEDS ORDERED: diazePAM 5 MG TABLET PO SCH (06:00)
[2021-10-19] MEDS: CLOTRIMAZOLE 1% CREAM TP SCH ×2 (10:12→22:05)
[2021-10-19] MEDS: LISINOPRIL 5 MG TABLET PO SCH (10:12)
[2021-10-19] MEDS: IBUPROFEN 400 MG TABLET (FP) PO PRN (10:13)
[2021-10-19] MEDS: METHOCARBAMOL 500 MG TABLET PO PRN ×2 (10:13→22:06)
[2021-10-19] MEDS: PRENATAL VITAMINS W/ FOLIC ACID TABLET (FP) PO SCH (10:16)
[2021-10-19 13:12] LABS: INR 0.94 (0.83-1.09)
[2021-10-19 13:32] LABS: CALCIUM 8.8 mg/dL (8.5-10.1)
[2021-10-19 13:33] LABS: ALBUMIN 3.3 g/dl (3.4-5.0); BLOOD UREA NITROGEN 9.1 mg/dL (7-18)
[2021-10-19 13:36] LABS: CREATININE 0.8 mg/dL (0.55-1.3)
[2021-10-19 13:37] LABS: TOT PROT 6.9 g/dl (6.4-8.2)
[2021-10-19] MEDS ORDERED: COLLOIDAL OATMEAL 1 BAR EACH TP PRN (15:17)
[2021-10-19] MEDS ORDERED: METHYL SALICYLATE/MENTHOL OINT 30 GM TUBE TP SCH (15:30)
[2021-10-19] MEDS: METHYL SALICYLATE/MENTHOL OINT 30 GM TUBE TP SCH (21:01)
[2021-10-19] MEDS: ATORVASTATIN CA 10 MG TABLET (FP) PO SCH (22:04)
[2021-10-19] MEDS: MELATONIN 5 MG TABLETS PO SCH (22:04)
[2021-10-19] MEDS: traZODone HCL 100 MG TABLET (FP) PO SCH (22:04)
[2021-10-19] MEDS: THIAMINE HCL 100 MG TABLET (FP) PO SCH (22:04)
[2021-10-20] MEDS: hydrOXYzine PAMOATE 25 MG CAPSULE (FP) PO SCH ×5 (05:54→22:36)
[2021-10-20] MEDS: GABAPENTIN 300 MG CAPSULE PO SCH ×3 (05:54→22:34)
[2021-10-20] MEDS: LORazepam 1 MG TABLET PO SCH ×4 (05:55→22:35)
[2021-10-20] MEDS ORDERED: diazePAM 5 MG TABLET PO ONE (06:00)
[2021-10-20] MEDS: LISINOPRIL 5 MG TABLET PO SCH (10:10)
[2021-10-20] MEDS: CLOTRIMAZOLE 1% CREAM TP SCH ×2 (10:11→22:36)
[2021-10-20] MEDS: PRENATAL VITAMINS W/ FOLIC ACID TABLET (FP) PO SCH (10:11)
[2021-10-20] MEDS: METHYL SALICYLATE/MENTHOL OINT 30 GM TUBE TP SCH (10:11)
[2021-10-20] MEDS: BUDESONIDE/FORMETEROL FUMARATE 80/4.5 mcg INHALER IH SCH ×2 (15:21→22:34)
[2021-10-20] MEDS: ATORVASTATIN CA 10 MG TABLET (FP) PO SCH (22:34)
[2021-10-20] MEDS: MELATONIN 5 MG TABLETS PO SCH (22:35)
[2021-10-20] MEDS: traZODone HCL 100 MG TABLET (FP) PO SCH (22:35)
[2021-10-20] MEDS: THIAMINE HCL 100 MG TABLET (FP) PO SCH (22:36)
[2021-10-20] MEDS: METHOCARBAMOL 500 MG TABLET PO PRN (22:36)
[2021-10-21] MEDS ORDERED: LORazepam 0.5 MG TABLET PO PRN
[2021-10-21] MEDS: LORazepam 0.5 MG TABLET PO SCH ×2 (05:11→10:26)
[2021-10-21] MEDS: hydrOXYzine PAMOATE 25 MG CAPSULE (FP) PO SCH ×2 (05:11→10:26)
[2021-10-21] MEDS: GABAPENTIN 300 MG CAPSULE PO SCH (05:11)
[2021-10-21] MEDS: IBUPROFEN 400 MG TABLET (FP) PO PRN (05:13)
[2021-10-21 10:09] VITALS: BP 119/69; PULSE 66; TEMP 97.4
[2021-10-21] MEDS: LISINOPRIL 5 MG TABLET PO SCH (10:26)
[2021-10-21] MEDS: BUDESONIDE/FORMETEROL FUMARATE 80/4.5 mcg INHALER IH SCH (10:27)
[2021-10-21] MEDS: CLOTRIMAZOLE 1% CREAM TP SCH (10:27)
[2021-10-21] MEDS: PRENATAL VITAMINS W/ FOLIC ACID TABLET (FP) PO SCH (10:27)
[2021-10-21] MEDS: METHYL SALICYLATE/MENTHOL OINT 30 GM TUBE TP SCH (10:29)
[2021-10-22] MEDS ORDERED: LORazepam 0.5 MG TABLET PO ONE (05:00)
== END 2021-10-21 12:00 | disposition other institution (70) | DRG 774 ==
LOC: YASAS 13:44 → Y3N 15:32
PROVIDERS: ADMIT Allergy & Immunology; ATTEND Allergy & Immunology
PROC: HZ2ZZZZ Detoxification Services for Substance Abuse Treatment (ICD-10-PCS; principal; 2021-10-16)
DX: F10.230 Alcohol dependence with withdrawal, uncomplicated (principal); F14.20 Cocaine dependence, uncomplicated; F17.210 Nicotine dependence, cigarettes, uncomplicated; F32.9 Major depressive disorder, single episode, unspecified; F19.24 Other psychoactive substance dependence with psychoactive substance-induced mood disorder; I10 Essential (primary) hypertension; E78.5 Hyperlipidemia, unspecified; R74.01 Elevation of levels of liver transaminase levels; M54.50 Low back pain, unspecified; G89.29 Other chronic pain; G47.00 Insomnia, unspecified; M17.0 Bilateral primary osteoarthritis of knee; R73.03 Prediabetes; R73.9 Hyperglycemia, unspecified; R94.5 Abnormal results of liver function studies; R26.2 Difficulty in walking, not elsewhere classified; Z99.89 Dependence on other enabling machines and devices; Z91.010 Allergy to peanuts; Z91.011 Allergy to milk products; Z91.013 Allergy to seafood; Z86.73 Personal history of transient ischemic attack (TIA), and cerebral infarction without residual deficits; Z86.19 Personal history of other infectious and parasitic diseases; Z56.0 Unemployment, unspecified; Z59.01 Sheltered homelessness
CPT/HCPCS: 0013A; 36415; 80053; 82947; 85027; 85610; 86593; 86780; 91301; C9803; U0003; U0005

== ENCOUNTER 2021-10-21 11:56 | Inpatient (IN) | payer OTHER ==
[2021-10-21] MEDS ORDERED: LOPERAMIDE HCL 2 MG CAPSULE PO PRN (13:19)
[2021-10-21] MEDS ORDERED: MAG HYDROX/AL HYDROX/SIMETH 30 ML UNIT-DOSE CUP PO PRN (13:19)
[2021-10-21] MEDS ORDERED: MENTHOL/PHENOL 1 EACH UD MM PRN (13:19)
[2021-10-21] MEDS ORDERED: ACETAMINOPHEN 325 MG TABLET (FP) PO PRN (13:19)
[2021-10-21] MEDS ORDERED: NICOTINE 10 MG CARTRIDGE (INHALER) IH PRN (13:19)
[2021-10-21] MEDS ORDERED: MAGNESIUM HYDROX 2400MG/30ML ORAL SUSPENSION 30 ML CUP PO PRN (13:19)
[2021-10-21] MEDS ORDERED: MAGNESIUM CITRATE 300 ML BOTTLE PO PRN (13:19)
[2021-10-21] MEDS ORDERED: ALBUTEROL SO4 HFA INHALER IH PRN (13:25)
[2021-10-21] MEDS ORDERED: GABAPENTIN 300 MG CAPSULE PO ONE (15:48)
[2021-10-21] MEDS: GABAPENTIN 300 MG CAPSULE PO SCH (21:04)
[2021-10-21] MEDS: traZODone HCL 100 MG TABLET (FP) PO SCH (21:04)
[2021-10-21] MEDS: ATORVASTATIN CA 10 MG TABLET (FP) PO SCH (21:04)
[2021-10-21] MEDS: THIAMINE HCL 100 MG TABLET (FP) PO SCH (21:04)
[2021-10-21] MEDS: BUDESONIDE/FORMETEROL FUMARATE 80/4.5 mcg INHALER IH SCH (21:05)
[2021-10-21] MEDS: MELATONIN 5 MG TABLETS PO SCH (21:06)
[2021-10-22] MEDS: GABAPENTIN 300 MG CAPSULE PO SCH ×3 (06:40→21:21)
[2021-10-22] MEDS: COLLOIDAL OATMEAL 1 BAR EACH TP PRN (06:41)
[2021-10-22] MEDS: IBUPROFEN 400 MG TABLET (FP) PO PRN (10:09)
[2021-10-22] MEDS: BUDESONIDE/FORMETEROL FUMARATE 80/4.5 mcg INHALER IH SCH ×2 (10:09→21:23)
[2021-10-22] MEDS: LISINOPRIL 5 MG TABLET PO SCH (10:09)
[2021-10-22] MEDS: PRENATAL VITAMINS W/ FOLIC ACID TABLET (FP) PO SCH (10:09)
[2021-10-22 10:39] LABS: ALBUMIN 3.4 g/dl (3.4-5.0)
[2021-10-22 10:41] LABS: BILIRUBIN,DIRECT 0.5 mg/dL (0.0-0.2)
[2021-10-22 10:44] LABS: TOT PROT 7.4 g/dl (6.4-8.2)
[2021-10-22 10:47] LABS: BILIRUBIN,TOTAL 0.7 mg/dL (0.2-1)
[2021-10-22 12:30] LABS: HIV INTERPRETATION NEGATIVE (NEGATIVE)
[2021-10-22] MEDS ORDERED: PT OWN MED DRAWER 7, Y5N ONE ×3 (14:04→21:55)
[2021-10-22] MEDS: ATORVASTATIN CA 10 MG TABLET (FP) PO SCH (21:21)
[2021-10-22] MEDS: THIAMINE HCL 100 MG TABLET (FP) PO SCH (21:21)
[2021-10-22] MEDS: MELATONIN 5 MG TABLETS PO SCH (21:21)
[2021-10-22] MEDS: traZODone HCL 100 MG TABLET (FP) PO SCH (21:21)
[2021-10-23] MEDS: GABAPENTIN 300 MG CAPSULE PO SCH ×3 (06:18→21:09)
[2021-10-23] MEDS: LISINOPRIL 5 MG TABLET PO SCH (09:39)
[2021-10-23] MEDS: PRENATAL VITAMINS W/ FOLIC ACID TABLET (FP) PO SCH (09:39)
[2021-10-23] MEDS: BUDESONIDE/FORMETEROL FUMARATE 80/4.5 mcg INHALER IH SCH ×2 (09:39→21:09)
[2021-10-23] MEDS: IBUPROFEN 400 MG TABLET (FP) PO PRN (09:41)
[2021-10-23 15:07] LABS: URINE APPEARANCE CLEAR; URINE BILIRUBIN NEGATIVE (NEGATIVE); URINE COLOR YELLOW; URINE GLUCOSE (UA) NEGATIVE (NEGATIVE); URINE KETONE NEGATIVE (NEGATIVE); URINE LEUK ESTERASE NEGATIVE (NEGATIVE); URINE NITRITE NEGATIVE (NEGATIVE); URINE PROTEIN NEGATIVE (NEGATIVE); URINE UROBILINOGEN 0.2 mg/dL (0.2-1.0)
[2021-10-23] MEDS ORDERED: PT OWN MED DRAWER 7, Y5N ONE (20:56)
[2021-10-23] MEDS: MELATONIN 5 MG TABLETS PO SCH (21:09)
[2021-10-23] MEDS: THIAMINE HCL 100 MG TABLET (FP) PO SCH (21:09)
[2021-10-23] MEDS: traZODone HCL 100 MG TABLET (FP) PO SCH (21:09)
[2021-10-23] MEDS: ATORVASTATIN CA 10 MG TABLET (FP) PO SCH (21:09)
[2021-10-24] MEDS: GABAPENTIN 300 MG CAPSULE PO SCH ×3 (06:16→21:14)
[2021-10-24] MEDS: PRENATAL VITAMINS W/ FOLIC ACID TABLET (FP) PO SCH (09:50)
[2021-10-24] MEDS: LISINOPRIL 5 MG TABLET PO SCH (09:50)
[2021-10-24] MEDS: BUDESONIDE/FORMETEROL FUMARATE 80/4.5 mcg INHALER IH SCH ×2 (09:51→21:50)
[2021-10-24] MEDS ORDERED: IBUPROFEN 600 MG TABLET (FP) PO PRN (14:41)
[2021-10-24] MEDS: LIDOCAINE 5% TOPICAL PATCH TP SCH (15:10)
[2021-10-24] MEDS: LIDOCAINE PATCH REMOVAL MC SCH (21:13)
[2021-10-24] MEDS: ATORVASTATIN CA 10 MG TABLET (FP) PO SCH (21:14)
[2021-10-24] MEDS: traZODone HCL 100 MG TABLET (FP) PO SCH (21:14)
[2021-10-24] MEDS: MELATONIN 5 MG TABLETS PO SCH (21:15)
[2021-10-24] MEDS: METHYL SALICYLATE/MENTHOL OINT 30 GM TUBE TP SCH (21:15)
[2021-10-24] MEDS: THIAMINE HCL 100 MG TABLET (FP) PO SCH (21:50)
[2021-10-25] MEDS: GABAPENTIN 300 MG CAPSULE PO SCH ×3 (06:56→21:33)
[2021-10-25] MEDS: PRENATAL VITAMINS W/ FOLIC ACID TABLET (FP) PO SCH (09:38)
[2021-10-25] MEDS: LISINOPRIL 5 MG TABLET PO SCH (09:38)
[2021-10-25] MEDS: IBUPROFEN 600 MG TABLET (FP) PO PRN (09:38)
[2021-10-25] MEDS: LIDOCAINE 5% TOPICAL PATCH TP SCH (09:39)
[2021-10-25] MEDS: METHYL SALICYLATE/MENTHOL OINT 30 GM TUBE TP SCH ×2 (09:40→23:26)
[2021-10-25] MEDS: BUDESONIDE/FORMETEROL FUMARATE 80/4.5 mcg INHALER IH SCH ×2 (09:40→21:34)
[2021-10-25] MEDS: THIAMINE HCL 100 MG TABLET (FP) PO SCH (21:33)
[2021-10-25] MEDS: ATORVASTATIN CA 10 MG TABLET (FP) PO SCH (21:33)
[2021-10-25] MEDS: traZODone HCL 100 MG TABLET (FP) PO SCH (21:33)
[2021-10-25] MEDS: MELATONIN 5 MG TABLETS PO SCH (21:34)
[2021-10-25] MEDS: LIDOCAINE PATCH REMOVAL MC SCH (23:31)
[2021-10-26] MEDS: GABAPENTIN 300 MG CAPSULE PO SCH ×3 (06:06→21:46)
[2021-10-26] MEDS: LISINOPRIL 5 MG TABLET PO SCH (09:48)
[2021-10-26] MEDS: PRENATAL VITAMINS W/ FOLIC ACID TABLET (FP) PO SCH (09:48)
[2021-10-26] MEDS: LIDOCAINE 5% TOPICAL PATCH TP SCH (09:49)
[2021-10-26] MEDS: METHYL SALICYLATE/MENTHOL OINT 30 GM TUBE TP SCH ×2 (09:54→21:46)
[2021-10-26] MEDS: BUDESONIDE/FORMETEROL FUMARATE 80/4.5 mcg INHALER IH SCH ×2 (10:55→21:46)
[2021-10-26] MEDS: traZODone HCL 100 MG TABLET (FP) PO SCH (21:46)
[2021-10-26] MEDS: THIAMINE HCL 100 MG TABLET (FP) PO SCH (21:46)
[2021-10-26] MEDS: ATORVASTATIN CA 10 MG TABLET (FP) PO SCH (21:46)
[2021-10-26] MEDS: LIDOCAINE PATCH REMOVAL MC SCH (21:47)
[2021-10-26] MEDS: MELATONIN 5 MG TABLETS PO SCH (21:47)
[2021-10-27] MEDS: GABAPENTIN 300 MG CAPSULE PO SCH ×3 (06:38→21:25)
[2021-10-27] MEDS: LIDOCAINE 5% TOPICAL PATCH TP SCH (09:30)
[2021-10-27] MEDS: PRENATAL VITAMINS W/ FOLIC ACID TABLET (FP) PO SCH (09:30)
[2021-10-27] MEDS: LISINOPRIL 5 MG TABLET PO SCH (09:30)
[2021-10-27] MEDS: METHYL SALICYLATE/MENTHOL OINT 30 GM TUBE TP SCH ×2 (09:32→21:26)
[2021-10-27] MEDS: BUDESONIDE/FORMETEROL FUMARATE 80/4.5 mcg INHALER IH SCH ×2 (09:32→21:27)
[2021-10-27] MEDS: THIAMINE HCL 100 MG TABLET (FP) PO SCH (21:25)
[2021-10-27] MEDS: ATORVASTATIN CA 10 MG TABLET (FP) PO SCH (21:25)
[2021-10-27] MEDS: MELATONIN 5 MG TABLETS PO SCH (21:25)
[2021-10-27] MEDS: traZODone HCL 100 MG TABLET (FP) PO SCH (21:25)
[2021-10-27] MEDS: LIDOCAINE PATCH REMOVAL MC SCH (21:26)
[2021-10-28] MEDS: GABAPENTIN 300 MG CAPSULE PO SCH ×3 (06:20→21:27)
[2021-10-28] MEDS: PRENATAL VITAMINS W/ FOLIC ACID TABLET (FP) PO SCH (10:15)
[2021-10-28] MEDS: LIDOCAINE 5% TOPICAL PATCH TP SCH (10:15)
[2021-10-28] MEDS: BUDESONIDE/FORMETEROL FUMARATE 80/4.5 mcg INHALER IH SCH ×2 (10:15→21:27)
[2021-10-28] MEDS: METHYL SALICYLATE/MENTHOL OINT 30 GM TUBE TP SCH ×2 (10:15→21:28)
[2021-10-28] MEDS: LISINOPRIL 5 MG TABLET PO SCH (10:15)
[2021-10-28] MEDS: COLLOIDAL OATMEAL 1 BAR EACH TP PRN (10:36)
[2021-10-28] MEDS ORDERED: PT OWN MED DRAWER 7, Y5N ONE (20:23)
[2021-10-28] MEDS: traZODone HCL 100 MG TABLET (FP) PO SCH (21:27)
[2021-10-28] MEDS: THIAMINE HCL 100 MG TABLET (FP) PO SCH (21:27)
[2021-10-28] MEDS: ATORVASTATIN CA 10 MG TABLET (FP) PO SCH (21:27)
[2021-10-28] MEDS: IBUPROFEN 600 MG TABLET (FP) PO PRN (21:29)
[2021-10-28] MEDS: MELATONIN 5 MG TABLETS PO SCH (23:18)
[2021-10-28] MEDS: LIDOCAINE PATCH REMOVAL MC SCH (23:19)
[2021-10-29] MEDS: GABAPENTIN 300 MG CAPSULE PO SCH ×3 (06:12→21:16)
[2021-10-29] MEDS: PRENATAL VITAMINS W/ FOLIC ACID TABLET (FP) PO SCH (10:09)
[2021-10-29] MEDS: METHYL SALICYLATE/MENTHOL OINT 30 GM TUBE TP SCH ×2 (10:09→21:17)
[2021-10-29] MEDS: LIDOCAINE 5% TOPICAL PATCH TP SCH (10:09)
[2021-10-29] MEDS: BUDESONIDE/FORMETEROL FUMARATE 80/4.5 mcg INHALER IH SCH ×2 (10:10→21:18)
[2021-10-29] MEDS: LISINOPRIL 5 MG TABLET PO SCH (10:10)
[2021-10-29 12:29] LABS: SGPT/ALT 316 U/L (13-61)
[2021-10-29 12:30] LABS: SGOT/AST 163 U/L (15-37)
[2021-10-29 12:35] LABS: ALK PHOS 143 U/L (45-117)
[2021-10-29] MEDS: ATORVASTATIN CA 10 MG TABLET (FP) PO SCH (21:17)
[2021-10-29] MEDS: MELATONIN 5 MG TABLETS PO SCH (21:17)
[2021-10-29] MEDS: traZODone HCL 100 MG TABLET (FP) PO SCH (21:17)
[2021-10-29] MEDS: THIAMINE HCL 100 MG TABLET (FP) PO SCH (21:17)
[2021-10-29] MEDS: LIDOCAINE PATCH REMOVAL MC SCH (21:17)
[2021-10-29] MEDS ORDERED: PT OWN MED DRAWER 7, Y5N ONE (21:20)
[2021-10-30] MEDS: GABAPENTIN 300 MG CAPSULE PO SCH ×3 (06:12→21:39)
[2021-10-30] MEDS: LISINOPRIL 5 MG TABLET PO SCH (09:49)
[2021-10-30] MEDS: PRENATAL VITAMINS W/ FOLIC ACID TABLET (FP) PO SCH (09:49)
[2021-10-30] MEDS: LIDOCAINE 5% TOPICAL PATCH TP SCH (09:49)
[2021-10-30] MEDS: METHYL SALICYLATE/MENTHOL OINT 30 GM TUBE TP SCH ×2 (09:50→21:40)
[2021-10-30] MEDS: BUDESONIDE/FORMETEROL FUMARATE 80/4.5 mcg INHALER IH SCH ×2 (09:50→21:44)
[2021-10-30] MEDS: IBUPROFEN 600 MG TABLET (FP) PO PRN (09:52)
[2021-10-30] MEDS: ATORVASTATIN CA 10 MG TABLET (FP) PO SCH (21:39)
[2021-10-30] MEDS: THIAMINE HCL 100 MG TABLET (FP) PO SCH (21:39)
[2021-10-30] MEDS: traZODone HCL 100 MG TABLET (FP) PO SCH (21:39)
[2021-10-30] MEDS: LIDOCAINE PATCH REMOVAL MC SCH (21:40)
[2021-10-30] MEDS: MELATONIN 5 MG TABLETS PO SCH (21:40)
[2021-10-30] MEDS: METHOCARBAMOL 500 MG TABLET PO PRN (21:42)
[2021-10-30] MEDS ORDERED: PT OWN MED DRAWER 7, Y5N ONE (21:43)
[2021-10-31] MEDS: GABAPENTIN 300 MG CAPSULE PO SCH ×3 (06:11→21:32)
[2021-10-31] MEDS: BUDESONIDE/FORMETEROL FUMARATE 80/4.5 mcg INHALER IH SCH ×2 (10:01→21:35)
[2021-10-31] MEDS: LIDOCAINE 5% TOPICAL PATCH TP SCH (10:02)
[2021-10-31] MEDS: PRENATAL VITAMINS W/ FOLIC ACID TABLET (FP) PO SCH (10:02)
[2021-10-31] MEDS: METHYL SALICYLATE/MENTHOL OINT 30 GM TUBE TP SCH (10:02)
[2021-10-31] MEDS: LISINOPRIL 5 MG TABLET PO SCH (10:03)
[2021-10-31] MEDS: IBUPROFEN 600 MG TABLET (FP) PO PRN (10:04)
[2021-10-31] MEDS ORDERED: PT OWN MED DRAWER 7, Y5N ONE ×3 (20:48→21:35)
[2021-10-31] MEDS: traZODone HCL 100 MG TABLET (FP) PO SCH (21:32)
[2021-10-31] MEDS: THIAMINE HCL 100 MG TABLET (FP) PO SCH (21:32)
[2021-10-31] MEDS: ATORVASTATIN CA 10 MG TABLET (FP) PO SCH (21:32)
[2021-10-31] MEDS: METHOCARBAMOL 500 MG TABLET PO PRN (21:33)
[2021-11-01] MEDS: MELATONIN 5 MG TABLETS PO SCH ×2 (00:18→21:22)
[2021-11-01] MEDS: METHYL SALICYLATE/MENTHOL OINT 30 GM TUBE TP SCH ×3 (00:18→21:23)
[2021-11-01] MEDS: LIDOCAINE PATCH REMOVAL MC SCH ×2 (00:18→21:23)
[2021-11-01] MEDS: GABAPENTIN 300 MG CAPSULE PO SCH ×3 (06:08→21:22)
[2021-11-01] MEDS: PRENATAL VITAMINS W/ FOLIC ACID TABLET (FP) PO SCH (10:02)
[2021-11-01] MEDS: LISINOPRIL 5 MG TABLET PO SCH (10:02)
[2021-11-01] MEDS: BUDESONIDE/FORMETEROL FUMARATE 80/4.5 mcg INHALER IH SCH ×2 (10:02→21:22)
[2021-11-01] MEDS: LIDOCAINE 5% TOPICAL PATCH TP SCH (10:03)
[2021-11-01] MEDS: ATORVASTATIN CA 10 MG TABLET (FP) PO SCH (21:21)
[2021-11-01] MEDS: THIAMINE HCL 100 MG TABLET (FP) PO SCH (21:22)
[2021-11-01] MEDS ORDERED: PT OWN MED DRAWER 7, Y5N ONE (21:47)
[2021-11-01] MEDS: traZODone HCL 50 MG TABLET (FP) PO SCH (23:08)
[2021-11-02 06:54] VITALS: TEMP 96.9
[2021-11-02] MEDS: GABAPENTIN 300 MG CAPSULE PO SCH ×3 (06:58→22:05)
[2021-11-02] MEDS ORDERED: PT OWN MED DRAWER 7, Y5N ONE ×4 (08:41→21:58)
[2021-11-02] MEDS: LISINOPRIL 5 MG TABLET PO SCH (10:01)
[2021-11-02] MEDS: LIDOCAINE 5% TOPICAL PATCH TP SCH (10:01)
[2021-11-02] MEDS: PRENATAL VITAMINS W/ FOLIC ACID TABLET (FP) PO SCH (10:01)
[2021-11-02] MEDS: METHYL SALICYLATE/MENTHOL OINT 30 GM TUBE TP SCH ×2 (10:01→21:58)
[2021-11-02] MEDS: BUDESONIDE/FORMETEROL FUMARATE 80/4.5 mcg INHALER IH SCH ×2 (10:02→21:57)
[2021-11-02] MEDS: LIDOCAINE PATCH REMOVAL MC SCH (21:56)
[2021-11-02] MEDS: ATORVASTATIN CA 10 MG TABLET (FP) PO SCH (21:56)
[2021-11-02] MEDS: THIAMINE HCL 100 MG TABLET (FP) PO SCH (21:56)
[2021-11-02] MEDS: MELATONIN 5 MG TABLETS PO SCH (21:57)
[2021-11-02] MEDS: traZODone HCL 50 MG TABLET (FP) PO SCH (21:58)
[2021-11-03] MEDS: GABAPENTIN 300 MG CAPSULE PO SCH ×3 (06:15→21:28)
[2021-11-03] MEDS ORDERED: PT OWN MED DRAWER 7, Y5N ONE ×2 (08:50→19:45)
[2021-11-03] MEDS: LIDOCAINE 5% TOPICAL PATCH TP SCH (10:12)
[2021-11-03] MEDS: PRENATAL VITAMINS W/ FOLIC ACID TABLET (FP) PO SCH (10:12)
[2021-11-03] MEDS: LISINOPRIL 5 MG TABLET PO SCH (10:12)
[2021-11-03] MEDS: BUDESONIDE/FORMETEROL FUMARATE 80/4.5 mcg INHALER IH SCH ×2 (10:12→21:27)
[2021-11-03] MEDS: METHYL SALICYLATE/MENTHOL OINT 30 GM TUBE TP SCH ×2 (10:12→21:28)
[2021-11-03] MEDS: METHOCARBAMOL 500 MG TABLET PO PRN (10:13)
[2021-11-03] MEDS: THIAMINE HCL 100 MG TABLET (FP) PO SCH (21:27)
[2021-11-03] MEDS: ATORVASTATIN CA 10 MG TABLET (FP) PO SCH (21:27)
[2021-11-03] MEDS: MELATONIN 5 MG TABLETS PO SCH (21:28)
[2021-11-03] MEDS: traZODone HCL 50 MG TABLET (FP) PO SCH (21:28)
[2021-11-03] MEDS: LIDOCAINE PATCH REMOVAL MC SCH (21:29)
[2021-11-04] MEDS: GABAPENTIN 300 MG CAPSULE PO SCH (06:11)
[2021-11-04 06:43] VITALS: BP 131/79; PULSE 86
[2021-11-04] MEDS: METHYL SALICYLATE/MENTHOL OINT 30 GM TUBE TP SCH (09:05)
[2021-11-04] MEDS: LIDOCAINE 5% TOPICAL PATCH TP SCH (09:05)
[2021-11-04] MEDS: PRENATAL VITAMINS W/ FOLIC ACID TABLET (FP) PO SCH (09:06)
[2021-11-04] MEDS: BUDESONIDE/FORMETEROL FUMARATE 80/4.5 mcg INHALER IH SCH (09:06)
[2021-11-04] MEDS: LISINOPRIL 5 MG TABLET PO SCH (09:06)
== END 2021-11-04 09:40 | disposition home or self-care (01) | DRG 772 ==
LOC: YASAS 11:56 → Y3E 11:57
PROVIDERS: ADMIT Allergy & Immunology; ATTEND Allergy & Immunology
PROC: HZ42ZZZ Group Counseling for Substance Abuse Treatment, Cognitive-Behavioral (ICD-10-PCS; principal; 2021-10-21)
DX: F10.20 Alcohol dependence, uncomplicated (principal); F14.20 Cocaine dependence, uncomplicated; F17.210 Nicotine dependence, cigarettes, uncomplicated; I10 Essential (primary) hypertension; E78.5 Hyperlipidemia, unspecified; R94.5 Abnormal results of liver function studies; M17.0 Bilateral primary osteoarthritis of knee; M54.59 Other low back pain; G89.29 Other chronic pain; E66.9 Obesity, unspecified; Z68.42 Body mass index [BMI] 45.0-49.9, adult; R26.2 Difficulty in walking, not elsewhere classified; Z99.89 Dependence on other enabling machines and devices
CPT/HCPCS: 36415; 80076; 81003; 82962; 83036; 84075; 84450; 84460; 86803; 87389

== ENCOUNTER 2021-12-10 18:20 | Inpatient (IN) | payer OTHER ==
[2021-12-10 20:17] VITALS: BMI 39.5
[2021-12-10] MEDS ORDERED: ALBUTEROL SO4 HFA INHALER IH PRN (20:51)
[2021-12-10] MEDS ORDERED: MELATONIN 5 MG TABLETS PO PRN (20:58)
[2021-12-10] MEDS ORDERED: ONDANSETRON *ODT* 4 MG TABLET SL PRN (20:58)
[2021-12-10] MEDS ORDERED: BISMUTH SUBSALICYLATE 524 MG/30 ML PO PRN (20:58)
[2021-12-10] MEDS ORDERED: MAG HYDROX/AL HYDROX/SIMETH 30 ML UNIT-DOSE CUP PO PRN (20:58)
[2021-12-10] MEDS ORDERED: hydrOXYzine PAMOATE 25 MG CAPSULE (FP) PO PRN (20:58)
[2021-12-10] MEDS ORDERED: MENTHOL/PHENOL 1 EACH UD MM PRN (20:58)
[2021-12-10] MEDS ORDERED: MAGNESIUM HYDROX 2400MG/30ML ORAL SUSPENSION 30 ML CUP PO PRN (20:58)
[2021-12-10] MEDS ORDERED: ACETAMINOPHEN 325 MG TABLET (FP) PO PRN ×2 (20:58)
[2021-12-10] MEDS ORDERED: MAGNESIUM CITRATE 300 ML BOTTLE PO PRN (20:58)
[2021-12-10] MEDS ORDERED: chlordiazePOXIDE HCL 25 MG CAPSULE PO PRN (21:01)
[2021-12-11] MEDS: chlordiazePOXIDE HCL 25 MG CAPSULE PO SCH ×5 (03:10→22:16)
[2021-12-11] MEDS: PRENATAL VITAMINS W/ FOLIC ACID TABLET (FP) PO SCH ×2 (03:11→10:07)
[2021-12-11] MEDS: THIAMINE HCL 100 MG TABLET (FP) PO SCH ×2 (03:12→22:15)
[2021-12-11] MEDS: ATORVASTATIN CA 10 MG TABLET (FP) PO SCH ×2 (03:12→22:15)
[2021-12-11] MEDS: BUDESONIDE/FORMETEROL FUMARATE 80/4.5 mcg INHALER IH SCH ×3 (03:12→22:15)
[2021-12-11] MEDS: METHOCARBAMOL 500 MG TABLET PO PRN ×2 (03:41→22:16)
[2021-12-11] MEDS: IBUPROFEN 400 MG TABLET (FP) PO PRN (03:41)
[2021-12-11] MEDS: LISINOPRIL 5 MG TABLET PO SCH (10:07)
[2021-12-11 10:33] LABS: HEMATOCRIT 39.1 % (35.4-49); HEMOGLOBIN 12.9 GM/dL (11.7-16.9); MCH 30.1 pg (25.7-33.7); MCHC 32.9 g/dl (32.0-35.9); MEAN CELL VOLUME 91.5 fl (80-96); MEAN PLT VOLUME 8.9 fl (7.5-11.1); PLATELET COUNT 177 10^3/uL (134-434); RBC 4.28 M/mm3 (4.00-5.60); RDW 13.8 % (11.9-15.9)
[2021-12-11 10:43] LABS: BLOOD UREA NITROGEN 18.7 mg/dL (7-18)
[2021-12-11 10:44] LABS: ALBUMIN 3.4 g/dl (3.4-5.0)
[2021-12-11 10:45] LABS: CALCIUM 8.7 mg/dL (8.5-10.1)
[2021-12-11 10:46] LABS: CREATININE 0.8 mg/dL (0.55-1.3)
[2021-12-11 10:48] LABS: BILIRUBIN,TOTAL 0.5 mg/dL (0.2-1); TOT PROT 6.4 g/dl (6.4-8.2)
[2021-12-11] MEDS: GABAPENTIN 100 MG CAPSULE PO SCH (22:15)
[2021-12-11] MEDS: traZODone HCL 50 MG TABLET (FP) PO SCH (22:15)
[2021-12-12] MEDS: GABAPENTIN 100 MG CAPSULE PO SCH ×3 (05:46→23:19)
[2021-12-12] MEDS: chlordiazePOXIDE HCL 25 MG CAPSULE PO SCH ×4 (05:46→23:19)
[2021-12-12] MEDS: PRENATAL VITAMINS W/ FOLIC ACID TABLET (FP) PO SCH (10:47)
[2021-12-12] MEDS: BUDESONIDE/FORMETEROL FUMARATE 80/4.5 mcg INHALER IH SCH ×2 (10:51→22:42)
[2021-12-12] MEDS: LISINOPRIL 5 MG TABLET PO SCH (10:55)
[2021-12-12] MEDS ORDERED: COLLOIDAL OATMEAL 1 BAR EACH TP PRN (12:41)
[2021-12-12] MEDS: THIAMINE HCL 100 MG TABLET (FP) PO SCH (22:42)
[2021-12-12] MEDS: traZODone HCL 50 MG TABLET (FP) PO SCH (23:19)
[2021-12-12] MEDS: ATORVASTATIN CA 10 MG TABLET (FP) PO SCH (23:19)
[2021-12-13] MEDS ORDERED: chlordiazePOXIDE HCL 10 MG CAPSULE PO PRN
[2021-12-13] MEDS: GABAPENTIN 100 MG CAPSULE PO SCH (04:59)
[2021-12-13] MEDS ORDERED: chlordiazePOXIDE HCL 10 MG CAPSULE PO SCH (05:00)
[2021-12-13] MEDS: IBUPROFEN 400 MG TABLET (FP) PO PRN (05:50)
[2021-12-13 09:07] VITALS: BP 146/96; PULSE 73; TEMP 96.9
[2021-12-14] MEDS ORDERED: chlordiazePOXIDE HCL 10 MG CAPSULE PO SCH (05:00)
[2021-12-15] MEDS ORDERED: chlordiazePOXIDE HCL 10 MG CAPSULE PO ONE (05:00)
== END 2021-12-13 08:41 | disposition left against medical advice (07) | DRG 770 ==
LOC: YASAS 18:20 → Y3N 12-11 00:55
PROVIDERS: ADMIT Allergy & Immunology; ATTEND Allergy & Immunology
PROC: HZ2ZZZZ Detoxification Services for Substance Abuse Treatment (ICD-10-PCS; principal; 2021-12-11)
DX: F10.230 Alcohol dependence with withdrawal, uncomplicated (principal); F14.20 Cocaine dependence, uncomplicated; F17.210 Nicotine dependence, cigarettes, uncomplicated; F31.9 Bipolar disorder, unspecified; F20.9 Schizophrenia, unspecified; F19.24 Other psychoactive substance dependence with psychoactive substance-induced mood disorder; I10 Essential (primary) hypertension; E11.9 Type 2 diabetes mellitus without complications; G47.00 Insomnia, unspecified; M17.0 Bilateral primary osteoarthritis of knee; E66.9 Obesity, unspecified; Z68.39 Body mass index [BMI] 39.0-39.9, adult; Z86.69 Personal history of other diseases of the nervous system and sense organs; Z86.19 Personal history of other infectious and parasitic diseases; Z99.89 Dependence on other enabling machines and devices; Z91.011 Allergy to milk products; Z91.013 Allergy to seafood; Z91.018 Allergy to other foods; Z59.01 Sheltered homelessness; Z56.0 Unemployment, unspecified
CPT/HCPCS: 36415; 80053; 82962; 85027; 86593; 86780; C9803; U0003; U0005

== ENCOUNTER 2022-01-21 13:08 | Inpatient (IN) | payer OTHER ==
[2022-01-21 14:55] VITALS: BMI 38.0
[2022-01-21] MEDS ORDERED: MAGNESIUM CITRATE 300 ML BOTTLE PO PRN (15:19)
[2022-01-21] MEDS ORDERED: BISMUTH SUBSALICYLATE 262 MG/15 ML BTL PO PRN (15:19)
[2022-01-21] MEDS ORDERED: MAGNESIUM HYDROX 2400MG/30ML ORAL SUSPENSION 30 ML CUP PO PRN (15:19)
[2022-01-21] MEDS ORDERED: NICOTINE 10 MG CARTRIDGE (INHALER) IH PRN (15:19)
[2022-01-21] MEDS ORDERED: LOPERAMIDE HCL 2 MG CAPSULE PO PRN (15:19)
[2022-01-21] MEDS ORDERED: ACETAMINOPHEN 325 MG TABLET (FP) PO PRN ×2 (15:19)
[2022-01-21] MEDS ORDERED: ONDANSETRON *ODT* 4 MG TABLET SL PRN (15:19)
[2022-01-21] MEDS ORDERED: chlordiazePOXIDE HCL 25 MG CAPSULE PO PRN (15:19)
[2022-01-21] MEDS ORDERED: MAG HYDROX/AL HYDROX/SIMETH 30 ML UNIT-DOSE CUP PO PRN (15:19)
[2022-01-21] MEDS ORDERED: MENTHOL/PHENOL 1 EACH UD MM PRN (15:19)
[2022-01-21] MEDS ORDERED: IBUPROFEN 400 MG TABLET (FP) PO PRN (15:19)
[2022-01-21] MEDS ORDERED: ALBUTEROL SO4 HFA INHALER IH PRN (15:24)
[2022-01-21] MEDS ORDERED: COLLOIDAL OATMEAL 1 BAR EACH TP PRN (16:56)
[2022-01-21] MEDS: LISINOPRIL 5 MG TABLET PO SCH (17:19)
[2022-01-21] MEDS: hydrOXYzine PAMOATE 25 MG CAPSULE (FP) PO SCH ×2 (17:19→22:18)
[2022-01-21] MEDS: chlordiazePOXIDE HCL 25 MG CAPSULE PO SCH ×2 (17:19→22:18)
[2022-01-21] MEDS ORDERED: MELATONIN 5 MG TABLETS PO SCH (22:00)
[2022-01-21] MEDS: ATORVASTATIN CA 10 MG TABLET (FP) PO SCH (22:18)
[2022-01-21] MEDS: THIAMINE HCL 100 MG TABLET (FP) PO SCH (22:18)
[2022-01-21] MEDS: MINERAL OIL/PET HY-PHL TOPICAL OINTMENT 454 GM JAR TP SCH (22:25)
[2022-01-22] MEDS: hydrOXYzine PAMOATE 25 MG CAPSULE (FP) PO SCH ×5 (07:07→23:26)
[2022-01-22] MEDS: chlordiazePOXIDE HCL 25 MG CAPSULE PO SCH ×4 (07:08→23:26)
[2022-01-22] MEDS: METHOCARBAMOL 500 MG TABLET PO PRN (10:40)
[2022-01-22] MEDS: LISINOPRIL 5 MG TABLET PO SCH (10:40)
[2022-01-22] MEDS: PRENATAL VITAMINS W/ FOLIC ACID TABLET (FP) PO SCH (10:40)
[2022-01-22 10:43] LABS: HEMATOCRIT 39.1 % (35.4-49); HEMOGLOBIN 13.3 GM/dL (11.7-16.9); MCH 30.5 pg (25.7-33.7); MCHC 33.9 g/dl (32.0-35.9); MEAN PLT VOLUME 8.4 fl (7.5-11.1); PLATELET COUNT 169 10^3/uL (134-434); RBC 4.34 M/mm3 (4.00-5.60); RDW 14.2 % (11.9-15.9); WHITE BLOOD COUNT 7.6 K/mm3 (4.0-10.0)
[2022-01-22 11:14] LABS: CALCIUM 8.8 mg/dL (8.5-10.1)
[2022-01-22 11:15] LABS: ALBUMIN 3.4 g/dl (3.4-5.0); BLOOD UREA NITROGEN 12.6 mg/dL (7-18)
[2022-01-22 11:20] LABS: BILIRUBIN,TOTAL 0.6 mg/dL (0.2-1); TOT PROT 6.5 g/dl (6.4-8.2)
[2022-01-22] MEDS: AMMONIUM LACTATE 12% LOTION 225 GM BOTTLE TP SCH ×2 (12:46→23:25)
[2022-01-22] MEDS: TOLNAFTATE 1% CREAM 15 GM TUBE TP SCH ×2 (12:46→23:26)
[2022-01-22] MEDS: MINERAL OIL/PET HY-PHL TOPICAL OINTMENT 454 GM JAR TP SCH (13:52)
[2022-01-22] MEDS ORDERED: traZODone HCL 50 MG TABLET (FP) PO SCH (22:00)
[2022-01-22] MEDS: ATORVASTATIN CA 10 MG TABLET (FP) PO SCH (23:25)
[2022-01-22] MEDS: traZODone HCL 50 MG TABLET (FP) PO SCH (23:25)
[2022-01-22] MEDS: GABAPENTIN 300 MG CAPSULE PO SCH (23:26)
[2022-01-22] MEDS: THIAMINE HCL 100 MG TABLET (FP) PO SCH (23:26)
[2022-01-23] MEDS: chlordiazePOXIDE HCL 25 MG CAPSULE PO SCH ×4 (07:04→22:54)
[2022-01-23] MEDS: hydrOXYzine PAMOATE 25 MG CAPSULE (FP) PO SCH ×6 (07:05→22:53)
[2022-01-23] MEDS: GABAPENTIN 300 MG CAPSULE PO SCH ×3 (07:05→22:52)
[2022-01-23] MEDS: LISINOPRIL 5 MG TABLET PO SCH (10:18)
[2022-01-23] MEDS: MINERAL OIL/PET HY-PHL TOPICAL OINTMENT 454 GM JAR TP SCH (10:19)
[2022-01-23] MEDS: AMMONIUM LACTATE 12% LOTION 225 GM BOTTLE TP SCH ×2 (10:19→22:58)
[2022-01-23] MEDS: PRENATAL VITAMINS W/ FOLIC ACID TABLET (FP) PO SCH (10:19)
[2022-01-23] MEDS: BUDESONIDE/FORMETEROL FUMARATE 80/4.5 mcg INHALER IH PRN (10:20)
[2022-01-23] MEDS: TOLNAFTATE 1% CREAM 15 GM TUBE TP SCH ×2 (12:49→22:58)
[2022-01-23] MEDS: METHYL SALICYLATE/MENTHOL OINT 30 GM TUBE TP SCH ×2 (14:58→22:57)
[2022-01-23] MEDS: traZODone HCL 50 MG TABLET (FP) PO SCH (22:52)
[2022-01-23] MEDS: ATORVASTATIN CA 10 MG TABLET (FP) PO SCH (22:52)
[2022-01-23] MEDS: THIAMINE HCL 100 MG TABLET (FP) PO SCH ×3 (23:00→23:02)
[2022-01-24] MEDS ORDERED: chlordiazePOXIDE HCL 10 MG CAPSULE PO PRN
[2022-01-24] MEDS: chlordiazePOXIDE HCL 10 MG CAPSULE PO SCH ×4 (06:13→22:00)
[2022-01-24] MEDS: hydrOXYzine PAMOATE 25 MG CAPSULE (FP) PO SCH ×5 (06:41→21:59)
[2022-01-24] MEDS: GABAPENTIN 300 MG CAPSULE PO SCH ×3 (06:41→21:56)
[2022-01-24] MEDS: MINERAL OIL/PET HY-PHL TOPICAL OINTMENT 454 GM JAR TP SCH (10:43)
[2022-01-24] MEDS: METHYL SALICYLATE/MENTHOL OINT 30 GM TUBE TP SCH ×2 (10:44→21:59)
[2022-01-24] MEDS: AMMONIUM LACTATE 12% LOTION 225 GM BOTTLE TP SCH ×2 (10:44→21:59)
[2022-01-24] MEDS: TOLNAFTATE 1% CREAM 15 GM TUBE TP SCH ×2 (10:44→21:59)
[2022-01-24] MEDS: LIDOCAINE 5% TOPICAL PATCH TP SCH (10:45)
[2022-01-24] MEDS: LISINOPRIL 5 MG TABLET PO SCH (10:45)
[2022-01-24] MEDS: METHOCARBAMOL 500 MG TABLET PO PRN (10:48)
[2022-01-24] MEDS: PRENATAL VITAMINS W/ FOLIC ACID TABLET (FP) PO SCH (11:13)
[2022-01-24] MEDS: traZODone HCL 50 MG TABLET (FP) PO SCH (21:55)
[2022-01-24] MEDS: ATORVASTATIN CA 10 MG TABLET (FP) PO SCH (21:56)
[2022-01-24] MEDS: THIAMINE HCL 100 MG TABLET (FP) PO SCH (21:56)
[2022-01-24] MEDS: LIDOCAINE PATCH REMOVAL MC SCH (21:59)
[2022-01-25] MEDS: chlordiazePOXIDE HCL 10 MG CAPSULE PO SCH ×2 (05:48→17:40)
[2022-01-25] MEDS: GABAPENTIN 300 MG CAPSULE PO SCH ×3 (05:48→23:46)
[2022-01-25] MEDS: hydrOXYzine PAMOATE 25 MG CAPSULE (FP) PO SCH ×5 (06:13→23:48)
[2022-01-25] MEDS: MINERAL OIL/PET HY-PHL TOPICAL OINTMENT 454 GM JAR TP SCH (10:57)
[2022-01-25] MEDS: METHYL SALICYLATE/MENTHOL OINT 30 GM TUBE TP SCH ×2 (10:57→23:47)
[2022-01-25] MEDS: PRENATAL VITAMINS W/ FOLIC ACID TABLET (FP) PO SCH (10:58)
[2022-01-25] MEDS: LIDOCAINE 5% TOPICAL PATCH TP SCH (10:58)
[2022-01-25] MEDS: AMMONIUM LACTATE 12% LOTION 225 GM BOTTLE TP SCH ×2 (10:58→23:47)
[2022-01-25] MEDS: LISINOPRIL 5 MG TABLET PO SCH (10:59)
[2022-01-25] MEDS: TOLNAFTATE 1% CREAM 15 GM TUBE TP SCH ×2 (10:59→23:48)
[2022-01-25] MEDS: METHOCARBAMOL 500 MG TABLET PO PRN ×2 (11:00→23:50)
[2022-01-25] MEDS: traZODone HCL 50 MG TABLET (FP) PO SCH (23:46)
[2022-01-25] MEDS: ATORVASTATIN CA 10 MG TABLET (FP) PO SCH (23:46)
[2022-01-25] MEDS: LIDOCAINE PATCH REMOVAL MC SCH (23:46)
[2022-01-25] MEDS: THIAMINE HCL 100 MG TABLET (FP) PO SCH (23:46)
[2022-01-25] MEDS: BUDESONIDE/FORMETEROL FUMARATE 80/4.5 mcg INHALER IH PRN (23:48)
[2022-01-26] MEDS ORDERED: chlordiazePOXIDE HCL 10 MG CAPSULE PO ONE (05:00)
[2022-01-26] MEDS: hydrOXYzine PAMOATE 25 MG CAPSULE (FP) PO SCH (05:48)
[2022-01-26] MEDS: GABAPENTIN 300 MG CAPSULE PO SCH (05:48)
[2022-01-26 07:49] VITALS: BP 121/72; PULSE 63; TEMP 97.6
[2022-01-26] MEDS: PRENATAL VITAMINS W/ FOLIC ACID TABLET (FP) PO SCH (09:18)
== END 2022-01-26 09:25 | disposition home or self-care (01) | DRG 774 ==
LOC: YASAS 13:08 → Y6N 16:51
PROVIDERS: ADMIT Allergy & Immunology; ATTEND Allergy & Immunology
PROC: HZ2ZZZZ Detoxification Services for Substance Abuse Treatment (ICD-10-PCS; principal; 2022-01-21)
DX: F10.230 Alcohol dependence with withdrawal, uncomplicated (principal); F14.20 Cocaine dependence, uncomplicated; F17.210 Nicotine dependence, cigarettes, uncomplicated; F19.282 Other psychoactive substance dependence with psychoactive substance-induced sleep disorder; F19.24 Other psychoactive substance dependence with psychoactive substance-induced mood disorder; F32.A Depression, unspecified; E78.00 Pure hypercholesterolemia, unspecified; I10 Essential (primary) hypertension; J44.9 Chronic obstructive pulmonary disease, unspecified; M17.0 Bilateral primary osteoarthritis of knee; M54.50 Low back pain, unspecified; G89.29 Other chronic pain; E66.9 Obesity, unspecified; Z68.38 Body mass index [BMI] 38.0-38.9, adult; Z86.73 Personal history of transient ischemic attack (TIA), and cerebral infarction without residual deficits; Z86.19 Personal history of other infectious and parasitic diseases; Z91.010 Allergy to peanuts; Z91.011 Allergy to milk products; Z91.013 Allergy to seafood; Z56.0 Unemployment, unspecified; Z59.00 Homelessness unspecified
CPT/HCPCS: 36415; 80053; 82962; 85027; 86593; 86780; C9803; U0003; U0005

== ENCOUNTER 2022-03-24 11:28 | Inpatient (IN) | payer OTHER ==
[2022-03-24] MEDS ORDERED: NICOTINE 10 MG CARTRIDGE (INHALER) IH PRN (11:55)
[2022-03-24] MEDS ORDERED: chlordiazePOXIDE HCL 25 MG CAPSULE PO PRN (11:55)
[2022-03-24] MEDS ORDERED: ONDANSETRON *ODT* 4 MG TABLET SL PRN (11:55)
[2022-03-24] MEDS ORDERED: LOPERAMIDE HCL 2 MG CAPSULE PO PRN (11:55)
[2022-03-24] MEDS ORDERED: ACETAMINOPHEN 325 MG TABLET (FP) PO PRN ×2 (11:55)
[2022-03-24] MEDS ORDERED: DICYCLOMINE HCL 10 MG CAPSULE PO PRN (11:55)
[2022-03-24] MEDS ORDERED: MAGNESIUM CITRATE 300 ML BOTTLE PO PRN (11:55)
[2022-03-24] MEDS ORDERED: BISMUTH SUBSALICYLATE 262 MG/15 ML BTL PO PRN (11:55)
[2022-03-24] MEDS ORDERED: BENZOCAINE/MENTHOL (CHLORASEPTIC ) LOZENGE MM PRN (11:55)
[2022-03-24] MEDS ORDERED: MAGNESIUM HYDROX 2400MG/30ML ORAL SUSPENSION 30 ML CUP PO PRN (11:55)
[2022-03-24] MEDS ORDERED: MAG HYDROX/AL HYDROX/SIMETH 30 ML UNIT-DOSE CUP PO PRN (11:55)
[2022-03-24 12:43] VITALS: BMI 39.5
[2022-03-24] MEDS: NICOTINE 14 MG/24 HOURS TOPICAL PATCH TD SCH (13:30)
[2022-03-24] MEDS: hydrOXYzine PAMOATE 25 MG CAPSULE (FP) PO SCH ×2 (13:31→17:53)
[2022-03-24] MEDS: PRENATAL VITAMINS W/ FOLIC ACID TABLET (FP) PO SCH (13:31)
[2022-03-24] MEDS: GABAPENTIN 300 MG CAPSULE PO SCH (14:58)
[2022-03-24] MEDS: chlordiazePOXIDE HCL 25 MG CAPSULE PO SCH (17:53)
[2022-03-24 18:59] LABS: HEMATOCRIT 42.2 % (35.4-49); HEMOGLOBIN 13.9 GM/dL (11.7-16.9); MCH 29.7 pg (25.7-33.7); MCHC 32.9 g/dl (32.0-35.9); MEAN CELL VOLUME 90.1 fl (80-96); MEAN PLT VOLUME 8.4 fl (7.5-11.1); PLATELET COUNT 232 10^3/uL (134-434); RBC 4.68 M/mm3 (4.00-5.60); RDW 13.9 % (11.9-15.9); WHITE BLOOD COUNT 10.8 K/mm3 (4.0-10.0)
[2022-03-24 19:06] LABS: CALCIUM 9.1 mg/dL (8.5-10.1)
[2022-03-24 19:07] LABS: BLOOD UREA NITROGEN 14.3 mg/dL (7-18)
[2022-03-24 19:11] LABS: TOT PROT 7.5 g/dl (6.4-8.2)
[2022-03-24 19:12] LABS: BILIRUBIN,TOTAL 0.5 mg/dL (0.2-1)
[2022-03-25] MEDS: MELATONIN 5 MG TABLETS PO SCH ×2 (00:34→23:12)
[2022-03-25] MEDS: traZODone HCL 100 MG TABLET (FP) PO SCH ×2 (00:34→23:12)
[2022-03-25] MEDS: hydrOXYzine PAMOATE 25 MG CAPSULE (FP) PO SCH ×6 (00:35→23:12)
[2022-03-25] MEDS: GABAPENTIN 300 MG CAPSULE PO SCH ×4 (00:35→23:11)
[2022-03-25] MEDS: THIAMINE HCL 100 MG TABLET (FP) PO SCH ×2 (00:36→23:12)
[2022-03-25] MEDS: chlordiazePOXIDE HCL 25 MG CAPSULE PO SCH ×5 (00:36→23:12)
[2022-03-25] MEDS ORDERED: ALBUTEROL SO4 HFA INHALER IH PRN (09:27)
[2022-03-25] MEDS: METHOCARBAMOL 500 MG TABLET PO PRN (11:02)
[2022-03-25] MEDS: NICOTINE 14 MG/24 HOURS TOPICAL PATCH TD SCH (11:03)
[2022-03-25] MEDS: PRENATAL VITAMINS W/ FOLIC ACID TABLET (FP) PO SCH (11:03)
[2022-03-25] MEDS: LISINOPRIL 5 MG TABLET PO SCH (11:05)
[2022-03-25] MEDS: BUDESONIDE/FORMETEROL FUMARATE 80/4.5 mcg INHALER IH SCH ×2 (11:05→23:12)
[2022-03-25] MEDS: ATORVASTATIN CA 10 MG TABLET (FP) PO SCH (23:11)
[2022-03-26] MEDS: chlordiazePOXIDE HCL 25 MG CAPSULE PO SCH ×4 (05:50→23:19)
[2022-03-26] MEDS: GABAPENTIN 300 MG CAPSULE PO SCH ×3 (05:50→23:58)
[2022-03-26] MEDS: hydrOXYzine PAMOATE 25 MG CAPSULE (FP) PO SCH ×5 (05:50→23:58)
[2022-03-26] MEDS: PRENATAL VITAMINS W/ FOLIC ACID TABLET (FP) PO SCH (10:31)
[2022-03-26] MEDS: LISINOPRIL 5 MG TABLET PO SCH (10:31)
[2022-03-26] MEDS: METHOCARBAMOL 500 MG TABLET PO PRN (10:31)
[2022-03-26] MEDS: IBUPROFEN 400 MG TABLET (FP) PO PRN (10:33)
[2022-03-26] MEDS: BUDESONIDE/FORMETEROL FUMARATE 80/4.5 mcg INHALER IH SCH ×2 (10:34→23:58)
[2022-03-26] MEDS: AMMONIUM LACTATE 12% LOTION 225 GM BOTTLE TP SCH ×2 (10:34→10:59)
[2022-03-26] MEDS: NICOTINE 14 MG/24 HOURS TOPICAL PATCH TD SCH (10:34)
[2022-03-26] MEDS: METHYL SALICYLATE/MENTHOL OINT 30 GM TUBE TP SCH ×2 (12:08→23:57)
[2022-03-26 14:08] LABS: SARS-CoV-2 NAA Not Detected (Not Detected)
[2022-03-26] MEDS: traZODone HCL 100 MG TABLET (FP) PO SCH (23:57)
[2022-03-26] MEDS: MELATONIN 5 MG TABLETS PO SCH (23:58)
[2022-03-26] MEDS: ATORVASTATIN CA 10 MG TABLET (FP) PO SCH (23:58)
[2022-03-26] MEDS: THIAMINE HCL 100 MG TABLET (FP) PO SCH (23:59)
[2022-03-27] MEDS ORDERED: chlordiazePOXIDE HCL 10 MG CAPSULE PO PRN
[2022-03-27] MEDS: GABAPENTIN 300 MG CAPSULE PO SCH ×3 (06:21→23:39)
[2022-03-27] MEDS: chlordiazePOXIDE HCL 10 MG CAPSULE PO SCH ×4 (06:21→23:39)
[2022-03-27] MEDS: hydrOXYzine PAMOATE 25 MG CAPSULE (FP) PO SCH ×5 (06:21→23:39)
[2022-03-27] MEDS: PRENATAL VITAMINS W/ FOLIC ACID TABLET (FP) PO SCH (10:16)
[2022-03-27] MEDS: METHOCARBAMOL 500 MG TABLET PO PRN (10:16)
[2022-03-27] MEDS: LISINOPRIL 5 MG TABLET PO SCH (10:16)
[2022-03-27] MEDS: IBUPROFEN 400 MG TABLET (FP) PO PRN (10:16)
[2022-03-27] MEDS: METHYL SALICYLATE/MENTHOL OINT 30 GM TUBE TP SCH ×2 (10:18→23:38)
[2022-03-27] MEDS: NICOTINE 14 MG/24 HOURS TOPICAL PATCH TD SCH (10:19)
[2022-03-27] MEDS: BUDESONIDE/FORMETEROL FUMARATE 80/4.5 mcg INHALER IH SCH ×2 (11:17→23:39)
[2022-03-27] MEDS: AMMONIUM LACTATE 12% LOTION 225 GM BOTTLE TP SCH (11:17)
[2022-03-27] MEDS: traZODone HCL 100 MG TABLET (FP) PO SCH (23:39)
[2022-03-27] MEDS: ATORVASTATIN CA 10 MG TABLET (FP) PO SCH (23:39)
[2022-03-27] MEDS: MELATONIN 5 MG TABLETS PO SCH (23:39)
[2022-03-27] MEDS: THIAMINE HCL 100 MG TABLET (FP) PO SCH (23:39)
[2022-03-28] MEDS ORDERED: chlordiazePOXIDE HCL 10 MG CAPSULE PO SCH (05:00)
[2022-03-28] MEDS: hydrOXYzine PAMOATE 25 MG CAPSULE (FP) PO SCH ×2 (05:50→09:19)
[2022-03-28] MEDS: GABAPENTIN 300 MG CAPSULE PO SCH (05:50)
[2022-03-28] MEDS: METHOCARBAMOL 500 MG TABLET PO PRN (07:18)
[2022-03-28] MEDS: PRENATAL VITAMINS W/ FOLIC ACID TABLET (FP) PO SCH (09:19)
[2022-03-28] MEDS: LISINOPRIL 5 MG TABLET PO SCH (09:19)
[2022-03-28] MEDS: NICOTINE 14 MG/24 HOURS TOPICAL PATCH TD SCH (09:21)
[2022-03-28] MEDS: BUDESONIDE/FORMETEROL FUMARATE 80/4.5 mcg INHALER IH SCH (09:21)
[2022-03-28] MEDS: AMMONIUM LACTATE 12% LOTION 225 GM BOTTLE TP SCH (09:21)
[2022-03-28] MEDS: METHYL SALICYLATE/MENTHOL OINT 30 GM TUBE TP SCH (09:21)
[2022-03-28 09:46] VITALS: BP 141/80; PULSE 86; TEMP 98.6
[2022-03-29] MEDS ORDERED: chlordiazePOXIDE HCL 10 MG CAPSULE PO ONE (05:00)
== END 2022-03-28 09:40 | disposition home or self-care (01) | DRG 774 ==
LOC: YASAS 11:28 → Y6N 12:58
PROVIDERS: ADMIT Allergy & Immunology; ATTEND Surgery
PROC: HZ2ZZZZ Detoxification Services for Substance Abuse Treatment (ICD-10-PCS; principal; 2022-03-24)
DX: F10.230 Alcohol dependence with withdrawal, uncomplicated (principal); F14.20 Cocaine dependence, uncomplicated; F19.282 Other psychoactive substance dependence with psychoactive substance-induced sleep disorder; F19.280 Other psychoactive substance dependence with psychoactive substance-induced anxiety disorder; F17.213 Nicotine dependence, cigarettes, with withdrawal; E78.5 Hyperlipidemia, unspecified; I10 Essential (primary) hypertension; J45.909 Unspecified asthma, uncomplicated; M17.0 Bilateral primary osteoarthritis of knee; M54.50 Low back pain, unspecified; G89.29 Other chronic pain; E66.9 Obesity, unspecified; Z68.39 Body mass index [BMI] 39.0-39.9, adult; Z86.19 Personal history of other infectious and parasitic diseases; Z86.73 Personal history of transient ischemic attack (TIA), and cerebral infarction without residual deficits; Z91.010 Allergy to peanuts; Z91.011 Allergy to milk products; Z91.013 Allergy to seafood
CPT/HCPCS: 36415; 80053; 82962; 85027; 86593; 86780; C9803-CS; Q0162; U0003; U0005

== ENCOUNTER 2022-05-02 11:14 | Inpatient (IN) | payer OTHER ==
[2022-05-02 11:37] VITALS: BMI 37.2
[2022-05-02] MEDS ORDERED: MAG HYDROX/AL HYDROX/SIMETH 30 ML UNIT-DOSE CUP PO PRN (11:46)
[2022-05-02] MEDS ORDERED: MAGNESIUM HYDROX 2400MG/30ML ORAL SUSPENSION 30 ML CUP PO PRN (11:46)
[2022-05-02] MEDS ORDERED: BISMUTH SUBSALICYLATE 262 MG/15 ML BTL PO PRN (11:46)
[2022-05-02] MEDS ORDERED: DICYCLOMINE HCL 10 MG CAPSULE PO PRN (11:46)
[2022-05-02] MEDS ORDERED: ACETAMINOPHEN 325 MG TABLET (FP) PO PRN ×2 (11:46)
[2022-05-02] MEDS ORDERED: IBUPROFEN 400 MG TABLET (FP) PO PRN (11:46)
[2022-05-02] MEDS ORDERED: ONDANSETRON *ODT* 4 MG TABLET SL PRN (11:46)
[2022-05-02] MEDS ORDERED: chlordiazePOXIDE HCL 25 MG CAPSULE PO PRN (11:46)
[2022-05-02] MEDS ORDERED: MAGNESIUM CITRATE 300 ML BOTTLE PO PRN (11:46)
[2022-05-02] MEDS ORDERED: LOPERAMIDE HCL 2 MG CAPSULE PO PRN (11:46)
[2022-05-02] MEDS ORDERED: IBUPROFEN 600 MG TABLET (FP) PO PRN (11:46)
[2022-05-02] MEDS ORDERED: NICOTINE 10 MG CARTRIDGE (INHALER) IH PRN (11:46)
[2022-05-02] MEDS ORDERED: BENZOCAINE/MENTHOL (CHLORASEPTIC ) LOZENGE MM PRN (11:46)
[2022-05-02] MEDS ORDERED: COLLOIDAL OATMEAL 1 BAR EACH TP PRN (11:49)
[2022-05-02 15:16] LABS: HEMATOCRIT 42.7 % (35.4-49); HEMOGLOBIN 14.2 GM/dL (11.7-16.9); MCH 30.4 pg (25.7-33.7); MCHC 33.3 g/dl (32.0-35.9); MEAN CELL VOLUME 91.3 fl (80-96); MEAN PLT VOLUME 8.4 fl (7.5-11.1); PLATELET COUNT 229 10^3/uL (134-434); RBC 4.67 M/mm3 (4.00-5.60); RDW 14.7 % (11.9-15.9); WHITE BLOOD COUNT 10.6 K/mm3 (4.0-10.0)
[2022-05-02] MEDS: PRENATAL VITAMINS W/ FOLIC ACID TABLET (FP) PO SCH (15:28)
[2022-05-02] MEDS: hydrOXYzine PAMOATE 25 MG CAPSULE (FP) PO SCH ×3 (15:28→22:51)
[2022-05-02] MEDS: NICOTINE 7 MG/24 HOURS TOPICAL PATCH TD SCH (15:28)
[2022-05-02 15:29] LABS: CALCIUM 8.9 mg/dL (8.5-10.1)
[2022-05-02 15:30] LABS: BLOOD UREA NITROGEN 13.5 mg/dL (7-18)
[2022-05-02 15:33] LABS: CREATININE 1.1 mg/dL (0.55-1.3)
[2022-05-02 15:34] LABS: BILIRUBIN,TOTAL 0.8 mg/dL (0.2-1); TOT PROT 7.8 g/dl (6.4-8.2)
[2022-05-02] MEDS: chlordiazePOXIDE HCL 25 MG CAPSULE PO SCH ×2 (17:12→22:51)
[2022-05-02] MEDS: GABAPENTIN 300 MG CAPSULE PO SCH (22:51)
[2022-05-02] MEDS: traZODone HCL 100 MG TABLET (FP) PO SCH (22:51)
[2022-05-02] MEDS: THIAMINE HCL 100 MG TABLET (FP) PO SCH (22:51)
[2022-05-02] MEDS: MELATONIN 5 MG TABLETS PO SCH (22:51)
[2022-05-02] MEDS: METHOCARBAMOL 500 MG TABLET PO PRN (22:53)
[2022-05-03] MEDS: chlordiazePOXIDE HCL 25 MG CAPSULE PO SCH ×4 (06:17→22:58)
[2022-05-03] MEDS: hydrOXYzine PAMOATE 25 MG CAPSULE (FP) PO SCH ×5 (06:17→23:08)
[2022-05-03] MEDS: GABAPENTIN 300 MG CAPSULE PO SCH ×3 (06:17→22:58)
[2022-05-03] MEDS: NICOTINE 7 MG/24 HOURS TOPICAL PATCH TD SCH (10:17)
[2022-05-03] MEDS: PRENATAL VITAMINS W/ FOLIC ACID TABLET (FP) PO SCH (10:17)
[2022-05-03] MEDS: METHOCARBAMOL 500 MG TABLET PO PRN (17:48)
[2022-05-03] MEDS: THIAMINE HCL 100 MG TABLET (FP) PO SCH (22:58)
[2022-05-03] MEDS: traZODone HCL 100 MG TABLET (FP) PO SCH (22:58)
[2022-05-03] MEDS: MELATONIN 5 MG TABLETS PO SCH (22:58)
[2022-05-04] MEDS: hydrOXYzine PAMOATE 25 MG CAPSULE (FP) PO SCH ×5 (05:49→22:50)
[2022-05-04] MEDS: chlordiazePOXIDE HCL 25 MG CAPSULE PO SCH ×4 (05:49→22:50)
[2022-05-04] MEDS: GABAPENTIN 300 MG CAPSULE PO SCH ×3 (07:01→22:49)
[2022-05-04] MEDS: PRENATAL VITAMINS W/ FOLIC ACID TABLET (FP) PO SCH (10:29)
[2022-05-04] MEDS: NICOTINE 7 MG/24 HOURS TOPICAL PATCH TD SCH (10:30)
[2022-05-04] MEDS: THIAMINE HCL 100 MG TABLET (FP) PO SCH (22:49)
[2022-05-04] MEDS: traZODone HCL 100 MG TABLET (FP) PO SCH (22:50)
[2022-05-04] MEDS: MELATONIN 5 MG TABLETS PO SCH (22:50)
[2022-05-05] MEDS ORDERED: chlordiazePOXIDE HCL 10 MG CAPSULE PO PRN
[2022-05-05] MEDS: chlordiazePOXIDE HCL 10 MG CAPSULE PO SCH ×4 (05:31→23:24)
[2022-05-05] MEDS: hydrOXYzine PAMOATE 25 MG CAPSULE (FP) PO SCH ×5 (05:31→23:24)
[2022-05-05] MEDS: GABAPENTIN 300 MG CAPSULE PO SCH ×3 (05:32→23:23)
[2022-05-05] MEDS ORDERED: ALBUTEROL SO4 HFA INHALER IH PRN (09:22)
[2022-05-05] MEDS ORDERED: LISINOPRIL 5 MG TABLET PO SCH (10:00)
[2022-05-05] MEDS: PRENATAL VITAMINS W/ FOLIC ACID TABLET (FP) PO SCH (10:12)
[2022-05-05] MEDS: NICOTINE 7 MG/24 HOURS TOPICAL PATCH TD SCH (10:12)
[2022-05-05] MEDS: BUDESONIDE/FORMETEROL FUMARATE 80/4.5 mcg INHALER IH SCH ×2 (10:25→23:24)
[2022-05-05] MEDS ORDERED: ATORVASTATIN CA 10 MG TABLET (FP) PO SCH (22:00)
[2022-05-05] MEDS: MELATONIN 5 MG TABLETS PO SCH (23:23)
[2022-05-05] MEDS: traZODone HCL 100 MG TABLET (FP) PO SCH (23:23)
[2022-05-05] MEDS: THIAMINE HCL 100 MG TABLET (FP) PO SCH (23:24)
[2022-05-06] MEDS ORDERED: chlordiazePOXIDE HCL 10 MG CAPSULE PO SCH (05:00)
[2022-05-06] MEDS: GABAPENTIN 300 MG CAPSULE PO SCH (05:28)
[2022-05-06] MEDS: hydrOXYzine PAMOATE 25 MG CAPSULE (FP) PO SCH (05:28)
[2022-05-06 09:08] VITALS: BP 116/55; PULSE 68; TEMP 97.8
[2022-05-07] MEDS ORDERED: chlordiazePOXIDE HCL 10 MG CAPSULE PO ONE (05:00)
== END 2022-05-06 09:31 | disposition home or self-care (01) | DRG 774 ==
LOC: YASAS 11:14 → Y3N 13:48
PROVIDERS: ADMIT Allergy & Immunology; ATTEND Surgery
PROC: HZ2ZZZZ Detoxification Services for Substance Abuse Treatment (ICD-10-PCS; principal; 2022-05-02)
DX: F10.230 Alcohol dependence with withdrawal, uncomplicated (principal); F14.20 Cocaine dependence, uncomplicated; F17.210 Nicotine dependence, cigarettes, uncomplicated; F19.282 Other psychoactive substance dependence with psychoactive substance-induced sleep disorder; F19.280 Other psychoactive substance dependence with psychoactive substance-induced anxiety disorder; F32.A Depression, unspecified; I10 Essential (primary) hypertension; G47.00 Insomnia, unspecified; J45.20 Mild intermittent asthma, uncomplicated; M54.50 Low back pain, unspecified; G89.29 Other chronic pain; E11.9 Type 2 diabetes mellitus without complications; E78.5 Hyperlipidemia, unspecified; M17.0 Bilateral primary osteoarthritis of knee; E66.01 Morbid (severe) obesity due to excess calories; R26.2 Difficulty in walking, not elsewhere classified; Z99.89 Dependence on other enabling machines and devices; Z68.37 Body mass index [BMI] 37.0-37.9, adult; Z86.73 Personal history of transient ischemic attack (TIA), and cerebral infarction without residual deficits; Z91.010 Allergy to peanuts; Z91.011 Allergy to milk products; Z91.013 Allergy to seafood; Z86.19 Personal history of other infectious and parasitic diseases; Z56.0 Unemployment, unspecified; Z59.01 Sheltered homelessness
CPT/HCPCS: 36415; 80053; 85027; 86593; 86780; C9803-CS; U0003; U0005

== ENCOUNTER 2022-06-04 14:11 | Inpatient (IN) | payer OTHER ==
[2022-06-04 17:23] VITALS: BMI 37.7
[2022-06-04] MEDS ORDERED: METHOCARBAMOL 500 MG TABLET PO PRN (17:32)
[2022-06-04] MEDS ORDERED: LOPERAMIDE HCL 2 MG CAPSULE PO PRN (17:32)
[2022-06-04] MEDS ORDERED: BENZOCAINE/MENTHOL (CHLORASEPTIC ) LOZENGE MM PRN (17:32)
[2022-06-04] MEDS ORDERED: ACETAMINOPHEN 325 MG TABLET (FP) PO PRN ×2 (17:32)
[2022-06-04] MEDS ORDERED: MAGNESIUM HYDROX 2400MG/30ML ORAL SUSPENSION 30 ML CUP PO PRN (17:32)
[2022-06-04] MEDS ORDERED: MAG HYDROX/AL HYDROX/SIMETH 30 ML UNIT-DOSE CUP PO PRN (17:32)
[2022-06-04] MEDS ORDERED: chlordiazePOXIDE HCL 25 MG CAPSULE PO PRN (17:32)
[2022-06-04] MEDS ORDERED: ONDANSETRON *ODT* 4 MG TABLET SL PRN (17:32)
[2022-06-04] MEDS ORDERED: BISMUTH SUBSALICYLATE 524 MG/30 ML PO PRN (17:32)
[2022-06-04] MEDS ORDERED: DICYCLOMINE HCL 10 MG CAPSULE PO PRN (17:32)
[2022-06-04] MEDS ORDERED: MAGNESIUM CITRATE 300 ML BOTTLE PO PRN (17:32)
[2022-06-04] MEDS ORDERED: IBUPROFEN 400 MG TABLET (FP) PO PRN (17:32)
[2022-06-04] MEDS: hydrOXYzine PAMOATE 25 MG CAPSULE (FP) PO SCH ×2 (18:45→22:25)
[2022-06-04] MEDS: chlordiazePOXIDE HCL 25 MG CAPSULE PO SCH ×2 (18:45→22:25)
[2022-06-04] MEDS: THIAMINE HCL 100 MG TABLET (FP) PO SCH (22:25)
[2022-06-04] MEDS: MELATONIN 5 MG TABLETS PO SCH (22:27)
[2022-06-05] MEDS: hydrOXYzine PAMOATE 25 MG CAPSULE (FP) PO SCH ×5 (05:58→23:06)
[2022-06-05] MEDS: chlordiazePOXIDE HCL 25 MG CAPSULE PO SCH ×4 (05:58→23:05)
[2022-06-05] MEDS: PRENATAL VITAMINS W/ FOLIC ACID TABLET (FP) PO SCH (10:41)
[2022-06-05] MEDS: NICOTINE 7 MG/24 HOURS TOPICAL PATCH TD SCH (10:43)
[2022-06-05 13:38] LABS: HEMATOCRIT 43.4 % (35.4-49); HEMOGLOBIN 14.1 GM/dL (11.7-16.9); MCH 29.9 pg (25.7-33.7); MCHC 32.6 g/dl (32.0-35.9); MEAN CELL VOLUME 91.6 fl (80-96); MEAN PLT VOLUME 8.8 fl (7.5-11.1); PLATELET COUNT 168 10^3/uL (134-434); RBC 4.73 M/mm3 (4.00-5.60); RDW 14.3 % (11.9-15.9); WHITE BLOOD COUNT 8.7 K/mm3 (4.0-10.0)
[2022-06-05 14:06] LABS: ALBUMIN 3.8 g/dl (3.4-5.0); BLOOD UREA NITROGEN 14.9 mg/dL (7-18); CREATININE 0.8 mg/dL (0.55-1.3)
[2022-06-05 14:07] LABS: BILIRUBIN,TOTAL 0.3 mg/dL (0.2-1)
[2022-06-05 14:08] LABS: TOT PROT 7.1 g/dl (6.4-8.2)
[2022-06-05] MEDS: COLLOIDAL OATMEAL 1 EACH PACKET TP SCH (16:21)
[2022-06-05] MEDS: LISINOPRIL 5 MG TABLET PO SCH (16:22)
[2022-06-05] MEDS: GABAPENTIN 300 MG CAPSULE PO SCH ×2 (16:22→23:04)
[2022-06-05 16:31] LABS: HIV INTERPRETATION NEGATIVE (NEGATIVE)
[2022-06-05] MEDS: traZODone HCL 100 MG TABLET (FP) PO SCH (23:04)
[2022-06-05] MEDS: THIAMINE HCL 100 MG TABLET (FP) PO SCH (23:05)
[2022-06-05] MEDS: MELATONIN 5 MG TABLETS PO SCH (23:06)
[2022-06-05] MEDS: ATORVASTATIN CA 10 MG TABLET (FP) PO SCH (23:06)
[2022-06-06] MEDS: hydrOXYzine PAMOATE 25 MG CAPSULE (FP) PO SCH ×5 (05:32→22:15)
[2022-06-06] MEDS: chlordiazePOXIDE HCL 25 MG CAPSULE PO SCH ×4 (05:32→22:15)
[2022-06-06] MEDS: GABAPENTIN 300 MG CAPSULE PO SCH ×3 (05:32→22:15)
[2022-06-06] MEDS: LISINOPRIL 5 MG TABLET PO SCH (10:51)
[2022-06-06] MEDS: PRENATAL VITAMINS W/ FOLIC ACID TABLET (FP) PO SCH (10:52)
[2022-06-06] MEDS: IBUPROFEN 600 MG TABLET (FP) PO PRN (10:52)
[2022-06-06] MEDS: NICOTINE 7 MG/24 HOURS TOPICAL PATCH TD SCH (11:05)
[2022-06-06] MEDS ORDERED: COLLOIDAL OATMEAL 1 BAR EACH TP SCH ×2 (11:27→13:30)
[2022-06-06] MEDS: COLLOIDAL OATMEAL 1 EACH PACKET TP SCH (12:10)
[2022-06-06] MEDS ORDERED: COLLOIDAL OATMEAL 1 EACH PACKET TP ONE (13:00)
[2022-06-06 17:48] VITALS: RESP 18
[2022-06-06] MEDS: ATORVASTATIN CA 10 MG TABLET (FP) PO SCH (22:15)
[2022-06-06] MEDS: THIAMINE HCL 100 MG TABLET (FP) PO SCH (22:15)
[2022-06-06] MEDS: MELATONIN 5 MG TABLETS PO SCH (22:15)
[2022-06-06] MEDS: traZODone HCL 100 MG TABLET (FP) PO SCH (22:15)
[2022-06-07] MEDS ORDERED: chlordiazePOXIDE HCL 10 MG CAPSULE PO PRN
[2022-06-07] MEDS: chlordiazePOXIDE HCL 10 MG CAPSULE PO SCH ×2 (05:14→10:29)
[2022-06-07] MEDS: hydrOXYzine PAMOATE 25 MG CAPSULE (FP) PO SCH ×2 (05:14→10:29)
[2022-06-07] MEDS: GABAPENTIN 300 MG CAPSULE PO SCH (05:14)
[2022-06-07] MEDS: LISINOPRIL 5 MG TABLET PO SCH (10:28)
[2022-06-07] MEDS: PRENATAL VITAMINS W/ FOLIC ACID TABLET (FP) PO SCH (10:28)
[2022-06-07] MEDS: NICOTINE 7 MG/24 HOURS TOPICAL PATCH TD SCH (10:29)
[2022-06-07] MEDS: IBUPROFEN 600 MG TABLET (FP) PO PRN (10:31)
[2022-06-07 13:04] VITALS: BP 133/77; PULSE 64; TEMP 97.1
[2022-06-08] MEDS ORDERED: chlordiazePOXIDE HCL 10 MG CAPSULE PO SCH (05:00)
[2022-06-09] MEDS ORDERED: chlordiazePOXIDE HCL 10 MG CAPSULE PO ONE (05:00)
== END 2022-06-07 13:36 | disposition left against medical advice (07) | DRG 770 ==
LOC: YASAS 14:11 → Y3N 17:36
PROVIDERS: ADMIT Allergy & Immunology; ATTEND Surgery
PROC: HZ2ZZZZ Detoxification Services for Substance Abuse Treatment (ICD-10-PCS; principal; 2022-06-04)
DX: F10.230 Alcohol dependence with withdrawal, uncomplicated (principal); F14.20 Cocaine dependence, uncomplicated; F17.210 Nicotine dependence, cigarettes, uncomplicated; F19.280 Other psychoactive substance dependence with psychoactive substance-induced anxiety disorder; F19.282 Other psychoactive substance dependence with psychoactive substance-induced sleep disorder; F32.A Depression, unspecified; E78.5 Hyperlipidemia, unspecified; E11.9 Type 2 diabetes mellitus without complications; I10 Essential (primary) hypertension; J45.20 Mild intermittent asthma, uncomplicated; M17.0 Bilateral primary osteoarthritis of knee; M54.50 Low back pain, unspecified; G89.29 Other chronic pain; Z20.2 Contact with and (suspected) exposure to infections with a predominantly sexual mode of transmission; E66.9 Obesity, unspecified; Z68.37 Body mass index [BMI] 37.0-37.9, adult; Z86.73 Personal history of transient ischemic attack (TIA), and cerebral infarction without residual deficits; Z91.011 Allergy to milk products; Z91.010 Allergy to peanuts; Z91.013 Allergy to seafood
CPT/HCPCS: 36415; 80053; 85027; 86593; 86780; 87389; C9803-CS; U0003; U0005

== ENCOUNTER 2022-07-18 16:45 | Inpatient (IN) | payer OTHER ==
[2022-07-18 17:04] VITALS: BMI 39.5
[2022-07-18] MEDS ORDERED: BENZOCAINE/MENTHOL (CHLORASEPTIC ) LOZENGE MM PRN (17:11)
[2022-07-18] MEDS ORDERED: BISMUTH SUBSALICYLATE 524 MG/30 ML PO PRN (17:11)
[2022-07-18] MEDS ORDERED: MAG HYDROX/AL HYDROX/SIMETH 30 ML UNIT-DOSE CUP PO PRN (17:11)
[2022-07-18] MEDS ORDERED: chlordiazePOXIDE HCL 25 MG CAPSULE PO PRN (17:11)
[2022-07-18] MEDS ORDERED: ACETAMINOPHEN 325 MG TABLET (FP) PO PRN ×2 (17:11)
[2022-07-18] MEDS ORDERED: NICOTINE 10 MG CARTRIDGE (INHALER) IH PRN (17:11)
[2022-07-18] MEDS ORDERED: MAGNESIUM HYDROX 2400MG/30ML ORAL SUSPENSION 30 ML CUP PO PRN (17:11)
[2022-07-18] MEDS ORDERED: IBUPROFEN 400 MG TABLET (FP) PO PRN (17:11)
[2022-07-18] MEDS ORDERED: MAGNESIUM CITRATE 300 ML BOTTLE PO PRN (17:11)
[2022-07-18] MEDS ORDERED: DICYCLOMINE HCL 10 MG CAPSULE PO PRN (17:11)
[2022-07-18] MEDS ORDERED: ONDANSETRON *ODT* 4 MG TABLET SL PRN (17:11)
[2022-07-18] MEDS ORDERED: LOPERAMIDE HCL 2 MG CAPSULE PO PRN (17:11)
[2022-07-18] MEDS: hydrOXYzine PAMOATE 25 MG CAPSULE (FP) PO SCH ×2 (21:08→22:47)
[2022-07-18] MEDS ORDERED: hydrOXYzine PAMOATE 25 MG CAPSULE (FP) PO ONE (21:09)
[2022-07-18] MEDS: ATORVASTATIN CA 10 MG TABLET (FP) PO SCH (22:46)
[2022-07-18] MEDS: THIAMINE HCL 100 MG TABLET (FP) PO SCH (22:47)
[2022-07-18] MEDS: MELATONIN 5 MG TABLETS PO SCH (22:47)
[2022-07-18] MEDS: METHOCARBAMOL 500 MG TABLET PO PRN (22:48)
[2022-07-18] MEDS: chlordiazePOXIDE HCL 25 MG CAPSULE PO SCH (22:48)
[2022-07-19] MEDS: chlordiazePOXIDE HCL 25 MG CAPSULE PO SCH ×4 (06:03→22:33)
[2022-07-19] MEDS: hydrOXYzine PAMOATE 25 MG CAPSULE (FP) PO SCH ×5 (06:04→22:33)
[2022-07-19] MEDS: NICOTINE 7 MG/24 HOURS TOPICAL PATCH TD SCH (10:37)
[2022-07-19] MEDS: PRENATAL VITAMINS W/ FOLIC ACID TABLET (FP) PO SCH (10:37)
[2022-07-19] MEDS: LISINOPRIL 5 MG TABLET PO SCH (10:38)
[2022-07-19] MEDS ORDERED: COLLOIDAL OATMEAL 1 BAR EACH TP PRN (12:25)
[2022-07-19 15:43] LABS: HEMATOCRIT 41.3 % (35.4-49); HEMOGLOBIN 13.5 GM/dL (11.7-16.9); MCH 29.9 pg (25.7-33.7); MCHC 32.6 g/dl (32.0-35.9); MEAN CELL VOLUME 91.7 fl (80-96); MEAN PLT VOLUME 8.7 fl (7.5-11.1); PLATELET COUNT 208 10^3/uL (134-434); RBC 4.51 M/mm3 (4.00-5.60); RDW 14.2 % (11.9-15.9); WHITE BLOOD COUNT 8.5 K/mm3 (4.0-10.0)
[2022-07-19 15:46] LABS: ALBUMIN 3.6 g/dl (3.4-5.0)
[2022-07-19 15:49] LABS: BLOOD UREA NITROGEN 16.7 mg/dL (7-18); CREATININE 0.9 mg/dL (0.55-1.3)
[2022-07-19 15:51] LABS: TOT PROT 6.7 g/dl (6.4-8.2)
[2022-07-19 15:52] LABS: BILIRUBIN,TOTAL 0.4 mg/dL (0.2-1)
[2022-07-19] MEDS: MELATONIN 5 MG TABLETS PO SCH (22:33)
[2022-07-19] MEDS: THIAMINE HCL 100 MG TABLET (FP) PO SCH (22:33)
[2022-07-19] MEDS: traZODone HCL 50 MG TABLET (FP) PO SCH (22:33)
[2022-07-19] MEDS: ATORVASTATIN CA 10 MG TABLET (FP) PO SCH (22:33)
[2022-07-19] MEDS: METHOCARBAMOL 500 MG TABLET PO PRN (22:35)
[2022-07-20] MEDS: hydrOXYzine PAMOATE 25 MG CAPSULE (FP) PO SCH ×5 (05:57→22:33)
[2022-07-20] MEDS: chlordiazePOXIDE HCL 25 MG CAPSULE PO SCH ×4 (05:57→22:33)
[2022-07-20] MEDS: NICOTINE 7 MG/24 HOURS TOPICAL PATCH TD SCH (10:21)
[2022-07-20] MEDS: PRENATAL VITAMINS W/ FOLIC ACID TABLET (FP) PO SCH (10:21)
[2022-07-20] MEDS: LISINOPRIL 5 MG TABLET PO SCH (10:22)
[2022-07-20] MEDS: METHOCARBAMOL 500 MG TABLET PO PRN ×2 (10:24→22:34)
[2022-07-20] MEDS: GABAPENTIN 300 MG CAPSULE PO SCH ×2 (13:03→22:33)
[2022-07-20] MEDS: THIAMINE HCL 100 MG TABLET (FP) PO SCH (22:33)
[2022-07-20] MEDS: ATORVASTATIN CA 10 MG TABLET (FP) PO SCH (22:33)
[2022-07-20] MEDS: MELATONIN 5 MG TABLETS PO SCH (22:33)
[2022-07-20] MEDS: traZODone HCL 50 MG TABLET (FP) PO SCH (22:33)
[2022-07-21] MEDS ORDERED: chlordiazePOXIDE HCL 10 MG CAPSULE PO PRN
[2022-07-21] MEDS: chlordiazePOXIDE HCL 10 MG CAPSULE PO SCH ×4 (06:24→22:30)
[2022-07-21] MEDS: GABAPENTIN 300 MG CAPSULE PO SCH ×3 (06:24→22:30)
[2022-07-21] MEDS: hydrOXYzine PAMOATE 25 MG CAPSULE (FP) PO SCH ×5 (06:24→22:30)
[2022-07-21] MEDS: PRENATAL VITAMINS W/ FOLIC ACID TABLET (FP) PO SCH (10:33)
[2022-07-21] MEDS: LISINOPRIL 5 MG TABLET PO SCH (10:34)
[2022-07-21] MEDS: NICOTINE 7 MG/24 HOURS TOPICAL PATCH TD SCH (10:35)
[2022-07-21] MEDS: METHOCARBAMOL 500 MG TABLET PO PRN (10:36)
[2022-07-21] MEDS: IBUPROFEN 600 MG TABLET (FP) PO PRN (12:00)
[2022-07-21] MEDS: MELATONIN 5 MG TABLETS PO SCH (22:29)
[2022-07-21] MEDS: THIAMINE HCL 100 MG TABLET (FP) PO SCH (22:30)
[2022-07-21] MEDS: ATORVASTATIN CA 10 MG TABLET (FP) PO SCH (22:30)
[2022-07-21] MEDS: traZODone HCL 50 MG TABLET (FP) PO SCH (22:30)
[2022-07-22] MEDS: chlordiazePOXIDE HCL 10 MG CAPSULE PO SCH ×2 (05:50→17:33)
[2022-07-22] MEDS: hydrOXYzine PAMOATE 25 MG CAPSULE (FP) PO SCH ×5 (05:50→22:01)
[2022-07-22] MEDS: GABAPENTIN 300 MG CAPSULE PO SCH ×3 (05:50→22:01)
[2022-07-22] MEDS: NICOTINE 7 MG/24 HOURS TOPICAL PATCH TD SCH (10:26)
[2022-07-22] MEDS: PRENATAL VITAMINS W/ FOLIC ACID TABLET (FP) PO SCH (10:26)
[2022-07-22] MEDS: METHOCARBAMOL 500 MG TABLET PO PRN ×2 (10:27→22:01)
[2022-07-22] MEDS: LISINOPRIL 5 MG TABLET PO SCH (10:27)
[2022-07-22] MEDS: IBUPROFEN 600 MG TABLET (FP) PO PRN (10:28)
[2022-07-22] MEDS: MELATONIN 5 MG TABLETS PO SCH (21:58)
[2022-07-22] MEDS: traZODone HCL 50 MG TABLET (FP) PO SCH (21:58)
[2022-07-22] MEDS: ATORVASTATIN CA 10 MG TABLET (FP) PO SCH (22:01)
[2022-07-22] MEDS: THIAMINE HCL 100 MG TABLET (FP) PO SCH (22:01)
[2022-07-23] MEDS ORDERED: chlordiazePOXIDE HCL 10 MG CAPSULE PO ONE (05:00)
[2022-07-23] MEDS: GABAPENTIN 300 MG CAPSULE PO SCH (06:26)
[2022-07-23] MEDS: hydrOXYzine PAMOATE 25 MG CAPSULE (FP) PO SCH ×2 (06:26→09:31)
[2022-07-23 09:25] VITALS: BP 119/69; PULSE 85; RESP 18; TEMP 96.6
[2022-07-23] MEDS: PRENATAL VITAMINS W/ FOLIC ACID TABLET (FP) PO SCH (09:28)
[2022-07-23] MEDS: IBUPROFEN 600 MG TABLET (FP) PO PRN (09:29)
[2022-07-23] MEDS: LISINOPRIL 5 MG TABLET PO SCH (09:30)
== END 2022-07-23 09:36 | disposition home or self-care (01) | DRG 774 ==
LOC: YASAS 16:45 → Y3N 21:03
PROVIDERS: ADMIT Allergy & Immunology; ATTEND Surgery
PROC: HZ2ZZZZ Detoxification Services for Substance Abuse Treatment (ICD-10-PCS; principal; 2022-07-18)
DX: F10.230 Alcohol dependence with withdrawal, uncomplicated (principal); F14.20 Cocaine dependence, uncomplicated; F17.220 Nicotine dependence, chewing tobacco, uncomplicated; F19.282 Other psychoactive substance dependence with psychoactive substance-induced sleep disorder; F19.280 Other psychoactive substance dependence with psychoactive substance-induced anxiety disorder; F19.24 Other psychoactive substance dependence with psychoactive substance-induced mood disorder; F41.9 Anxiety disorder, unspecified; F32.A Depression, unspecified; I10 Essential (primary) hypertension; E78.5 Hyperlipidemia, unspecified; E11.9 Type 2 diabetes mellitus without complications; M17.0 Bilateral primary osteoarthritis of knee; J45.20 Mild intermittent asthma, uncomplicated; M54.50 Low back pain, unspecified; G89.29 Other chronic pain; E66.9 Obesity, unspecified; Z68.39 Body mass index [BMI] 39.0-39.9, adult; Z86.73 Personal history of transient ischemic attack (TIA), and cerebral infarction without residual deficits; Z86.19 Personal history of other infectious and parasitic diseases; Z99.89 Dependence on other enabling machines and devices
CPT/HCPCS: 36415; 80053; 85027; 86593; 86780; C9803-CS; U0003; U0005

== ENCOUNTER 2023-01-05 11:20 | Inpatient (IN) | payer OTHER ==
[2023-01-05 12:03] VITALS: BMI 37.2
[2023-01-05] MEDS ORDERED: IBUPROFEN 600 MG TABLET (FP) PO PRN (12:24)
[2023-01-05] MEDS ORDERED: BACLOFEN 10 MG TABLET (FP) PO PRN (12:24)
[2023-01-05] MEDS ORDERED: IBUPROFEN 400 MG TABLET (FP) PO PRN (12:24)
[2023-01-05] MEDS ORDERED: MAGNESIUM HYDROX 2400MG/30ML ORAL SUSPENSION 30 ML CUP PO PRN (12:24)
[2023-01-05] MEDS ORDERED: MAG HYDROX/AL HYDROX/SIMETH 30 ML UNIT-DOSE CUP PO PRN (12:24)
[2023-01-05] MEDS ORDERED: BENZOCAINE/MENTHOL (CHLORASEPTIC ) LOZENGE MM PRN (12:24)
[2023-01-05] MEDS ORDERED: NICOTINE 10 MG CARTRIDGE (INHALER) IH PRN (12:24)
[2023-01-05] MEDS ORDERED: POLYETHYLENE GLYCOL (HEALTHYLAX) 3350 17 GM PACKET PO PRN (12:24)
[2023-01-05] MEDS ORDERED: BISMUTH SUBSALICYLATE 524 MG/30 ML PO PRN (12:24)
[2023-01-05] MEDS ORDERED: hydrOXYzine PAMOATE 25 MG CAPSULE (FP) PO PRN (12:24)
[2023-01-05] MEDS ORDERED: DICYCLOMINE HCL 10 MG CAPSULE PO PRN (12:24)
[2023-01-05] MEDS ORDERED: ONDANSETRON *ODT* 4 MG TABLET SL PRN (12:24)
[2023-01-05] MEDS ORDERED: LOPERAMIDE HCL 2 MG CAPSULE PO PRN (12:24)
[2023-01-05] MEDS ORDERED: LORazepam 1 MG TABLET PO PRN (12:24)
[2023-01-05] MEDS ORDERED: NALOXONE HCL (KLOXXADO) 8 MG SPRAY NS PRN (12:24)
[2023-01-05] MEDS ORDERED: ALBUTEROL SO4 HFA INHALER IH PRN (12:35)
[2023-01-05] MEDS ORDERED: COLLOIDAL OATMEAL 1 BAR EACH TP PRN (12:36)
[2023-01-05] MEDS: LORazepam 2 MG TABLET PO SCH ×3 (14:09→22:26)
[2023-01-05] MEDS: PRENATAL VITAMINS W/ FOLIC ACID TABLET (FP) PO SCH (14:09)
[2023-01-05] MEDS: TOLNAFTATE 1% CREAM 15 GM TUBE TP SCH ×2 (15:41→22:25)
[2023-01-05] MEDS: LISINOPRIL 5 MG TABLET PO SCH (15:42)
[2023-01-05] MEDS ORDERED: INSULIN SLIDING SCALE (NOVOLOG) 1 VIAL SQ SCH (16:30)
[2023-01-05] MEDS ORDERED: traZODone HCL 50 MG TABLET (FP) PO ONE (22:00)
[2023-01-05] MEDS: MELATONIN 5 MG TABLETS PO SCH (22:26)
[2023-01-05] MEDS: ATORVASTATIN CA 10 MG TABLET (FP) PO SCH (22:26)
[2023-01-05] MEDS: THIAMINE HCL 100 MG TABLET (FP) PO SCH (22:27)
[2023-01-06] MEDS: LORazepam 2 MG TABLET PO SCH ×4 (06:00→22:44)
[2023-01-06] MEDS: INSULIN SLIDING SCALE (NOVOLOG) 1 VIAL SQ SCH ×3 (06:50→17:35)
[2023-01-06] MEDS: PRENATAL VITAMINS W/ FOLIC ACID TABLET (FP) PO SCH (10:22)
[2023-01-06] MEDS: TOLNAFTATE 1% CREAM 15 GM TUBE TP SCH ×2 (10:22→22:43)
[2023-01-06] MEDS: LISINOPRIL 5 MG TABLET PO SCH (10:22)
[2023-01-06 12:07] LABS: HEMATOCRIT 40.8 % (35.4-49); HEMOGLOBIN 13.7 GM/dL (11.7-16.9); MCH 29.9 pg (25.7-33.7); MCHC 33.5 g/dl (32.0-35.9); MEAN CELL VOLUME 89.5 fl (80-96); PLATELET COUNT 170 10^3/uL (134-434); RBC 4.56 M/mm3 (4.00-5.60); RDW 14.2 % (11.9-15.9)
[2023-01-06 12:18] LABS: ALBUMIN 3.5 g/dl (3.4-5.0); BLOOD UREA NITROGEN 16.8 mg/dL (7-18); CALCIUM 8.7 mg/dL (8.5-10.1)
[2023-01-06 12:21] LABS: CREATININE 0.9 mg/dL (0.55-1.3)
[2023-01-06 12:22] LABS: BILIRUBIN,TOTAL 0.9 mg/dL (0.2-1); TOT PROT 6.6 g/dl (6.4-8.2)
[2023-01-06] MEDS: GABAPENTIN 300 MG CAPSULE PO SCH ×2 (15:10→22:43)
[2023-01-06] MEDS ORDERED: traZODone HCL 50 MG TABLET (FP) PO SCH (22:00)
[2023-01-06] MEDS: ATORVASTATIN CA 10 MG TABLET (FP) PO SCH (22:43)
[2023-01-06] MEDS: MELATONIN 5 MG TABLETS PO SCH (22:43)
[2023-01-06] MEDS: THIAMINE HCL 100 MG TABLET (FP) PO SCH (22:44)
[2023-01-07] MEDS ORDERED: LORazepam 1 MG TABLET PO SCH (05:00)
[2023-01-07 06:25] VITALS: BP 109/58; PULSE 62; RESP 16; TEMP 97.3
[2023-01-07] MEDS: GABAPENTIN 300 MG CAPSULE PO SCH (06:44)
[2023-01-07] MEDS: INSULIN SLIDING SCALE (NOVOLOG) 1 VIAL SQ SCH (07:18)
[2023-01-08] MEDS ORDERED: LORazepam 0.5 MG TABLET PO PRN
[2023-01-08] MEDS ORDERED: LORazepam 0.5 MG TABLET PO SCH (05:00)
[2023-01-09] MEDS ORDERED: LORazepam 0.5 MG TABLET PO ONE (05:00)
== END 2023-01-07 09:19 | disposition left against medical advice (07) | DRG 770 ==
LOC: YASAS 11:20 → Y3N 14:08
PROVIDERS: ADMIT Allergy & Immunology; ATTEND Surgery
PROC: HZ2ZZZZ Detoxification Services for Substance Abuse Treatment (ICD-10-PCS; principal; 2023-01-05)
DX: F10.230 Alcohol dependence with withdrawal, uncomplicated (principal); F14.20 Cocaine dependence, uncomplicated; F17.210 Nicotine dependence, cigarettes, uncomplicated; F19.282 Other psychoactive substance dependence with psychoactive substance-induced sleep disorder; F19.24 Other psychoactive substance dependence with psychoactive substance-induced mood disorder; G47.00 Insomnia, unspecified; E78.00 Pure hypercholesterolemia, unspecified; I10 Essential (primary) hypertension; E11.9 Type 2 diabetes mellitus without complications; Z79.84 Long term (current) use of oral hypoglycemic drugs; J45.20 Mild intermittent asthma, uncomplicated; M17.0 Bilateral primary osteoarthritis of knee; M54.50 Low back pain, unspecified; G89.29 Other chronic pain; E66.9 Obesity, unspecified; Z68.32 Body mass index [BMI] 32.0-32.9, adult; Z86.73 Personal history of transient ischemic attack (TIA), and cerebral infarction without residual deficits; Z99.89 Dependence on other enabling machines and devices; Z91.011 Allergy to milk products; Z91.010 Allergy to peanuts; Z91.013 Allergy to seafood
CPT/HCPCS: 36415; 80053; 82140; 82962; 85027; 86593; 86780; 93005; 93010; C9803-CS; U0003; U0005

== ENCOUNTER 2023-02-06 12:27 | Inpatient (IN) | payer OTHER ==
[2023-02-06 12:57] VITALS: BMI 39.5
[2023-02-06] MEDS ORDERED: POLYETHYLENE GLYCOL (HEALTHYLAX) 3350 17 GM PACKET PO PRN (15:33)
[2023-02-06] MEDS ORDERED: IBUPROFEN 400 MG TABLET (FP) PO PRN (15:33)
[2023-02-06] MEDS ORDERED: MAGNESIUM HYDROX 2400MG/30ML ORAL SUSPENSION 30 ML CUP PO PRN (15:33)
[2023-02-06] MEDS ORDERED: NICOTINE POLACRILEX 2 MG GUM BUC PRN (15:33)
[2023-02-06] MEDS ORDERED: MAG HYDROX/AL HYDROX/SIMETH 30 ML UNIT-DOSE CUP PO PRN (15:33)
[2023-02-06] MEDS ORDERED: hydrOXYzine PAMOATE 25 MG CAPSULE (FP) PO PRN (15:33)
[2023-02-06] MEDS ORDERED: NALOXONE HCL (KLOXXADO) 8 MG SPRAY NS PRN (15:33)
[2023-02-06] MEDS ORDERED: IBUPROFEN 600 MG TABLET (FP) PO PRN (15:33)
[2023-02-06] MEDS ORDERED: NICOTINE 10 MG CARTRIDGE (INHALER) IH PRN (15:33)
[2023-02-06] MEDS ORDERED: DICYCLOMINE HCL 10 MG CAPSULE PO PRN (15:33)
[2023-02-06] MEDS ORDERED: ONDANSETRON *ODT* 4 MG TABLET SL PRN (15:33)
[2023-02-06] MEDS ORDERED: BISMUTH SUBSALICYLATE 524 MG/30 ML PO PRN (15:33)
[2023-02-06] MEDS ORDERED: BENZONATATE 200 MG CAPSULE PO PRN (15:33)
[2023-02-06] MEDS ORDERED: ACETAMINOPHEN 325 MG TABLET (FP) PO PRN (15:33)
[2023-02-06] MEDS ORDERED: LOPERAMIDE HCL 2 MG CAPSULE PO PRN (15:33)
[2023-02-06] MEDS ORDERED: BENZOCAINE/MENTHOL (CHLORASEPTIC ) LOZENGE MM PRN (15:33)
[2023-02-06] MEDS ORDERED: NALOXONE HCL 0.4 MG/ML VIAL IM PRN (15:33)
[2023-02-06] MEDS ORDERED: guaiFENesin 600 MG TABLET.ER (FP) PO PRN (15:33)
[2023-02-06] MEDS ORDERED: MELATONIN 5 MG TABLETS PO SCH (22:00)
[2023-02-06] MEDS: chlordiazePOXIDE HCL 25 MG CAPSULE PO SCH (22:44)
[2023-02-06] MEDS: THIAMINE HCL 100 MG TABLET (FP) PO SCH (22:48)
[2023-02-07] MEDS: chlordiazePOXIDE HCL 25 MG CAPSULE PO SCH ×4 (06:00→22:19)
[2023-02-07 11:10] LABS: HEMATOCRIT 42.1 % (35.4-49); HEMOGLOBIN 14.5 GM/dL (11.7-16.9); MCH 30.4 pg (25.7-33.7); MCHC 34.3 g/dl (32.0-35.9); MEAN CELL VOLUME 88.4 fl (80-96); MEAN PLT VOLUME 8.9 fl (7.5-11.1); PLATELET COUNT 215 10^3/uL (134-434); RBC 4.77 M/mm3 (4.00-5.60); RDW 14.5 % (11.9-15.9); WHITE BLOOD COUNT 7.8 K/mm3 (4.0-10.0)
[2023-02-07] MEDS: PRENATAL VITAMINS W/ FOLIC ACID TABLET (FP) PO SCH (11:12)
[2023-02-07 11:15] LABS: ALBUMIN 3.4 g/dl (3.4-5.0); BLOOD UREA NITROGEN 10.7 mg/dL (7-18)
[2023-02-07 11:17] LABS: CREATININE 0.9 mg/dL (0.55-1.3)
[2023-02-07 11:19] LABS: BILIRUBIN,TOTAL 0.7 mg/dL (0.2-1); TOT PROT 6.9 g/dl (6.4-8.2)
[2023-02-07] MEDS ORDERED: traZODone HCL 50 MG TABLET (FP) PO SCH (22:00)
[2023-02-07] MEDS: THIAMINE HCL 100 MG TABLET (FP) PO SCH (22:19)
[2023-02-08] MEDS: chlordiazePOXIDE HCL 25 MG CAPSULE PO SCH ×2 (06:06→10:26)
[2023-02-08] MEDS: PRENATAL VITAMINS W/ FOLIC ACID TABLET (FP) PO SCH (10:26)
[2023-02-08] MEDS ORDERED: COLLOIDAL OATMEAL 1 BAR EACH TP PRN (12:09)
[2023-02-08] MEDS ORDERED: LACTULOSE 20 GM/30 ML UDC (FOR ORAL USE ONLY) PO SCH (14:00)
[2023-02-08 17:10] VITALS: BP 148/69; PULSE 62; RESP 18; TEMP 97.1
[2023-02-09] MEDS ORDERED: chlordiazePOXIDE HCL 10 MG CAPSULE PO SCH (05:00)
[2023-02-10] MEDS ORDERED: chlordiazePOXIDE HCL 10 MG CAPSULE PO SCH (05:00)
[2023-02-11] MEDS ORDERED: chlordiazePOXIDE HCL 10 MG CAPSULE PO ONE (05:00)
== END 2023-02-08 17:27 | disposition left against medical advice (07) | DRG 770 ==
LOC: YASAS 12:27 → Y6N 15:40
PROVIDERS: ADMIT Allergy & Immunology; ATTEND Surgery
PROC: HZ2ZZZZ Detoxification Services for Substance Abuse Treatment (ICD-10-PCS; principal; 2023-02-06)
DX: F10.230 Alcohol dependence with withdrawal, uncomplicated (principal); F14.10 Cocaine abuse, uncomplicated; F17.210 Nicotine dependence, cigarettes, uncomplicated; F19.282 Other psychoactive substance dependence with psychoactive substance-induced sleep disorder; F19.280 Other psychoactive substance dependence with psychoactive substance-induced anxiety disorder; F19.24 Other psychoactive substance dependence with psychoactive substance-induced mood disorder; F41.9 Anxiety disorder, unspecified; E72.20 Disorder of urea cycle metabolism, unspecified; G47.00 Insomnia, unspecified; E11.9 Type 2 diabetes mellitus without complications; Z79.84 Long term (current) use of oral hypoglycemic drugs; M17.0 Bilateral primary osteoarthritis of knee; J45.20 Mild intermittent asthma, uncomplicated; Z86.19 Personal history of other infectious and parasitic diseases; Z86.73 Personal history of transient ischemic attack (TIA), and cerebral infarction without residual deficits; Z99.89 Dependence on other enabling machines and devices
CPT/HCPCS: 36415; 80053; 82140; 85027; 86593; 86780; 93005; 93010; C9803-CS; U0003; U0005

== ENCOUNTER 2023-03-14 12:50 | Inpatient (IN) | payer OTHER ==
[2023-03-14 13:18] VITALS: BMI 38.2
[2023-03-14] MEDS ORDERED: ONDANSETRON *ODT* 4 MG TABLET SL PRN (13:51)
[2023-03-14] MEDS ORDERED: NALOXONE HCL (KLOXXADO) 8 MG SPRAY NS PRN (13:51)
[2023-03-14] MEDS ORDERED: NICOTINE 10 MG CARTRIDGE (INHALER) IH PRN (13:51)
[2023-03-14] MEDS ORDERED: NALOXONE HCL 0.4 MG/ML VIAL IM PRN (13:51)
[2023-03-14] MEDS ORDERED: BISMUTH SUBSALICYLATE 524 MG/30 ML PO PRN (13:51)
[2023-03-14] MEDS ORDERED: MAGNESIUM HYDROX 2400MG/30ML ORAL SUSPENSION 30 ML CUP PO PRN (13:51)
[2023-03-14] MEDS ORDERED: DICYCLOMINE HCL 10 MG CAPSULE PO PRN (13:51)
[2023-03-14] MEDS ORDERED: METHOCARBAMOL 500 MG TABLET PO PRN (13:51)
[2023-03-14] MEDS ORDERED: BENZONATATE 200 MG CAPSULE PO PRN (13:51)
[2023-03-14] MEDS ORDERED: ACETAMINOPHEN 325 MG TABLET (FP) PO PRN (13:51)
[2023-03-14] MEDS ORDERED: COLLOIDAL OATMEAL 1 BAR EACH TP PRN (13:51)
[2023-03-14] MEDS ORDERED: LOPERAMIDE HCL 2 MG CAPSULE PO PRN (13:51)
[2023-03-14] MEDS ORDERED: BENZOCAINE/MENTHOL (CHLORASEPTIC ) LOZENGE MM PRN (13:51)
[2023-03-14] MEDS ORDERED: IBUPROFEN 600 MG TABLET (FP) PO PRN (13:51)
[2023-03-14] MEDS ORDERED: LORazepam 1 MG TABLET PO PRN (13:51)
[2023-03-14] MEDS ORDERED: MAG HYDROX/AL HYDROX/SIMETH 30 ML UNIT-DOSE CUP PO PRN (13:51)
[2023-03-14] MEDS ORDERED: IBUPROFEN 400 MG TABLET (FP) PO PRN (13:51)
[2023-03-14] MEDS ORDERED: guaiFENesin 600 MG TABLET.ER (FP) PO PRN (13:51)
[2023-03-14] MEDS ORDERED: POLYETHYLENE GLYCOL (HEALTHYLAX) 3350 17 GM PACKET PO PRN (13:51)
[2023-03-14] MEDS ORDERED: ALBUTEROL SO4 HFA INHALER IH PRN (13:54)
[2023-03-14] MEDS ORDERED: BACITRACIN ZINC 15 GM TUBE TOPICAL OINTMENT TP SCH (17:00)
[2023-03-14] MEDS: metFORMIN HCL 500 MG TABLET (FP) PO SCH (17:26)
[2023-03-14] MEDS: LORazepam 2 MG TABLET PO SCH ×2 (17:26→22:15)
[2023-03-14] MEDS: MELATONIN 5 MG TABLETS PO SCH (22:15)
[2023-03-14] MEDS: traZODone HCL 50 MG TABLET (FP) PO SCH (22:15)
[2023-03-14] MEDS: SULFAMETHOXAZOLE/TRIMETHOPRIM 800MG/160MG D.S. TABLET PO SCH (22:15)
[2023-03-14] MEDS: THIAMINE HCL 100 MG TABLET (FP) PO SCH (22:15)
[2023-03-14] MEDS: ATORVASTATIN CA 10 MG TABLET (FP) PO SCH (22:16)
[2023-03-15] MEDS: LORazepam 2 MG TABLET PO SCH ×4 (05:55→22:26)
[2023-03-15] MEDS: metFORMIN HCL 500 MG TABLET (FP) PO SCH ×2 (07:50→16:40)
[2023-03-15] MEDS: PRENATAL VITAMINS W/ FOLIC ACID TABLET (FP) PO SCH (10:17)
[2023-03-15] MEDS: SULFAMETHOXAZOLE/TRIMETHOPRIM 800MG/160MG D.S. TABLET PO SCH ×2 (10:17→22:25)
[2023-03-15] MEDS: BACITRACIN 0.9 GM PACKET TP SCH (10:17)
[2023-03-15] MEDS: BUDESONIDE/FORMETEROL FUMARATE 80/4.5 mcg INHALER IH SCH (10:19)
[2023-03-15 10:29] VITALS: RESP 18
[2023-03-15 11:07] LABS: CALCIUM 8.6 mg/dL (8.5-10.1)
[2023-03-15 11:08] LABS: ALBUMIN 3.2 g/dl (3.4-5.0); BLOOD UREA NITROGEN 13.2 mg/dL (7-18); HEMOGLOBIN 13.3 GM/dL (11.7-16.9); MCH 30.7 pg (25.7-33.7); MCHC 34.1 g/dl (32.0-35.9); MEAN PLT VOLUME 8.3 fl (7.5-11.1); PLATELET COUNT 201 10^3/uL (134-434); RBC 4.33 M/mm3 (4.00-5.60); RDW 14.2 % (11.9-15.9); WHITE BLOOD COUNT 8.2 K/mm3 (4.0-10.0)
[2023-03-15 11:10] LABS: CREATININE 0.7 mg/dL (0.55-1.3)
[2023-03-15 11:12] LABS: BILIRUBIN,TOTAL 0.4 mg/dL (0.2-1); TOT PROT 6.5 g/dl (6.4-8.2)
[2023-03-15] MEDS: THIAMINE HCL 100 MG TABLET (FP) PO SCH (22:24)
[2023-03-15] MEDS: ATORVASTATIN CA 10 MG TABLET (FP) PO SCH (22:25)
[2023-03-15] MEDS: MELATONIN 5 MG TABLETS PO SCH (22:26)
[2023-03-15] MEDS: traZODone HCL 50 MG TABLET (FP) PO SCH (22:33)
[2023-03-16] MEDS: LORazepam 1 MG TABLET PO SCH ×2 (05:57→10:13)
[2023-03-16 09:32] VITALS: TEMP 97.3
[2023-03-16] MEDS: BUDESONIDE/FORMETEROL FUMARATE 80/4.5 mcg INHALER IH SCH (10:12)
[2023-03-16] MEDS: BACITRACIN 0.9 GM PACKET TP SCH (10:13)
[2023-03-16] MEDS: SULFAMETHOXAZOLE/TRIMETHOPRIM 800MG/160MG D.S. TABLET PO SCH (10:13)
[2023-03-16] MEDS: PRENATAL VITAMINS W/ FOLIC ACID TABLET (FP) PO SCH (10:13)
[2023-03-16 17:17] VITALS: BP 119/79; PULSE 89
[2023-03-17] MEDS ORDERED: LORazepam 0.5 MG TABLET PO PRN
[2023-03-17] MEDS ORDERED: LORazepam 0.5 MG TABLET PO SCH (05:00)
[2023-03-18] MEDS ORDERED: LORazepam 0.5 MG TABLET PO ONE (05:00)
== END 2023-03-16 16:32 | disposition left against medical advice (07) | DRG 770 ==
LOC: YASAS 12:50 → Y6N 15:10
PROVIDERS: ADMIT Allergy & Immunology; ATTEND Surgery
PROC: HZ2ZZZZ Detoxification Services for Substance Abuse Treatment (ICD-10-PCS; principal; 2023-03-14)
DX: F10.230 Alcohol dependence with withdrawal, uncomplicated (principal); F14.20 Cocaine dependence, uncomplicated; F17.210 Nicotine dependence, cigarettes, uncomplicated; F25.9 Schizoaffective disorder, unspecified; G47.00 Insomnia, unspecified; E78.5 Hyperlipidemia, unspecified; I10 Essential (primary) hypertension; J45.20 Mild intermittent asthma, uncomplicated; L84 Corns and callosities; M17.0 Bilateral primary osteoarthritis of knee; L98.8 Other specified disorders of the skin and subcutaneous tissue; R73.03 Prediabetes; E66.9 Obesity, unspecified; Z68.38 Body mass index [BMI] 38.0-38.9, adult; Z86.73 Personal history of transient ischemic attack (TIA), and cerebral infarction without residual deficits; Z56.0 Unemployment, unspecified; Z59.00 Homelessness unspecified
CPT/HCPCS: 36415; 80053; 82140; 82962; 85027; 86593; 86780; C9803-CS; U0003; U0005

== ENCOUNTER 2023-04-02 12:33 | Inpatient (IN) | payer OTHER ==
[2023-04-02 13:46] VITALS: BMI 36.9
[2023-04-02] MEDS ORDERED: LORazepam 1 MG TABLET PO PRN (14:08)
[2023-04-02] MEDS ORDERED: NALOXONE HCL 0.4 MG/ML VIAL IM PRN (14:08)
[2023-04-02] MEDS ORDERED: ONDANSETRON *ODT* 4 MG TABLET SL PRN (14:08)
[2023-04-02] MEDS ORDERED: MAGNESIUM HYDROX 2400MG/30ML ORAL SUSPENSION 30 ML CUP PO PRN (14:08)
[2023-04-02] MEDS ORDERED: BISMUTH SUBSALICYLATE 262 MG/15 ML BTL PO PRN (14:08)
[2023-04-02] MEDS ORDERED: ACETAMINOPHEN 325 MG TABLET (FP) PO PRN (14:08)
[2023-04-02] MEDS ORDERED: MAG HYDROX/AL HYDROX/SIMETH 30 ML UNIT-DOSE CUP PO PRN (14:08)
[2023-04-02] MEDS ORDERED: LOPERAMIDE HCL 2 MG CAPSULE PO PRN (14:08)
[2023-04-02] MEDS ORDERED: BENZOCAINE/MENTHOL (CHLORASEPTIC ) LOZENGE MM PRN (14:08)
[2023-04-02] MEDS ORDERED: NALOXONE HCL (KLOXXADO) 8 MG SPRAY NS PRN (14:08)
[2023-04-02] MEDS ORDERED: BENZONATATE 200 MG CAPSULE PO PRN (14:08)
[2023-04-02] MEDS ORDERED: LORazepam 2 MG TABLET PO ONE (14:08)
[2023-04-02] MEDS ORDERED: NICOTINE 10 MG CARTRIDGE (INHALER) IH PRN (14:08)
[2023-04-02] MEDS ORDERED: IBUPROFEN 400 MG TABLET (FP) PO PRN (14:08)
[2023-04-02] MEDS ORDERED: DICYCLOMINE HCL 10 MG CAPSULE PO PRN (14:08)
[2023-04-02] MEDS ORDERED: IBUPROFEN 600 MG TABLET (FP) PO PRN (14:08)
[2023-04-02] MEDS ORDERED: POLYETHYLENE GLYCOL (HEALTHYLAX) 3350 17 GM PACKET PO PRN (14:08)
[2023-04-02] MEDS ORDERED: guaiFENesin 600 MG TABLET.ER (FP) PO PRN (14:08)
[2023-04-02] MEDS ORDERED: ALBUTEROL SO4 HFA INHALER IH PRN (14:11)
[2023-04-02] MEDS ORDERED: NICOTINE 14 MG/24 HOURS TOPICAL PATCH TD ONE (14:31)
[2023-04-02] MEDS ORDERED: PRENATAL VITAMINS W/ FOLIC ACID TABLET (FP) PO ONE (14:31)
[2023-04-02] MEDS: PRENATAL VITAMINS W/ FOLIC ACID TABLET (FP) PO SCH (14:32)
[2023-04-02] MEDS: NICOTINE 14 MG/24 HOURS TOPICAL PATCH TD SCH (14:32)
[2023-04-02] MEDS: BUDESONIDE/FORMETEROL FUMARATE 80/4.5 mcg INHALER IH SCH (15:37)
[2023-04-02] MEDS: INSULIN SLIDING SCALE (NOVOLOG) 1 VIAL SQ SCH (16:41)
[2023-04-02] MEDS: metFORMIN HCL 500 MG TABLET (FP) PO SCH (17:30)
[2023-04-02] MEDS: LORazepam 2 MG TABLET PO SCH ×2 (17:41→22:16)
[2023-04-02] MEDS: MELATONIN 5 MG TABLETS PO SCH (22:16)
[2023-04-02] MEDS: THIAMINE HCL 100 MG TABLET (FP) PO SCH (22:16)
[2023-04-02] MEDS: ATORVASTATIN CA 10 MG TABLET (FP) PO SCH (22:16)
[2023-04-02] MEDS: METHOCARBAMOL 500 MG TABLET PO PRN (22:16)
[2023-04-03] MEDS: LORazepam 2 MG TABLET PO SCH ×4 (06:27→22:22)
[2023-04-03] MEDS: INSULIN SLIDING SCALE (NOVOLOG) 1 VIAL SQ SCH ×3 (07:59→17:25)
[2023-04-03] MEDS: metFORMIN HCL 500 MG TABLET (FP) PO SCH ×2 (08:03→17:24)
[2023-04-03] MEDS ORDERED: COLLOIDAL OATMEAL 1 BAR EACH TP PRN (09:35)
[2023-04-03] MEDS: PRENATAL VITAMINS W/ FOLIC ACID TABLET (FP) PO SCH (10:08)
[2023-04-03] MEDS: NICOTINE 14 MG/24 HOURS TOPICAL PATCH TD SCH (10:08)
[2023-04-03] MEDS: BUDESONIDE/FORMETEROL FUMARATE 80/4.5 mcg INHALER IH SCH (10:08)
[2023-04-03 10:51] LABS: HEMATOCRIT 40.7 % (35.4-49); HEMOGLOBIN 13.9 GM/dL (11.7-16.9); MCH 31.2 pg (25.7-33.7); MEAN CELL VOLUME 91.7 fl (80-96); MEAN PLT VOLUME 8.9 fl (7.5-11.1); PLATELET COUNT 167 10^3/uL (134-434); RBC 4.44 M/mm3 (4.00-5.60); RDW 14.8 % (11.9-15.9); WHITE BLOOD COUNT 6.8 K/mm3 (4.0-10.0)
[2023-04-03 11:04] LABS: ALBUMIN 3.6 g/dl (3.4-5.0); BLOOD UREA NITROGEN 12.4 mg/dL (7-18)
[2023-04-03 11:06] LABS: CREATININE 0.9 mg/dL (0.55-1.3)
[2023-04-03 11:08] LABS: BILIRUBIN,TOTAL 0.4 mg/dL (0.2-1)
[2023-04-03 11:09] LABS: TOT PROT 7.2 g/dl (6.4-8.2)
[2023-04-03] MEDS: THIAMINE HCL 100 MG TABLET (FP) PO SCH (22:21)
[2023-04-03] MEDS: ATORVASTATIN CA 10 MG TABLET (FP) PO SCH (22:22)
[2023-04-03] MEDS: LACTULOSE 20 GM/30 ML UDC (FOR ORAL USE ONLY) PO SCH (22:22)
[2023-04-03] MEDS: traZODone HCL 50 MG TABLET (FP) PO SCH (22:22)
[2023-04-03] MEDS: MELATONIN 5 MG TABLETS PO SCH (22:24)
[2023-04-04] MEDS: LORazepam 1 MG TABLET PO SCH ×4 (05:46→22:25)
[2023-04-04] MEDS: LACTULOSE 20 GM/30 ML UDC (FOR ORAL USE ONLY) PO SCH ×3 (06:06→22:27)
[2023-04-04] MEDS: metFORMIN HCL 500 MG TABLET (FP) PO SCH ×2 (06:07→17:29)
[2023-04-04] MEDS: INSULIN SLIDING SCALE (NOVOLOG) 1 VIAL SQ SCH ×3 (06:07→17:29)
[2023-04-04] MEDS: PRENATAL VITAMINS W/ FOLIC ACID TABLET (FP) PO SCH (10:21)
[2023-04-04] MEDS: BUDESONIDE/FORMETEROL FUMARATE 80/4.5 mcg INHALER IH SCH (10:21)
[2023-04-04] MEDS: NICOTINE 14 MG/24 HOURS TOPICAL PATCH TD SCH (10:21)
[2023-04-04] MEDS: MELATONIN 5 MG TABLETS PO SCH (22:25)
[2023-04-04] MEDS: THIAMINE HCL 100 MG TABLET (FP) PO SCH (22:26)
[2023-04-04] MEDS: ATORVASTATIN CA 10 MG TABLET (FP) PO SCH (22:26)
[2023-04-04] MEDS: traZODone HCL 50 MG TABLET (FP) PO SCH (22:26)
[2023-04-04] MEDS: hydrOXYzine PAMOATE 25 MG CAPSULE (FP) PO PRN (22:27)
[2023-04-05] MEDS ORDERED: LORazepam 0.5 MG TABLET PO PRN
[2023-04-05] MEDS: LORazepam 0.5 MG TABLET PO SCH ×4 (05:42→22:32)
[2023-04-05] MEDS: LACTULOSE 20 GM/30 ML UDC (FOR ORAL USE ONLY) PO SCH ×3 (05:42→22:32)
[2023-04-05] MEDS: hydrOXYzine PAMOATE 25 MG CAPSULE (FP) PO PRN ×2 (05:43→14:28)
[2023-04-05] MEDS: INSULIN SLIDING SCALE (NOVOLOG) 1 VIAL SQ SCH ×3 (07:00→17:30)
[2023-04-05] MEDS: metFORMIN HCL 500 MG TABLET (FP) PO SCH ×2 (07:00→17:32)
[2023-04-05] MEDS: NICOTINE 14 MG/24 HOURS TOPICAL PATCH TD SCH (10:28)
[2023-04-05] MEDS: BUDESONIDE/FORMETEROL FUMARATE 80/4.5 mcg INHALER IH SCH (10:28)
[2023-04-05] MEDS: PRENATAL VITAMINS W/ FOLIC ACID TABLET (FP) PO SCH (10:29)
[2023-04-05] MEDS: METHOCARBAMOL 500 MG TABLET PO PRN ×2 (10:29→22:34)
[2023-04-05] MEDS: traZODone HCL 50 MG TABLET (FP) PO SCH (22:29)
[2023-04-05] MEDS: THIAMINE HCL 100 MG TABLET (FP) PO SCH (22:31)
[2023-04-05] MEDS: ATORVASTATIN CA 10 MG TABLET (FP) PO SCH (22:32)
[2023-04-05] MEDS: MELATONIN 5 MG TABLETS PO SCH (22:32)
[2023-04-06] MEDS ORDERED: LORazepam 0.5 MG TABLET PO ONE (05:00)
[2023-04-06] MEDS: LACTULOSE 20 GM/30 ML UDC (FOR ORAL USE ONLY) PO SCH (05:33)
[2023-04-06] MEDS: INSULIN SLIDING SCALE (NOVOLOG) 1 VIAL SQ SCH (06:19)
[2023-04-06 06:36] VITALS: BP 122/72; PULSE 60; RESP 17; TEMP 97.8
[2023-04-06] MEDS: metFORMIN HCL 500 MG TABLET (FP) PO SCH (07:10)
== END 2023-04-06 08:42 | disposition home or self-care (01) | DRG 774 ==
LOC: YASAS 12:33 → Y3N 14:21
PROVIDERS: ADMIT Allergy & Immunology; ATTEND Surgery
PROC: HZ2ZZZZ Detoxification Services for Substance Abuse Treatment (ICD-10-PCS; principal; 2023-04-02)
DX: F10.230 Alcohol dependence with withdrawal, uncomplicated (principal); F14.20 Cocaine dependence, uncomplicated; F17.210 Nicotine dependence, cigarettes, uncomplicated; F25.9 Schizoaffective disorder, unspecified; F31.9 Bipolar disorder, unspecified; F19.282 Other psychoactive substance dependence with psychoactive substance-induced sleep disorder; I10 Essential (primary) hypertension; E78.5 Hyperlipidemia, unspecified; E11.9 Type 2 diabetes mellitus without complications; Z79.84 Long term (current) use of oral hypoglycemic drugs; J45.20 Mild intermittent asthma, uncomplicated; M17.0 Bilateral primary osteoarthritis of knee; M54.50 Low back pain, unspecified; G89.29 Other chronic pain; E66.9 Obesity, unspecified; Z68.37 Body mass index [BMI] 37.0-37.9, adult; Z99.89 Dependence on other enabling machines and devices; Z86.19 Personal history of other infectious and parasitic diseases
CPT/HCPCS: 36415; 80053; 82140; 82962; 85027; 86593; 86780; 87811; C9803-CS; U0003; U0005

== ENCOUNTER 2023-05-07 12:58 | Inpatient (IN) | payer OTHER ==
[2023-05-07 13:45] VITALS: BMI 36.0
[2023-05-07] MEDS ORDERED: AMMONIUM LACTATE 12% LOTION 225 GM BOTTLE TP PRN (15:07)
[2023-05-07] MEDS ORDERED: NICOTINE 10 MG CARTRIDGE (INHALER) IH PRN (15:07)
[2023-05-07] MEDS ORDERED: MAG HYDROX/AL HYDROX/SIMETH 30 ML UNIT-DOSE CUP PO PRN (15:07)
[2023-05-07] MEDS ORDERED: COLLOIDAL OATMEAL 1 BAR EACH TP PRN (15:07)
[2023-05-07] MEDS ORDERED: NALOXONE HCL (KLOXXADO) 8 MG SPRAY NS PRN (15:07)
[2023-05-07] MEDS ORDERED: guaiFENesin 600 MG TABLET.ER (FP) PO PRN (15:07)
[2023-05-07] MEDS ORDERED: ACETAMINOPHEN 325 MG TABLET (FP) PO PRN (15:07)
[2023-05-07] MEDS ORDERED: IBUPROFEN 400 MG TABLET (FP) PO PRN (15:07)
[2023-05-07] MEDS ORDERED: POLYETHYLENE GLYCOL (HEALTHYLAX) 3350 17 GM PACKET PO PRN (15:07)
[2023-05-07] MEDS ORDERED: LOPERAMIDE HCL 2 MG CAPSULE PO PRN (15:07)
[2023-05-07] MEDS ORDERED: BISMUTH SUBSALICYLATE 524 MG/30 ML PO PRN (15:07)
[2023-05-07] MEDS ORDERED: BENZOCAINE/MENTHOL (CHLORASEPTIC ) LOZENGE MM PRN (15:07)
[2023-05-07] MEDS ORDERED: MAGNESIUM HYDROX 2400MG/30ML ORAL SUSPENSION 30 ML CUP PO PRN (15:07)
[2023-05-07] MEDS ORDERED: ONDANSETRON *ODT* 4 MG TABLET SL PRN (15:07)
[2023-05-07] MEDS ORDERED: NICOTINE POLACRILEX 2 MG GUM BUC PRN (15:07)
[2023-05-07] MEDS ORDERED: BENZONATATE 200 MG CAPSULE PO PRN (15:07)
[2023-05-07] MEDS ORDERED: DICYCLOMINE HCL 10 MG CAPSULE PO PRN (15:07)
[2023-05-07] MEDS ORDERED: IBUPROFEN 600 MG TABLET (FP) PO PRN (15:07)
[2023-05-07] MEDS ORDERED: NALOXONE HCL 0.4 MG/ML VIAL IM PRN (15:07)
[2023-05-07] MEDS ORDERED: ALBUTEROL SO4 HFA INHALER IH PRN (15:11)
[2023-05-07] MEDS: INSULIN SLIDING SCALE (NOVOLOG) 1 VIAL SQ SCH ×2 (16:54→22:43)
[2023-05-07] MEDS ORDERED: LORazepam 2 MG TABLET ONE (16:56)
[2023-05-07] MEDS: metFORMIN HCL 500 MG TABLET (FP) PO SCH (16:57)
[2023-05-07] MEDS: LORazepam 2 MG TABLET PO SCH ×2 (16:58→22:05)
[2023-05-07] MEDS ORDERED: MELATONIN 5 MG TABLETS PO SCH (22:00)
[2023-05-07] MEDS: THIAMINE HCL 100 MG TABLET (FP) PO SCH (22:05)
[2023-05-07] MEDS: METHOCARBAMOL 500 MG TABLET PO PRN (22:07)
[2023-05-07] MEDS: BUDESONIDE/FORMETEROL FUMARATE 80/4.5 mcg INHALER IH SCH (22:07)
[2023-05-07] MEDS: ATORVASTATIN CA 10 MG TABLET (FP) PO SCH (22:07)
[2023-05-08] MEDS: LORazepam 2 MG TABLET PO SCH ×4 (05:26→22:32)
[2023-05-08] MEDS: metFORMIN HCL 500 MG TABLET (FP) PO SCH ×2 (06:26→17:18)
[2023-05-08] MEDS: INSULIN SLIDING SCALE (NOVOLOG) 1 VIAL SQ SCH ×4 (06:33→22:32)
[2023-05-08] MEDS: BUDESONIDE/FORMETEROL FUMARATE 80/4.5 mcg INHALER IH SCH ×2 (10:18→22:32)
[2023-05-08] MEDS: PRENATAL VITAMINS W/ FOLIC ACID TABLET (FP) PO SCH (10:18)
[2023-05-08] MEDS: METHOCARBAMOL 500 MG TABLET PO PRN (10:20)
[2023-05-08 10:58] LABS: POTASSIUM 4.4 mmol/L (3.5-5.1)
[2023-05-08 11:05] LABS: HEMATOCRIT 41.9 % (35.4-49); HEMOGLOBIN 13.9 GM/dL (11.7-16.9); MCH 30.7 pg (25.7-33.7); MCHC 33.2 g/dl (32.0-35.9); MEAN CELL VOLUME 92.5 fl (80-96); PLATELET COUNT 187 10^3/uL (134-434); RBC 4.53 M/mm3 (4.00-5.60); RDW 13.8 % (11.9-15.9)
[2023-05-08 11:06] LABS: ALBUMIN 3.4 g/dl (3.4-5.0); CALCIUM 8.8 mg/dL (8.5-10.1)
[2023-05-08 11:07] LABS: BLOOD UREA NITROGEN 14.4 mg/dL (7-18)
[2023-05-08 11:09] LABS: CREATININE 0.8 mg/dL (0.55-1.3)
[2023-05-08 11:11] LABS: BILIRUBIN,TOTAL 0.6 mg/dL (0.2-1); TOT PROT 6.7 g/dl (6.4-8.2)
[2023-05-08] MEDS: lamoTRIgine 25 MG TABLET PO SCH (11:24)
[2023-05-08] MEDS: TOLNAFTATE 1% CREAM 15 GM TUBE TP SCH ×2 (11:24→22:32)
[2023-05-08] MEDS: traZODone HCL 100 MG TABLET (FP) PO SCH (22:31)
[2023-05-08] MEDS: ATORVASTATIN CA 10 MG TABLET (FP) PO SCH (22:31)
[2023-05-08] MEDS: THIAMINE HCL 100 MG TABLET (FP) PO SCH (22:31)
[2023-05-08] MEDS: LACTULOSE 20 GM/30 ML UDC (FOR ORAL USE ONLY) PO SCH (22:35)
[2023-05-09] MEDS: INSULIN SLIDING SCALE (NOVOLOG) 1 VIAL SQ SCH ×4 (07:07→23:32)
[2023-05-09] MEDS: metFORMIN HCL 500 MG TABLET (FP) PO SCH ×2 (07:07→17:30)
[2023-05-09] MEDS: LORazepam 1 MG TABLET PO SCH ×4 (07:07→22:39)
[2023-05-09] MEDS: LACTULOSE 20 GM/30 ML UDC (FOR ORAL USE ONLY) PO SCH ×3 (07:07→22:40)
[2023-05-09] MEDS: BUDESONIDE/FORMETEROL FUMARATE 80/4.5 mcg INHALER IH SCH ×2 (10:28→22:38)
[2023-05-09] MEDS: lamoTRIgine 25 MG TABLET PO SCH (10:29)
[2023-05-09] MEDS: TOLNAFTATE 1% CREAM 15 GM TUBE TP SCH ×2 (10:29→22:39)
[2023-05-09] MEDS: PRENATAL VITAMINS W/ FOLIC ACID TABLET (FP) PO SCH (10:29)
[2023-05-09] MEDS: METHOCARBAMOL 500 MG TABLET PO PRN (10:30)
[2023-05-09] MEDS: ATORVASTATIN CA 10 MG TABLET (FP) PO SCH (22:39)
[2023-05-09] MEDS: traZODone HCL 100 MG TABLET (FP) PO SCH (22:39)
[2023-05-09] MEDS: THIAMINE HCL 100 MG TABLET (FP) PO SCH (22:39)
[2023-05-10] MEDS: metFORMIN HCL 500 MG TABLET (FP) PO SCH ×2 (06:20→17:16)
[2023-05-10] MEDS: LACTULOSE 20 GM/30 ML UDC (FOR ORAL USE ONLY) PO SCH ×3 (06:20→22:29)
[2023-05-10] MEDS: LORazepam 0.5 MG TABLET PO SCH ×4 (06:20→22:31)
[2023-05-10] MEDS: INSULIN SLIDING SCALE (NOVOLOG) 1 VIAL SQ SCH ×4 (06:21→23:35)
[2023-05-10] MEDS: PRENATAL VITAMINS W/ FOLIC ACID TABLET (FP) PO SCH (10:43)
[2023-05-10] MEDS: BUDESONIDE/FORMETEROL FUMARATE 80/4.5 mcg INHALER IH SCH ×2 (10:50→22:30)
[2023-05-10] MEDS: TOLNAFTATE 1% CREAM 15 GM TUBE TP SCH ×2 (10:51→22:32)
[2023-05-10] MEDS: lamoTRIgine 25 MG TABLET PO SCH (10:51)
[2023-05-10] MEDS: ATORVASTATIN CA 10 MG TABLET (FP) PO SCH (22:31)
[2023-05-10] MEDS: THIAMINE HCL 100 MG TABLET (FP) PO SCH (22:31)
[2023-05-10] MEDS: traZODone HCL 100 MG TABLET (FP) PO SCH (22:31)
[2023-05-11] MEDS ORDERED: LORazepam 0.5 MG TABLET PO ONE (05:00)
[2023-05-11] MEDS: LACTULOSE 20 GM/30 ML UDC (FOR ORAL USE ONLY) PO SCH (06:10)
[2023-05-11] MEDS: metFORMIN HCL 500 MG TABLET (FP) PO SCH (06:16)
[2023-05-11] MEDS: INSULIN SLIDING SCALE (NOVOLOG) 1 VIAL SQ SCH (06:17)
[2023-05-11] MEDS ORDERED: metFORMIN HCL 500 MG TABLET (FP) PO SCH (07:00)
[2023-05-11 09:55] VITALS: BP 126/87; PULSE 67; RESP 19; TEMP 97.1
== END 2023-05-11 09:30 | disposition home or self-care (01) | DRG 774 ==
LOC: YASAS 12:58 → Y6N 15:31
PROVIDERS: ADMIT Allergy & Immunology; ATTEND Surgery
PROC: HZ2ZZZZ Detoxification Services for Substance Abuse Treatment (ICD-10-PCS; principal; 2023-05-07)
DX: F10.230 Alcohol dependence with withdrawal, uncomplicated (principal); F14.20 Cocaine dependence, uncomplicated; F17.210 Nicotine dependence, cigarettes, uncomplicated; F19.282 Other psychoactive substance dependence with psychoactive substance-induced sleep disorder; F32.A Depression, unspecified; J43.0 Unilateral pulmonary emphysema [MacLeod's syndrome]; J45.20 Mild intermittent asthma, uncomplicated; E11.9 Type 2 diabetes mellitus without complications; Z79.84 Long term (current) use of oral hypoglycemic drugs; R79.89 Other specified abnormal findings of blood chemistry; E66.9 Obesity, unspecified; Z86.19 Personal history of other infectious and parasitic diseases; Z99.89 Dependence on other enabling machines and devices
CPT/HCPCS: 36415; 80053; 82140; 82962; 85027; 86593; 86780; 87635; 87811

== ENCOUNTER 2023-06-25 12:39 | Inpatient (IN) | payer OTHER ==
[2023-06-25 13:40] VITALS: BMI 39.5
[2023-06-25] MEDS ORDERED: ONDANSETRON *ODT* 4 MG TABLET SL PRN (14:08)
[2023-06-25] MEDS ORDERED: MAG HYDROX/AL HYDROX/SIMETH 30 ML UNIT-DOSE CUP PO PRN (14:08)
[2023-06-25] MEDS ORDERED: IBUPROFEN 400 MG TABLET (FP) PO PRN (14:08)
[2023-06-25] MEDS ORDERED: LORazepam 1 MG TABLET PO PRN (14:08)
[2023-06-25] MEDS ORDERED: ACETAMINOPHEN 325 MG TABLET (FP) PO PRN (14:08)
[2023-06-25] MEDS ORDERED: NICOTINE POLACRILEX 4 MG GUM BUC PRN (14:08)
[2023-06-25] MEDS ORDERED: LOPERAMIDE HCL 2 MG CAPSULE PO PRN (14:08)
[2023-06-25] MEDS ORDERED: BISMUTH SUBSALICYLATE 524 MG/30 ML PO PRN (14:08)
[2023-06-25] MEDS ORDERED: guaiFENesin 600 MG TABLET.ER (FP) PO PRN (14:08)
[2023-06-25] MEDS ORDERED: NALOXONE HCL 0.4 MG/ML VIAL IM PRN (14:08)
[2023-06-25] MEDS ORDERED: IBUPROFEN 600 MG TABLET (FP) PO PRN (14:08)
[2023-06-25] MEDS ORDERED: BENZONATATE 200 MG CAPSULE PO PRN (14:08)
[2023-06-25] MEDS ORDERED: METHOCARBAMOL 500 MG TABLET PO PRN (14:08)
[2023-06-25] MEDS ORDERED: DICYCLOMINE HCL 10 MG CAPSULE PO PRN (14:08)
[2023-06-25] MEDS ORDERED: POLYETHYLENE GLYCOL (HEALTHYLAX) 3350 17 GM PACKET PO PRN (14:08)
[2023-06-25] MEDS ORDERED: BENZOCAINE/MENTHOL (CHLORASEPTIC ) LOZENGE MM PRN (14:08)
[2023-06-25] MEDS ORDERED: NALOXONE HCL (KLOXXADO) 8 MG SPRAY NS PRN (14:08)
[2023-06-25] MEDS ORDERED: MAGNESIUM HYDROX 2400MG/30ML ORAL SUSPENSION 30 ML CUP PO PRN (14:08)
[2023-06-25] MEDS ORDERED: ALBUTEROL SO4 HFA INHALER IH PRN (14:13)
[2023-06-25] MEDS ORDERED: CYCLOBENZAPRINE HCL 10 MG TABLET (FP) PO PRN (14:13)
[2023-06-25 17:09] LABS: HEMATOCRIT 42.5 % (35.4-49); HEMOGLOBIN 13.9 GM/dL (11.7-16.9); MCH 29.9 pg (25.7-33.7); MCHC 32.8 g/dl (32.0-35.9); MEAN CELL VOLUME 91.3 fl (80-96); MEAN PLT VOLUME 8.8 fl (7.5-11.1); PLATELET COUNT 226 10^3/uL (134-434); RBC 4.65 M/mm3 (4.00-5.60); RDW 13.5 % (11.9-15.9); WHITE BLOOD COUNT 10.6 K/mm3 (4.0-10.0)
[2023-06-25] MEDS ORDERED: LORazepam 2 MG TABLET ONE (17:10)
[2023-06-25] MEDS: LORazepam 2 MG TABLET PO SCH ×2 (17:15→22:25)
[2023-06-25 17:20] LABS: ALBUMIN 3.9 g/dl (3.4-5.0); BLOOD UREA NITROGEN 15.5 mg/dL (7-18); CALCIUM 8.4 mg/dL (8.5-10.1)
[2023-06-25 17:23] LABS: CREATININE 1.2 mg/dL (0.55-1.3)
[2023-06-25 17:25] LABS: BILIRUBIN,TOTAL 0.4 mg/dL (0.2-1); TOT PROT 7.4 g/dl (6.4-8.2)
[2023-06-25] MEDS: LACTULOSE 20 GM/30 ML UDC (FOR ORAL USE ONLY) PO SCH ×2 (17:55→22:25)
[2023-06-25] MEDS: PRENATAL VITAMINS W/ FOLIC ACID TABLET (FP) PO SCH (17:55)
[2023-06-25] MEDS: metFORMIN HCL 500 MG TABLET (FP) PO SCH (17:55)
[2023-06-25] MEDS: ATORVASTATIN CA 10 MG TABLET (FP) PO SCH (22:25)
[2023-06-25] MEDS: THIAMINE HCL 100 MG TABLET (FP) PO SCH (22:25)
[2023-06-25] MEDS: traZODone HCL 50 MG TABLET (FP) PO SCH (22:25)
[2023-06-25] MEDS: BUDESONIDE/FORMETEROL FUMARATE 160/4.5 mcg INHALER IH SCH (22:26)
[2023-06-25] MEDS: MELATONIN 5 MG TABLETS PO SCH (22:28)
[2023-06-26] MEDS: LORazepam 2 MG TABLET PO SCH ×4 (05:39→22:55)
[2023-06-26] MEDS: metFORMIN HCL 500 MG TABLET (FP) PO SCH ×2 (06:40→16:53)
[2023-06-26] MEDS: LACTULOSE 20 GM/30 ML UDC (FOR ORAL USE ONLY) PO SCH ×4 (10:28→22:54)
[2023-06-26] MEDS: PRENATAL VITAMINS W/ FOLIC ACID TABLET (FP) PO SCH (10:28)
[2023-06-26] MEDS: BUDESONIDE/FORMETEROL FUMARATE 160/4.5 mcg INHALER IH SCH ×2 (10:29→22:55)
[2023-06-26] MEDS: lamoTRIgine 25 MG TABLET PO SCH (10:55)
[2023-06-26] MEDS ORDERED: COLLOIDAL OATMEAL 1 BAR EACH TP PRN (12:56)
[2023-06-26] MEDS: MELATONIN 5 MG TABLETS PO SCH (22:54)
[2023-06-26] MEDS: THIAMINE HCL 100 MG TABLET (FP) PO SCH (22:54)
[2023-06-26] MEDS: traZODone HCL 50 MG TABLET (FP) PO SCH (22:55)
[2023-06-26] MEDS: ATORVASTATIN CA 10 MG TABLET (FP) PO SCH (22:55)
[2023-06-27] MEDS: LORazepam 1 MG TABLET PO SCH ×4 (05:55→22:33)
[2023-06-27] MEDS: metFORMIN HCL 500 MG TABLET (FP) PO SCH ×2 (06:04→17:41)
[2023-06-27] MEDS: PRENATAL VITAMINS W/ FOLIC ACID TABLET (FP) PO SCH (10:35)
[2023-06-27] MEDS: LACTULOSE 20 GM/30 ML UDC (FOR ORAL USE ONLY) PO SCH ×4 (10:35→22:33)
[2023-06-27] MEDS: lamoTRIgine 25 MG TABLET PO SCH (10:36)
[2023-06-27] MEDS: hydrOXYzine PAMOATE 25 MG CAPSULE (FP) PO PRN (10:36)
[2023-06-27] MEDS: BUDESONIDE/FORMETEROL FUMARATE 160/4.5 mcg INHALER IH SCH ×2 (10:37→22:34)
[2023-06-27] MEDS: MELATONIN 5 MG TABLETS PO SCH (22:33)
[2023-06-27] MEDS: THIAMINE HCL 100 MG TABLET (FP) PO SCH (22:33)
[2023-06-27] MEDS: traZODone HCL 50 MG TABLET (FP) PO SCH (22:33)
[2023-06-27] MEDS: ATORVASTATIN CA 10 MG TABLET (FP) PO SCH (22:33)
[2023-06-28] MEDS ORDERED: LORazepam 0.5 MG TABLET PO PRN
[2023-06-28] MEDS: LORazepam 0.5 MG TABLET PO SCH ×4 (05:24→22:24)
[2023-06-28] MEDS: metFORMIN HCL 500 MG TABLET (FP) PO SCH ×2 (06:18→17:12)
[2023-06-28] MEDS: hydrOXYzine PAMOATE 25 MG CAPSULE (FP) PO PRN (10:06)
[2023-06-28] MEDS: LACTULOSE 20 GM/30 ML UDC (FOR ORAL USE ONLY) PO SCH ×4 (10:06→22:23)
[2023-06-28] MEDS: PRENATAL VITAMINS W/ FOLIC ACID TABLET (FP) PO SCH (10:06)
[2023-06-28] MEDS: lamoTRIgine 25 MG TABLET PO SCH (10:07)
[2023-06-28] MEDS: BUDESONIDE/FORMETEROL FUMARATE 160/4.5 mcg INHALER IH SCH ×2 (10:08→22:24)
[2023-06-28] MEDS: THIAMINE HCL 100 MG TABLET (FP) PO SCH (22:23)
[2023-06-28] MEDS: traZODone HCL 50 MG TABLET (FP) PO SCH (22:23)
[2023-06-28] MEDS: ATORVASTATIN CA 10 MG TABLET (FP) PO SCH (22:24)
[2023-06-28] MEDS: MELATONIN 5 MG TABLETS PO SCH (22:24)
[2023-06-29] MEDS ORDERED: LORazepam 0.5 MG TABLET PO ONE (05:00)
[2023-06-29 06:29] VITALS: RESP 18
[2023-06-29] MEDS: metFORMIN HCL 500 MG TABLET (FP) PO SCH (07:51)
[2023-06-29 09:45] VITALS: BP 137/73; PULSE 65; TEMP 98.1
[2023-06-29] MEDS: LACTULOSE 20 GM/30 ML UDC (FOR ORAL USE ONLY) PO SCH (10:03)
[2023-06-29] MEDS: lamoTRIgine 25 MG TABLET PO SCH (10:04)
[2023-06-29] MEDS: PRENATAL VITAMINS W/ FOLIC ACID TABLET (FP) PO SCH (10:04)
[2023-06-29] MEDS: BUDESONIDE/FORMETEROL FUMARATE 160/4.5 mcg INHALER IH SCH (10:05)
== END 2023-06-29 12:20 | disposition other institution (70) | DRG 774 ==
LOC: YASAS 12:39 → Y6N 16:48
PROVIDERS: ADMIT Allergy & Immunology; ATTEND Allergy & Immunology
PROC: HZ2ZZZZ Detoxification Services for Substance Abuse Treatment (ICD-10-PCS; principal; 2023-06-25)
DX: F10.230 Alcohol dependence with withdrawal, uncomplicated (principal); F14.10 Cocaine abuse, uncomplicated; F17.210 Nicotine dependence, cigarettes, uncomplicated; F19.280 Other psychoactive substance dependence with psychoactive substance-induced anxiety disorder; F31.9 Bipolar disorder, unspecified; J43.0 Unilateral pulmonary emphysema [MacLeod's syndrome]; J45.20 Mild intermittent asthma, uncomplicated; E78.00 Pure hypercholesterolemia, unspecified; E11.9 Type 2 diabetes mellitus without complications; Z79.84 Long term (current) use of oral hypoglycemic drugs; E66.9 Obesity, unspecified; Z68.39 Body mass index [BMI] 39.0-39.9, adult; R79.89 Other specified abnormal findings of blood chemistry; M17.0 Bilateral primary osteoarthritis of knee; Z86.73 Personal history of transient ischemic attack (TIA), and cerebral infarction without residual deficits; Z86.19 Personal history of other infectious and parasitic diseases; Z99.89 Dependence on other enabling machines and devices
CPT/HCPCS: 36415; 80053; 82140; 82962; 85027; 86593; 86780; 87635; 87811

== ENCOUNTER 2023-09-05 14:14 | Inpatient (IN) | payer OTHER ==
[2023-09-05 15:07] VITALS: BMI 39.2
[2023-09-05] MEDS ORDERED: MAG HYDROX/AL HYDROX/SIMETH 30 ML UNIT-DOSE CUP PO PRN (16:47)
[2023-09-05] MEDS ORDERED: guaiFENesin 600 MG TABLET.ER (FP) PO PRN (16:47)
[2023-09-05] MEDS ORDERED: ONDANSETRON *ODT* 4 MG TABLET SL PRN (16:47)
[2023-09-05] MEDS ORDERED: BENZONATATE 200 MG CAPSULE PO PRN (16:47)
[2023-09-05] MEDS ORDERED: NALOXONE HCL 0.4 MG/ML VIAL IM PRN (16:47)
[2023-09-05] MEDS ORDERED: DICYCLOMINE HCL 10 MG CAPSULE PO PRN (16:47)
[2023-09-05] MEDS ORDERED: NALOXONE HCL (KLOXXADO) 8 MG SPRAY NS PRN (16:47)
[2023-09-05] MEDS ORDERED: BENZOCAINE/MENTHOL (CHLORASEPTIC ) LOZENGE MM PRN (16:47)
[2023-09-05] MEDS ORDERED: IBUPROFEN 600 MG TABLET (FP) PO PRN (16:47)
[2023-09-05] MEDS ORDERED: IBUPROFEN 400 MG TABLET (FP) PO PRN (16:47)
[2023-09-05] MEDS ORDERED: ACETAMINOPHEN 325 MG TABLET (FP) PO PRN (16:47)
[2023-09-05] MEDS ORDERED: LOPERAMIDE HCL 2 MG CAPSULE PO PRN (16:47)
[2023-09-05] MEDS ORDERED: BISMUTH SUBSALICYLATE 524 MG/30 ML PO PRN (16:47)
[2023-09-05] MEDS ORDERED: POLYETHYLENE GLYCOL (HEALTHYLAX) 3350 17 GM PACKET PO PRN (16:47)
[2023-09-05] MEDS ORDERED: diazePAM 5 MG TABLET PO PRN (16:47)
[2023-09-05] MEDS ORDERED: MAGNESIUM HYDROX 2400MG/30ML ORAL SUSPENSION 30 ML CUP PO PRN (16:47)
[2023-09-05] MEDS ORDERED: diazePAM 5 MG TABLET ONE (17:21)
[2023-09-05] MEDS ORDERED: ALBUTEROL SO4 HFA INHALER IH PRN (19:23)
[2023-09-05] MEDS ORDERED: metFORMIN HCL 500 MG TABLET (FP) PO ONE (19:27)
[2023-09-05] MEDS: BUDESONIDE/FORMETEROL FUMARATE 160/4.5 mcg INHALER IH SCH (22:23)
[2023-09-05] MEDS: METHOCARBAMOL 500 MG TABLET PO PRN (22:24)
[2023-09-05] MEDS: hydrOXYzine PAMOATE 25 MG CAPSULE (FP) PO PRN (22:24)
[2023-09-05] MEDS: THIAMINE HCL 100 MG TABLET (FP) PO SCH (22:24)
[2023-09-05] MEDS: MELATONIN 5 MG TABLETS PO SCH (22:24)
[2023-09-05] MEDS: ATORVASTATIN CA 10 MG TABLET (FP) PO SCH (22:24)
[2023-09-05] MEDS: diazePAM 5 MG TABLET PO SCH (22:25)
[2023-09-06] MEDS: diazePAM 5 MG TABLET PO SCH ×4 (05:31→22:16)
[2023-09-06] MEDS: metFORMIN HCL 500 MG TABLET (FP) PO SCH ×3 (06:26→22:14)
[2023-09-06 10:13] LABS: HEMATOCRIT 42.7 % (35.4-49); HEMOGLOBIN 14.4 GM/dL (11.7-16.9); MCH 29.9 pg (25.7-33.7); MCHC 33.7 g/dl (32.0-35.9); MEAN CELL VOLUME 88.7 fl (80-96); MEAN PLT VOLUME 8.3 fl (7.5-11.1); PLATELET COUNT 194 10^3/uL (134-434); RBC 4.81 M/mm3 (4.00-5.60); RDW 14.7 % (11.9-15.9); WHITE BLOOD COUNT 8.5 K/mm3 (4.0-10.0)
[2023-09-06] MEDS: BUDESONIDE/FORMETEROL FUMARATE 160/4.5 mcg INHALER IH SCH ×2 (10:32→22:53)
[2023-09-06] MEDS: PRENATAL VITAMINS W/ FOLIC ACID TABLET (FP) PO SCH (10:33)
[2023-09-06] MEDS: METHOCARBAMOL 500 MG TABLET PO PRN (10:34)
[2023-09-06] MEDS ORDERED: COLLOIDAL OATMEAL 1 BAR EACH TP PRN (10:42)
[2023-09-06 10:46] LABS: CHLORIDE 107 mmol/L (98-107); POTASSIUM 4.4 mmol/L (3.5-5.1); SODIUM 138 mmol/L (136-145)
[2023-09-06 10:48] LABS: BLOOD UREA NITROGEN 15.1 mg/dL (7-18); CALCIUM 8.2 mg/dL (8.5-10.1)
[2023-09-06 10:49] LABS: ALBUMIN 3.5 g/dl (3.4-5.0); ANION GAP 6 mmol/L (4-13); CO2 25 mmol/L (21-32); GLUCOSE,RANDOM 117 mg/dL (74-106)
[2023-09-06 10:51] LABS: SGPT/ALT 66 U/L (13-61)
[2023-09-06 10:52] LABS: CREATININE 0.9 mg/dL (0.55-1.3); SGOT/AST 44 U/L (15-37)
[2023-09-06 10:53] LABS: BILIRUBIN,TOTAL 0.7 mg/dL (0.2-1); TOT PROT 7.2 g/dl (6.4-8.2)
[2023-09-06 10:54] LABS: ALK PHOS 104 U/L (45-117)
[2023-09-06] MEDS: lamoTRIgine 25 MG TABLET PO SCH (12:04)
[2023-09-06] MEDS: MELATONIN 5 MG TABLETS PO SCH (22:14)
[2023-09-06] MEDS: traZODone HCL 100 MG TABLET (FP) PO SCH (22:15)
[2023-09-06] MEDS: THIAMINE HCL 100 MG TABLET (FP) PO SCH (22:15)
[2023-09-06] MEDS: ATORVASTATIN CA 10 MG TABLET (FP) PO SCH (22:16)
[2023-09-06] MEDS: hydrOXYzine PAMOATE 25 MG CAPSULE (FP) PO PRN (22:16)
[2023-09-07] MEDS: diazePAM 5 MG TABLET PO SCH ×3 (05:39→22:27)
[2023-09-07] MEDS: metFORMIN HCL 500 MG TABLET (FP) PO SCH ×2 (06:09→20:07)
[2023-09-07] MEDS: PRENATAL VITAMINS W/ FOLIC ACID TABLET (FP) PO SCH (10:06)
[2023-09-07] MEDS: BUDESONIDE/FORMETEROL FUMARATE 160/4.5 mcg INHALER IH SCH ×2 (10:06→22:29)
[2023-09-07] MEDS: lamoTRIgine 25 MG TABLET PO SCH (10:08)
[2023-09-07] MEDS: METHOCARBAMOL 500 MG TABLET PO PRN (10:09)
[2023-09-07] MEDS: hydrOXYzine PAMOATE 25 MG CAPSULE (FP) PO PRN (14:16)
[2023-09-07] MEDS: THIAMINE HCL 100 MG TABLET (FP) PO SCH (22:27)
[2023-09-07] MEDS: ATORVASTATIN CA 10 MG TABLET (FP) PO SCH (22:27)
[2023-09-07] MEDS: traZODone HCL 100 MG TABLET (FP) PO SCH (22:27)
[2023-09-07] MEDS: MELATONIN 5 MG TABLETS PO SCH (22:27)
[2023-09-08] MEDS: diazePAM 5 MG TABLET PO SCH ×2 (05:24→17:38)
[2023-09-08] MEDS ORDERED: INSULIN SLIDING SCALE (NOVOLOG) 1 VIAL SQ ONE (06:08)
[2023-09-08] MEDS: metFORMIN HCL 500 MG TABLET (FP) PO SCH ×2 (06:22→20:16)
[2023-09-08] MEDS: BUDESONIDE/FORMETEROL FUMARATE 160/4.5 mcg INHALER IH SCH ×2 (09:56→22:19)
[2023-09-08] MEDS: PRENATAL VITAMINS W/ FOLIC ACID TABLET (FP) PO SCH (09:56)
[2023-09-08] MEDS: lamoTRIgine 25 MG TABLET PO SCH (09:56)
[2023-09-08] MEDS: METHOCARBAMOL 500 MG TABLET PO PRN (10:24)
[2023-09-08] MEDS: traZODone HCL 100 MG TABLET (FP) PO SCH (22:18)
[2023-09-08] MEDS: ATORVASTATIN CA 10 MG TABLET (FP) PO SCH (22:18)
[2023-09-08] MEDS: THIAMINE HCL 100 MG TABLET (FP) PO SCH (22:18)
[2023-09-08] MEDS: MELATONIN 5 MG TABLETS PO SCH (22:19)
[2023-09-09] MEDS ORDERED: diazePAM 5 MG TABLET PO ONE (06:00)
[2023-09-09] MEDS: metFORMIN HCL 500 MG TABLET (FP) PO SCH (06:42)
[2023-09-09 09:02] VITALS: BP 144/79; PULSE 70; RESP 20; TEMP 96.9
[2023-09-09] MEDS: lamoTRIgine 25 MG TABLET PO SCH (10:10)
[2023-09-09] MEDS: PRENATAL VITAMINS W/ FOLIC ACID TABLET (FP) PO SCH (10:10)
[2023-09-09] MEDS: BUDESONIDE/FORMETEROL FUMARATE 160/4.5 mcg INHALER IH SCH (10:11)
== END 2023-09-09 11:17 | disposition other institution (70) | DRG 774 ==
LOC: YASAS 14:14 → Y3N 17:25
PROVIDERS: ADMIT Allergy & Immunology; ATTEND Surgery
PROC: HZ2ZZZZ Detoxification Services for Substance Abuse Treatment (ICD-10-PCS; principal; 2023-09-05)
DX: F10.230 Alcohol dependence with withdrawal, uncomplicated (principal); F14.20 Cocaine dependence, uncomplicated; F17.210 Nicotine dependence, cigarettes, uncomplicated; F31.9 Bipolar disorder, unspecified; J43.0 Unilateral pulmonary emphysema [MacLeod's syndrome]; J45.20 Mild intermittent asthma, uncomplicated; E11.9 Type 2 diabetes mellitus without complications; Z79.84 Long term (current) use of oral hypoglycemic drugs; E66.01 Morbid (severe) obesity due to excess calories; Z68.39 Body mass index [BMI] 39.0-39.9, adult; Z86.19 Personal history of other infectious and parasitic diseases; Z86.73 Personal history of transient ischemic attack (TIA), and cerebral infarction without residual deficits
CPT/HCPCS: 36415; 80053; 80307; 82962; 85027; 86593; 86780; 87635

== ENCOUNTER 2023-09-09 10:54 | Inpatient (IN) | payer OTHER ==
[2023-09-09] MEDS ORDERED: METHOCARBAMOL 500 MG TABLET PO PRN (12:57)
[2023-09-09] MEDS ORDERED: hydrOXYzine PAMOATE 25 MG CAPSULE (FP) PO PRN (12:57)
[2023-09-09] MEDS ORDERED: AMMONIUM LACTATE 12% LOTION 225 GM BOTTLE TP PRN (12:57)
[2023-09-09] MEDS ORDERED: guaiFENesin 600 MG TABLET.ER (FP) PO PRN (12:57)
[2023-09-09] MEDS ORDERED: NALOXONE HCL (KLOXXADO) 8 MG SPRAY NS PRN (12:57)
[2023-09-09] MEDS ORDERED: ACETAMINOPHEN 325 MG TABLET (FP) PO PRN (12:57)
[2023-09-09] MEDS ORDERED: IBUPROFEN 400 MG TABLET (FP) PO PRN (12:57)
[2023-09-09] MEDS ORDERED: BENZONATATE 200 MG CAPSULE PO PRN (12:57)
[2023-09-09] MEDS ORDERED: MAG HYDROX/AL HYDROX/SIMETH 30 ML UNIT-DOSE CUP PO PRN (12:57)
[2023-09-09] MEDS ORDERED: NICOTINE POLACRILEX 4 MG GUM BUC PRN (12:57)
[2023-09-09] MEDS ORDERED: NALOXONE HCL 0.4 MG/ML VIAL IVPUSH PRN (12:57)
[2023-09-09] MEDS ORDERED: POLYETHYLENE GLYCOL (HEALTHYLAX) 3350 17 GM PACKET PO PRN (12:57)
[2023-09-09] MEDS ORDERED: MAGNESIUM HYDROX 2400MG/30ML ORAL SUSPENSION 30 ML CUP PO PRN (12:57)
[2023-09-09] MEDS ORDERED: NICOTINE 14 MG/24 HOURS TOPICAL PATCH TD PRN (12:57)
[2023-09-09] MEDS ORDERED: IBUPROFEN 600 MG TABLET (FP) PO PRN (12:57)
[2023-09-09] MEDS ORDERED: LOPERAMIDE HCL 2 MG CAPSULE PO PRN (12:57)
[2023-09-09] MEDS ORDERED: COLLOIDAL OATMEAL 1 BAR EACH TP PRN (12:57)
[2023-09-09] MEDS ORDERED: BENZOCAINE/MENTHOL (CHLORASEPTIC ) LOZENGE MM PRN (12:57)
[2023-09-09] MEDS ORDERED: ALBUTEROL SO4 HFA INHALER IH PRN (12:59)
[2023-09-09] MEDS: metFORMIN HCL 500 MG TABLET (FP) PO SCH (16:39)
[2023-09-09] MEDS: BUDESONIDE/FORMETEROL FUMARATE 160/4.5 mcg INHALER IH SCH (21:25)
[2023-09-09] MEDS ORDERED: THIAMINE HCL 100 MG TABLET (FP) PO SCH (22:00)
[2023-09-09] MEDS ORDERED: MELATONIN 5 MG TABLETS PO SCH (22:00)
[2023-09-09] MEDS ORDERED: traZODone HCL 100 MG TABLET (FP) PO SCH (22:00)
[2023-09-09] MEDS ORDERED: ATORVASTATIN CA 10 MG TABLET (FP) PO SCH (22:00)
[2023-09-10] MEDS: metFORMIN HCL 500 MG TABLET (FP) PO SCH (06:18)
[2023-09-10 06:54] VITALS: RESP 16; TEMP 97.3
[2023-09-10] MEDS: BUDESONIDE/FORMETEROL FUMARATE 160/4.5 mcg INHALER IH SCH (09:33)
[2023-09-10] MEDS ORDERED: PRENATAL VITAMINS W/ FOLIC ACID TABLET (FP) PO SCH (10:00)
[2023-09-10] MEDS ORDERED: lamoTRIgine 25 MG TABLET PO SCH (10:00)
[2023-09-10 11:04] VITALS: BP 125/76; PULSE 65
== END 2023-09-10 10:27 | disposition home or self-care (01) | DRG 772 ==
LOC: YASAS 10:54 → Y3E 10:56
PROVIDERS: ADMIT Allergy & Immunology; ATTEND Psychiatry & Neurology Pain Medicine
PROC: HZ42ZZZ Group Counseling for Substance Abuse Treatment, Cognitive-Behavioral (ICD-10-PCS; principal; 2023-09-09)
DX: F10.20 Alcohol dependence, uncomplicated (principal); F14.20 Cocaine dependence, uncomplicated; F17.210 Nicotine dependence, cigarettes, uncomplicated; F31.9 Bipolar disorder, unspecified; F20.9 Schizophrenia, unspecified; E78.5 Hyperlipidemia, unspecified; E11.9 Type 2 diabetes mellitus without complications; Z79.84 Long term (current) use of oral hypoglycemic drugs; J44.9 Chronic obstructive pulmonary disease, unspecified; J45.20 Mild intermittent asthma, uncomplicated; Z68.41 Body mass index [BMI] 40.0-44.9, adult; Z88.8 Allergy status to other drugs, medicaments and biological substances; Z91.011 Allergy to milk products
CPT/HCPCS: 36415; 82962; 86803; 87635

== ENCOUNTER 2023-10-29 09:28 | Inpatient (IN) | payer OTHER ==
[2023-10-29 10:21] VITALS: BMI 39.5
[2023-10-29] MEDS ORDERED: ALBUTEROL SO4 HFA INHALER IH PRN (10:59)
[2023-10-29] MEDS ORDERED: BENZONATATE 200 MG CAPSULE PO PRN (11:20)
[2023-10-29] MEDS ORDERED: MAG HYDROX/AL HYDROX/SIMETH 30 ML UNIT-DOSE CUP PO PRN (11:20)
[2023-10-29] MEDS ORDERED: ONDANSETRON *ODT* 4 MG TABLET SL PRN (11:20)
[2023-10-29] MEDS ORDERED: IBUPROFEN 400 MG TABLET (FP) PO PRN (11:20)
[2023-10-29] MEDS ORDERED: BENZOCAINE/MENTHOL (CHLORASEPTIC ) LOZENGE MM PRN (11:20)
[2023-10-29] MEDS ORDERED: BISMUTH SUBSALICYLATE 262 MG/15 ML BTL PO PRN (11:20)
[2023-10-29] MEDS ORDERED: POLYETHYLENE GLYCOL (HEALTHYLAX) 3350 17 GM PACKET PO PRN (11:20)
[2023-10-29] MEDS ORDERED: guaiFENesin 600 MG TABLET.ER (FP) PO PRN (11:20)
[2023-10-29] MEDS ORDERED: ACETAMINOPHEN 325 MG TABLET (FP) PO PRN (11:20)
[2023-10-29] MEDS ORDERED: MAGNESIUM HYDROX 2400MG/30ML ORAL SUSPENSION 30 ML CUP PO PRN (11:20)
[2023-10-29] MEDS ORDERED: NICOTINE POLACRILEX 2 MG GUM BUC PRN (11:20)
[2023-10-29] MEDS ORDERED: P-EPHED 60MG/TRIPROLIDI 2.5MG TABLET PO PRN (11:20)
[2023-10-29] MEDS ORDERED: LOPERAMIDE HCL 2 MG CAPSULE PO PRN (11:20)
[2023-10-29] MEDS ORDERED: DICYCLOMINE HCL 10 MG CAPSULE PO PRN (11:20)
[2023-10-29] MEDS: metFORMIN HCL 500 MG TABLET (FP) PO SCH (19:59)
[2023-10-29] MEDS: ATORVASTATIN CA 10 MG TABLET (FP) PO SCH (22:13)
[2023-10-29] MEDS: MELATONIN 5 MG TABLETS PO SCH (22:13)
[2023-10-29] MEDS: THIAMINE HCL 100 MG TABLET (FP) PO SCH (22:13)
[2023-10-29] MEDS: BUDESONIDE/FORMETEROL FUMARATE 160/4.5 mcg INHALER IH SCH (22:14)
[2023-10-29] MEDS: MICONAZOLE NITRATE 14 GM/TUBE TUBE TP SCH (23:32)
[2023-10-30] MEDS ORDERED: chlordiazePOXIDE HCL 25 MG CAPSULE PO PRN (08:58)
[2023-10-30] MEDS: metFORMIN HCL 500 MG TABLET (FP) PO SCH (10:18)
[2023-10-30] MEDS: PRENATAL VITAMINS W/ FOLIC ACID TABLET (FP) PO SCH (10:18)
[2023-10-30] MEDS: chlordiazePOXIDE HCL 25 MG CAPSULE PO SCH (10:20)
[2023-10-30 11:28] LABS: HEMATOCRIT 45.1 % (35.4-49); HEMOGLOBIN 15.2 GM/dL (11.7-16.9); MCH 30.4 pg (25.7-33.7); MCHC 33.7 g/dl (32.0-35.9); MEAN CELL VOLUME 90.2 fl (80-96); MEAN PLT VOLUME 9.1 fl (7.5-11.1); PLATELET COUNT 203 10^3/uL (134-434)
[2023-10-30 11:36] LABS: POTASSIUM 4.4 mmol/L (3.5-5.1)
[2023-10-30] MEDS ORDERED: COLLOIDAL OATMEAL 1 BAR EACH TP PRN (11:36)
[2023-10-30 11:45] LABS: BLOOD UREA NITROGEN 15.2 mg/dL (7-18)
[2023-10-30 11:49] LABS: BILIRUBIN,TOTAL 0.9 mg/dL (0.2-1); TOT PROT 7.9 g/dl (6.4-8.2)
[2023-10-30] MEDS: lamoTRIgine 25 MG TABLET PO SCH (12:06)
[2023-10-30] MEDS: DOCUSATE SODIUM 100 MG CAPSULE (FP) PO PRN (22:42)
[2023-10-30] MEDS: traZODone HCL 100 MG TABLET (FP) PO SCH (22:42)
[2023-11-01] MEDS: chlordiazePOXIDE HCL 25 MG CAPSULE PO SCH (05:40)
[2023-11-01] MEDS: IBUPROFEN 600 MG TABLET (FP) PO PRN (10:04)
[2023-11-01] MEDS: GABAPENTIN 300 MG CAPSULE PO SCH (10:08)
[2023-11-01] MEDS: METHYL SALICYLATE/MENTHOL OINT 30 GM TUBE TP SCH (10:55)
[2023-11-02] MEDS ORDERED: chlordiazePOXIDE HCL 10 MG CAPSULE PO PRN
[2023-11-02] MEDS: chlordiazePOXIDE HCL 10 MG CAPSULE PO SCH (06:00)
[2023-11-03] MEDS: chlordiazePOXIDE HCL 10 MG CAPSULE PO SCH (05:48)
[2023-11-03 16:55] VITALS: RESP 18
[2023-11-04] MEDS: chlordiazePOXIDE HCL 10 MG CAPSULE PO ONE (05:54)
[2023-11-04 09:51] VITALS: BP 120/75; PULSE 76; TEMP 98
== END 2023-11-04 09:40 | disposition home or self-care (01) | DRG 774 ==
LOC: YASAS 09:28 → Y6N 11:38
PROVIDERS: ADMIT Allergy & Immunology; ATTEND Surgery
PROC: HZ2ZZZZ Detoxification Services for Substance Abuse Treatment (ICD-10-PCS; principal; 2023-10-29)
DX: F10.230 Alcohol dependence with withdrawal, uncomplicated (principal); F14.20 Cocaine dependence, uncomplicated; F17.210 Nicotine dependence, cigarettes, uncomplicated; F31.9 Bipolar disorder, unspecified; F19.282 Other psychoactive substance dependence with psychoactive substance-induced sleep disorder; E78.5 Hyperlipidemia, unspecified; I10 Essential (primary) hypertension; J44.9 Chronic obstructive pulmonary disease, unspecified; E11.9 Type 2 diabetes mellitus without complications; Z79.84 Long term (current) use of oral hypoglycemic drugs; M17.0 Bilateral primary osteoarthritis of knee; Z86.19 Personal history of other infectious and parasitic diseases; Z99.89 Dependence on other enabling machines and devices; Z88.8 Allergy status to other drugs, medicaments and biological substances; Z91.018 Allergy to other foods
CPT/HCPCS: 36415; 80053; 80307; 82962; 85027; 86593; 86780; 87635

== ENCOUNTER 2024-01-01 12:47 | Inpatient (IN) | payer OTHER ==
[2024-01-01 14:26] VITALS: BMI 41.6
[2024-01-01] MEDS ORDERED: ALBUTEROL SO4 HFA INHALER IH PRN (15:48)
[2024-01-01] MEDS ORDERED: BISMUTH SUBSALICYLATE 524 MG/30 ML PO PRN (16:02)
[2024-01-01] MEDS ORDERED: BENZOCAINE/MENTHOL (CHLORASEPTIC ) LOZENGE MM PRN (16:02)
[2024-01-01] MEDS ORDERED: IBUPROFEN 400 MG TABLET (FP) PO PRN (16:02)
[2024-01-01] MEDS ORDERED: MAGNESIUM HYDROX 2400MG/30ML ORAL SUSPENSION 30 ML CUP PO PRN (16:02)
[2024-01-01] MEDS ORDERED: POLYETHYLENE GLYCOL (HEALTHYLAX) 3350 17 GM PACKET PO PRN (16:02)
[2024-01-01] MEDS ORDERED: ACETAMINOPHEN 325 MG TABLET (FP) PO PRN (16:02)
[2024-01-01] MEDS ORDERED: BENZONATATE 200 MG CAPSULE PO PRN (16:02)
[2024-01-01] MEDS ORDERED: DICYCLOMINE HCL 10 MG CAPSULE PO PRN (16:02)
[2024-01-01] MEDS ORDERED: LOPERAMIDE HCL 2 MG CAPSULE PO PRN (16:02)
[2024-01-01] MEDS ORDERED: NICOTINE POLACRILEX 2 MG GUM BUC PRN (16:02)
[2024-01-01] MEDS ORDERED: hydrOXYzine PAMOATE 25 MG CAPSULE (FP) PO PRN (16:02)
[2024-01-01] MEDS ORDERED: MAG HYDROX/AL HYDROX/SIMETH 30 ML UNIT-DOSE CUP PO PRN (16:02)
[2024-01-01] MEDS ORDERED: ONDANSETRON *ODT* 4 MG TABLET SL PRN (16:02)
[2024-01-01] MEDS ORDERED: guaiFENesin 600 MG TABLET.ER (FP) PO PRN (16:02)
[2024-01-01] MEDS ORDERED: diazePAM 5 MG TABLET PO PRN (18:28)
[2024-01-01] MEDS: metFORMIN HCL 500 MG TABLET (FP) PO SCH (20:06)
[2024-01-01] MEDS: THIAMINE HCL 100 MG TABLET (FP) PO SCH (22:41)
[2024-01-01] MEDS: MELATONIN 5 MG TABLETS PO SCH (22:41)
[2024-01-01] MEDS: diazePAM 5 MG TABLET PO SCH (22:43)
[2024-01-01] MEDS: ATORVASTATIN CA 10 MG TABLET (FP) PO SCH (22:43)
[2024-01-01] MEDS: BUDESONIDE/FORMETEROL FUMARATE 160/4.5 mcg INHALER IH SCH (23:05)
[2024-01-02] MEDS ORDERED: INSULIN (NOVOLOG) ASPART 100 UNITS/ML 10ML VIAL ONE (05:04)
[2024-01-02] MEDS: PRENATAL VITAMINS W/ FOLIC ACID TABLET (FP) PO SCH (10:35)
[2024-01-02] MEDS: METHOCARBAMOL 500 MG TABLET PO PRN (10:36)
[2024-01-02] MEDS: lamoTRIgine 25 MG TABLET PO SCH (11:18)
[2024-01-02 14:42] LABS: CHLORIDE 111 mmol/L (98-107); POTASSIUM 4.9 mmol/L (3.5-5.1); SODIUM 144 mmol/L (136-145)
[2024-01-02 14:44] LABS: CALCIUM 8.9 mg/dL (8.5-10.1)
[2024-01-02 14:45] LABS: ALBUMIN 3.4 g/dl (3.4-5.0); ANION GAP 13 mmol/L (4-13); BLOOD UREA NITROGEN 16.9 mg/dL (7-18); CO2 20 mmol/L (21-32); GLUCOSE,RANDOM 95 mg/dL (74-106)
[2024-01-02 14:48] LABS: CREATININE 0.9 mg/dL (0.55-1.3); SGOT/AST 44 U/L (15-37); SGPT/ALT 50 U/L (13-61)
[2024-01-02 14:49] LABS: BILIRUBIN,TOTAL 0.4 mg/dL (0.2-1); TOT PROT 6.8 g/dl (6.4-8.2)
[2024-01-02 14:51] LABS: ALK PHOS 100 U/L (45-117)
[2024-01-02] MEDS: traZODone HCL 100 MG TABLET (FP) PO SCH (22:22)
[2024-01-03] MEDS: diazePAM 5 MG TABLET PO SCH (05:32)
[2024-01-03] MEDS: IBUPROFEN 600 MG TABLET (FP) PO PRN (05:33)
[2024-01-03] MEDS: GABAPENTIN 300 MG CAPSULE PO SCH (13:41)
[2024-01-03] MEDS: METHYL SALICYLATE/MENTHOL OINT 30 GM TUBE TP SCH (22:12)
[2024-01-04] MEDS: diazePAM 5 MG TABLET PO SCH (05:31)
[2024-01-05] MEDS: diazePAM 5 MG TABLET PO ONE (05:33)
[2024-01-05 13:34] VITALS: BP 123/69; PULSE 59; RESP 16; TEMP 97.5
== END 2024-01-05 13:40 | disposition other institution (70) | DRG 774 ==
LOC: YASAS 12:47 → Y6N 16:42
PROVIDERS: ADMIT Allergy & Immunology; ATTEND Surgery
PROC: HZ2ZZZZ Detoxification Services for Substance Abuse Treatment (ICD-10-PCS; principal; 2024-01-01)
DX: F10.230 Alcohol dependence with withdrawal, uncomplicated (principal); F14.20 Cocaine dependence, uncomplicated; F17.210 Nicotine dependence, cigarettes, uncomplicated; F19.282 Other psychoactive substance dependence with psychoactive substance-induced sleep disorder; F31.9 Bipolar disorder, unspecified; F41.9 Anxiety disorder, unspecified; I10 Essential (primary) hypertension; E11.9 Type 2 diabetes mellitus without complications; Z79.84 Long term (current) use of oral hypoglycemic drugs; E78.5 Hyperlipidemia, unspecified; M17.0 Bilateral primary osteoarthritis of knee; Z86.73 Personal history of transient ischemic attack (TIA), and cerebral infarction without residual deficits; Z99.89 Dependence on other enabling machines and devices; Z86.19 Personal history of other infectious and parasitic diseases; Z88.8 Allergy status to other drugs, medicaments and biological substances
CPT/HCPCS: 36415; 80053; 80305; 80307; 82962; 87635; 93005; 93010

== ENCOUNTER 2024-01-05 13:49 | Inpatient (IN) | payer OTHER ==
[2024-01-05 14:12] VITALS: RESP 18
[2024-01-05] MEDS ORDERED: ACETAMINOPHEN 325 MG TABLET (FP) PO PRN (15:45)
[2024-01-05] MEDS ORDERED: NALOXONE HCL 0.4 MG/ML VIAL IVPUSH PRN (15:45)
[2024-01-05] MEDS ORDERED: NICOTINE 14 MG/24 HOURS TOPICAL PATCH TD PRN (15:45)
[2024-01-05] MEDS ORDERED: AMMONIUM LACTATE 12% LOTION 225 GM BOTTLE TP PRN (15:45)
[2024-01-05] MEDS ORDERED: guaiFENesin 600 MG TABLET.ER (FP) PO PRN (15:45)
[2024-01-05] MEDS ORDERED: MAGNESIUM HYDROX 2400MG/30ML ORAL SUSPENSION 30 ML CUP PO PRN (15:45)
[2024-01-05] MEDS ORDERED: BENZONATATE 200 MG CAPSULE PO PRN (15:45)
[2024-01-05] MEDS ORDERED: LOPERAMIDE HCL 2 MG CAPSULE PO PRN (15:45)
[2024-01-05] MEDS ORDERED: IBUPROFEN 600 MG TABLET (FP) PO PRN (15:45)
[2024-01-05] MEDS ORDERED: MAG HYDROX/AL HYDROX/SIMETH 30 ML UNIT-DOSE CUP PO PRN (15:45)
[2024-01-05] MEDS ORDERED: hydrOXYzine PAMOATE 25 MG CAPSULE (FP) PO PRN (15:45)
[2024-01-05] MEDS ORDERED: POLYETHYLENE GLYCOL (HEALTHYLAX) 3350 17 GM PACKET PO PRN (15:45)
[2024-01-05] MEDS ORDERED: NICOTINE POLACRILEX 4 MG LOZENGE BC PRN (15:45)
[2024-01-05] MEDS ORDERED: NALOXONE HCL (KLOXXADO) 8 MG SPRAY NS PRN (15:45)
[2024-01-05] MEDS ORDERED: IBUPROFEN 400 MG TABLET (FP) PO PRN (15:45)
[2024-01-05] MEDS ORDERED: BENZOCAINE/MENTHOL (CHLORASEPTIC ) LOZENGE MM PRN (15:45)
[2024-01-05] MEDS ORDERED: NICOTINE POLACRILEX 4 MG GUM BUC PRN (15:45)
[2024-01-05] MEDS ORDERED: ALBUTEROL SO4 HFA INHALER IH PRN (15:47)
[2024-01-05] MEDS: metFORMIN HCL 500 MG TABLET (FP) PO SCH (21:39)
[2024-01-05] MEDS: GABAPENTIN 300 MG CAPSULE PO SCH (21:39)
[2024-01-05] MEDS: MELATONIN 5 MG TABLETS PO SCH (21:39)
[2024-01-05] MEDS: ATORVASTATIN CA 10 MG TABLET (FP) PO SCH (21:39)
[2024-01-05] MEDS: THIAMINE HCL 100 MG TABLET (FP) PO SCH (21:39)
[2024-01-05] MEDS: traZODone HCL 100 MG TABLET (FP) PO SCH (21:39)
[2024-01-05] MEDS: BUDESONIDE/FORMETEROL FUMARATE 160/4.5 mcg INHALER IH SCH (21:40)
[2024-01-05] MEDS: METHOCARBAMOL 500 MG TABLET PO PRN (21:43)
[2024-01-06] MEDS ORDERED: PRENATAL VITAMINS W/ FOLIC ACID TABLET (FP) PO SCH (10:00)
[2024-01-06] MEDS: PRENATAL VITAMINS W/ FOLIC ACID TABLET (FP) PO SCH (10:00)
[2024-01-06] MEDS: METHYL SALICYLATE/MENTHOL OINT 30 GM TUBE TP SCH (22:40)
[2024-01-07 06:42] VITALS: TEMP 97.7
[2024-01-07 09:11] VITALS: BP 104/61; PULSE 65
[2024-01-07] MEDS ORDERED: lamoTRIgine 25 MG TABLET PO SCH (12:00)
== END 2024-01-07 11:40 | disposition home or self-care (01) | DRG 772 ==
LOC: YASAS 13:49 → Y5N 13:51
PROVIDERS: ADMIT Allergy & Immunology; ATTEND Psychiatry & Neurology Pain Medicine
PROC: HZ42ZZZ Group Counseling for Substance Abuse Treatment, Cognitive-Behavioral (ICD-10-PCS; principal; 2024-01-05)
DX: F10.20 Alcohol dependence, uncomplicated (principal); F14.10 Cocaine abuse, uncomplicated; F17.210 Nicotine dependence, cigarettes, uncomplicated; E78.00 Pure hypercholesterolemia, unspecified; I10 Essential (primary) hypertension; J43.0 Unilateral pulmonary emphysema [MacLeod's syndrome]; E11.9 Type 2 diabetes mellitus without complications; M54.50 Low back pain, unspecified; G89.29 Other chronic pain; M17.0 Bilateral primary osteoarthritis of knee; Z99.89 Dependence on other enabling machines and devices; Z86.19 Personal history of other infectious and parasitic diseases
CPT/HCPCS: 36415; 82140; 82962; 86803

== ENCOUNTER 2024-02-14 12:38 | Inpatient (IN) | payer OTHER ==
[2024-02-14 13:12] VITALS: BMI 39.1
[2024-02-14] MEDS ORDERED: chlordiazePOXIDE HCL 25 MG CAPSULE PO PRN (13:26)
[2024-02-14] MEDS ORDERED: LOPERAMIDE HCL 2 MG CAPSULE PO PRN (13:47)
[2024-02-14] MEDS ORDERED: BENZONATATE 200 MG CAPSULE PO PRN (13:47)
[2024-02-14] MEDS ORDERED: POLYETHYLENE GLYCOL (HEALTHYLAX) 3350 17 GM PACKET PO PRN (13:47)
[2024-02-14] MEDS ORDERED: NICOTINE POLACRILEX 2 MG GUM BUC PRN (13:47)
[2024-02-14] MEDS ORDERED: MAG HYDROX/AL HYDROX/SIMETH 30 ML UNIT-DOSE CUP PO PRN (13:47)
[2024-02-14] MEDS ORDERED: IBUPROFEN 400 MG TABLET (FP) PO PRN (13:47)
[2024-02-14] MEDS ORDERED: guaiFENesin 600 MG TABLET.ER (FP) PO PRN (13:47)
[2024-02-14] MEDS ORDERED: NICOTINE POLACRILEX 2 MG LOZENGE BC PRN (13:47)
[2024-02-14] MEDS ORDERED: ONDANSETRON *ODT* 4 MG TABLET SL PRN (13:47)
[2024-02-14] MEDS ORDERED: DICYCLOMINE HCL 10 MG CAPSULE PO PRN (13:47)
[2024-02-14] MEDS ORDERED: BISMUTH SUBSALICYLATE 524 MG/30 ML PO PRN (13:47)
[2024-02-14] MEDS ORDERED: MAGNESIUM HYDROX 2400MG/30ML ORAL SUSPENSION 30 ML CUP PO PRN (13:47)
[2024-02-14] MEDS ORDERED: ACETAMINOPHEN 325 MG TABLET (FP) PO PRN (13:47)
[2024-02-14] MEDS ORDERED: BENZOCAINE/MENTHOL (CHLORASEPTIC ) LOZENGE MM PRN (13:47)
[2024-02-14] MEDS ORDERED: ALBUTEROL SO4 HFA INHALER IH PRN (13:48)
[2024-02-14] MEDS: METHYL SALICYLATE/MENTHOL OINT 30 GM TUBE TP SCH (16:04)
[2024-02-14] MEDS: BUDESONIDE/FORMETEROL FUMARATE 160/4.5 mcg INHALER IH SCH (16:05)
[2024-02-14] MEDS ORDERED: chlordiazePOXIDE HCL 25 MG CAPSULE PO SCH (17:00)
[2024-02-14] MEDS: metFORMIN HCL 500 MG TABLET (FP) PO SCH (20:59)
[2024-02-14] MEDS: THIAMINE HCL 100 MG TABLET (FP) PO SCH (22:23)
[2024-02-14] MEDS: chlordiazePOXIDE HCL 25 MG CAPSULE PO SCH (22:23)
[2024-02-14] MEDS: ATORVASTATIN CA 10 MG TABLET (FP) PO SCH (22:23)
[2024-02-15] MEDS: PRENATAL VITAMINS W/ FOLIC ACID TABLET (FP) PO SCH (10:36)
[2024-02-15] MEDS: lamoTRIgine 25 MG TABLET PO SCH (11:14)
[2024-02-15 11:59] LABS: HEMATOCRIT 41.8 % (35.4-49); HEMOGLOBIN 13.7 GM/dL (11.7-16.9); MCH 29.5 pg (25.7-33.7); MCHC 32.7 g/dl (32.0-35.9); MEAN CELL VOLUME 90.4 fl (80-96); MEAN PLT VOLUME 8.4 fl (7.5-11.1); PLATELET COUNT 189 10^3/uL (134-434); RBC 4.63 M/mm3 (4.00-5.60); RDW 14.5 % (11.9-15.9); WHITE BLOOD COUNT 7.5 K/mm3 (4.0-10.0)
[2024-02-15 12:57] LABS: POTASSIUM 4.4 mmol/L (3.5-5.1)
[2024-02-15 13:05] LABS: ALBUMIN 3.5 g/dl (3.4-5.0); BLOOD UREA NITROGEN 15.5 mg/dL (7-18); CALCIUM 8.6 mg/dL (8.5-10.1)
[2024-02-15 13:08] LABS: BILIRUBIN,TOTAL 0.5 mg/dL (0.2-1); CREATININE 0.9 mg/dL (0.55-1.3)
[2024-02-15 13:09] LABS: TOT PROT 6.8 g/dl (6.4-8.2)
[2024-02-15] MEDS: traZODone HCL 100 MG TABLET (FP) PO SCH (22:30)
[2024-02-16] MEDS: chlordiazePOXIDE HCL 25 MG CAPSULE PO SCH (05:37)
[2024-02-17] MEDS ORDERED: chlordiazePOXIDE HCL 10 MG CAPSULE PO PRN
[2024-02-17] MEDS: chlordiazePOXIDE HCL 10 MG CAPSULE PO SCH (05:49)
[2024-02-17] MEDS: METHOCARBAMOL 500 MG TABLET PO PRN (10:03)
[2024-02-17] MEDS: LIDOCAINE 5% TOPICAL PATCH TP SCH (10:04)
[2024-02-17] MEDS: LIDOCAINE PATCH REMOVAL MC SCH (22:38)
[2024-02-18] MEDS: chlordiazePOXIDE HCL 10 MG CAPSULE PO SCH (05:08)
[2024-02-19] MEDS: IBUPROFEN 600 MG TABLET (FP) PO PRN (05:49)
[2024-02-19] MEDS: chlordiazePOXIDE HCL 10 MG CAPSULE PO ONE (05:50)
[2024-02-19 06:20] VITALS: RESP 18
[2024-02-19 09:52] VITALS: BP 125/78; PULSE 80; TEMP 97.1
== END 2024-02-19 09:10 | disposition home or self-care (01) | DRG 774 ==
LOC: YASAS 12:38 → Y6N 16:45
PROVIDERS: ADMIT Allergy & Immunology; ATTEND Psychiatry & Neurology Pain Medicine
PROC: HZ2ZZZZ Detoxification Services for Substance Abuse Treatment (ICD-10-PCS; principal; 2024-02-14)
DX: F10.230 Alcohol dependence with withdrawal, uncomplicated (principal); F14.20 Cocaine dependence, uncomplicated; F12.20 Cannabis dependence, uncomplicated; F17.210 Nicotine dependence, cigarettes, uncomplicated; F19.282 Other psychoactive substance dependence with psychoactive substance-induced sleep disorder; I10 Essential (primary) hypertension; J43.0 Unilateral pulmonary emphysema [MacLeod's syndrome]; J45.20 Mild intermittent asthma, uncomplicated; E78.5 Hyperlipidemia, unspecified; E11.9 Type 2 diabetes mellitus without complications; Z79.84 Long term (current) use of oral hypoglycemic drugs; M17.0 Bilateral primary osteoarthritis of knee; M54.50 Low back pain, unspecified; G89.29 Other chronic pain; Z99.89 Dependence on other enabling machines and devices; Z88.8 Allergy status to other drugs, medicaments and biological substances
CPT/HCPCS: 36415; 80053; 80305; 80307; 82962; 85027; 86593; 86780

== ENCOUNTER 2024-03-22 11:43 | Inpatient (IN) | payer OTHER ==
[2024-03-22 12:06] VITALS: BMI 38.5
[2024-03-22] MEDS ORDERED: MAG HYDROX/AL HYDROX/SIMETH 30 ML UNIT-DOSE CUP PO PRN (12:48)
[2024-03-22] MEDS ORDERED: LOPERAMIDE HCL 2 MG CAPSULE PO PRN (12:48)
[2024-03-22] MEDS ORDERED: BENZONATATE 200 MG CAPSULE PO PRN (12:48)
[2024-03-22] MEDS ORDERED: chlordiazePOXIDE HCL 25 MG CAPSULE PO PRN (12:48)
[2024-03-22] MEDS ORDERED: DICYCLOMINE HCL 10 MG CAPSULE PO PRN (12:48)
[2024-03-22] MEDS ORDERED: BENZOCAINE/MENTHOL (CHLORASEPTIC ) LOZENGE MM PRN (12:48)
[2024-03-22] MEDS ORDERED: guaiFENesin 600 MG TABLET.ER (FP) PO PRN (12:48)
[2024-03-22] MEDS ORDERED: IBUPROFEN 600 MG TABLET (FP) PO PRN (12:48)
[2024-03-22] MEDS ORDERED: hydrOXYzine PAMOATE 25 MG CAPSULE (FP) PO PRN (12:48)
[2024-03-22] MEDS ORDERED: IBUPROFEN 400 MG TABLET (FP) PO PRN (12:48)
[2024-03-22] MEDS ORDERED: MAGNESIUM HYDROX 2400MG/30ML ORAL SUSPENSION 30 ML CUP PO PRN (12:48)
[2024-03-22] MEDS ORDERED: NALOXONE HCL 0.4 MG/ML VIAL IM PRN (12:48)
[2024-03-22] MEDS ORDERED: NALOXONE HCL (KLOXXADO) 8 MG SPRAY NS PRN (12:48)
[2024-03-22] MEDS ORDERED: POLYETHYLENE GLYCOL (HEALTHYLAX) 3350 17 GM PACKET PO PRN (12:48)
[2024-03-22] MEDS ORDERED: BISMUTH SUBSALICYLATE 524 MG/30 ML PO PRN (12:48)
[2024-03-22] MEDS ORDERED: ACETAMINOPHEN 325 MG TABLET (FP) PO PRN (12:48)
[2024-03-22] MEDS ORDERED: ONDANSETRON *ODT* 4 MG TABLET SL PRN (12:48)
[2024-03-22] MEDS ORDERED: PRENATAL VITAMINS W/ FOLIC ACID TABLET (FP) PO ONE (13:24)
[2024-03-22] MEDS ORDERED: NICOTINE 14 MG/24 HOURS TOPICAL PATCH TD ONE (13:24)
[2024-03-22] MEDS: NICOTINE 14 MG/24 HOURS TOPICAL PATCH TD SCH (13:33)
[2024-03-22] MEDS: PRENATAL VITAMINS W/ FOLIC ACID TABLET (FP) PO SCH (13:34)
[2024-03-22] MEDS: chlordiazePOXIDE HCL 25 MG CAPSULE PO SCH (17:26)
[2024-03-22] MEDS: METHOCARBAMOL 500 MG TABLET PO PRN (22:16)
[2024-03-22] MEDS: MELATONIN 5 MG TABLETS PO SCH (22:16)
[2024-03-22] MEDS: THIAMINE 100 MG TABLET PO SCH (22:16)
[2024-03-22] MEDS: METHYL SALICYLATE/MENTHOL OINT 30 GM TUBE TP SCH (22:20)
[2024-03-23] MEDS ORDERED: ALBUTEROL SO4 HFA INHALER IH PRN (08:50)
[2024-03-23 09:51] LABS: HEMATOCRIT 43.6 % (35.4-49); HEMOGLOBIN 14.6 GM/dL (11.7-16.9); MCH 30.3 pg (25.7-33.7); MCHC 33.6 g/dl (32.0-35.9); MEAN CELL VOLUME 90.1 fl (80-96); PLATELET COUNT 237 10^3/uL (134-434); RBC 4.84 M/mm3 (4.00-5.60); RDW 14.6 % (11.9-15.9)
[2024-03-23 09:54] LABS: POTASSIUM 4.1 mmol/L (3.5-5.1)
[2024-03-23 10:11] LABS: CALCIUM 8.7 mg/dL (8.5-10.1)
[2024-03-23 10:12] LABS: ALBUMIN 3.9 g/dl (3.4-5.0)
[2024-03-23 10:16] LABS: TOT PROT 7.9 g/dl (6.4-8.2)
[2024-03-23 10:19] LABS: BILIRUBIN,TOTAL 0.6 mg/dL (0.2-1)
[2024-03-23] MEDS: lamoTRIgine 25 MG TABLET PO SCH (10:53)
[2024-03-23] MEDS: BUDESONIDE/FORMETEROL FUMARATE 160/4.5 mcg INHALER IH SCH (10:53)
[2024-03-23] MEDS: GABAPENTIN 300 MG CAPSULE PO SCH (10:53)
[2024-03-23] MEDS: LACTULOSE 20 GM/30 ML UDC (FOR ORAL USE ONLY) PO SCH (15:58)
[2024-03-23] MEDS: metFORMIN HCL 500 MG TABLET (FP) PO SCH (19:55)
[2024-03-23] MEDS: ATORVASTATIN CA 10 MG TABLET (FP) PO SCH (22:17)
[2024-03-23] MEDS: traZODone HCL 100 MG TABLET (FP) PO SCH (22:17)
[2024-03-24] MEDS: chlordiazePOXIDE HCL 25 MG CAPSULE PO SCH (05:50)
[2024-03-25] MEDS ORDERED: chlordiazePOXIDE HCL 10 MG CAPSULE PO PRN
[2024-03-25] MEDS: chlordiazePOXIDE HCL 10 MG CAPSULE PO SCH (05:33)
[2024-03-25 06:01] VITALS: RESP 16
[2024-03-25 08:55] VITALS: BP 111/69; PULSE 68; TEMP 98.1
[2024-03-26] MEDS ORDERED: chlordiazePOXIDE HCL 10 MG CAPSULE PO SCH (05:00)
[2024-03-27] MEDS ORDERED: chlordiazePOXIDE HCL 10 MG CAPSULE PO ONE (05:00)
== END 2024-03-25 12:07 | disposition left against medical advice (07) | DRG 770 ==
LOC: YASAS 11:43 → Y3N 13:24
PROVIDERS: ADMIT Allergy & Immunology; ATTEND Surgery
PROC: HZ2ZZZZ Detoxification Services for Substance Abuse Treatment (ICD-10-PCS; principal; 2024-03-22)
DX: F10.230 Alcohol dependence with withdrawal, uncomplicated (principal); F17.210 Nicotine dependence, cigarettes, uncomplicated; F32.A Depression, unspecified; I10 Essential (primary) hypertension; E78.5 Hyperlipidemia, unspecified; I73.9 Peripheral vascular disease, unspecified; J43.0 Unilateral pulmonary emphysema [MacLeod's syndrome]; J45.20 Mild intermittent asthma, uncomplicated; K74.60 Unspecified cirrhosis of liver; M17.0 Bilateral primary osteoarthritis of knee; E11.9 Type 2 diabetes mellitus without complications; E72.20 Disorder of urea cycle metabolism, unspecified; G47.00 Insomnia, unspecified; M54.59 Other low back pain; G89.29 Other chronic pain; E66.01 Morbid (severe) obesity due to excess calories; Z68.38 Body mass index [BMI] 38.0-38.9, adult; R26.2 Difficulty in walking, not elsewhere classified; Z99.89 Dependence on other enabling machines and devices; Z79.84 Long term (current) use of oral hypoglycemic drugs; Z91.010 Allergy to peanuts; Z91.013 Allergy to seafood; Z86.73 Personal history of transient ischemic attack (TIA), and cerebral infarction without residual deficits; Z56.0 Unemployment, unspecified; Z59.00 Homelessness unspecified
CPT/HCPCS: 36415; 80053; 80305; 80307; 82140; 82962; 85027; 86593; 86780; 93005; 93010

== ENCOUNTER 2024-04-17 17:19 | Inpatient (IN) | payer OTHER ==
[2024-04-17 17:54] VITALS: BMI 39.1
[2024-04-17] MEDS ORDERED: ALBUTEROL SO4 HFA INHALER IH PRN (18:52)
[2024-04-17] MEDS ORDERED: guaiFENesin 600 MG TABLET.ER (FP) PO PRN (19:19)
[2024-04-17] MEDS ORDERED: BISMUTH SUBSALICYLATE 524 MG/30 ML PO PRN (19:19)
[2024-04-17] MEDS ORDERED: MAGNESIUM HYDROX 2400MG/30ML ORAL SUSPENSION 30 ML CUP PO PRN (19:19)
[2024-04-17] MEDS ORDERED: LOPERAMIDE HCL 2 MG CAPSULE PO PRN (19:19)
[2024-04-17] MEDS ORDERED: NALOXONE HCL 0.4 MG/ML VIAL IM PRN (19:19)
[2024-04-17] MEDS ORDERED: NALOXONE HCL (KLOXXADO) 8 MG SPRAY NS PRN (19:19)
[2024-04-17] MEDS ORDERED: MAG HYDROX/AL HYDROX/SIMETH 30 ML UNIT-DOSE CUP PO PRN (19:19)
[2024-04-17] MEDS ORDERED: IBUPROFEN 400 MG TABLET (FP) PO PRN (19:19)
[2024-04-17] MEDS ORDERED: DICYCLOMINE HCL 10 MG CAPSULE PO PRN (19:19)
[2024-04-17] MEDS ORDERED: POLYETHYLENE GLYCOL (HEALTHYLAX) 3350 17 GM PACKET PO PRN (19:19)
[2024-04-17] MEDS ORDERED: ACETAMINOPHEN 325 MG TABLET (FP) PO PRN (19:19)
[2024-04-17] MEDS ORDERED: BENZOCAINE/MENTHOL (CHLORASEPTIC ) LOZENGE MM PRN (19:19)
[2024-04-17] MEDS ORDERED: BENZONATATE 200 MG CAPSULE PO PRN (19:19)
[2024-04-17] MEDS: hydrOXYzine PAMOATE 25 MG CAPSULE (FP) PO PRN (20:17)
[2024-04-17] MEDS: metFORMIN HCL 500 MG TABLET (FP) PO SCH (20:18)
[2024-04-17] MEDS: MELATONIN 5 MG TABLETS PO SCH (22:42)
[2024-04-17] MEDS: METHOCARBAMOL 500 MG TABLET PO PRN (22:42)
[2024-04-17] MEDS: THIAMINE 100 MG TABLET PO SCH (22:42)
[2024-04-17] MEDS: ATORVASTATIN CA 10 MG TABLET (FP) PO SCH (22:42)
[2024-04-17] MEDS: BUDESONIDE/FORMETEROL FUMARATE 160/4.5 mcg INHALER IH SCH (22:43)
[2024-04-18] MEDS: INSULIN ASPART SLIDING SCALE (NOVOLOG) 1 VIAL SQ SCH (06:03)
[2024-04-18] MEDS ORDERED: INSULIN ASPART SLIDING SCALE (NOVOLOG) 1 VIAL SQ SCH (07:00)
[2024-04-18] MEDS: PRENATAL VITAMINS W/ FOLIC ACID TABLET (FP) PO SCH (10:37)
[2024-04-18] MEDS: ONDANSETRON *ODT* 4 MG TABLET SL PRN (10:57)
[2024-04-18] MEDS: lamoTRIgine 25 MG TABLET PO SCH (11:10)
[2024-04-18 11:51] LABS: HEMATOCRIT 39.8 % (35.4-49); HEMOGLOBIN 13.5 GM/dL (11.7-16.9); MCH 30.8 pg (25.7-33.7); MEAN CELL VOLUME 90.5 fl (80-96); MEAN PLT VOLUME 8.5 fl (7.5-11.1); PLATELET COUNT 181 10^3/uL (134-434); RDW 14.4 % (11.9-15.9); WHITE BLOOD COUNT 6.9 K/mm3 (4.0-10.0)
[2024-04-18 12:26] LABS: CHLORIDE 109 mmol/L (98-107); POTASSIUM 3.9 mmol/L (3.5-5.1); SODIUM 142 mmol/L (136-145)
[2024-04-18 12:29] LABS: ALBUMIN 3.5 g/dl (3.4-5.0); ANION GAP 6 mmol/L (4-13); CALCIUM 8.8 mg/dL (8.5-10.1); CO2 26 mmol/L (21-32)
[2024-04-18 12:30] LABS: BLOOD UREA NITROGEN 14.2 mg/dL (7-18)
[2024-04-18 12:31] LABS: GLUCOSE,RANDOM 119 mg/dL (74-106)
[2024-04-18 12:32] LABS: SGPT/ALT 106 U/L (13-61)
[2024-04-18 12:33] LABS: CREATININE 0.9 mg/dL (0.55-1.3)
[2024-04-18 12:34] LABS: BILIRUBIN,TOTAL 0.3 mg/dL (0.2-1); SGOT/AST 69 U/L (15-37); TOT PROT 6.8 g/dl (6.4-8.2)
[2024-04-18 12:35] LABS: ALK PHOS 118 U/L (45-117)
[2024-04-18] MEDS: LORazepam 0.5 MG TABLET PO SCH (13:17)
[2024-04-18] MEDS: ACAMPROSATE CALCIUM 333 MG TABLET.DR PO SCH (13:18)
[2024-04-18] MEDS: traZODone HCL 100 MG TABLET (FP) PO SCH (22:49)
[2024-04-19] MEDS: LORazepam 0.5 MG TABLET PO ONE (05:26)
[2024-04-19 06:08] VITALS: BP 147/79; PULSE 82; RESP 16; TEMP 97.3
[2024-04-19] MEDS: IBUPROFEN 600 MG TABLET (FP) PO PRN (06:14)
== END 2024-04-19 09:30 | disposition home or self-care (01) | DRG 774 ==
LOC: YASAS 17:19 → Y6N 19:22
PROVIDERS: ADMIT Allergy & Immunology; ATTEND Surgery
PROC: HZ2ZZZZ Detoxification Services for Substance Abuse Treatment (ICD-10-PCS; principal; 2024-04-17)
DX: F10.230 Alcohol dependence with withdrawal, uncomplicated (principal); F14.20 Cocaine dependence, uncomplicated; F17.210 Nicotine dependence, cigarettes, uncomplicated; F19.282 Other psychoactive substance dependence with psychoactive substance-induced sleep disorder; F31.9 Bipolar disorder, unspecified; E78.5 Hyperlipidemia, unspecified; E11.9 Type 2 diabetes mellitus without complications; J45.20 Mild intermittent asthma, uncomplicated; J43.0 Unilateral pulmonary emphysema [MacLeod's syndrome]; K70.30 Alcoholic cirrhosis of liver without ascites; R79.89 Other specified abnormal findings of blood chemistry; R53.1 Weakness; Z99.89 Dependence on other enabling machines and devices; Z59.01 Sheltered homelessness
CPT/HCPCS: 36415; 80053; 80305; 80307; 82140; 82962; 85027; 86593; 86780; 93005; 93010; Q0162

== ENCOUNTER 2024-05-11 12:58 | Inpatient (IN) | payer OTHER ==
[2024-05-11 14:34] VITALS: BMI 39.4
[2024-05-11] MEDS ORDERED: IBUPROFEN 400 MG TABLET (FP) PO PRN (16:21)
[2024-05-11] MEDS ORDERED: BISMUTH SUBSALICYLATE 524 MG/30 ML PO PRN (16:21)
[2024-05-11] MEDS ORDERED: NALOXONE (NARCAN) HCL 4 MG/0.1 ML SPRAY NS PRN (16:21)
[2024-05-11] MEDS ORDERED: MAG HYDROX/AL HYDROX/SIMETH 30 ML UNIT-DOSE CUP PO PRN (16:21)
[2024-05-11] MEDS ORDERED: MAGNESIUM HYDROX 2400MG/30ML ORAL SUSPENSION 30 ML CUP PO PRN (16:21)
[2024-05-11] MEDS ORDERED: NALOXONE HCL 0.4 MG/ML VIAL IM PRN (16:21)
[2024-05-11] MEDS ORDERED: BENZONATATE 200 MG CAPSULE PO PRN (16:21)
[2024-05-11] MEDS ORDERED: DICYCLOMINE HCL 10 MG CAPSULE PO PRN (16:21)
[2024-05-11] MEDS ORDERED: POLYETHYLENE GLYCOL (HEALTHYLAX) 3350 17 GM PACKET PO PRN (16:21)
[2024-05-11] MEDS ORDERED: ACETAMINOPHEN 325 MG TABLET (FP) PO PRN (16:21)
[2024-05-11] MEDS ORDERED: LOPERAMIDE HCL 2 MG CAPSULE PO PRN (16:21)
[2024-05-11] MEDS ORDERED: BENZOCAINE/MENTHOL (CHLORASEPTIC ) LOZENGE MM PRN (16:21)
[2024-05-11] MEDS: diazePAM 5 MG TABLET PO PRN (18:22)
[2024-05-11] MEDS ORDERED: ALBUTEROL SO4 HFA INHALER IH PRN (19:29)
[2024-05-11] MEDS: METHOCARBAMOL 500 MG TABLET PO PRN (22:17)
[2024-05-11] MEDS: diazePAM 5 MG TABLET PO SCH (22:17)
[2024-05-11] MEDS: ATORVASTATIN CA 10 MG TABLET (FP) PO SCH (22:17)
[2024-05-11] MEDS: THIAMINE 100 MG TABLET PO SCH (22:17)
[2024-05-11] MEDS: MELATONIN 5 MG TABLETS PO SCH (22:17)
[2024-05-11] MEDS: BUDESONIDE/FORMETEROL FUMARATE 160/4.5 mcg INHALER IH SCH (22:18)
[2024-05-12] MEDS: ONDANSETRON *ODT* 4 MG TABLET SL PRN (06:15)
[2024-05-12] MEDS: metFORMIN HCL 500 MG TABLET (FP) PO SCH (06:15)
[2024-05-12] MEDS: INSULIN ASPART SLIDING SCALE (NOVOLOG) 1 VIAL SQ SCH (06:42)
[2024-05-12] MEDS: PRENATAL VITAMINS W/ FOLIC ACID TABLET (FP) PO SCH (10:31)
[2024-05-12] MEDS: lamoTRIgine 25 MG TABLET PO SCH (10:34)
[2024-05-12 14:38] LABS: HEMATOCRIT 41.5 % (35.4-49); MCH 30.4 pg (25.7-33.7); MCHC 33.8 g/dl (32.0-35.9); MEAN CELL VOLUME 89.9 fl (80-96); MEAN PLT VOLUME 8.8 fl (7.5-11.1); PLATELET COUNT 208 10^3/uL (134-434); RBC 4.61 M/mm3 (4.00-5.60); RDW 14.3 % (11.9-15.9); WHITE BLOOD COUNT 8.8 K/mm3 (4.0-10.0)
[2024-05-12 14:54] LABS: CHLORIDE 107 mmol/L (98-107); POTASSIUM 4.6 mmol/L (3.5-5.1); SODIUM 140 mmol/L (136-145)
[2024-05-12 15:05] LABS: CALCIUM 8.6 mg/dL (8.5-10.1)
[2024-05-12 15:06] LABS: ALBUMIN 3.6 g/dl (3.4-5.0); ANION GAP 6 mmol/L (4-13); BLOOD UREA NITROGEN 14.8 mg/dL (7-18); CO2 27 mmol/L (21-32); GLUCOSE,RANDOM 138 mg/dL (74-106)
[2024-05-12 15:09] LABS: CREATININE 0.8 mg/dL (0.55-1.3); SGPT/ALT 76 U/L (13-61)
[2024-05-12 15:10] LABS: BILIRUBIN,TOTAL 0.6 mg/dL (0.2-1); SGOT/AST 47 U/L (15-37)
[2024-05-12 15:11] LABS: ALK PHOS 112 U/L (45-117)
[2024-05-12] MEDS: traZODone HCL 100 MG TABLET (FP) PO SCH (22:04)
[2024-05-13] MEDS: diazePAM 5 MG TABLET PO SCH (06:21)
[2024-05-13] MEDS: guaiFENesin 600 MG TABLET.ER (FP) PO PRN (10:33)
[2024-05-13] MEDS: guaiFENesin 200 MG/10 ML 10 ML UNIT-DOSE CUPS PO PRN (15:25)
[2024-05-13 16:56] LABS: INR 1.04 (0.83-1.09); PROTHROMBIN TIME (PATIENT) 11.7 SEC (9.7-13.0)
[2024-05-14] MEDS: diazePAM 5 MG TABLET PO SCH (06:27)
[2024-05-14] MEDS: LACTULOSE 20 GM/30 ML UDC (FOR ORAL USE ONLY) PO SCH (13:14)
[2024-05-14] MEDS: hydrOXYzine PAMOATE 25 MG CAPSULE (FP) PO PRN (21:19)
[2024-05-15] MEDS: diazePAM 5 MG TABLET PO ONE (05:52)
[2024-05-15 09:46] VITALS: RESP 18
[2024-05-15] MEDS: IBUPROFEN 600 MG TABLET (FP) PO PRN (10:16)
[2024-05-15 17:14] VITALS: BP 130/69; PULSE 71; TEMP 97.7
== END 2024-05-15 18:08 | disposition home or self-care (01) | DRG 774 ==
LOC: YASAS 12:58 → Y3N 17:40
PROVIDERS: ADMIT Allergy & Immunology; ATTEND Surgery
PROC: HZ2ZZZZ Detoxification Services for Substance Abuse Treatment (ICD-10-PCS; principal; 2024-05-11)
DX: F10.230 Alcohol dependence with withdrawal, uncomplicated (principal); F14.10 Cocaine abuse, uncomplicated; F17.210 Nicotine dependence, cigarettes, uncomplicated; F31.9 Bipolar disorder, unspecified; F19.24 Other psychoactive substance dependence with psychoactive substance-induced mood disorder; F41.9 Anxiety disorder, unspecified; E78.5 Hyperlipidemia, unspecified; I10 Essential (primary) hypertension; J45.20 Mild intermittent asthma, uncomplicated; J43.0 Unilateral pulmonary emphysema [MacLeod's syndrome]; K74.60 Unspecified cirrhosis of liver; E11.9 Type 2 diabetes mellitus without complications; Z79.84 Long term (current) use of oral hypoglycemic drugs
CPT/HCPCS: 36415; 80053; 80305; 80307; 82140; 82962; 85027; 85610; 86593; 86780; 87811; 93005; 93010; Q0162

== ENCOUNTER 2024-05-15 18:37 | Inpatient (IN) | payer OTHER ==
[2024-05-15] MEDS ORDERED: NALOXONE (NARCAN) HCL 4 MG/0.1 ML SPRAY NS PRN (19:48)
[2024-05-15] MEDS ORDERED: BENZOCAINE/MENTHOL (CHLORASEPTIC ) LOZENGE MM PRN (19:48)
[2024-05-15] MEDS ORDERED: LOPERAMIDE HCL 2 MG CAPSULE PO PRN (19:48)
[2024-05-15] MEDS ORDERED: BENZONATATE 200 MG CAPSULE PO PRN (19:48)
[2024-05-15] MEDS ORDERED: NALOXONE HCL 0.4 MG/ML VIAL IVPUSH PRN (19:48)
[2024-05-15] MEDS ORDERED: IBUPROFEN 400 MG TABLET (FP) PO PRN (19:48)
[2024-05-15] MEDS ORDERED: MAG HYDROX/AL HYDROX/SIMETH 30 ML UNIT-DOSE CUP PO PRN (19:48)
[2024-05-15] MEDS ORDERED: MAGNESIUM HYDROX 2400MG/30ML ORAL SUSPENSION 30 ML CUP PO PRN (19:48)
[2024-05-15] MEDS ORDERED: ACETAMINOPHEN 325 MG TABLET (FP) PO PRN (19:48)
[2024-05-15] MEDS ORDERED: ALBUTEROL SO4 HFA INHALER IH PRN (19:50)
[2024-05-15] MEDS: BUDESONIDE/FORMETEROL FUMARATE 160/4.5 mcg INHALER IH SCH (21:41)
[2024-05-15] MEDS: ATORVASTATIN CA 10 MG TABLET (FP) PO SCH (21:41)
[2024-05-15] MEDS: LACTULOSE 20 GM/30 ML UDC (FOR ORAL USE ONLY) PO SCH (21:41)
[2024-05-15] MEDS: traZODone HCL 100 MG TABLET (FP) PO SCH (21:42)
[2024-05-15] MEDS: MELATONIN 5 MG TABLETS PO SCH (21:42)
[2024-05-15] MEDS: THIAMINE 100 MG TABLET PO SCH (21:42)
[2024-05-15] MEDS: METHOCARBAMOL 500 MG TABLET PO PRN (21:42)
[2024-05-16] MEDS: metFORMIN HCL 500 MG TABLET (FP) PO SCH (06:22)
[2024-05-16] MEDS: PRENATAL VITAMINS W/ FOLIC ACID TABLET (FP) PO SCH (09:52)
[2024-05-16] MEDS: lamoTRIgine 25 MG TABLET PO SCH (14:15)
[2024-05-16] MEDS: traZODone HCL 100 MG TABLET (FP) PO SCH (21:16)
[2024-05-17] MEDS: METHYL SALICYLATE/MENTHOL OINT 30 GM TUBE TP SCH (14:09)
[2024-05-17] MEDS: guaiFENesin 600 MG TABLET.ER (FP) PO PRN (23:26)
[2024-05-18] MEDS: hydrOXYzine PAMOATE 25 MG CAPSULE (FP) PO PRN (09:54)
[2024-05-20] MEDS: POLYETHYLENE GLYCOL (HEALTHYLAX) 3350 17 GM PACKET PO PRN (10:25)
[2024-05-21 07:01] VITALS: TEMP 97.1
[2024-05-23 06:54] VITALS: BP 130/71
[2024-05-23] MEDS: IBUPROFEN 600 MG TABLET (FP) PO PRN (09:07)
[2024-05-23 09:12] VITALS: PULSE 73; RESP 18
== END 2024-05-23 09:31 | disposition home or self-care (01) | DRG 772 ==
LOC: YASAS 18:37 → Y3W 18:39
PROVIDERS: ADMIT Allergy & Immunology; ATTEND Psychiatry & Neurology Pain Medicine
PROC: HZ42ZZZ Group Counseling for Substance Abuse Treatment, Cognitive-Behavioral (ICD-10-PCS; principal; 2024-05-15)
DX: F10.20 Alcohol dependence, uncomplicated (principal); F14.20 Cocaine dependence, uncomplicated; F17.210 Nicotine dependence, cigarettes, uncomplicated; F19.282 Other psychoactive substance dependence with psychoactive substance-induced sleep disorder; F19.24 Other psychoactive substance dependence with psychoactive substance-induced mood disorder; F32.A Depression, unspecified; J43.0 Unilateral pulmonary emphysema [MacLeod's syndrome]; I10 Essential (primary) hypertension; E11.9 Type 2 diabetes mellitus without complications; Z79.84 Long term (current) use of oral hypoglycemic drugs; K70.30 Alcoholic cirrhosis of liver without ascites; M17.0 Bilateral primary osteoarthritis of knee; Z99.89 Dependence on other enabling machines and devices
CPT/HCPCS: 0241U-QW; 36415; 82962; 86803

== ENCOUNTER 2024-07-08 12:14 | Inpatient (IN) | payer OTHER ==
[2024-07-08 13:23] VITALS: BMI 42.2
[2024-07-08] MEDS ORDERED: ALBUTEROL SO4 HFA INHALER IH PRN (13:43)
[2024-07-08] MEDS ORDERED: guaiFENesin 600 MG TABLET.ER (FP) PO PRN (14:00)
[2024-07-08] MEDS ORDERED: MAG HYDROX/AL HYDROX/SIMETH 30 ML UNIT-DOSE CUP PO PRN (14:00)
[2024-07-08] MEDS ORDERED: DICYCLOMINE HCL 10 MG CAPSULE PO PRN (14:00)
[2024-07-08] MEDS ORDERED: BENZONATATE 200 MG CAPSULE PO PRN (14:00)
[2024-07-08] MEDS ORDERED: MAGNESIUM HYDROX 2400MG/30ML ORAL SUSPENSION 30 ML CUP PO PRN (14:00)
[2024-07-08] MEDS ORDERED: ACETAMINOPHEN 325 MG TABLET (FP) PO PRN (14:00)
[2024-07-08] MEDS ORDERED: POLYETHYLENE GLYCOL (HEALTHYLAX) 3350 17 GM PACKET PO PRN (14:00)
[2024-07-08] MEDS: metFORMIN HCL 500 MG TABLET (FP) PO SCH (16:52)
[2024-07-08] MEDS: diazePAM 5 MG TABLET PO SCH (17:52)
[2024-07-08] MEDS: ATORVASTATIN CA 10 MG TABLET (FP) PO SCH (22:55)
[2024-07-08] MEDS: BUDESONIDE/FORMETEROL FUMARATE 160/4.5 mcg INHALER IH SCH (22:58)
[2024-07-08] MEDS: MELATONIN 5 MG TABLETS PO SCH (23:23)
[2024-07-09] MEDS: PRENATAL VITAMINS W/ FOLIC ACID TABLET (FP) PO SCH (10:52)
[2024-07-09 11:11] LABS: POTASSIUM 4.3 mmol/L (3.5-5.1)
[2024-07-09 11:13] LABS: CALCIUM 8.7 mg/dL (8.5-10.1)
[2024-07-09 11:14] LABS: ALBUMIN 3.3 g/dl (3.4-5.0); BLOOD UREA NITROGEN 16.2 mg/dL (7-18)
[2024-07-09 11:17] LABS: CREATININE 0.8 mg/dL (0.55-1.3); HEMATOCRIT 40.5 % (35.4-49); HEMOGLOBIN 13.4 GM/dL (11.7-16.9); MCHC 33.1 g/dl (32.0-35.9); MEAN CELL VOLUME 90.6 fl (80-96); MEAN PLT VOLUME 8.3 fl (7.5-11.1); PLATELET COUNT 201 10^3/uL (134-434); RBC 4.47 M/mm3 (4.00-5.60); RDW 13.9 % (11.9-15.9); WHITE BLOOD COUNT 8.5 K/mm3 (4.0-10.0)
[2024-07-09 11:18] LABS: BILIRUBIN,TOTAL 0.4 mg/dL (0.2-1); TOT PROT 6.4 g/dl (6.4-8.2)
[2024-07-09] MEDS: traZODone HCL 100 MG TABLET (FP) PO SCH (22:35)
[2024-07-09] MEDS: THIAMINE 100 MG TABLET PO SCH (22:36)
[2024-07-09] MEDS: IBUPROFEN 400 MG TABLET (FP) PO PRN (22:38)
[2024-07-10] MEDS: diazePAM 5 MG TABLET PO SCH (06:13)
[2024-07-10] MEDS: lamoTRIgine 25 MG TABLET PO SCH (09:53)
[2024-07-10] MEDS: METHYL SALICYLATE/MENTHOL 30 GM TUBE TP SCH (13:30)
[2024-07-10] MEDS: diazePAM 5 MG TABLET PO PRN (17:33)
[2024-07-11] MEDS: diazePAM 5 MG TABLET PO SCH (05:28)
[2024-07-11 09:27] VITALS: RESP 18
[2024-07-11 12:50] VITALS: BP 148/76; PULSE 72; TEMP 98.1
[2024-07-12] MEDS ORDERED: diazePAM 5 MG TABLET PO ONE (06:00)
== END 2024-07-11 14:17 | disposition home or self-care (01) | DRG 774 ==
LOC: YASAS 12:14 → Y6N 14:53
PROVIDERS: ADMIT Allergy & Immunology; ATTEND Surgery
PROC: HZ2ZZZZ Detoxification Services for Substance Abuse Treatment (ICD-10-PCS; principal; 2024-07-08)
DX: F10.230 Alcohol dependence with withdrawal, uncomplicated (principal); F14.20 Cocaine dependence, uncomplicated; F17.210 Nicotine dependence, cigarettes, uncomplicated; F31.9 Bipolar disorder, unspecified; F41.9 Anxiety disorder, unspecified; G47.00 Insomnia, unspecified; I10 Essential (primary) hypertension; E78.5 Hyperlipidemia, unspecified; E11.9 Type 2 diabetes mellitus without complications; Z79.84 Long term (current) use of oral hypoglycemic drugs; J44.9 Chronic obstructive pulmonary disease, unspecified; M17.0 Bilateral primary osteoarthritis of knee; Z86.73 Personal history of transient ischemic attack (TIA), and cerebral infarction without residual deficits; Z88.8 Allergy status to other drugs, medicaments and biological substances
CPT/HCPCS: 36415; 80053; 80305; 80307; 82962; 85027; 86593; 86780

== ENCOUNTER 2024-08-12 13:26 | Inpatient (IN) | payer OTHER ==
[2024-08-12 14:17] VITALS: BMI 40.0
[2024-08-12] MEDS ORDERED: diazePAM 5 MG TABLET PO PRN (15:17)
[2024-08-12] MEDS ORDERED: NALOXONE HCL 0.4 MG/ML VIAL IM PRN (15:17)
[2024-08-12] MEDS ORDERED: BENZONATATE 200 MG CAPSULE PO PRN (15:17)
[2024-08-12] MEDS ORDERED: NALOXONE (NARCAN) HCL 4 MG/0.1 ML SPRAY NS PRN (15:17)
[2024-08-12] MEDS ORDERED: ONDANSETRON *ODT* 4 MG TABLET SL PRN (15:17)
[2024-08-12] MEDS ORDERED: ACETAMINOPHEN 325 MG TABLET (FP) PO PRN (15:17)
[2024-08-12] MEDS ORDERED: MAGNESIUM HYDROX 2400MG/30ML ORAL SUSPENSION 30 ML CUP PO PRN (15:17)
[2024-08-12] MEDS ORDERED: DICYCLOMINE HCL 10 MG CAPSULE PO PRN ×2 (15:17→15:19)
[2024-08-12] MEDS ORDERED: MAG HYDROX/AL HYDROX/SIMETH 30 ML UNIT-DOSE CUP PO PRN (15:17)
[2024-08-12] MEDS ORDERED: BENZOCAINE/MENTHOL (CHLORASEPTIC ) LOZENGE MM PRN (15:17)
[2024-08-12] MEDS ORDERED: LOPERAMIDE HCL 2 MG CAPSULE PO PRN (15:17)
[2024-08-12] MEDS ORDERED: guaiFENesin 600 MG TABLET.ER (FP) PO PRN (15:17)
[2024-08-12] MEDS ORDERED: BISMUTH SUBSALICYLATE 524 MG/30 ML PO PRN (15:17)
[2024-08-12] MEDS ORDERED: POLYETHYLENE GLYCOL (HEALTHYLAX) 3350 17 GM PACKET PO PRN (15:17)
[2024-08-12] MEDS ORDERED: IBUPROFEN 400 MG TABLET (FP) PO PRN (15:17)
[2024-08-12] MEDS ORDERED: ALBUTEROL SO4 HFA INHALER IH PRN (15:19)
[2024-08-12] MEDS ORDERED: PRENATAL VITAMINS W/ FOLIC ACID TABLET (FP) PO ONE (15:55)
[2024-08-12] MEDS: PRENATAL VITAMINS W/ FOLIC ACID TABLET (FP) PO SCH (15:59)
[2024-08-12] MEDS: diazePAM 5 MG TABLET PO SCH (17:35)
[2024-08-12] MEDS: metFORMIN HCL 500 MG TABLET (FP) PO SCH (17:35)
[2024-08-12] MEDS: NALTREXONE HCL 50 MG TABLET PO SCH (17:55)
[2024-08-12] MEDS: THIAMINE 100 MG TABLET PO SCH (22:29)
[2024-08-12] MEDS: ACAMPROSATE CALCIUM 333 MG TABLET.DR PO SCH (22:29)
[2024-08-12] MEDS: ATORVASTATIN CA 10 MG TABLET (FP) PO SCH (22:31)
[2024-08-12] MEDS: MELATONIN 5 MG TABLETS PO SCH (22:37)
[2024-08-12] MEDS: BUDESONIDE/FORMETEROL FUMARATE 160/4.5 mcg INHALER IH SCH (22:38)
[2024-08-13 08:59] LABS: HEMATOCRIT 41.6 % (35.4-49); HEMOGLOBIN 13.5 GM/dL (11.7-16.9); MCH 29.8 pg (25.7-33.7); MCHC 32.5 g/dl (32.0-35.9); MEAN CELL VOLUME 91.7 fl (80-96); MEAN PLT VOLUME 8.2 fl (7.5-11.1); PLATELET COUNT 188 10^3/uL (134-434); RBC 4.53 M/mm3 (4.00-5.60); RDW 14.3 % (11.9-15.9); WHITE BLOOD COUNT 7.8 K/mm3 (4.0-10.0)
[2024-08-13 09:00] LABS: POTASSIUM 4.3 mmol/L (3.5-5.1)
[2024-08-13 09:11] LABS: ALBUMIN 3.5 g/dl (3.4-5.0); CALCIUM 9.3 mg/dL (8.5-10.1)
[2024-08-13 09:14] LABS: CREATININE 0.8 mg/dL (0.55-1.3)
[2024-08-13 09:16] LABS: BILIRUBIN,TOTAL 0.4 mg/dL (0.2-1); TOT PROT 6.8 g/dl (6.4-8.2)
[2024-08-13] MEDS: hydrOXYzine PAMOATE 25 MG CAPSULE (FP) PO PRN (10:07)
[2024-08-13] MEDS: METHOCARBAMOL 500 MG TABLET PO PRN (10:07)
[2024-08-13] MEDS: lamoTRIgine 25 MG TABLET PO SCH (11:17)
[2024-08-13] MEDS: METHYL SALICYLATE/MENTHOL 30 GM TUBE TP SCH (12:07)
[2024-08-13] MEDS: traZODone HCL 100 MG TABLET (FP) PO SCH (22:24)
[2024-08-14] MEDS: diazePAM 5 MG TABLET PO SCH (06:04)
[2024-08-15] MEDS: diazePAM 5 MG TABLET PO SCH (05:32)
[2024-08-16] MEDS: diazePAM 5 MG TABLET PO ONE (05:29)
[2024-08-16] MEDS: IBUPROFEN 600 MG TABLET (FP) PO PRN (05:53)
[2024-08-16 05:56] VITALS: BP 116/63; PULSE 66; RESP 18; TEMP 98.7
== END 2024-08-16 09:10 | disposition other institution (70) | DRG 774 ==
LOC: YASAS 13:26 → Y6N 16:07
PROVIDERS: ADMIT Allergy & Immunology; ATTEND Surgery
PROC: HZ2ZZZZ Detoxification Services for Substance Abuse Treatment (ICD-10-PCS; principal; 2024-08-12)
DX: F10.230 Alcohol dependence with withdrawal, uncomplicated (principal); F14.20 Cocaine dependence, uncomplicated; F17.210 Nicotine dependence, cigarettes, uncomplicated; F19.282 Other psychoactive substance dependence with psychoactive substance-induced sleep disorder; F19.24 Other psychoactive substance dependence with psychoactive substance-induced mood disorder; F32.9 Major depressive disorder, single episode, unspecified; E78.5 Hyperlipidemia, unspecified; E11.9 Type 2 diabetes mellitus without complications; Z79.84 Long term (current) use of oral hypoglycemic drugs; J43.0 Unilateral pulmonary emphysema [MacLeod's syndrome]; J45.20 Mild intermittent asthma, uncomplicated; M19.90 Unspecified osteoarthritis, unspecified site; Z86.19 Personal history of other infectious and parasitic diseases; Z86.73 Personal history of transient ischemic attack (TIA), and cerebral infarction without residual deficits; Z99.89 Dependence on other enabling machines and devices
CPT/HCPCS: 36415; 80053; 80305; 80307; 82962; 85027; 86593; 86780; 93005; 93010

== ENCOUNTER 2024-09-17 12:17 | Inpatient (IN) | payer OTHER ==
[2024-09-17 13:16] VITALS: BMI 38.9
[2024-09-17] MEDS ORDERED: DICYCLOMINE HCL 10 MG CAPSULE PO PRN (15:07)
[2024-09-17] MEDS ORDERED: guaiFENesin 600 MG TABLET.ER (FP) PO PRN (15:07)
[2024-09-17] MEDS ORDERED: BISMUTH SUBSALICYLATE 524 MG/30 ML PO PRN (15:07)
[2024-09-17] MEDS ORDERED: LOPERAMIDE HCL 2 MG CAPSULE PO PRN (15:07)
[2024-09-17] MEDS ORDERED: MAG HYDROX/AL HYDROX/SIMETH 30 ML UNIT-DOSE CUP PO PRN (15:07)
[2024-09-17] MEDS ORDERED: IBUPROFEN 400 MG TABLET (FP) PO PRN (15:07)
[2024-09-17] MEDS ORDERED: BENZONATATE 200 MG CAPSULE PO PRN (15:07)
[2024-09-17] MEDS ORDERED: ACETAMINOPHEN 325 MG TABLET (FP) PO PRN (15:07)
[2024-09-17] MEDS ORDERED: MAGNESIUM HYDROX 2400MG/30ML ORAL SUSPENSION 30 ML CUP PO PRN (15:07)
[2024-09-17] MEDS ORDERED: METHOCARBAMOL 500 MG TABLET PO PRN (15:07)
[2024-09-17] MEDS ORDERED: BENZOCAINE/MENTHOL (CHLORASEPTIC ) LOZENGE MM PRN (15:07)
[2024-09-17] MEDS ORDERED: NALOXONE (NARCAN) HCL 4 MG/0.1 ML SPRAY NS PRN (15:07)
[2024-09-17] MEDS ORDERED: ONDANSETRON *ODT* 4 MG TABLET SL PRN (15:07)
[2024-09-17] MEDS ORDERED: POLYETHYLENE GLYCOL (HEALTHYLAX) 3350 17 GM PACKET PO PRN (15:07)
[2024-09-17] MEDS ORDERED: ALBUTEROL SO4 HFA INHALER IH PRN (15:13)
[2024-09-17] MEDS: metFORMIN HCL 500 MG TABLET (FP) PO SCH (17:38)
[2024-09-17] MEDS: chlordiazePOXIDE HCL 25 MG CAPSULE PO PRN (17:38)
[2024-09-17] MEDS: ATORVASTATIN CA 10 MG TABLET (FP) PO SCH (22:17)
[2024-09-17] MEDS: chlordiazePOXIDE HCL 25 MG CAPSULE PO SCH (22:17)
[2024-09-17] MEDS: THIAMINE 100 MG TABLET PO SCH (22:17)
[2024-09-17] MEDS: BUDESONIDE/FORMETEROL FUMARATE 160/4.5 mcg INHALER IH SCH (22:18)
[2024-09-17] MEDS: MELATONIN 5 MG TABLETS PO SCH (22:18)
[2024-09-18 10:21] LABS: CHLORIDE 107 mmol/L (98-107); POTASSIUM 4.3 mmol/L (3.5-5.1); SODIUM 140 mmol/L (136-145)
[2024-09-18 10:24] LABS: ALBUMIN 3.5 g/dl (3.4-5.0); ANION GAP 5 mmol/L (4-13); CALCIUM 8.7 mg/dL (8.5-10.1); CO2 28 mmol/L (21-32)
[2024-09-18 10:25] LABS: BLOOD UREA NITROGEN 11.8 mg/dL (7-18); GLUCOSE,RANDOM 115 mg/dL (74-106)
[2024-09-18 10:27] LABS: SGPT/ALT 81 U/L (13-61)
[2024-09-18 10:28] LABS: CREATININE 0.9 mg/dL (0.55-1.3); SGOT/AST 49 U/L (15-37)
[2024-09-18 10:29] LABS: BILIRUBIN,TOTAL 0.5 mg/dL (0.2-1); TOT PROT 6.9 g/dl (6.4-8.2)
[2024-09-18 10:30] LABS: ALK PHOS 103 U/L (45-117); HEMATOCRIT 40.9 % (35.4-49); HEMOGLOBIN 13.5 GM/dL (11.7-16.9); MCH 30.4 pg (25.7-33.7); MEAN CELL VOLUME 92.1 fl (80-96); MEAN PLT VOLUME 8.7 fl (7.5-11.1); PLATELET COUNT 182 10^3/uL (134-434); RBC 4.45 M/mm3 (4.00-5.60); RDW 13.8 % (11.9-15.9); WHITE BLOOD COUNT 6.4 K/mm3 (4.0-10.0)
[2024-09-18] MEDS: PRENATAL VITAMINS W/ FOLIC ACID TABLET (FP) PO SCH (10:30)
[2024-09-18] MEDS: NICOTINE 21 MG/24 HOURS TOPICAL PATCH TD SCH (10:31)
[2024-09-18] MEDS: hydrOXYzine PAMOATE 25 MG CAPSULE (FP) PO PRN (10:35)
[2024-09-18] MEDS: LISINOPRIL 10 MG TABLET PO SCH (10:35)
[2024-09-18] MEDS: METHYL SALICYLATE/MENTHOL 30 GM TUBE TP SCH (10:39)
[2024-09-18] MEDS: lamoTRIgine 25 MG TABLET PO SCH (14:20)
[2024-09-18 20:01] LABS: URINE APPEARANCE CLEAR; URINE BILIRUBIN NEGATIVE (NEGATIVE); URINE COLOR YELLOW; URINE GLUCOSE (UA) NEGATIVE (NEGATIVE); URINE KETONE TRACE (NEGATIVE); URINE LEUK ESTERASE NEGATIVE (NEGATIVE); URINE NITRITE NEGATIVE (NEGATIVE); URINE PROTEIN NEGATIVE (NEGATIVE)
[2024-09-18] MEDS: traZODone HCL 100 MG TABLET (FP) PO SCH (22:29)
[2024-09-19] MEDS: chlordiazePOXIDE HCL 25 MG CAPSULE PO SCH (05:38)
[2024-09-20] MEDS ORDERED: chlordiazePOXIDE HCL 10 MG CAPSULE PO PRN
[2024-09-20] MEDS: chlordiazePOXIDE HCL 10 MG CAPSULE PO SCH (05:41)
[2024-09-21] MEDS: chlordiazePOXIDE HCL 10 MG CAPSULE PO SCH (05:31)
[2024-09-21] MEDS: ACAMPROSATE CALCIUM 333 MG TABLET.DR PO SCH (13:56)
[2024-09-22] MEDS: chlordiazePOXIDE HCL 10 MG CAPSULE PO ONE (06:04)
[2024-09-22] MEDS: IBUPROFEN 600 MG TABLET (FP) PO PRN (06:11)
[2024-09-22 06:48] VITALS: RESP 18
[2024-09-22 08:53] VITALS: BP 140/82; PULSE 79; TEMP 97.7
[2024-09-22] MEDS: NALOXONE (NYS OPIOID OVERDOSE PROGRAM) 4 MG/0.1 ML SPRAY NS PRN (09:06)
== END 2024-09-22 09:20 | disposition home or self-care (01) | DRG 774 ==
LOC: YASAS 12:17 → Y6N 15:34
PROVIDERS: ADMIT Surgery; ATTEND Surgery
PROC: HZ2ZZZZ Detoxification Services for Substance Abuse Treatment (ICD-10-PCS; principal; 2024-09-17)
DX: F10.230 Alcohol dependence with withdrawal, uncomplicated (principal); F14.20 Cocaine dependence, uncomplicated; F19.282 Other psychoactive substance dependence with psychoactive substance-induced sleep disorder; F19.24 Other psychoactive substance dependence with psychoactive substance-induced mood disorder; E78.5 Hyperlipidemia, unspecified; I10 Essential (primary) hypertension; E11.9 Type 2 diabetes mellitus without complications; Z79.84 Long term (current) use of oral hypoglycemic drugs; J43.0 Unilateral pulmonary emphysema [MacLeod's syndrome]; M17.0 Bilateral primary osteoarthritis of knee; M54.50 Low back pain, unspecified; G89.29 Other chronic pain; Z86.19 Personal history of other infectious and parasitic diseases; Z99.89 Dependence on other enabling machines and devices
CPT/HCPCS: 36415; 80053; 80305; 80307; 81003; 82962; 85027; 86593; 86780; 93005; 93010

== ENCOUNTER 2024-11-19 09:08 | Inpatient (IN) | payer OTHER ==
[2024-11-19 09:49] VITALS: BMI 40.8
[2024-11-19] MEDS ORDERED: diazePAM 5 MG TABLET PO PRN (10:11)
[2024-11-19] MEDS ORDERED: MAG HYDROX/AL HYDROX/SIMETH 30 ML UNIT-DOSE CUP PO PRN (10:12)
[2024-11-19] MEDS ORDERED: hydrOXYzine PAMOATE 25 MG CAPSULE (FP) PO PRN (10:12)
[2024-11-19] MEDS ORDERED: MAGNESIUM HYDROX 2400MG/30ML ORAL SUSPENSION 30 ML CUP PO PRN (10:12)
[2024-11-19] MEDS ORDERED: POLYETHYLENE GLYCOL (HEALTHYLAX) 3350 17 GM PACKET PO PRN (10:12)
[2024-11-19] MEDS ORDERED: BENZOCAINE/MENTHOL (CHLORASEPTIC ) LOZENGE MM PRN (10:12)
[2024-11-19] MEDS ORDERED: IBUPROFEN 400 MG TABLET (FP) PO PRN (10:12)
[2024-11-19] MEDS ORDERED: guaiFENesin 600 MG TABLET.ER (FP) PO PRN (10:12)
[2024-11-19] MEDS ORDERED: NICOTINE POLACRILEX 2 MG GUM BUC PRN (10:12)
[2024-11-19] MEDS ORDERED: LOPERAMIDE HCL 2 MG CAPSULE PO PRN (10:12)
[2024-11-19] MEDS ORDERED: DICYCLOMINE HCL 10 MG CAPSULE PO PRN (10:12)
[2024-11-19] MEDS ORDERED: P-EPHED 60MG/TRIPROLIDI 2.5MG TABLET PO PRN (10:12)
[2024-11-19] MEDS ORDERED: ONDANSETRON *ODT* 4 MG TABLET SL PRN (10:12)
[2024-11-19] MEDS ORDERED: BENZONATATE 200 MG CAPSULE PO PRN (10:12)
[2024-11-19] MEDS ORDERED: NICOTINE POLACRILEX 2 MG LOZENGE BC PRN (10:12)
[2024-11-19] MEDS ORDERED: BISMUTH SUBSALICYLATE 524 MG/30 ML PO PRN (10:12)
[2024-11-19] MEDS ORDERED: diazePAM 5 MG TABLET ONE (10:50)
[2024-11-19] MEDS ORDERED: ALBUTEROL SO4 HFA INHALER IH PRN (10:50)
[2024-11-19] MEDS: diazePAM 5 MG TABLET PO SCH (11:00)
[2024-11-19] MEDS: metFORMIN HCL 500 MG TABLET (FP) PO SCH (17:25)
[2024-11-19] MEDS: ATORVASTATIN CA 10 MG TABLET (FP) PO SCH (22:07)
[2024-11-19] MEDS: MELATONIN 5 MG TABLETS PO SCH (22:07)
[2024-11-19] MEDS: THIAMINE 100 MG TABLET PO SCH (22:07)
[2024-11-19] MEDS: traZODone HCL 100 MG TABLET (FP) PO SCH (22:07)
[2024-11-19] MEDS: BUDESONIDE/FORMETEROL FUMARATE 160/4.5 mcg INHALER IH SCH (22:09)
[2024-11-20] MEDS: diazePAM 5 MG TABLET PO SCH (05:37)
[2024-11-20 09:23] LABS: POTASSIUM 4.2 mmol/L (3.5-5.1)
[2024-11-20 09:30] LABS: ALBUMIN 3.6 g/dl (3.4-5.0); CALCIUM 8.8 mg/dL (8.5-10.1)
[2024-11-20 09:31] LABS: HEMATOCRIT 40.3 % (35.4-49); HEMOGLOBIN 13.4 GM/dL (11.7-16.9); MCH 29.7 pg (25.7-33.7); MCHC 33.2 g/dl (32.0-35.9); MEAN CELL VOLUME 89.5 fl (80-96); MEAN PLT VOLUME 8.4 fl (7.5-11.1); PLATELET COUNT 178 10^3/uL (134-434); RDW 13.3 % (11.9-15.9)
[2024-11-20 09:33] LABS: BLOOD UREA NITROGEN 10.8 mg/dL (7-18); CREATININE 0.8 mg/dL (0.55-1.3)
[2024-11-20 09:35] LABS: BILIRUBIN,TOTAL 0.6 mg/dL (0.2-1); TOT PROT 6.9 g/dl (6.4-8.2)
[2024-11-20] MEDS: METHOCARBAMOL 500 MG TABLET PO PRN (10:13)
[2024-11-20] MEDS: PRENATAL VITAMINS W/ FOLIC ACID TABLET (FP) PO SCH (10:13)
[2024-11-20] MEDS: lamoTRIgine 25 MG TABLET PO SCH (10:13)
[2024-11-20] MEDS: LISINOPRIL 5 MG TABLET PO SCH (10:13)
[2024-11-20] MEDS: ACETAMINOPHEN 325 MG TABLET (FP) PO PRN (14:52)
[2024-11-20] MEDS: METHYL SALICYLATE/MENTHOL 30 GM TUBE TP SCH (15:04)
[2024-11-21] MEDS: diazePAM 5 MG TABLET PO SCH (05:33)
[2024-11-22] MEDS: diazePAM 5 MG TABLET PO ONE (05:32)
[2024-11-22 06:42] VITALS: BP 92/52; PULSE 75; RESP 20; TEMP 97.8
[2024-11-22] MEDS: NALOXONE (NYS OPIOID OVERDOSE PROGRAM) 4 MG/0.1 ML SPRAY NS SCH (08:55)
[2024-11-22] MEDS: IBUPROFEN 600 MG TABLET (FP) PO PRN (09:15)
== END 2024-11-22 09:44 | disposition home or self-care (01) | DRG 774 ==
LOC: YASAS 09:08 → Y3N 10:26
PROVIDERS: ADMIT Neuromusculoskeletal Medicine & OMM; ATTEND Neuromusculoskeletal Medicine & OMM
PROC: HZ2ZZZZ Detoxification Services for Substance Abuse Treatment (ICD-10-PCS; principal; 2024-11-19)
DX: F10.230 Alcohol dependence with withdrawal, uncomplicated (principal); F14.20 Cocaine dependence, uncomplicated; F17.210 Nicotine dependence, cigarettes, uncomplicated; F19.282 Other psychoactive substance dependence with psychoactive substance-induced sleep disorder; F32.A Depression, unspecified; I10 Essential (primary) hypertension; E78.5 Hyperlipidemia, unspecified; E11.9 Type 2 diabetes mellitus without complications; Z79.84 Long term (current) use of oral hypoglycemic drugs; J45.909 Unspecified asthma, uncomplicated; M17.0 Bilateral primary osteoarthritis of knee; Z86.73 Personal history of transient ischemic attack (TIA), and cerebral infarction without residual deficits
CPT/HCPCS: 36415; 80053; 80305; 80307; 82962; 85027

== ENCOUNTER 2025-01-20 09:46 | Inpatient (IN) | payer OTHER ==
[2025-01-20 10:06] VITALS: BMI 40.6
[2025-01-20] MEDS ORDERED: BISMUTH SUBSALICYLATE 262 MG/15 ML BTL PO PRN (10:14)
[2025-01-20] MEDS ORDERED: IBUPROFEN 600 MG TABLET (FP) PO PRN (10:14)
[2025-01-20] MEDS ORDERED: NICOTINE POLACRILEX 2 MG LOZENGE BC PRN (10:14)
[2025-01-20] MEDS ORDERED: NICOTINE POLACRILEX 2 MG GUM BUC PRN (10:14)
[2025-01-20] MEDS ORDERED: LOPERAMIDE HCL 2 MG CAPSULE PO PRN (10:14)
[2025-01-20] MEDS ORDERED: BENZONATATE 200 MG CAPSULE PO PRN (10:14)
[2025-01-20] MEDS ORDERED: MAG HYDROX/AL HYDROX/SIMETH 30 ML UNIT-DOSE CUP PO PRN (10:14)
[2025-01-20] MEDS ORDERED: MAGNESIUM HYDROX 2400MG/30ML ORAL SUSPENSION 30 ML CUP PO PRN (10:14)
[2025-01-20] MEDS ORDERED: IBUPROFEN 400 MG TABLET (FP) PO PRN (10:14)
[2025-01-20] MEDS ORDERED: DICYCLOMINE HCL 10 MG CAPSULE PO PRN (10:14)
[2025-01-20] MEDS ORDERED: METHOCARBAMOL 500 MG TABLET PO PRN (10:14)
[2025-01-20] MEDS ORDERED: POLYETHYLENE GLYCOL (HEALTHYLAX) 3350 17 GM PACKET PO PRN (10:14)
[2025-01-20] MEDS ORDERED: ONDANSETRON *ODT* 4 MG TABLET SL PRN (10:14)
[2025-01-20] MEDS ORDERED: ACETAMINOPHEN 325 MG TABLET (FP) PO PRN (10:14)
[2025-01-20] MEDS ORDERED: guaiFENesin 600 MG TABLET.ER (FP) PO PRN (10:14)
[2025-01-20] MEDS ORDERED: BENZOCAINE/MENTHOL (CHLORASEPTIC ) LOZENGE MM PRN (10:14)
[2025-01-20] MEDS ORDERED: NALOXONE (NARCAN) HCL 4 MG/0.1 ML SPRAY NS PRN (10:14)
[2025-01-20] MEDS ORDERED: METHYL SALICYLATE/MENTHOL 30 GM TUBE TP PRN (10:15)
[2025-01-20] MEDS: BUDESONIDE/FORMETEROL FUMARATE 160/4.5 mcg INHALER IH SCH (21:25)
[2025-01-20] MEDS: ALBUTEROL SO4 HFA INHALER IH PRN (21:25)
[2025-01-20] MEDS: ATORVASTATIN CA 10 MG TABLET (FP) PO SCH (21:26)
[2025-01-20] MEDS: MELATONIN 5 MG TABLETS PO SCH (21:26)
[2025-01-20] MEDS: traZODone HCL 100 MG TABLET (FP) PO SCH (21:26)
[2025-01-20] MEDS: THIAMINE 100 MG TABLET PO SCH (21:26)
[2025-01-21] MEDS: metFORMIN HCL 500 MG TABLET (FP) PO SCH (06:08)
[2025-01-21 10:10] LABS: POTASSIUM 4.4 mmol/L (3.5-5.1)
[2025-01-21 10:19] LABS: HEMATOCRIT 39.4 % (35.4-49); HEMOGLOBIN 13.4 GM/dL (11.7-16.9); MCHC 33.9 g/dl (32.0-35.9); MEAN CELL VOLUME 88.3 fl (80-96); MEAN PLT VOLUME 8.7 fl (7.5-11.1); PLATELET COUNT 195 10^3/uL (134-434); RBC 4.46 M/mm3 (4.00-5.60); RDW 13.9 % (11.9-15.9); WHITE BLOOD COUNT 7.6 K/mm3 (4.0-10.0)
[2025-01-21] MEDS: lamoTRIgine 25 MG TABLET PO SCH (10:25)
[2025-01-21] MEDS: NALTREXONE HCL 50 MG TABLET PO SCH (10:25)
[2025-01-21] MEDS: PRENATAL VITAMINS W/ FOLIC ACID TABLET (FP) PO SCH (10:25)
[2025-01-21] MEDS: diazePAM 5 MG TABLET PO SCH (10:59)
[2025-01-21 11:00] LABS: ALBUMIN 3.7 g/dl (3.4-5.0)
[2025-01-21 11:01] LABS: BLOOD UREA NITROGEN 15.6 mg/dL (7-18); CALCIUM 8.7 mg/dL (8.5-10.1)
[2025-01-21 11:05] LABS: BILIRUBIN,TOTAL 0.7 mg/dL (0.2-1); CREATININE 0.8 mg/dL (0.55-1.3)
[2025-01-21] MEDS: LISINOPRIL 5 MG TABLET PO SCH (14:47)
[2025-01-22] MEDS: BACITRACIN 0.9 GM PACKET TP SCH (13:47)
[2025-01-23] MEDS: diazePAM 5 MG TABLET PO SCH (05:36)
[2025-01-23] MEDS: diazePAM 5 MG TABLET PO PRN (09:52)
[2025-01-23 21:19] VITALS: TEMP 97.8
[2025-01-24] MEDS: diazePAM 5 MG TABLET PO SCH (05:47)
[2025-01-24 06:12] VITALS: BP 112/81; PULSE 69; RESP 18
[2025-01-25] MEDS ORDERED: diazePAM 5 MG TABLET PO ONE (06:00)
== END 2025-01-24 10:23 | disposition home or self-care (01) | DRG 774 ==
LOC: YASAS 09:46 → Y3N 10:34
PROVIDERS: ADMIT Allergy & Immunology; ATTEND Allergy & Immunology
PROC: HZ2ZZZZ Detoxification Services for Substance Abuse Treatment (ICD-10-PCS; principal; 2025-01-20)
DX: F10.230 Alcohol dependence with withdrawal, uncomplicated (principal); F14.20 Cocaine dependence, uncomplicated; F17.210 Nicotine dependence, cigarettes, uncomplicated; I10 Essential (primary) hypertension; E78.2 Mixed hyperlipidemia; E11.9 Type 2 diabetes mellitus without complications; Z79.84 Long term (current) use of oral hypoglycemic drugs; J45.20 Mild intermittent asthma, uncomplicated; M54.50 Low back pain, unspecified; G89.29 Other chronic pain; Z99.89 Dependence on other enabling machines and devices; Z59.01 Sheltered homelessness
CPT/HCPCS: 36415; 80053; 80305; 80307; 82962; 85027; 86593; 86780; 93005; 93010

== ENCOUNTER 2025-04-24 12:14 | Inpatient (IN) | payer OTHER ==
[2025-04-24 13:04] VITALS: BMI 40.2
[2025-04-24] MEDS ORDERED: BENZONATATE 200 MG CAPSULE PO PRN (13:06)
[2025-04-24] MEDS ORDERED: DICYCLOMINE HCL 10 MG CAPSULE PO PRN (13:06)
[2025-04-24] MEDS ORDERED: METHOCARBAMOL 500 MG TABLET PO PRN (13:06)
[2025-04-24] MEDS ORDERED: guaiFENesin 600 MG TABLET.ER (FP) PO PRN (13:06)
[2025-04-24] MEDS ORDERED: ACETAMINOPHEN 325 MG TABLET (FP) PO PRN (13:06)
[2025-04-24] MEDS ORDERED: LOPERAMIDE HCL 2 MG CAPSULE PO PRN (13:06)
[2025-04-24] MEDS ORDERED: BENZOCAINE/MENTHOL (CHLORASEPTIC ) LOZENGE MM PRN (13:06)
[2025-04-24] MEDS ORDERED: POLYETHYLENE GLYCOL (HEALTHYLAX) 3350 17 GM PACKET PO PRN (13:06)
[2025-04-24] MEDS ORDERED: IBUPROFEN 600 MG TABLET (FP) PO PRN (13:06)
[2025-04-24] MEDS ORDERED: IBUPROFEN 400 MG TABLET (FP) PO PRN (13:06)
[2025-04-24] MEDS ORDERED: BISMUTH SUBSALICYLATE 524 MG/30 ML PO PRN (13:06)
[2025-04-24] MEDS ORDERED: MAG HYDROX/AL HYDROX/SIMETH 30 ML UNIT-DOSE CUP PO PRN (13:06)
[2025-04-24] MEDS ORDERED: chlordiazePOXIDE HCL 25 MG CAPSULE PO PRN (13:06)
[2025-04-24] MEDS ORDERED: NALOXONE (NARCAN) HCL 4 MG/0.1 ML SPRAY NS PRN (13:06)
[2025-04-24] MEDS ORDERED: ONDANSETRON *ODT* 4 MG TABLET SL PRN (13:06)
[2025-04-24] MEDS ORDERED: hydrOXYzine PAMOATE 25 MG CAPSULE (FP) PO PRN (13:06)
[2025-04-24] MEDS ORDERED: MAGNESIUM HYDROX 2400MG/30ML ORAL SUSPENSION 30 ML CUP PO PRN (13:06)
[2025-04-24] MEDS ORDERED: ALBUTEROL SO4 HFA INHALER IH PRN (14:57)
[2025-04-24] MEDS: ACAMPROSATE CALCIUM 333 MG TABLET.DR PO SCH (14:59)
[2025-04-24] MEDS ORDERED: chlordiazePOXIDE HCL 25 MG CAPSULE ONE (15:08)
[2025-04-24] MEDS ORDERED: LISINOPRIL 10 MG TABLET ONE (15:09)
[2025-04-24] MEDS: chlordiazePOXIDE HCL 25 MG CAPSULE PO SCH (15:11)
[2025-04-24] MEDS: LISINOPRIL 5 MG TABLET PO SCH (15:12)
[2025-04-24] MEDS: NALTREXONE HCL 50 MG TABLET PO ONE (15:42)
[2025-04-24] MEDS: metFORMIN HCL 500 MG TABLET (FP) PO SCH (17:14)
[2025-04-24] MEDS: MELATONIN 5 MG TABLETS PO SCH (22:27)
[2025-04-24] MEDS: ATORVASTATIN CA 10 MG TABLET (FP) PO SCH (22:27)
[2025-04-24] MEDS: THIAMINE 100 MG TABLET PO SCH (22:27)
[2025-04-24] MEDS: traZODone HCL 100 MG TABLET (FP) PO SCH (22:27)
[2025-04-24] MEDS: BUDESONIDE/FORMETEROL FUMARATE 160/4.5 mcg INHALER IH SCH (22:40)
[2025-04-25] MEDS ORDERED: NALTREXONE HCL 50 MG TABLET PO SCH (10:00)
[2025-04-25] MEDS: NALTREXONE HCL 50 MG TABLET PO SCH (10:10)
[2025-04-25] MEDS: PRENATAL VITAMINS W/ FOLIC ACID TABLET (FP) PO SCH (10:10)
[2025-04-25] MEDS: lamoTRIgine 25 MG TABLET PO SCH (10:10)
[2025-04-25] MEDS: NICOTINE 21 MG/24 HOURS TOPICAL PATCH TD SCH (10:10)
[2025-04-25 11:23] LABS: POTASSIUM 4.1 mmol/L (3.5-5.1)
[2025-04-25 11:24] LABS: HEMATOCRIT 44.2 % (40.1-51.0); HEMOGLOBIN 14.4 g/dL (13.7-17.5); MCHC 32.6 g/dl (32.3-36.5); MEAN CELL VOLUME 93.4 fl (79.0-92.2); MEAN PLT VOLUME 11.3 fl (9.4-12.4); PLATELET COUNT 202 x10^3/uL (163-337); RDW 12.9 % (12.2-16.1)
[2025-04-25 11:27] LABS: ALBUMIN 3.9 g/dl (3.4-5.0); BLOOD UREA NITROGEN 18.3 mg/dL (7-18)
[2025-04-25 11:28] LABS: CALCIUM 9.6 mg/dL (8.5-10.1)
[2025-04-25 11:33] LABS: BILIRUBIN,TOTAL 0.7 mg/dL (0.2-1); TOT PROT 7.2 g/dl (6.4-8.2)
[2025-04-26] MEDS: chlordiazePOXIDE HCL 25 MG CAPSULE PO SCH (05:34)
[2025-04-27] MEDS ORDERED: chlordiazePOXIDE HCL 10 MG CAPSULE PO PRN
[2025-04-27] MEDS: chlordiazePOXIDE HCL 10 MG CAPSULE PO SCH (05:41)
[2025-04-27 08:49] VITALS: RESP 16
[2025-04-27 16:46] VITALS: BP 115/74; PULSE 64; TEMP 97.5
[2025-04-28] MEDS ORDERED: chlordiazePOXIDE HCL 10 MG CAPSULE PO SCH (05:00)
[2025-04-29] MEDS ORDERED: chlordiazePOXIDE HCL 10 MG CAPSULE PO ONE (05:00)
== END 2025-04-27 17:14 | disposition home or self-care (01) | DRG 775 ==
LOC: YASAS 12:14 → Y3N 14:33
PROVIDERS: ADMIT Family Medicine; ATTEND Family Medicine
PROC: HZ2ZZZZ Detoxification Services for Substance Abuse Treatment (ICD-10-PCS; principal; 2025-04-24)
DX: F10.230 Alcohol dependence with withdrawal, uncomplicated (principal); F17.210 Nicotine dependence, cigarettes, uncomplicated; F33.0 Major depressive disorder, recurrent, mild; E78.5 Hyperlipidemia, unspecified; M19.90 Unspecified osteoarthritis, unspecified site; J44.9 Chronic obstructive pulmonary disease, unspecified; K74.60 Unspecified cirrhosis of liver; E11.9 Type 2 diabetes mellitus without complications; Z79.84 Long term (current) use of oral hypoglycemic drugs; Z99.89 Dependence on other enabling machines and devices; Z59.00 Homelessness unspecified; Z56.0 Unemployment, unspecified
CPT/HCPCS: 36415; 80053; 80305; 80307; 82962; 83036; 85027; 86593; 86780; 93005; 93010

== ENCOUNTER 2025-08-06 11:13 | Inpatient (IN) | payer OTHER ==
[2025-08-06 11:32] VITALS: BMI 39.1
[2025-08-06] MEDS ORDERED: NICOTINE POLACRILEX 2 MG GUM BUC PRN (11:54)
[2025-08-06] MEDS ORDERED: BISMUTH SUBSALICYLATE 524 MG/30 ML PO PRN (11:54)
[2025-08-06] MEDS ORDERED: guaiFENesin 600 MG TABLET.ER (FP) PO PRN (11:54)
[2025-08-06] MEDS ORDERED: POLYETHYLENE GLYCOL (HEALTHYLAX) 3350 17 GM PACKET PO PRN (11:54)
[2025-08-06] MEDS ORDERED: NICOTINE POLACRILEX 2 MG LOZENGE BC PRN (11:54)
[2025-08-06] MEDS ORDERED: ACETAMINOPHEN 325 MG TABLET (FP) PO PRN (11:54)
[2025-08-06] MEDS ORDERED: IBUPROFEN 400 MG TABLET (FP) PO PRN (11:54)
[2025-08-06] MEDS ORDERED: BENZOCAINE/MENTHOL (CHLORASEPTIC ) LOZENGE MM PRN (11:54)
[2025-08-06] MEDS ORDERED: NALOXONE (NARCAN) HCL 4 MG/0.1 ML SPRAY NS PRN (11:54)
[2025-08-06] MEDS ORDERED: MAG HYDROX/AL HYDROX/SIMETH 30 ML UNIT-DOSE CUP PO PRN (11:54)
[2025-08-06] MEDS ORDERED: MAGNESIUM HYDROX 2400MG/30ML ORAL SUSPENSION 30 ML CUP PO PRN (11:54)
[2025-08-06] MEDS ORDERED: LOPERAMIDE HCL 2 MG CAPSULE PO PRN (11:54)
[2025-08-06] MEDS ORDERED: DICYCLOMINE HCL 10 MG CAPSULE PO PRN (11:54)
[2025-08-06] MEDS ORDERED: BENZONATATE 200 MG CAPSULE PO PRN (11:54)
[2025-08-06] MEDS ORDERED: ALBUTEROL SO4 HFA INHALER IH PRN (12:46)
[2025-08-06] MEDS: hydrOXYzine PAMOATE 25 MG CAPSULE (FP) PO PRN (13:53)
[2025-08-06] MEDS: ONDANSETRON *ODT* 4 MG TABLET SL PRN (13:53)
[2025-08-06] MEDS: metFORMIN HCL 500 MG TABLET (FP) PO SCH (17:06)
[2025-08-06] MEDS: MELATONIN 5 MG TABLETS PO SCH (22:01)
[2025-08-06] MEDS: THIAMINE 100 MG TABLET PO SCH (22:01)
[2025-08-06] MEDS: METHOCARBAMOL 500 MG TABLET PO PRN (22:01)
[2025-08-06] MEDS: ATORVASTATIN CA 10 MG TABLET (FP) PO SCH (22:01)
[2025-08-06] MEDS: BUDESONIDE/FORMETEROL FUMARATE 160/4.5 mcg INHALER IH SCH (22:03)
[2025-08-07 08:49] LABS: MCHC 32.2 g/dl (32.3-36.5); MEAN CELL VOLUME 93.2 fl (79.0-92.2); MEAN PLT VOLUME 12.4 fl (9.4-12.4); RDW 13.1 % (12.2-16.1)
[2025-08-07] MEDS: ACAMPROSATE CALCIUM 333 MG TABLET.DR PO SCH (10:13)
[2025-08-07] MEDS: LISINOPRIL 5 MG TABLET PO SCH (10:15)
[2025-08-07] MEDS: PRENATAL VITAMINS W/ FOLIC ACID TABLET (FP) PO SCH (10:15)
[2025-08-07 10:25] LABS: GLUCOSE,RANDOM 137 mg/dL (74-106); TOT PROT 6.9 g/dl (6.4-8.2)
[2025-08-07 10:26] LABS: CO2 23 mmol/L (21-32)
[2025-08-07 10:28] LABS: ALK PHOS 128 U/L (40-150)
[2025-08-07 10:30] LABS: SGOT/AST 52 U/L (5-34); SGPT/ALT 65 U/L (0-55)
[2025-08-07 10:31] LABS: CREATININE 0.80 mg/dL (0.55-1.3)
[2025-08-07 12:51] LABS: SYPHILIS W/ RPR CONF REACTIVE (NONREACTIVE)
[2025-08-07 14:50] LABS: RPR REFLEX REACTIVE 1:2 (NONREACTIVE)
[2025-08-07] MEDS: traZODone HCL 100 MG TABLET (FP) PO SCH (22:20)
[2025-08-08] MEDS: PENICILLIN G BENZATHINE 2,400,000 UNIT/4 ML PFS IM ONE (14:58)
[2025-08-09 10:05] VITALS: BP 124/73; PULSE 66; RESP 16; TEMP 96.4
[2025-08-09] MEDS: IBUPROFEN 600 MG TABLET (FP) PO PRN (10:55)
== END 2025-08-09 12:03 | disposition home or self-care (01) | DRG 774 ==
LOC: YASAS 11:13 → Y3N 12:26
PROVIDERS: ADMIT Allergy & Immunology; ATTEND Allergy & Immunology
PROC: HZ2ZZZZ Detoxification Services for Substance Abuse Treatment (ICD-10-PCS; principal; 2025-08-06)
DX: F10.230 Alcohol dependence with withdrawal, uncomplicated (principal); F14.20 Cocaine dependence, uncomplicated; F17.210 Nicotine dependence, cigarettes, uncomplicated; F33.0 Major depressive disorder, recurrent, mild; G47.00 Insomnia, unspecified; J43.0 Unilateral pulmonary emphysema [MacLeod's syndrome]; M16.0 Bilateral primary osteoarthritis of hip; M17.0 Bilateral primary osteoarthritis of knee; M54.50 Low back pain, unspecified; G89.29 Other chronic pain; E78.2 Mixed hyperlipidemia; E11.9 Type 2 diabetes mellitus without complications; Z79.84 Long term (current) use of oral hypoglycemic drugs
CPT/HCPCS: 36415; 80053; 80307; 82962; 85027; 86593; 86780; 93005; 93010; Q0162